=== PATIENT | female | born 1965 | race Caucasian/White ===

== ENCOUNTER 2024-01-23 20:07 | Emergency (ER) | payer OTHER, SELFPAY ==
[2024-01-23 20:08] VITALS: BP 153/102; PULSE 77; RESP 16; TEMP 36.3; O2SAT 97; BMI 29.4
[2024-01-23 21:45] VITALS: BP 156/97; PULSE 63; RESP 16; TEMP 36.6; O2SAT 99
--- NOTE | 2024-01-23 22:39 | EDS_ITS ---
HPI History of Present Illness Chief Complaint: Wound Informant: patient and spouse/S.O. Narrative Narrative: Very pleasant 58-year-old female presenting to the emergency room with bleeding from the right lower leg. Patient notes that the bleeding is occurring in the area of the varicose vein. She is not on any blood thinners. She does not take aspirin. [facility] Medical History Broken back History of broken nose Arthritis Hypothyroidism Varicose veins of both lower extremities Home Medications ?Medication ?Instructions ?Recorded ?Last Taken ?Type famotidine 20 mg tablet 20 mg PO DAILY PRN heartburn 01/23/24 Unknown History levothyroxine 25 mcg tablet 25 mcg PO DAILY 01/23/24 Unknown History meclizine 50 mg tablet (Antivert) 50 mg PO DAILY PRN dizziness 01/23/24 Unknown History meloxicam 15 mg tablet 15 mg PO DAILY 01/23/24 Unknown History Allergy/AdvReac Type Severity Reaction Status Date / Time No Known Allergies Allergy Verified 01/23/24 20:08 Surgical History H/O tubal ligation History of repair of anterior cruciate ligament of left knee Social History Smoking Status: Never smoker ROS ROS ED Constitutional Constitutional ED: Denies chills or weight loss Eyes Eyes: Denies change in vision or diplopia ENT ENT ED: Denies ear pain, rhinorrhea or sore throat Cardiovascular Cardiovascular: Denies chest pain, orthopnea, palpitations or racing heartbeat Respiratory/Chest Respiratory/Chest: Denies cough, dyspnea or orthopnea Gastrointestinal Gastrointestinal: Denies abdominal pain, diarrhea, nausea or vomiting Genitourinary Genitourinary ED: Denies dysuria, hematuria or urinary frequency Musculoskeletal Musculoskeletal: Denies arthralgias or myalgias Integumentary Reports other Details: See history of present illness ; Denies abscess or rash Neurologic Neurologic: Denies headache(s) or weakness Psychiatric Psychiatric: Denies anxiety, depression, suicidal ideation or suicidal thoughts Endocrine Endocrinology: Denies polydipsia, polyphagia or polyuria Allergic/Immunologic Allergic/Immunologic ED: Denies mouth swelling, tongue swelling or urticaria EXAM Physical Exam Const Vital Signs: 01/23/24 20:08 01/23/24 21:45 Temperature 97.4 F L 98 F Temperature Source Temporal Pulse Rate 77 63 Respiratory Rate 16 16 Blood Pressure 153/102 H 156/97 H Blood Pressure Mean 119 116 Pulse Ox 97 99 Positive well nourished and well developed General Appearance ED: well developed and NAD HEENT Reports normocephalic, head/scalp atraumatic and moist mucous membranes Eyes PERRL and EOMs intact bilaterally Neck no lymphadenopathy, supple and no JVD Resp normal respiratory effort and clear to auscultation bilaterally Cardio regular rate, regular rhythm and no murmurs GI normal to inspection, nondistended, normoactive bowel sounds and non-tender Palpation: soft Back/Spine no CVA tenderness and normal ROM Extremity normal to inspection General Extremety ED: Negative for edema General Extremity: Negative for edema Neuro oriented x3 and CN's II-XII intact bilaterally Sensorium / Orientation: alert Motor Exam: strength 5/5 throughout Psych mental status grossly normal Mood & Affect: Negative for depressed or tearful Skin no rashes or lesions noted and no wounds Skin Narrative: There is a fresh clot at the level of the varicose vein on the anterior lower third left briseno. There is no active bleeding. The clot/scab is about 2 to 3 mm in width. No evidence of secondary infection MDM MDM MDM Narrative Medical decision making narrative: A small amount of Dermabond was placed on the wound and then covered with Band- Aid. She was advised to elevate the legs over the next 2 days. She is instructed to avoid any prolonged standing. I would recommend direct pressure for 15 minutes if bleeding returns. Follow-up as needed return if worsening or concern History & Record Review Discussion w/independent historian: Patient Discharge Plan Triage Chief Complaint: Wound ED Provider: Paul Luu Dx/Rx/DC Orders Clinical Impression: Bleeding from varicose veins of left lower extremity Instructions: ED Varicose Veins Prescriptions: No Action famotidine 20 mg tablet 20 mg PO DAILY PRN (Reason: heartburn) meloxicam 15 mg tablet 15 mg PO DAILY levothyroxine 25 mcg tablet 25 mcg PO DAILY meclizine [Antivert] 50 mg tablet 50 mg PO DAILY PRN (Reason: dizziness) Primary Care Provider: Gerardo De Luna Referrals: Gerardo De Luna, DO [Primary Care Provider] - As Needed Print Language: Danish Disposition Disposition: Home, Self Care Discharge Date/Time: 01/23/24 21:46
== END 2024-01-23 21:46 | disposition home or self-care (01) ==
LOC: ED 21:22
PROVIDERS: Emergency Provider Emergency Medicine; PCP Internal Medicine; Visit Provider Emergency Medicine
DX: I83.92 Asymptomatic varicose veins of left lower extremity (principal); E03.9 Hypothyroidism, unspecified; Z79.899 Other long term (current) drug therapy
CPT/HCPCS: 12001; 99283

== ENCOUNTER → 2024-01-26 | Outpatient (CLI) | payer OTHER, SELFPAY ==
[2024-01-26 08:07] LABS: Hematocrit 43.2 % (37-47); Hemoglobin 14.5 g/dL (12.0-15.0); Mean Corp Hgb Conc 33.6 g/dL (32-36); Mean Corpuscular Hgb 32.7 pg (27.0-32.0); Mean Corpuscular Volume 97.5 fL (81-99); Mean Platelet Vol. 9.6 fl (6.2-12.0); Platelet Count 274 K/mm3 (150-450); RBC Distribution Width CV 11.4 % (11.6-14.6); RBC Distribution Width SD 41.4 fl (35.1-43.9); Red Blood Count 4.43 M/mm3 (4.2-5.4); White Blood Count 6.2 K/mm3 (4.4-11.0)
[2024-01-26 08:34] LABS: Vitamin D,25 Hydroxy 34.8 ng/mL
[2024-01-26 08:44] LABS: AST(SGOT) 19 U/L (15-37); Alanine Aminotransfer ALT/SGPT 22 U/L (13-56); Albumin, Serum 3.9 g/dL (3.2-5.0); Alkaline Phosphatase 92 U/L (45-117); Anion Gap 4 (5-15); BUN 11 mg/dL (7-18); BUN/Creat Ratio 13.6 RATIO (10-20); Calcium,Total 9.2 mg/dL (8.5-10.1); Chloride 107 mmol/L (98-107); Cholesterol 256 mg/dL (200); Creatinine, Serum 0.81 mg/dL (0.55-1.02); EST Glomerular Filtration Rate 78 mL/min (>60); Est Glom Filt Rate - Afr Amer 94 mL/min (>60); Glucose 102 mg/dL (74-106); High Density Lipoprotein 48 mg/dL; Potassium 4.1 mmol/L (3.5-5.1); Protein, Total 7.9 g/dL (6.4-8.2); Sodium Level 139 mmol/L (136-145); Triglycerides 280 mg/dL; Very Low Density Lipoprotein 56 mg/dL (5-40)
== END | disposition home or self-care (01) ==
LOC: LAB 07:37
DX: Z00.8 Encounter for other general examination (principal); Z78.0 Asymptomatic menopausal state; E03.9 Hypothyroidism, unspecified
CPT/HCPCS: 36415; 80053; 80061; 82306; 84443; 85027

== ENCOUNTER → 2024-02-06 | Outpatient (CLI) | payer OTHER, SELFPAY ==
--- NOTE | 2024-02-06 07:34 | BI_ITS ---
MAMMOGRAPHY - BILATERAL SCREENING REASON FOR EXAM: Female, 58 years old. Routine annual screening examination. PERTINENT HISTORY: Grandmother with breast cancer. TECHNIQUE: Digital bilateral breast ilda (3D mammographic acquisition) in the CC and MLO projections. 2-D mediolateral oblique (MLO) and craniocaudad (CC) views of both breasts were obtained. CAD: Full Field Digital Mammography with Computer Added Detection was performed. COMPARISON: Comparison is made with prior outside examination dated December 16, 2022. FINDINGS: Breast Composition: The breasts are extremely dense, which lowers the sensitivity of mammography. There are no dominant masses or suspicious calcifications. No other significant abnormalities are identified. There has been no significant change since the prior study. BI/SCRN MAMM (CAD)W/ILDA BILAT IMPRESSION: Stable bilateral screening mammogram. Yearly follow-up mammogram recommended. (A) ASSESSMENT CATEGORY: BIRADS Category 1: Negative. A letter regarding these results will be sent to the patient by the facility within 30 days. Approximately 10% of breast cancers are not detected by mammography. A normal mammogram should not delay biopsy of a clinically suspicious abnormality. [id number] Electronically Signed: Kendrick Christianson MD at 8:46 EDT ,
== END | disposition home or self-care (01) ==
LOC: OPBI 07:31
DX: Z12.31 Encounter for screening mammogram for malignant neoplasm of breast (principal)
CPT/HCPCS: 77063; 77067

== ENCOUNTER → 2024-03-28 | Outpatient (CLI) | payer OTHER, SELFPAY | END | disposition home or self-care (01) | DX: E03.9 Hypothyroidism, unspecified (principal) | CPT/HCPCS: 36415; 84443 ==

== ENCOUNTER → 2024-05-02 | Outpatient (CLI) | payer OTHER, SELFPAY ==
--- OUTSIDE RECORDS SUMMARY | 2024-05-02 06:38 | XMS RPT_ITS | CCD ---
Author Organization [facility] Care Team Providers Care Jinriksha Driver Name Role Phone DICUS, LEONOR Unavailable Unavailable DICUS, LEONOR Unavailable Unavailable JESSICA, CASI N Unavailable Unavailable JESSICA, CASI N Unavailable Unavailable JESSICA, CASI N Unavailable Unavailable JESSICA, CASI N Unavailable Unavailable NONE, NONE Unavailable Unavailable JESSICA, CASI N Unavailable Unavailable JESSICA, CASI N Unavailable Unavailable IRENE, MAAME Unavailable Unavailable IRENE, MAAME Unavailable Unavailable Varun Lzeama [phone] Unavailable U navailable JESSICA, CASI N Unavailable Unavailable No, Physician Primary Care Provider Unavailabl e Casi Cevallos Primary Care Provider Casi Cevallos Unavailable Dana CRAWLER DRAGLINE OPERATORCasi Primary Care Provider Casi Cevallos CNP Unavailable Casi Cevallos CNP Unavailable Dana CRAWLER DRAGLINE OPERATORCasi Primary Care Provider Casi Cevallos CNP Unavailable [phone] Dana CRAWLER DRAGLINE OPERATOR, Casi Russo Primary Care Provider CASI CEVALLOS Primary Care Unavailab Noris Ang Attending Unavailable ALEXANDER MELGOZA Attending Unavail able CASI CEVALLOS Primary Care Unavailab le CASI CEVALLOS Attending Unavailab le CASI CEVALLOS Primary Care Unavailab le CASI CEVALLOS Attending Unavailab le CEVALLOSCASI Primary Care Unavailab le CEVALLOSCASI Attending Unavailab le CEVALLOS, CASI RUSSO Primary Care Unavailab le CEVALLOS, CASI WINNIE Primary Care Unavailab le SELF, REQUESTING Attending Unavailable CEVALLOS, CASI RUSSO Primary Care Unavailab le PAULIEJeana Attending Unavailable CEVALLOS, CASI RUSSO Primary Care Unavailab caitlyn PAULIEJeana Attending Unavailable CEVALLOS, CASI RUSSO Attending Unavailab le CEVALLOS, CASI WINNIE Primary Care Unavailab le Cevallos CRAWLER DRAGLINE OPERATOR, [facility] Cevallos CRAWLER DRAGLINE OPERATOR, Casi Russo Unavailable CEVALLOS, CASI RUSSO Primary Care Unavailab le CEVALLOS, CASI RUSSO Attending Unavailab le CEVALLOS, CASI RUSSO Primary Care Unavailab le KALEB, GERARDO LEOS Attending CORNELL Quinteros Attending Unavailable CEVALLOS, CASI WINNIE Primary Care Unavailab le CEVALLOS, CASI WINNIE Primary Care Unavailab le CEVALLOS, CASI RUSSO Attending Unavailab le CEVALLOS, CASI RUSSO Attending Unavailab le CEVALLOS, CASI WINNIE Primary Care Unavailab le CEVALLOS, CASI WINNIE Primary Care Unavailab le CEVALLOS, CASI RUSSO Attending Unavailab le CEVALLOS, CASI RUSSO Referring Unavailab le CEVALLOS, CASI RUSSO Attending Unavailab le CEVALLOS, CASI WINNIE Primary Care Unavailab le [facility], [facility] Care Unavailab PITER Goetz Attending Unavailable Medications Current Medications Medication Drug Class(es) Dates Sig (Normalized) Sig (Original) aspirin 81 mg / calcium carbonate 777 mg oral tablet (20 sources) Platelet Aggregation Inhibitor, Nonsteroidal Anti-inflammatory Drug aspirin-calcium carbonate 81 mg-300 mg calcium(777 mg) Tab Take 81 mg by mouth . Active atorvastatin 20 mg oral tablet (11 sources) HMG-CoA Reductase Inhibitor Start: 02-15-2024 End: 05-15-2024 take 1 tablet by mouth once daily atorvastatin (LIPITOR) 20 MG tablet Take 1 (one) tablet (20 mg total) by mouth daily . 90 tablet 02/15/2024 05/15/2024 Active busPIRone hydrochloride 15 mg oral tablet (14 sources) Start: 10-29-2020 End: 02-06-2023 busPIRone (BUSPAR) 15 MG tablet Indications: Anxiety Take 1/2 tablet twice a day as needed . 30 tablet 0 10/29/2020 02/06/2023 Discontinued famotidine 20 mg oral tablet (20 sources) Histamine-2 Receptor Antagonist Start: 02-06-2023 End: 02-06-2024 take 1 tablet by mouth once daily as needed for gastroesophageal reflux disease famotidine (PEPCID) 20 MG tablet Indications: Elevated TSH Take 1 (one) tablet (20 mg total) by mouth daily as needed for heartburn . 90 tablet 02/06/2023 Active levothyroxine sodium 0.075 mg oral tablet (20 sources) l-Thyroxine Start: 04-04-2024 End: 05-19-2024 take 1 tablet by mouth once daily levothyroxine (SYNTHROID, LEVOTHROID) 75 MCG tablet Take 1 (one) tablet (75 mcg total) by mouth once daily . 45 tablet 04/04/2024 05/19/2024 Active Start: 02-27-2024 End: 04-04-2024 take 1 tablet by mouth once daily levothyroxine (SYNTHROID, LEVOTHROID) 50 MCG tablet Indications: Hypothyroidism, unspecified type Take 1 (one) tablet (50 mcg total) by mouth once daily for 7 days . 7 tablet 03/27/2024 04/04/2024 Discontinued Start: 02-07-2023 End: 05-15-2024 take 1 tablet by mouth once daily levothyroxine (SYNTHROID, LEVOTHROID) 25 MCG tablet Indications: Beto's disease Take 1 tablet by mouth once daily 90 tablet 03/01/2024 03/27/2024 Discontinued meclizine hydrochloride 12.5 mg oral tablet (20 sources) Antiemetic Start: 01-20-2020 End: 08-22-2022 take 1 tablet by mouth three times daily as needed meclizine (ANTIVERT) 12.5 mg tablet Take 1 (one) tablet (12.5 mg total) by mouth 3 (three) times a day as needed . 30 tablet 08/22/2022 Active meloxicam 15 mg oral tablet (20 sources) Nonsteroidal Anti-inflammatory Drug Start: 07-12-2018 End: 02-27-2024 take 1 tablet by mouth once daily meloxicam (MOBIC) 15 MG tablet Take 1 tablet by mouth once daily 90 tablet 02/27/2024 Active ondansetron 4 mg oral tablet (20 sources) Serotonin-3 Receptor Antagonist Start: 01-20-2020 End: 01-10-2022 take 1 tablet by mouth every eight hours as needed ondansetron (ZOFRAN) 4 MG tablet Take 1 (one) tablet (4 mg total) by mouth every 8 (eight) hours as needed . 9 tablet 01/10/2022 Active predniSONE 20 mg oral tablet (1 source) Start: 04-06-2023 End: 04-10-2023 take 2 tablets by mouth once daily predniSONE (DELTASONE) 20 MG tablet Indications: Poison thanh Take 2 (two) tablets (40 mg total) by mouth daily for 4 days . 8 tablet 0 04/06/2023 04/10/2023 Active progesterone 200 mg oral capsule (14 sources) Progesterone Start: 10-06-2020 End: 02-06-2023 take 1 capsule by mouth once daily progesterone (PROMETRIUM) 200 MG capsule Take 1 (one) capsule (200 mg total) by mouth nightly For 14 days. Cycle days 15 through 28 for 3 months as directed . 0 10/06/2020 02/06/2023 Discontinued Start: 10-06-2020 progesterone ( PROMETRIUM) 200 MG capsule Take 200 mg by mouth nightly For 14 days. Cycle days 15 through 28 for 3 months as directed . 0 10/06/2020 Active Problems Active Problems Problem Classification Problem Date Documented Date Episodic/Chronic Allergic reactions (1 source) Contact dermatitis due to poison thanh; Translations: [Allergic contact dermatitis due to plants, except food] 04-06-2023 Episodic Anxiety disorders (1 source) Anxiety; Translations: [Anxiety] Chronic Coma; stupor; and brain damage (3 sources) Daytime somnolence; Translations: [Somnolence] Onset: 04-30-2024 03-20-2024 Episodic Disorders of lipid metabolism (1 source) Hyperlipidemia; Translations: [Hyperlipidemia, unspecified] 02-06-2023 Chronic Esophageal disorders (1 source) Gastroesophageal reflux disease; Translations: [Gastro-esophageal reflux disease without esophagitis] 02-06-2023 Chronic Mood disorders (1 source) Depressive disorder; Translations: [Depression, unspecified depression type] Chronic Osteoarthritis (9 sources) Arthritis of right hip; Translations: [Unilateral primary osteoarthritis, right hip] Onset: 08-24-2022 Chronic Other circulatory disease (1 source) Elevated blood-pressure reading without diagnosis of hypertension; Translations: [Elevated blood-pressure reading, without diagnosis of hypertension] 02-06-2023 Episodic Other female genital disorders (1 source) Abnormal uterine bleeding; Translations: [Abnormal uterine bleeding] Chronic Other lower respiratory disease (2 sources) Snoring; Translations: [Snoring] 02-29-2024 Episodic Other non-traumatic joint disorders (1 source) Hip pain; Translations: [Pain in left hip] Episodic Residual codes; unclassified (1 source) Menopause present; Translations: [Asymptomatic menopausal state] 2023 Episodic Residual codes; unclassified (2 sources) Asymptomatic menopausal state; Translations: [Asymptomatic menopausal state] Onset: 02-12-2024 Episodic Thyroid disorders (20 sources) Beto thyroiditis; Translations: [Autoimmune thyroiditis] Onset: 03-20-2023 02-07-2023 Chronic Unclassified (20 sources) Encounter for screening mammogram for malignant neoplasm of breast; Translations: [Encounter for screening for malignant neoplasm of cervix] Onset: 08-24-2017 11-01-2018 Episodic Unclassified (6 sources) Patient encounter status; Translations: [Encounter for colorectal cancer screening] Onset: 11-01-2018 11-01-2018 Varicose veins of lower extremity (1 source) Varicose veins of lower extremity; Translations: [Varicose veins of bilateral lower extremities with pain] 02-29-2024 Episodic Past or Other Problems Problem Classification Problem Date Documented Date Episodic/Chronic Immunizations and screening for infectious disease (1 source) Encounter for screening for human papillomavirus (HPV); Translations: [ENC SCREENING HUMAN PAPILLOMAVIRUS] Onset: 08-24-2017 Episodic Medical examination/evaluatio n (3 sources) Encounter for gynecological examination (general) (routine) without abnormal findings; Translations: [ENC PC TECH EX GEN RTN W/O ABNORM FIND] Onset: 08-21-2017 Episodic Unclassified (1 source) Family history of malignant neoplasm of breast; Translations: [FAMILY HX MALIG NEOPLASM OF BREAST] Onset: 09-22-2017 Episodic Results Test Name Value Interpretation Reference Range Facility THINPREP PAP SMEARon 024 THINPREP PAP SMEAR Gynecologic Cytology Report Case: [id number] Authorizing Provider: Piter Garza MD Collected: 04/11/2024 Ordering Location: [facility] Received: 04/17/2024 02:16 PM Laboratory Services First Screen: Nelda NIXON(ASCP)Jose Pathologist: Sage Olmstead MD Specimen: THINPREP PAP SMEAR, Cervix / Endocervix Satisfactory for evaluation; endocervical/transform ation zone component present Atypical squamous cells of undetermined significance The Pap smear is a screening test for the detection of cervical cancer and its precursor lesions. False positive and false negative results can occur. The test should be performed at regular intervals, and positive results should be confirmed before definitive therapy. Additional testing methods may be helpful in detecting abnormalities or in clinical management. The specimen has been analyzed by the ThinPrep imaging system, an automated imaging and review system which assists the laboratory in evaluating cells on ThinPrep tests. Following automated imaging selected pozo from every slide are reviewed by a supervisor cutting department. Specimen processing and Primary Screening performed at: [facility] - [address] [place] [address] HPV 16 : Negative HPV 18 : Negative HPV, Other HR Types : Negative Assay performed using Duane Campbell 4800 system utilizing Real-Time PCR to amplify target HPV DNA. This system specifically identifies HPV16 and HPV18 while concurrently detecting the other twelve high risk types (31,33,35,39,45,51,52, 56,58,59,66,68). These HPV results have been electronically added to this report as an aid for patient management. HPV testing performed at: [facility] - [address] [place] [address] - Abnormal [facility] Comment on above: Performed By: #### [id number] #### [facility] [address] [place] [address] Dain Ravi M.D. [id number] TSH DL <= 0.005 mIU/L Qnon 0 03-20-2023 TSH Qn 1.96 m[IU]/L [facility] Thyroid Stimulating Hormoneo n 03-20-2023 TSH 1.96 uIU/mL Normal 0.32-5.00 [facility] Comment on above: Performed By: #### T SH #### [facility] (DEFAULT) [address] [place], [place] [address] US THYROIDon 02-08-2023 [facility] Patient: JIE LUJAN [address] [place] [address] Admit Date: 02/08/23 /Age: 05 1965 ED Physician: DIAGNOSTIC RADIOLOGY REQUISITION Attending Physician: Casi Cevallos CNP Med Rec #: [id number] EXAM: US THYROID HISTORY: BETO'S COMPARISON: None. FINDINGS: Right lobe: 4.7 x 1.5 x 1.5 cm. Isthmus: 5 mm. Left lobe: 4.1 x 1.5 x 1.4 cm. The gland is heterogeneous in echotexture with normal color Doppler flow. 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 No mass. IMPRESSION: Consistent with Beto's thyroiditis. No acute change. Authenticated on: 02/08/23 [id number] Job ID# [id number] CC: Casi Cevallos CNP Normal [facility] TSH DL <= 0.005 mIU/L Qnon 0 02-06-2023 Interpretation and review of laboratory results Abnormal [facility] TSH Qn 11.50 m[IU]/L High [facility] Thyroid Peroxidase (TPO) Abo n 02-06-2023 Thyroid Peroxidase (TPO) Ab THYROID PEROXIDASE ANTIBODIES: 115.9 Units: IU/mL Ref Range: 0.0-9.0 Status: H Testing Performed At: [facility] Services [address] [place] [address] Assay performed by [employer] DXI Immunoassay. Normal [facility] Comment on above: Performed By: #### T PAB #### [facility] (DEFAULT) [address] [place] [id number] Thyroid Stimulating Hormoneo n 02-06-2023 TSH 11.50 uIU/mL High 0.32-5.00 [facility] Comment on above: Performed By: #### T SH #### [facility] (DEFAULT) [address] [place], [place] [address] 3D MAMMO B/L SCREENINGon 3D MAMMO B/L SCREENING [facility] Patient: JIE LUJAN [address] [place] [address] Admit Date: 12/16/22 /Age: 05 1965 Attending Physician: Self Requesting DIAGNOSTIC RADIOLOGY REQUISITION Med Rec #: [id number] HISTORY: Screening. TECHNIQUE: Bilateral digital screening mammogram with CAD. 3-D tomography. FINDINGS: Two views of each breast show heterogeneously dense fibroglandular tissue, which may obscure small masses, bilaterally symmetric. BREAST DENSITY CODE: Heterogeneously dense No change from prior studies, most recent of 11/19/2021. Suspicious calcifications: None. Suspicious mass: None. (If skin markers were applied, circles represent skin lesions and linear markers represent scars.) ASSESSMENT: BIRADS: 1 Negative, no evidence of malignancy. A letter of notification will be sent to the patient regarding the results. Authenticated on: 12/19/22 1635 [id number] Job ID# [id number] CC: Casi Cevallos, SUNDEEP Self Requesting Normal [facility] M TUBERCULOSIS BY Amol ALEGRIA 10-11-2022 M. TB Mitogen-Nil 9.98 IU/mL Normal [facility] Comment on above: Order Comment: The M . Tuberculosis antigen levels cannot be correlated to stage or degree of infection, response to therapy or likelihood for progression to active disease. Results from QuantiFERON TB Gold Plus must be used in conjunction with individual epidemiological history, current medical status, and results of other diagnostic evaluation. Performed By: #### Q FTB #### [facility] (DEFAULT) [address] [address] M. TB Nil 0.02 IU/mL Normal [facility] Comment on above: Order Comment: The M . Tuberculosis antigen levels cannot be correlated to stage or degree of infection, response to therapy or likelihood for progression to active disease. Results from QuantiFERON TB Gold Plus must be used in conjunction with individual epidemiological history, current medical status, and results of other diagnostic evaluation. Performed By: #### Q FTB #### [facility] (DEFAULT) [address] [address] M. TB TB1-Nil 0.01 IU/mL Normal [facility] Comment on above: Order Comment: The M . Tuberculosis antigen levels cannot be correlated to stage or degree of infection, response to therapy or likelihood for progression to active disease. Results from QuantiFERON TB Gold Plus must be used in conjunction with individual epidemiological history, current medical status, and results of other diagnostic evaluation. Performed By: #### Q FTB #### [facility] (DEFAULT) [address] [place] [address] M. TB TB2-Nil 0.00 IU/mL Normal [facility] Comment on above: Order Comment: The M . Tuberculosis antigen levels cannot be correlated to stage or degree of infection, response to therapy or likelihood for progression to active disease. Results from QuantiFERON TB Gold Plus must be used in conjunction with individual epidemiological history, current medical status, and results of other diagnostic evaluation. Performed By: #### Q FTB #### [facility] (DEFAULT) [address] [address] M. Tuberculosis by Quantiferon in tube Negative Normal Negative [facility] Comment on above: Order Comment: The M . Tuberculosis antigen levels cannot be correlated to stage or degree of infection, response to therapy or likelihood for progression to active disease. Results from QuantiFERON TB Gold Plus must be used in conjunction with individual epidemiological history, current medical status, and results of other diagnostic evaluation. Performed By: #### Q FTB #### [facility] (DEFAULT) [address] [address] HIP ARTHROGRAMon 08-24-2022 HIP ARTHROGRAM [facility] Patient: JIE [place] [address] Admit Date: 08/24/22 /Age: 05 1965 / 08/24/22 ED Physician: DIAGNOSTIC RADIOLOGY REQUISITION Attending Physician: Jeana Camacho MD Med Rec #: [id number] EXAMINATION: HIP ARTHROGRAM HISTORY: HIP INJECTION. Left hip pain. COMPARISON: Left hip 08/17/2022. FLUOROSCOPY TIME: Fluoro time measures 1.2 minutes and a single spot image was saved. TECHNIQUE: Left hip arthrogram for pain control. FINDINGS: Informed consent was obtained. Timeout performed. Patient placed supine on the fluoroscopy table and after sterile preparation and draping, 15 mL of 1% buffered lidocaine local anesthesia administered through a 25-gauge needle. Subsequently 3.5 22-gauge spinal needle advanced into the left hip joint at the lateral femoral neck and a test injection of Isovue 300 contrast, 3 mL, showed intra-articular needle placement. Subsequently 1 mL of 40 mg/mL triamcinolone acetate and 1 mL of Sensorcaine 0.5% was instilled without complication. I gave the home-going instructions. The patient tolerated the procedure well. IMPRESSION: Left hip arthrogram for pain control. Authenticated on: 08/24/22 1439 [id number] Job ID# [id number] CC: MD Casi Rose, CRAWLER DRAGLINE OPERATOR Normal [facility] HIP LT MIN 2V W OR WO PELVIS on 08-17-2022 HIP LT MIN 2V W OR WO PELVIS [facility] Patient: JIE [place] [address] Admit Date: 08/17/22 /Age: 05 1965 / ED Physician: DIAGNOSTIC RADIOLOGY REQUISITION Attending Physician: Jeana Camacho MD Med Rec #: [id number] EXAM: HIP LT MIN 2V W OR WO PELVIS HISTORY: ARTHRITIS COMPARISON: 03/17/2021 FINDINGS/IMPRESSION: 1. Moderate osteoarthritic changes are similar. Osteophytes on the superior lateral acetabulum, left greater than right unchanged. 2. Femoral heads remain rounded. 3. No fracture. 4. Mild degenerative change left SI joint. Authenticated on: 08/17/22 1343 [id number] Job ID# [id number] CC: MD Casi Rose, CRAWLER DRAGLINE OPERATOR [facility] NOVEL CORONAVIRUSon 06-03-20 21 PERFORMED BY [facility] Normal [facility] Comment on above: Performed By: #### C COVID #### [place] [address] SARS-CoV-2 (COVID-19) RNA LORRIE+probe Ql (Unsp spec) Not detected Normal NOT DETECTED [facility] Comment on above: Result Comment: Nega tive results do not preclude SARS-CoV-2 infection and should not be used as the sole basis for treatment or other patient management decisions. Optimum specimen types and timing for peak viral levels during infections caused by SARS-CoV-2 has not been determined. The possibility of a false negative result should especially be considered if the patient's recent exposures or clinical presentation suggest that SARS-CoV-2 infection is probable, and diagnostic tests for other causes of illness (e.g., other respiratory illness) are negative. Collection of a new specimen and re-testing may be necessary if the patient is critically ill or clinically deteriorating. Performed By: #### C COVID #### [place] [address] NARRATIVE This test was performed using isothermal LORRIE and has been approved as Emergency Use Authorization (EUA) for the qualitative detection [id number] nucleic acid. Normal [facility] Comment on above: Performed By: #### C COVID #### [place] [address] HCV ABon 11-15-2017 HEP C VIRUS AB <0.1 Normal 0.0-0.9 [facility] Comment on above: Result Comment: (NOT E) Negative: < 0.8 Indeterminate: 0.8 - 0.9 Positive: > 0.9The [facility] recommends that a positive HCV antibody resultbe followed up with a HCV Nucleic Acid Amplificationtest ([id number]).PERFORMED AT [facility] Performed By: #### L HBSAB, LHCAB, LMMR ####Testing performed at [address] [place] [address] HEP B SURFACE ABon 8 BSA (Body Surface Area) Reactive Normal [facility] Comment on above: Result Comment: (NOT E) Non Reactive: Inconsistent with immunity, less than 10 mIU/mL Reactive: Consistent with immunity, greater than 9.9 mIU/mLPERFORMED AT [facility] Performed By: #### L HBSAB, LHCAB, LMMR ####Testing performed at [address] [place] [address] MEASLES,MUMP,RUBELLAon 11-15 MUMPS ABS, IGG 173.0 AU/mL Normal Immune >10.9 [facility] Comment on above: Result Comment: (NOT E) Negative <9.0 Equivocal 9.0 - 10.9 Positive >10.9A positive result generally indicates past exposure toMumps virus or previous vaccination.PERFORMED AT [facility] Performed By: #### L HBSAB, LHCAB, LMMR ####Testing performed at [address] [place] [address] RUBEOLA AB, IGG 164.0 AU/mL Normal Immune >29.9 [facility] Comment on above: Result Comment: (NOT E) Negative <25.0 Equivocal 25.0 - 29.9 Positive >29.9Presence of antibodies to Rubeola is presumptive evidenceof immunity except when acute infection is suspected. Performed By: #### L HBSAB, LHCAB, LMMR ####Testing performed at [address] [place] [address] RUBELLA AB, IGG 24.80 index Normal Immune >0.99 [facility] Comment on above: Result Comment: (NOT E) Non-immune <0.90 Equivocal 0.90 - 0.99 Immune >0.99 Performed By: #### L HBSAB, LHCAB, LMMR ####Testing performed at [address] [address] FAX REQUESTon 11-14-2017 FAX TO [facility] Comment on above: Performed By: #### L HBSAB, LHCAB, LMMR ####Testing performed at [facility], [address] [place] [address] MAMMOGRAM SCREENING BI INCL CADon 09-21-2017 MAMMOGRAM SCREENING BI INCL CAD PROCEDURE: MAMMOGRAM SCREENING BI INCL CAD, MAMMOGRAM TOMOSYNTHESIS BREASTBILATERAL SCREENING, 09/20/2017 10:55 AMCLINICAL INDICATIONS: Encounter for screening mammogram for malignant neoplasmof breast. STATED CLINICAL CONCERNS: None.STATED FAMILY HISTORY OF BREAST CANCER: Maternal grandmother. COMPARISON: 11/23/2016, 11/13/2015, 11/05/2014, 10/30/2013, 10/17/2012 from [facility].TECHNIQUE: Digital screening bilateral mammography with computer-aideddetectio n and 3-D tomographic assessment, craniocaudal, mediolateral obliqueimages obtained of both breasts. Exaggerated craniocaudal lateral imagesobtained of both breasts.BREAST COMPOSITION: The fibroglandular pattern is extremely dense, which lowersthe sensitivity of mammography. FINDINGS: Scattered benign calcifications are seen. Residual glandular patternis similar in distribution to prior studies without new asymmetry. Skinthickening or architectural distortion is not seen. IMPRESSION:Benign mammographic findings without significant interval change.BI-RADS 2 - Benign, no evidence of malignancy. Normal interval followup isrecommended in 12 months.OVERALL ASSESSMENT- BENIGNA letter of notification will be sent to the patient regarding the results. Normal [facility] MAMMOGRAM TOMOSYNTHESIS [address] BILATERAL SCREENINGon 09-21-2017 Bilirubin (total) PROCEDURE: MAMMOGRAM SCREENING BI INCL CAD, MAMMOGRAM TOMOSYNTHESIS BREASTBILATERAL SCREENING, 09/20/2017 10:55 AMCLINICAL INDICATIONS: Encounter for screening mammogram for malignant neoplasmof breast. STATED CLINICAL CONCERNS: None.STATED FAMILY HISTORY OF BREAST CANCER: Maternal grandmother. COMPARISON: 11/23/2016, 11/13/2015, 11/05/2014, 10/30/2013, 10/17/2012 from [facility].TECHNIQUE: Digital screening bilateral mammography with computer-aideddetectio n and 3-D tomographic assessment, craniocaudal, mediolateral obliqueimages obtained of both breasts. Exaggerated craniocaudal lateral imagesobtained of both breasts.BREAST COMPOSITION: The fibroglandular pattern is extremely dense, which lowersthe sensitivity of mammography. FINDINGS: Scattered benign calcifications are seen. Residual glandular patternis similar in distribution to prior studies without new asymmetry. Skinthickening or architectural distortion is not seen. IMPRESSION:Benign mammographic findings without significant interval change.BI-RADS 2 - Benign, no evidence of malignancy. Normal interval followup isrecommended in 12 months.OVERALL ASSESSMENT- BENIGNA letter of notification will be sent to the patient regarding the results. Normal [facility] THIN PREP with HPVon [id number] . Normal [facility] Comment on above: Result Comment: Perf ormed at: WB Performed By: #### T PH ####Performed for [address] [id number] Negative Normal Negative [facility] Comment on above: Result Comment: This test detects fourteen high-risk HPV types (16/18/31/33/35/39/45/51/52/56/58/59/66/68) without differentiation.Performed at: =G Performed By: #### T PH ####Performed for [address] [address] Artificial Intelligence Specialist (cervix/vaginal) Comment Normal [facility] Comment on above: Result Comment: Pema Sanchez, Supervisory Woodyard Operator (ASCP)Performed at: WB Performed By: #### T PH ####Performed for [address] [address] Cytology report (cervical/vaginal) Comment Normal [facility] Comment on above: Result Comment: This liquid based ThinPrep(R) pap test was screened with theuse of an image guided system.Performed at: WB Performed By: #### T PH ####Performed for [place] [address] Note: Comment Normal [facility] Comment on above: Result Comment: The Pap smear is a screening test designed to aid in the detection ofpremalignant and malignant conditions of the uterine cervix. It is not adiagnostic procedure and should not be used as the sole means of detectingcervical cancer. Both false-positive and false-negative reports do occur. .Performed at: WB Performed By: #### T PH ####Performed for [place] [address] Pathology narrative Comment Normal [facility] Comment on above: Result Comment: NEGA TIVE FOR INTRAEPITHELIAL LESION AND MALIGNANCY.CELLULAR CHANGES ASSOCIATED WITH INFLAMMATION ARE PRESENT.Performed at: WB Performed By: #### T PH ####Performed for [place] [address] Statement of adequacy (cervix/vaginal) Comment Normal [facility] Comment on above: Result Comment: Sati sfactory for evaluation. Endocervical and/or squamous metaplasticcells (endocervical component) are present.Performed at: WB Performed By: #### T PH ####Performed for [place] [address] Vital Signs Date Time Vital Sign Value Performing Clinician Redd wolff 02-27-2024 07:58-0400 Body height 185.4 cm Casi Cevallos CRAWLER DRAGLINE OPERATOR Work Phone: [facility] 02-27-2024 07:58-0400 Body mass index (BMI) [Ratio] 30.08 kg/m2 Casi Cevallos CRAWLER DRAGLINE OPERATOR Work Phone: [facility] 02-27-2024 07:58-0400 Body weight 103.42 kg Casi Cevallos CRAWLER DRAGLINE OPERATOR Work Phone: [facility] 02-27-2024 07:58-0400 Diastolic blood pressure 86 mm[Hg] Casi Cevallos CRAWLER DRAGLINE OPERATOR Work Phone: [facility] 02-27-2024 07:58-0400 Heart rate 77 /min Casi Cevallos CRAWLER DRAGLINE OPERATOR Work Phone: [facility] 02-27-2024 07:58-0400 SaO2% (BldA) [Mass fraction] 98 % Casi Cevallos CRAWLER DRAGLINE OPERATOR Work Phone: [facility] 02-27-2024 07:58-0400 Systolic blood pressure 126 mm[Hg] Casi Cevallos CRAWLER DRAGLINE OPERATOR Work Phone: [facility] 10-16-2023 08:36-0400 Diastolic blood pressure 82 mm[Hg] Casi Cevallos CRAWLER DRAGLINE OPERATOR Work Phone: [facility] 10-16-2023 08:36-0400 Systolic blood pressure 138 mm[Hg] Casi Cevallos CRAWLER DRAGLINE OPERATOR Work Phone: [facility] 10-16-2023 08:15-0400 Body height 185.4 cm Casi Cevallos CRAWLER DRAGLINE OPERATOR Work Phone: [facility] 10-16-2023 08:15-0400 Body mass index (BMI) [Ratio] 30.74 kg/m2 Casi Cevallos CRAWLER DRAGLINE OPERATOR Work Phone: [facility] 10-16-2023 08:15-0400 Body weight 105.69 kg Casi Cevallos CRAWLER DRAGLINE OPERATOR Work Phone: [facility] 10-16-2023 08:15-0400 Heart rate 69 /min Casi Cevallos CRAWLER DRAGLINE OPERATOR Work Phone: [facility] 10-16-2023 08:15-0400 SaO2% (BldA) [Mass fraction] 96 % Casi Cevallos CRAWLER DRAGLINE OPERATOR Work Phone: [facility] 02-06-2023 07:36-0400 Body height 185.4 cm Casiaman Cevallos CRAWLER DRAGLINE OPERATOR Work Phone: [facility] 02-06-2023 07:36-0400 Body mass index (BMI) [Ratio] 30.03 kg/m2 Casi Cevallos CRAWLER DRAGLINE OPERATOR Work Phone: [facility] 02-06-2023 07:36-0400 Body temperature 98.4 [degF] Casiaman Cevallos CRAWLER DRAGLINE OPERATOR Work Phone: [facility] 02-06-2023 07:36-0400 Body weight 103.24 kg Casi Cevallos CRAWLER DRAGLINE OPERATOR Work Phone: [facility] 02-06-2023 07:36-0400 Diastolic blood pressure 88 mm[Hg] Casi Cevallos CRAWLER DRAGLINE OPERATOR Work Phone: [facility] 02-06-2023 07:36-0400 Heart rate 81 /min Casi Cevallos CRAWLER DRAGLINE OPERATOR Work Phone: [facility] 02-06-2023 07:36-0400 Respiratory rate 15 /min Casi Cevallos CRAWLER DRAGLINE OPERATOR Work Phone: [facility] 02-06-2023 07:36-0400 SaO2% (BldA) [Mass fraction] 95 % Casi Cevallos CRAWLER DRAGLINE OPERATOR Work Phone: [facility] 02-06-2023 07:36-0400 Systolic blood pressure 139 mm[Hg] Casi Cevallos CRAWLER DRAGLINE OPERATOR Work Phone: [facility] 03-17-2021 13:47-0400 Body height 185.4 cm Noris Camacho MD Work Phone: [facility] 03-17-2021 13:47-0400 Body mass index (BMI) [Ratio] 30.21 kg/m2 Noris Camacho MD Work Phone: [facility] 03-17-2021 13:47-0400 Body weight 103.87 kg Noris Camacho MD Work Phone: [facility] 03-17-2021 13:47-0400 Respiratory rate 18 /min Noris Camacho MD Work Phone: [facility] 10-29-2020 14:36-0400 BMI (Body Mass Index) 29.8 kg/m2 Casi Cevallos [facility] 10-29-2020 14:36-0400 Body Temperature 97.7 [degF] Casi Cevallos [facility] 10-29-2020 14:36-0400 Body weight 103.87 kg Casi Cevallos [facility] 10-29-2020 14:36-0400 BP Diastolic 80 mm[Hg] Casi Cevallos [facility] 10-29-2020 14:36-0400 BP Systolic 120 mm[Hg] Casi [facility] 10-29-2020 14:36-0400 Height 186.7 cm Casi [facility] 10-29-2020 14:36-0400 Pulse (Heart Rate) 72 /min [facility] 10-29-2020 14:36-0400 Pulse Oximetry 99 % Casi [facility] 10-29-2020 14:36-0400 Respiratory Rate 16 /min [facility] 01-20-2020 13:48-0400 BMI (Body Mass Index) 28.11 kg/m2 [facility] 01-20-2020 13:48-0400 Body Temperature 98.1 [degF] [facility] 01-20-2020 13:48-0400 Body weight 97.98 kg [facility] 01-20-2020 13:48-0400 BP Diastolic 76 mm[Hg] [facility] 01-20-2020 13:48-0400 BP Systolic 124 mm[Hg] [facility] 01-20-2020 13:48-0400 Height 186.7 cm [facility] 01-20-2020 13:48-0400 Pulse (Heart Rate) 68 /min [facility] 01-20-2020 13:48-0400 Pulse Oximetry 97 % [facility] 01-20-2020 13:48-0400 Respiratory Rate 15 /min [facility] 11-01-2018 15:00-0400 BMI (Body Mass Index) 26.96 kg/m2 [facility] 15:00-0400 BP Diastolic 72 mm[Hg] [facility] 11-01-2018 15:00-0400 BP Systolic 138 mm[Hg] [facility] 11-01-2018 15:00-0400 Height 188 [facility] 11-01-2018 15:00-0400 Pulse (Heart Rate) 80 /min [facility] 11-01-2018 15:00-0400 Respiratory Rate 16 /min [facility] 11-01-2018 15:00-0400 Weight 95.25 kg Bubba Silva [facility] Encounters Encounter Date Encounter Type Care Provider Facility Start: 04-30-2024 End: 04-30-2024 ambulatory CASI CEVALLOS [facility] Start: 04-11-2024 End: 04-17-[address] 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; Hypothyroidism, unspecified type Start: 03-26-2024 End: 03-27-2024 Orders Only Casi Russo Dana CRAWLER DRAGLINE OPERATOR Work Phone: [facility] Physician [facility] [place] Comment on above: Hypothyroidism, unsp ecified type (Primary Dx) Start: 03-25-2024 End: 03-27-2024 Refill Casi Russo Dana CRAWLER DRAGLINE OPERATOR Work Phone: [facility] Physician [facility] [place] Comment on above: Hypothyroidism, unsp ecified type Start: 03-20-2024 End: 03-21-2024 Orders Only Casi Russo Dana CRAWLER DRAGLINE OPERATOR Work Phone: [facility] Physician [facility] [place] Comment on above: Daytime sleepiness ( Primary Dx) Start: 03-05-2024 End: 03-05-2024 Orders Only Casi Winnie Cevallos CRAWLER DRAGLINE OPERATOR Work Phone: [facility] Physician [facility] [place] Comment on above: Loud snoring (Primar y Dx) Start: 03-01-2024 End: 03-01-2024 Refill Casi Cevallos CRAWLER DRAGLINE OPERATOR Work Phone: [facility] Physician [facility] [place] 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 Start: 02-27-2024 End: 02-27-2024 Refill Casi Cevallos CRAWLER DRAGLINE OPERATOR Work Phone: [facility] Physician [facility] [place] Start: 02-27-2024 End: 02-27-2024 Office outpatient visit 25 minutes Casi Cevallos CRAWLER DRAGLINE OPERATOR Work Phone: [facility] Physician [facility] [place] Comment on above: Varicose veins of freya th lower extremities with pain (Primary Dx); Hypothyroidism, unspecified type; Loud snoring Start: 02-27-2024 End: 02-27-2024 ambulatory CASI CEVALLOS [facility] Start: 02-15-2024 End: 02-16-2024 Orders Only Casi Cevallos CRAWLER DRAGLINE OPERATOR Work Phone: [facility] Primary [facility] [place] Comment on above: Hypothyroidism, unsp ecified type (Primary Dx); Beto's disease Start: 02-12-2024 ambulatory CASI CEVALLOS [facility] Start: 02-12-2024 Encounter for other general examination CASI CEVALLOS [facility] Start: 01-30-2024 ambulatory CASI CEVALLOS [facility] Start: 2023 Orders Only Casi Cevallos CRAWLER DRAGLINE OPERATOR Work Phone: [facility] [place] Comment on above: Menopause (Primary D x); Hypothyroidism, unspecified type; Encounter for biometric screening Start: 2023 Patient encounter status Kostas Cevallos CRAWLER DRAGLINE OPERATOR Work Phone: [facility] Start: 12-05-2023 Refill Casi Cevallos CRAWLER DRAGLINE OPERATOR Work Phone: [facility] Physician [facility] [place] 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 Start: 10-18-2023 ambulatory CORNELL JACOME [facility] Ambulatory Start: 10-16-2023 End: 10-16-2023 Periodic preventive med est patient 40-64yrs Casi Russo Cevlalos CRAWLER DRAGLINE OPERATOR Work Phone: [facility] Physician [facility] [place] Comment on above: Physical exam (Prima ry Dx); Encounter for screening mammogram for malignant neoplasm of breast Start: 10-16-2023 End: 10-16-2023 Physical examination Casi Russo Cevallos CRAWLER DRAGLINE OPERATOR Work Phone: [facility] Work Phone: Start: 10-16-2023 End: 10-16-2023 ambulatory CASI WELLSSkyler CEVALLOS [facility] Start: 09-12-2023 Refill Gerardo yin [place] DO Work Phone: [facility] [place] 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 Start: 06-12-2023 Refill Casiaman Cevallos CRAWLER DRAGLINE OPERATOR Work Phone: [facility] [place] 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 Start: 04-06-2023 Orders Only Casi Cevallos CRAWLER DRAGLINE OPERATOR Work Phone: [facility] [place] Comment on above: Poison thanh (Primary Dx) Start: 03-21-2023 Refill Casi Winnie Cevallos CRAWLER DRAGLINE OPERATOR Work Phone: [facility] [place] 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 Start: 03-20-2023 Orders Only Casi Cevallos CRAWLER DRAGLINE OPERATOR Work Phone: [facility] [place] Start: 03-20-2023 End: 03-20-2023 Orders Only Casi Cevallos CRAWLER DRAGLINE OPERATOR Work Phone: [facility] [place] 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 Start: 02-06-2023 Orders Only Casi Cevallos CRAWLER DRAGLINE OPERATOR Work Phone: [facility] Physician [facility] [place] Start: 02-06-2023 End: 02-06-2023 ambulatory CASI CEVALLOS Facility:[facility] Start: 02-06-2023 End: 02-06-2023 Periodic preventive med est patient 40-64yrs Casi Cevallos CRAWLER DRAGLINE OPERATOR Work Phone: [facility] Physician [facility] [place] Comment on above: Elevated TSH (Primar y Dx); Hyperlipidemia, unspecified hyperlipidemia type; Single episode of elevated blood pressure; Gastroesophageal reflux disease, unspecified whether esophagitis present Start: 12-16-2022 End: 12-16-2022 ambulatory CASI CEVALLOS Facility:[facility] Start: 10-11-2022 End: 10-11-2022 ambulatory [facility] Start: 10-11-2022 End: 10-11-2022 Encounter for general adult medical examination without abnormal findings [facility] Start: 08-24-2022 End: 08-24-2022 ambulatory CASIAMAN CEVALLOS [facility] Start: 08-22-2022 Refill Casi Cevallos CRAWLER DRAGLINE OPERATOR Work Phone: [facility] Physician [facility] [place] Start: 08-17-2022 End: 08-17-2022 Orders Only Noris Camacho MD Work Phone: [facility] Comment on above: Arthritis of left hi p (Primary Dx) Start: 01-10-2022 Refill Gerardo De Luna DO Work Phone: [facility] Physician [facility] [place] Start: 09-21-2021 Orders Only Casi Cevallos CRAWLER DRAGLINE OPERATOR Work Phone: [facility] Physician [facility] [place] Start: 09-20-2021 Refill Casiaman Russo Dana CRAWLER DRAGLINE OPERATOR Work Phone: [facility] Physician [facility] [place] Start: 03-25-2021 Refill Briseyda Gómezbeti THOMPSON [facility] [place] Start: 03-19-2021 Orders Only Noris Camacho MD Work Phone: [facility] Comment on above: Primary osteoarthrit is of left hip (Primary Dx) Start: 03-17-2021 Orders Only Noris Camacho MD Work Phone: [facility] Comment on above: Arthritis of right h ip (Primary Dx) Start: 03-17-2021 End: 03-17-2021 Office outpatient visit 10 minutes Noris Camacho MD Work Phone: [facility] Comment on above: Arthritis of right h ip (Primary Dx) Start: 03-16-2021 Orders Only Noris Camacho MD Work Phone: [facility] Comment on above: Left hip pain (Prima ry Dx) Start: 10-29-2020 End: 10-29-2020 Office outpatient visit 25 minutes Casi Cevallos Work Phone: [facility] Physician [facility] [place] Comment on above: Anxiety; Depression, unspecified depression type; Breast cancer screening by mammogram Start: 01-20-2020 End: 01-20-2020 Initial preventive medicine new patient 40-64yrs Casi Cevallos Work Phone: [facility] Physician [facility] [place] Comment on above: Well woman exam (Kamila xenia Dx); Abnormal uterine bleeding Start: 11-01-2018 End: 11-01-2018 Office outpatient visit 10 minutes Bubba Silva Work Phone: [facility] Comment on above: Encounter for colore ctal cancer screening (Primary Dx) Start: 11-14-2017 Ambulatory LEONOR Casas [facility] Start: 09-20-2017 End: 09-21-2017 Ambulatory CASI LOPEZ Facility:[facility] Start: 08-21-2017 End: 08-22-2017 Ambulatory CASI LOPEZ Facility:[facility] Procedures Date Procedure Procedure Detail Performing Clinician Start: 02-12-2024 Mammography Casi Roman chandra CRAWLER DRAGLINE OPERATOR Work Phone: Start: 03-24-2023 Microscopic observat ion [Identifier] in Cervix by Cyto stain Gerardo Kaleb DO Work Phone: Start: 03-20-2023 Assay of thyroid stimulating hormone tsh Casi Cevallos CRAWLER DRAGLINE OPERATOR Work Phone: Start: 02-06-2023 Assay of thyroid stimulating hormone tsh Casi Cevallos CRAWLER DRAGLINE OPERATOR Work Phone: Start: 02-06-2023 Adult depression scr eening assessment Casi Cevallos CRAWLER DRAGLINE OPERATOR Work Phone: Start: 12-20-2022 Mammography Casi Owens prateek CRAWLER DRAGLINE OPERATOR Work Phone: Start: 03-14-2022 Microscopic observat ion [Identifier] in Cervix by Cyto stain Casi Cevallos CRAWLER DRAGLINE OPERATOR Work Phone: Start: 11-22-2021 Mammography Gerardo malin DO Work Phone: Start: 02-22-2021 Microscopic observat ion [Identifier] in Cervix by Cyto stain Casi Cevallos CRAWLER DRAGLINE OPERATOR Work Phone: Start: 11-17-2020 Mammography Noris Camacho MD Work Phone: Start: 10-29-2020 Adult depression scr eening assessment Casi Dana Start: 01-20-2020 Adult depression scr eening assessment Casi Cevallos Start: 01-20-2020 Microscopic observat ion [Identifier] in Cervix by Cyto stain Casi Dana Start: 09-02-2019 Mammography Casi chandra Start: 11-21-2018 Colonoscopy Casi chandra Plan of Treatment Date Care Activity Detail Author Start: 11-21-2028 Screening for malign ant neoplasm of colon [facility] Start: 08-27-2028 Tetanus vaccination Tetanus: Every 1 0yrs [facility] Start: 03-24-2026 Screening for malign ant neoplasm of cervix [facility] Start: 03-14-2025 Screening for malign ant neoplasm of cervix Pap Smear [facility] Start: 02-26-2025 Depression screening using PHQ-9 (Patient Health Questionnaire 9) score Depression Screening/Follow-Up (PHQ-2/9) [facility] Start: 02-11-2025 Screening for malign ant neoplasm of breast Mammogram [facility] Start: 10-19-2024 COVID-19 Vaccine () COVID-19 Vaccine () [facility] Comment on above: Postponed from 03/31 (Treatment Not Available) Start: 10-15-2024 History and physical examination, annual for health maintenance Wellness Visit [facility] Start: 05-16-2024 End: 04-04-2025 Thyrotropin [Units/volume] in Serum or Plasma TSH Lab Routine Hypothyroidism, unspecified type Expected: 05/16/2024, Expires: 04/04/2025 [facility] Work Phone: Comment on above: Expected: 05/16/2024 , Expires: 04/04/2025 Start: 03-31-2024 COVID-19 Vaccine () COVID-19 Vaccine () [facility] Start: 03-31-2024 Influenza vaccination Influenza Vacc ine (#1) [facility] Start: 03-28-2024 End: 02-14-2025 Thyrotropin [Units/volume] in Serum or Plasma TSH Lab Routine Hypothyroidism, unspecified type Expected: 03/28/2024, Expires: 02/14/2025 [facility] Work Phone: Comment on above: Expected: 03/28/2024 , Expires: 02/14/2025 Start: 03-24-2024 History and physical examination, annual for health maintenance Wellness Visit [facility] Start: 02-23-2024 Screening for malign ant neoplasm of cervix Pap Smear [facility] Start: 02-07-2024 Depression screening using PHQ-9 (Patient Health Questionnaire 9) score [facility] Start: 02-07-2024 History and physical examination, annual for health maintenance Wellness Visit [facility] Start: 12-21-2023 Screening for malign ant neoplasm of breast Mammogram [facility] Start: 03-31-2023 COVID-19 Vaccine () COVID-19 Vaccine (2022- season) [facility] Start: 03-31-2023 Influenza vaccination Sequenti al Influenza Vaccine (#1) [facility] Start: 03-21-2023 End: 02-08-2024 Thyrotropin [Units/volume] in Serum or Plasma TSH Lab Routine Beto's disease Expected: 03/21/2023, Expires: 02/08/2024 [facility] Comment on above: Expected: 03/21/2023 , Expires: 02/08/2024 Start: 03-14-2023 Screening for malign ant neoplasm of colon Fecal occult blood test (FOBT,FIT) [facility] Start: 01-19-2023 Screening for malign ant neoplasm of cervix Pap Smear [facility] Start: 11-22-2022 Screening for malign ant neoplasm of breast Mammogram [facility] Start: 03-31-2022 Influenza vaccination [facility] Start: 02-22-2022 History and physical examination, annual for health maintenance Wellness Visit [facility] Start: 11-17-2021 Screening for malign ant neoplasm of breast Mammogram [facility] Start: 10-29-2021 Adolescent depressio n screening assessment Depression Screening (PHQ9) [facility] Start: 10-29-2021 Depression screening using PHQ-9 (Patient Health Questionnaire 9) score [facility] Start: 03-31-2021 Influenza vaccination Sequenti al Influenza Vaccine (#1) [facility] Start: 03-17-2021 End: 03-17-2021 Patient encounter procedure 03/17/2021 Office Visit Orthopedic Surgery Noris Camacho MD [address] [place] [address] [facility] Start: 01-29-2021 COVID-19 Vaccine (3 - Booster for Moderna series) COVID-19 Vaccine (3 - Booster for Moderna series) [facility] Start: 01-19-2021 Depression screening using PHQ-9 (Patient Health Questionnaire 9) score Depression Screening (PHQ9) [facility] Start: 01-19-2021 History and physical examination, annual for health maintenance Wellness Visit [facility] Start: 10-27-2020 COVID-19 Vaccine (3 - Booster for Moderna series) COVID-19 Vaccine (3 - Booster for Moderna series) [facility] Start: 09-02-2020 Screening mammography Mammogram [facility] Start: 03-31-2020 Influenza vaccinatio n given Sequential Influenza Vaccine (Season Ended) [facility] Start: 04-30-2019 Screening for malign ant neoplasm of colon Fecal occult blood test (FOBT,FIT) [facility] Start: 11-15-2018 End: 11-15-2018 Scanned Document 11/15/2018 Scanned Document General Surgery Bubba Silva MD [address] [place] [address] [phone] [facility] Start: 03-31-2018 Influenza vaccinatio n given SEQUENTIAL INFLUENZA VACCINE (#1) [facility] Start: 12-05-2017 Administration of he rpes zoster vaccine Zoster Vaccines (1 of 2) [facility] Start: 12-05-2017 Screening for malign ant neoplasm of colon [facility] Start: 12-05-1997 Screening for malign ant neoplasm of cervix HPV/Cotest [facility] Start: 12-05-1985 Hepatitis C antibody , confirmatory test Hepatitis C Screening [facility] Start: 12-05-1985 Hepatitis C screening Hepatitis C Sc reening [facility] Start: 12-05-1982 HIV screening HIV Screening [facility] Start: 1965 Protein mass conc Mammogram [facility] Start: 1967 Screening for malign ant neoplasm of cervix PAP SMEAR [facility] Start: 1967 Screening for malign ant neoplasm of colon [facility] Start: 1965 Tetanus vaccination TETANUS EVERY 10 YR [facility] End: 12-05-2024 CBC panel - Blood by Automated count CBC Lab Routine Encounter for biometric screening 1 Occurrences starting 2023 until 12/05/2024 [facility] Work Phone: Comment on above: 1 Occurrences starti ng 2023 until 12/05/2024 End: 12-05-2024 Comprehensive metabolic 2000 panel - Serum or Plasma Comprehensive Metabolic Panel Lab Routine Encounter for biometric screening 1 Occurrences starting 2023 until 12/05/2024 [facility] Comment on above: 1 Occurrences starti ng 2023 until 12/05/2024 End: 12-05-2024 Lipid 1996 panel - Serum or Plasma Lipid Panel Lab Routine Encounter for biometric screening 1 Occurrences starting 2023 until 12/05/2024 [facility] Comment on above: 1 Occurrences starti ng 2023 until 12/05/2024 End: 02-07-2024 Measurement of thyroperoxidase antibody Thyroid peroxidase antibody (TPO) Lab Routine Elevated TSH 1 Occurrences starting 02/06/2023 until 02/07/2024 [facility] Comment on above: 1 Occurrences starti ng 02/06/2023 until 02/07/2024 End: 12-29-2021 MG Breast - bilateral screening Mammography Screening Bilateral Imaging Routine Breast cancer screening by mammogram 1 Occurrences starting 10/29/2020 until 12/29/2021 [facility] Comment on above: 1 Occurrences starti ng 10/29/2020 until 12/29/2021 End: 12-15-2024 MG Breast - bilateral Screening Mammography Screening [place] B[facility] Imaging Routine Encounter for screening mammogram for malignant neoplasm of breast 1 Occurrences starting 10/16/2023 until 12/15/2024 [facility] Work Phone: Comment on above: 1 Occurrences starti ng 10/16/2023 until 12/15/2024 Microscopic examinat ion of vaginal Papanicolaou smear Thinprep Pap Smear Pathology and Cytology Routine Well woman exam Ordered: 01/20/2020 [facility] Comment on above: Ordered: 01/20/2020 End: 02-07-2024 Thyrotropin [Units/volume] in Serum or Plasma TSH Lab Routine Elevated TSH 1 Occurrences starting 02/06/2023 until 02/07/2024 [facility] Work Phone: Comment on above: 1 Occurrences starti ng 02/06/2023 until 02/07/2024 End: 12-05-2024 Thyrotropin [Units/volume] in Serum or Plasma TSH Lab Routine Hypothyroidism, unspecified type 1 Occurrences starting 2023 until 12/05/2024 [facility] Comment on above: 1 Occurrences starti ng 2023 until 12/05/2024 End: 02-26-2025 Thyrotropin [Units/volume] in Serum or Plasma TSH Lab Routine Hypothyroidism, unspecified type 1 Occurrences starting 02/27/2024 until 02/26/2025 [facility] Work Phone: Comment on above: 1 Occurrences starti ng 02/27/2024 until 02/26/2025 End: 03-26-2025 Thyrotropin [Units/volume] in Serum or Plasma TSH Lab Routine Hypothyroidism, unspecified type 1 Occurrences starting 03/26/2024 until 03/26/2025 [facility] Work Phone: Comment on above: 1 Occurrences starti ng 03/26/2024 until 03/26/2025 End: 01-19-2021 Transvaginal ultrasonography of pelvis US Transvaginal Imaging Routine Abnormal uterine bleeding 1 Occurrences starting 01/20/2020 until 01/19/2021 [facility] Comment on above: 1 Occurrences starti ng 01/20/2020 until 01/19/2021 End: 02-08-2024 US Thyroid Only [facility] Work Phone: Comment on above: 1 Occurrences starti ng 02/07/2023 until 02/08/2024 1 Occurrences starti ng 02/08/2023 until 02/08/2024 End: 12-05-2024 Vitamin D, 25-hydroxy measurement Vitamin D, Total, 25-OH Lab Routine Menopause 1 Occurrences starting 2023 until 12/05/2024 [facility] Comment on above: 1 Occurrences starti ng 2023 until 12/05/2024 End: 03-19-2022 XR Aspiration Injection Large Joint Left XR Aspiration Injection Large Joint Left Imaging Routine Primary osteoarthritis of left hip 1 Occurrences starting 03/19/2021 until 03/19/2022 [facility] Work Phone: Comment on above: 1 Occurrences starti ng 03/19/2021 until 03/19/2022 End: 08-17-2023 XR Aspiration Injection Large Joint Left XR Aspiration Injection Large Joint Left Imaging Routine Arthritis of left hip 1 Occurrences starting 08/17/2022 until 08/17/2023 [facility] Work Phone: Comment on above: 1 Occurrences starti ng 08/17/2022 until 08/17/2023 End: 03-17-2022 XR Aspiration Injection Large Joint Right XR Aspiration Injection Large Joint Right Imaging Routine Arthritis of right hip 1 Occurrences starting 03/17/2021 until 03/17/2022 [facility] Work Phone: Comment on above: 1 Occurrences starti ng 03/17/2021 until 03/17/2022 End: 08-17-2023 XR Hip Left 2-3 Views (Routine) XR Hip Left 2-3 Views (Routine) Imaging Routine Arthritis of left hip 1 Occurrences starting 08/17/2022 until 08/17/2023 [facility] Work Phone: Comment on above: 1 Occurrences starti ng 08/17/2022 until 08/17/2023 End: 03-16-2022 XR Hip Left With Pelvis 2-3 Views (Routine) XR Hip Left With Pelvis 2-3 Views (Routine) Imaging Routine Left hip pain 1 Occurrences starting 03/16/2021 until 03/16/2022 [facility] Work Phone: Comment on above: 1 Occurrences starti ng 03/16/2021 until 03/16/2022 End: 08-17-2023 XR Pelvis 1 View (Standard) XR Pelvis 1 View (Standard) Imaging Routine Arthritis of left hip 1 Occurrences starting 08/17/2022 until 08/17/2023 [facility] Work Phone: Comment on above: 1 Occurrences starti ng 08/17/2022 until 08/17/2023 Immunizations Immunization Date Immunization Notes Care Provider [facility] 06-07-2023 influenza, injectabl e, quadrivalent, preservative free Casi Cevallos [employer] Work Phone: [facility] 06-07-2023 influenza virus vacc ine, unspecified formulation Casi Cevallos [employer] Work Phone: [facility] 04-26-2022 influenza, injectabl e, quadrivalent, preservative free Casi Cevallos [employer] Work Phone: [facility] 07-02-2021 Pfizer SARS-CoV-2 Vaccination Casi Cevallos [employer] Work Phone: [facility] 05-13-2021 influenza, injectabl e, quadrivalent, preservative free Casi Cevallos [employer] Work Phone: [facility] 10-09-2020 zoster vaccine recombinant Casi sharp [facility] 09-01-2020 Moderna SARS-CoV-2 Vaccination Casi [facility] 08-03-2020 Moderna SARS-CoV-2 Vaccination Casi [facility] 06-22-2020 zoster vaccine recombinant Casi sharp [facility] 04-21-2020 influenza, injectabl e, quadrivalent, preservative free Casi [facility] 04-16-2019 influenza, seasonal, injectable Casi [facility] 08-27-2018 tetanus toxoid, redu ashley diphtheria toxoid, and acellular pertussis vaccine, adsorbed Casi [facility] 04-30-2017 influenza virus vacc ine, whole virus [facility] 05-30-2009 novel influenza-H1N1 -09, preservative-free, injectable [facility] Payers Date Payer Category Payer Private Health Insurance [employer] SHE [employer] [id number] 2023-Present [phone] [address] [place] [address] [id number] 2023 Private Health Insurance [id number] 2018 Unknown MMO MED [employer] S UPERMED PPO xxxxxxxxxxxx 2018-Present xxxxxxxxxxxx [id number] 2018 Unknown [id number] 2018 Unknown MMO MED M[employer] S UPERMED PPO [id number] 2018-Present [phone] [address] [place] [address] [id number] 2018 Unknown [id number] 1965 Unknown [id number] 1967 Unknown [id number] .[id number] 1967 Unknown [id number] .1967 Unknown [id number] .1967 Unknown [id number] [id number] .1967 Unknown [id number] [id number] .1967 Unknown [id number] [id number] .1967 Unknown [id number] [id number] .1967 Unknown [id number] [id number] .1967 Unknown [id number] .3 1959 Unknown [id number] Unknown [id number] Unknown [id number] .383 Unknown [id number] [id number] .383 Unknown [id number] .383 Unknown [id number] Unknown [id number] .383 Unknown [id number] Social History Date Type Detail Facility Start: 11-01-2018 End: 02-06-2023 Tobacco smoking status ARIS Never smoker [facility] Start: 11-01-2018 History SDOH Alcohol Frequency 1 [facility] Start: 1965 Sex Assigned At Not on file [facility] Start: 01-20-2020 End: 02-27-2024 Alcohol intake Current drinker of alcohol (finding) [facility] Start: 01-20-2020 End: 10-29-2020 History SDOH Alcohol Frequency 2 [facility] Start: 01-20-2020 End: 10-29-2020 History SDOH Physical Activity DPW 4 [facility] Start: 01-20-2020 End: 10-29-2020 History SDOH Physical Activity MPS 6 [facility] Start: 01-20-2020 End: 10-29-2020 History SDOH Stress 3 [facility] Start: 01-20-2020 End: 10-29-2020 History SDOH Financial 5 [facility] Exposure to SARS-CoV -2 (event) Not sure [facility] Start: 10-29-2020 End: 02-06-2023 Tobacco use and exposure Never used [facility] Start: 10-29-2020 History SDOH Social Connections Alevism 99 [facility] Start: 11-01-2018 End: 02-27-2024 Cigarette pack-years [facility] Start: 10-29-2020 End: 02-27-2024 Humiliation, Afraid, Rape, and Kick questionnaire [HARK] [facility] Within the last year , have you been afraid of your partner or ex-partner? No [facility] How often do you att end baptism or yazidism services? Not asked [facility] How often to you hav e a drink containing alcohol? Monthly or less [facility] How hard is it for y ou to pay for the very basics like food, housing, medical care, and heating Not very hard [facility] Do you feel stress - tense, restless, nervous, or anxious, or unable to sleep at night because your mind is troubled all the time - these days [OSQ] To some extent [facility] (I/We) worried wheth er (my/our) food would run out before (I/we) got money to buy more. Never true [facility] Start: 01-20-2020 Gender identity Identifies as female gender (finding) [facility] Start: 01-20-2020 Sexual orientation Heterosexual (fouzia france) [facility] Clinical Notes 03-17-2021 to 03-25-2024 Telephone Encounter - Anu Clay LPN - 03/25/2024 5:01 PM EDTTelephone Encounter - Anu Clay LPN - 03/25/2024 5:01 PM Casi Feng CNP - 02/27/2024 8:06 AM EDT Note Date & Type Note [facility] 03-25-2024 Telephone encounter Note Jie is requesting a refill for Requested Prescriptions Pending Prescriptions Disp Refills levothyroxine (SYNTHROID, LEVOTHROID) 50 MCG tablet 90 tablet 3 Sig: Take 1 (one) tablet (50 mcg total) by mouth once daily . Last refill: 02/27/2024 Last appt: 02/27/2024 Upcoming appt (when is it due or is it scheduled): none scheduled (patient due around 02/26/2025 for next appt) Please send to [facility] [address] [place] [address] [place] [phone] Follow up: Refill pending for review without additional follow up based on information above. [facility] 03-25-2024 Miscellaneous Notes Jie is requesting a refill for Requested Prescriptions Pending Prescriptions Disp Refills levothyroxine (SYNTHROID, LEVOTHROID) 50 MCG tablet 90 tablet 3 Sig: Take 1 (one) tablet (50 mcg total) by mouth once daily . Last refill: 02/27/2024 Last appt: 02/27/2024 Upcoming appt (when is it due or is it scheduled): none scheduled (patient due around 02/26/2025 for next appt) Please send to [facility] [address] [place] [address] [place], [place] [id number] Follow up: Refill pending for review without additional follow up based on information above. documented in this encounter [facility] 02-27-2024 Telephone encounter Note Spoke with patient and let her know information. [facility] 02-27-2024 Telephone encounter Note ----- Message from Esther Cevallos sent at 02/27/2024 9:03 AM EDT ----- Please call Pt and let her know I sent referral to vascular surgeon, Dr Gaspar at the [facility] in [place]. I sent sleep study referral to [facility]. She should get a call from both places to schedule. [facility] 02-27-2024 Miscellaneous Notes Spoke with patient and let her know information. ----- Message from Esther Cevallos sent at 02/27/2024 9:03 AM EDT ----- Please call Pt and let her know I sent referral to vascular surgeon, Dr Gaspar at the [facility] in [place]. I sent sleep study referral to [facility]. She should get a call from both places to schedule. documented in this encounter [facility] 02-27-2024 Note Subjective Patient ID: Jie Lujan is a 58 y.o. female. Pt has prominent varicose veins. She bumped one of the areas on LLE and had to go to the ED in [place] with profuse bleeding. Legs feel heavy and uncomfortable Pt feels may have sleep apnea. No problem-specific Assessment & Plan notes found for this encounter. Current Outpatient Medications Medication Sig Dispense Refill - aspirin-calcium carbonate 81 mg-300 mg calcium(777 mg) Tab Take 81 mg by mouth . - atorvastatin (LIPITOR) 20 MG tablet Take 1 (one) tablet (20 mg total) by mouth daily . 90 tablet 0 - meclizine (ANTIVERT) 12.5 mg tablet Take 1 (one) tablet (12.5 mg total) by mouth 3 (three) times a day as needed . 30 tablet 0 - ondansetron (ZOFRAN) 4 MG tablet Take 1 (one) tablet (4 mg total) by mouth every 8 (eight) hours as needed . 9 tablet 0 - famotidine (PEPCID) 20 MG tablet Take 1 (one) tablet (20 mg total) by mouth daily as needed for heartburn . 90 tablet 0 - levothyroxine (SYNTHROID, LEVOTHROID) 50 MCG tablet Take 1 (one) tablet (50 mcg total) by mouth once daily . 30 tablet 0 - meloxicam (MOBIC) 15 MG tablet Take 1 tablet by mouth once daily 90 tablet 0 No current facility-administered medications for this visit. The following portions of the patient's history were reviewed and updated as appropriate: allergies, current medications, past family history, past medical history, past social history, past surgical history, and problem list. Past Medical History: Diagnosis Date - Arthritis - Injury of back Past Surgical History: Procedure Laterality Date - ACL left - TUBAL LIGATION Family History Problem Relation Age of Onset - Arthritis Mother - Factor V Leiden deficiency Mother - Dementia Mother - Coronary artery disease Father - Hyperlipidemia Father - Lung disease Father - Cancer Maternal Grandmother - Dementia Maternal Grandfather - No Known Problems Paternal Grandmother - No Known Problems Paternal Grandfather Review of Systems Constitutional: Negative. HENT: Negative. Eyes: Negative. Respiratory: Negative. Cardiovascular: Negative. Gastrointestinal: Negative. Genitourinary: Negative. Musculoskeletal: Positive for arthralgias (hip and knees, thumbs). Skin: Negative. Allergic/Immunologic: Negative. Neurological: Negative. Hematological: Negative. Psychiatric/Behavioral: Positive for sleep disturbance. Objective Physical Exam Constitutional: Appearance: Normal appearance. Cardiovascular: Rate and Rhythm: Normal rate and regular rhythm. Pulses: Normal pulses. Heart sounds: Normal heart sounds. Pulmonary: Effort: Pulmonary effort is normal. Breath sounds: Normal breath sounds. Musculoskeletal: General: Normal range of motion. Skin: Comments: Prominent varicose veins Neurological: Mental Status: She is alert and oriented to person, place, and time. Psychiatric: Mood and Affect: Mood normal. Behavior: Behavior normal. Assessment/Plan: Diagnoses and all orders for this visit: Varicose veins of both lower extremities with pain Comments: Referral vein specialist, LOREN pineda during day-remove at night Orders: - Ambulatory referral to Vascular Surgery; Future Hypothyroidism, unspecified type Comments: TSH, Pt on Levothyroxine Orders: - levothyroxine (SYNTHROID, LEVOTHROID) 50 MCG tablet; Take 1 (one) tablet (50 mcg total) by mouth once daily . - TSH; Future Loud snoring Comments: Home sleep study ordered Orders: - Ambulatory referral to Sleep Medicine ([facility]); Future - 01/20/2020 2:00 PM 10/29/2020 2:00 PM 02/06/2023 7:00 AM 02/27/2024 7:00 AM Depression Screening Little interest or pleasure in doing things 0 1 0 0 Feeling down, depressed, or hopeless 0 0 0 PHQ-2 Total Score 0 1 0 0 Trouble falling or staying asleep, or sleeping too much 3 0 0 Feeling tired or having little energy 1 0 0 Poor appetite or overeating 3 0 0 Feeling bad about yourself - or that you are a failure or have let yourself or your family down 0 0 0 Trouble concentrating on things, such as reading the newspaper or watching television 1 0 0 Moving or speaking so slowly that other people could have noticed. Or the opposite - being so fidgety or restless that you have been moving around a lot more than usual 0 0 0 Thoughts that you would be better off , or of hurting yourself in some way 0 0 0 PHQ-9 Total Score 9 0 0 If you checked off any problems, how difficult have these problems made it for you to do your work, take care of things at home, or get along with other people? Somewhat difficult Not difficult at all Not difficult at all AUTHENTICATED BY CASI CEVALLOS, ON 02/29/2024 05:51:33 [facility] 02-27-2024 History of Presen t illness Narrative Subjective Patient ID: Jie Lujan is a 58 y.o. female. Pt has prominent varicose veins. She bumped one of the areas on LLE and had to go to the ED in [place] with profuse bleeding. Legs feel heavy and uncomfortable Pt feels may have sleep apnea. No problem-specific Assessment & Plan notes found for this encounter. Current Outpatient Medications Medication Sig Dispense Refill aspirin-calcium carbonate 81 mg-300 mg calcium(777 mg) Tab Take 81 mg by mouth . atorvastatin (LIPITOR) 20 MG tablet Take 1 (one) tablet (20 mg total) by mouth daily . 90 tablet 0 meclizine (ANTIVERT) 12.5 mg tablet Take 1 (one) tablet (12.5 mg total) by mouth 3 (three) times a day as needed . 30 tablet 0 ondansetron (ZOFRAN) 4 MG tablet Take 1 (one) tablet (4 mg total) by mouth every 8 (eight) hours as needed . 9 tablet 0 famotidine (PEPCID) 20 MG tablet Take 1 (one) tablet (20 mg total) by mouth daily as needed for heartburn . 90 tablet 0 levothyroxine (SYNTHROID, LEVOTHROID) 50 MCG tablet Take 1 (one) tablet (50 mcg total) by mouth once daily . 30 tablet 0 meloxicam (MOBIC) 15 MG tablet Take 1 tablet by mouth once daily 90 tablet 0 No current facility-administered medications for this visit. The following portions of the patient's history were reviewed and updated as appropriate: allergies, current medications, past family history, past medical history, past social history, past surgical history, and problem list. Past Medical History: Diagnosis Date Arthritis Injury of back Past Surgical History: Procedure Laterality Date ACL left TUBAL LIGATION Family History Problem Relation Age of Onset Arthritis Mother Factor V Leiden deficiency Mother Dementia Mother Coronary artery disease Father Hyperlipidemia Father Lung disease Father Cancer Maternal Grandmother Dementia Maternal Grandfather No Known Problems Paternal Grandmother No Known Problems Paternal Grandfather Review of Systems Constitutional: Negative. HENT: Negative. Eyes: Negative. Respiratory: Negative. Cardiovascular: Negative. Gastrointestinal: Negative. Genitourinary: Negative. Musculoskeletal: Positive for arthralgias (hip and knees, thumbs). Skin: Negative. Allergic/Immunologic: Negative. Neurological: Negative. Hematological: Negative. Psychiatric/Behavioral: Positive for sleep disturbance. Objective Physical Exam Constitutional: Appearance: Normal appearance. Cardiovascular: Rate and Rhythm: Normal rate and regular rhythm. Pulses: Normal pulses. Heart sounds: Normal heart sounds. Pulmonary: Effort: Pulmonary effort is normal. Breath sounds: Normal breath sounds. Musculoskeletal: General: Normal range of motion. Skin: Comments: Prominent varicose veins Neurological: Mental Status: She is alert and oriented to person, place, and time. Psychiatric: Mood and Affect: Mood normal. Behavior: Behavior normal. Assessment/Plan: Diagnoses and all orders for this visit: Varicose veins of both lower extremities with pain Comments: Referral vein specialist, LOREN pineda during day-remove at night Orders: - Ambulatory referral to Vascular Surgery; Future Hypothyroidism, unspecified type Comments: TSH, Pt on Levothyroxine Orders: - levothyroxine (SYNTHROID, LEVOTHROID) 50 MCG tablet; Take 1 (one) tablet (50 mcg total) by mouth once daily . - TSH; Future Loud snoring Comments: Home sleep study ordered Orders: - Ambulatory referral to Sleep Medicine ([facility]); Future ? 01/20/2020 2:00 PM 10/29/2020 2:00 PM 02/06/2023 7:00 AM 02/27/2024 7:00 AM Depression Screening Little interest or pleasure in doing things 0 1 0 0 Feeling down, depressed, or hopeless 0 0 0 PHQ-2 Total Score 0 1 0 0 Trouble falling or staying asleep, or sleeping too much 3 0 0 Feeling tired or having little energy 1 0 0 Poor appetite or overeating 3 0 0 Feeling bad about yourself - or that you are a failure or have let yourself or your family down 0 0 0 Trouble concentrating on things, such as reading the newspaper or watching television 1 0 0 Moving or speaking so slowly that other people could have noticed. Or the opposite - being so fidgety or restless that you have been moving around a lot more than usual 0 0 0 Thoughts that you would be better off , or of hurting yourself in some way 0 0 0 PHQ-9 Total Score 9 0 0 If you checked off any problems, how difficult have these problems made it for you to do your work, take care of things at home, or get along with other people? Somewhat difficult Not difficult at all Not difficult at all documented in this encounter [facility] 12-05-2023 Telephone encounter Note Requested Prescriptions Pending Prescriptions Disp Refills levothyroxine (SYNTHROID, LEVOTHROID) 25 MCG tablet 90 tablet 0 Sig: Take 1 (one) tablet (25 mcg total) by mouth once daily . Ariclinda Errol rosemaryum run [facility] 12-05-2023 Miscellaneous Notes Requested Prescriptions Pending Prescriptions Disp Refills levothyroxine (SYNTHROID, LEVOTHROID) 25 MCG tablet 90 tablet 0 Sig: Take 1 (one) tablet (25 mcg total) by mouth once daily . Karyna Norton possum run documented in this encounter [facility] 10-16-2023 History of Presen t illness Narrative Subjective Patient ID: Jie Lujan is a 57 y.o. female. Pt here for annual physical exam needed for new employment. She is feeling R ear fullness. Feels like possibly fluid in ear. No problem-specific Assessment & Plan notes found for this encounter. Current Outpatient Medications Medication Sig Dispense Refill aspirin-calcium carbonate 81 mg-300 mg calcium(777 mg) Tab Take 81 mg by mouth . famotidine (PEPCID) 20 MG tablet Take 1 (one) tablet (20 mg total) by mouth daily as needed for heartburn . 90 tablet 0 levothyroxine (SYNTHROID, LEVOTHROID) 25 MCG tablet Take 1 (one) tablet (25 mcg total) by mouth once daily . 90 tablet 0 meclizine (ANTIVERT) 12.5 mg tablet Take 1 (one) tablet (12.5 mg total) by mouth 3 (three) times a day as needed . 30 tablet 0 meloxicam (MOBIC) 15 MG tablet Take 1 (one) tablet (15 mg total) by mouth daily . 90 tablet 0 ondansetron (ZOFRAN) 4 MG tablet Take 1 (one) tablet (4 mg total) by mouth every 8 (eight) hours as needed . 9 tablet 0 No current facility-administered medications for this visit. The following portions of the patient's history were reviewed and updated as appropriate: allergies, current medications, past family history, past medical history, past social history, past surgical history, and problem list. Past Medical History: Diagnosis Date Arthritis Injury of back Past Surgical History: Procedure Laterality Date ACL left TUBAL LIGATION Family History Problem Relation Age of Onset Arthritis Mother Factor V Leiden deficiency Mother Dementia Mother Coronary artery disease Father Hyperlipidemia Father Lung disease Father Cancer Maternal Grandmother Dementia Maternal Grandfather No Known Problems Paternal Grandmother No Known Problems Paternal Grandfather Review of Systems Constitutional: Negative. HENT: Positive for ear pain (R ear feels plugged or fluid in it). Eyes: Negative. Respiratory: Negative. Gastrointestinal: Negative. Endocrine: Negative. Musculoskeletal: Positive for arthralgias (knees and hips- arthritis). Skin: Negative. Allergic/Immunologic: Negative. Neurological: Negative. Hematological: Negative. Psychiatric/Behavioral: The patient is nervous/anxious (just started new job). Objective Physical Exam Constitutional: Appearance: Normal appearance. HENT: Right Ear: Tympanic membrane, ear canal and external ear normal. Left Ear: Tympanic membrane and ear canal normal. Cardiovascular: Rate and Rhythm: Normal rate and regular rhythm. Musculoskeletal: General: Normal range of motion. Skin: General: Skin is warm and dry. Neurological: Mental Status: She is alert and oriented to person, place, and time. Psychiatric: Mood and Affect: Mood normal. Behavior: Behavior normal. Assessment/Plan: Diagnoses and all orders for this visit: Physical exam Comments: no new subjective concerns. Flonase to help with eustasion ube. Nl PE Encounter for screening mammogram for malignant neoplasm of breast - Mammography Screening [place] Bilateral; Future ? documented in this encounter [facility] 02-06-2023 History of Presen t illness Narrative Subjective Patient ID: Jie Lujan is a 57 y.o. female. Pt has not been seen since 10/2020. She has concerns for intermittent indigestion. She has concerns for slightly elevated TSH. She brought copy of labs drawn in November 2022 showing elevated lipid profile. Blood pressure is borderline here. Pt states is better while at home. Gastroesophageal Reflux She complains of heartburn. This is a new problem. The current episode started more than 1 month ago. The problem occurs occasionally. The problem has been unchanged. The heartburn is located in the substernum. The heartburn is of moderate intensity. The heartburn wakes her from sleep. The heartburn does not limit her activity. The heartburn changes with position. Nothing aggravates the symptoms. She has tried a PPI for the symptoms. The treatment provided significant relief. Hyperlipidemia This is a new problem. The current episode started more than 1 month ago. Recent lipid tests were reviewed and are high. There are no known factors aggravating her hyperlipidemia. She is currently on no antihyperlipidemic treatment. Risk factors for coronary artery disease include dyslipidemia and post-menopausal. No problem-specific Assessment & Plan notes found for this encounter. Current Outpatient Medications Medication Sig Dispense Refill aspirin-calcium carbonate 81 mg-300 mg calcium(777 mg) Tab Take 81 mg by mouth . meclizine (ANTIVERT) 12.5 mg tablet Take 1 (one) tablet (12.5 mg total) by mouth 3 (three) times a day as needed . 30 tablet 0 ondansetron (ZOFRAN) 4 MG tablet Take 1 (one) tablet (4 mg total) by mouth every 8 (eight) hours as needed . 9 tablet 0 famotidine (PEPCID) 20 MG tablet Take 1 (one) tablet (20 mg total) by mouth daily as needed for heartburn . 90 tablet 0 meloxicam (MOBIC) 15 MG tablet Take 1 (one) tablet (15 mg total) by mouth daily . 90 tablet 0 No current facility-administered medications for this visit. The following portions of the patient's history were reviewed and updated as appropriate: allergies, current medications, past family history, past medical history, past social history, past surgical history, and problem list. Past Medical History: Diagnosis Date Arthritis Injury of back Past Surgical History: Procedure Laterality Date ACL left TUBAL LIGATION Family History Problem Relation Age of Onset Arthritis Mother Factor V Leiden deficiency Mother Dementia Mother Coronary artery disease Father Hyperlipidemia Father Lung disease Father Cancer Maternal Grandmother Dementia Maternal Grandfather No Known Problems Paternal Grandmother No Known Problems Paternal Grandfather Review of Systems Constitutional: Negative. HENT: Negative. Eyes: Negative. Gastrointestinal: Positive for heartburn. Heart burn Endocrine: Negative. Genitourinary: Negative. Menapause Musculoskeletal: Positive for arthralgias (generalized- knees and L hip). Skin: Negative. Allergic/Immunologic: Negative. Neurological: Negative. Hematological: Bruises/bleeds easily. Psychiatric/Behavioral: Positive for sleep disturbance. Objective Physical Exam Constitutional: Appearance: Normal appearance. Cardiovascular: Rate and Rhythm: Normal rate and regular rhythm. Pulses: Normal pulses. Heart sounds: Normal heart sounds. Pulmonary: Effort: Pulmonary effort is normal. Breath sounds: Normal breath sounds. Musculoskeletal: General: Normal range of motion. Skin: General: Skin is warm and dry. Neurological: Mental Status: She is alert and oriented to person, place, and time. Psychiatric: Mood and Affect: Mood normal. Behavior: Behavior normal. Assessment/Plan: Diagnoses and all orders for this visit: Elevated TSH Comments: Repeat TSH, TPO, neck appears normal. Orders: - famotidine (PEPCID) 20 MG tablet; Take 1 (one) tablet (20 mg total) by mouth daily as needed for heartburn . - TSH; Future - Thyroid peroxidase antibody (TPO); Future Hyperlipidemia, unspecified hyperlipidemia type Comments: lifestyle modifications recommended, 5% weight loss, reducing intake of foods high in sat fat and cholesterol. Add water, fiber. Single episode of elevated blood pressure Comments: continue to monitor at home. Gastroesophageal reflux disease, unspecified whether esophagitis present Comments: Pepcid daily as needed Other orders - meloxicam (MOBIC) 15 MG tablet; Take 1 (one) tablet (15 mg total) by mouth daily . ? 01/20/2020 2:00 PM 10/29/2020 2:00 PM 02/06/2023 7:00 AM Depression Screening Little interest or pleasure in doing things 0 1 0 Feeling down, depressed, or hopeless 0 0 PHQ-2 Total Score 0 1 0 Trouble falling or staying asleep, or sleeping too much 3 0 Feeling tired or having little energy 1 0 Poor appetite or overeating 3 0 Feeling bad about yourself - or that you are a failure or have let yourself or your family down 0 0 Trouble concentrating on things, such as reading the newspaper or watching television 1 0 Moving or speaking so slowly that other people could have noticed. Or the opposite - being so fidgety or restless that you have been moving around a lot more than usual 0 0 Thoughts that you would be better off , or of hurting yourself in some way 0 0 PHQ-9 Total Score 9 0 If you checked off any problems, how difficult have these problems made it for you to do your work, take care of things at home, or get along with other people? Somewhat difficult Not difficult at all documented in this encounter [facility] 08-22-2022 Telephone encounter Note Requested Prescriptions Pending Prescriptions Disp Refills meclizine (ANTIVERT) 12.5 mg tablet 90 tablet 0 Sig: Take 1 (one) tablet (12.5 mg total) by mouth 3 (three) times a day as needed . [facility] 08-22-2022 Miscellaneous Notes Requested Prescriptions Pending Prescriptions Disp Refills meclizine (ANTIVERT) 12.5 mg tablet 90 tablet 0 Sig: Take 1 (one) tablet (12.5 mg total) by mouth 3 (three) times a day as needed . documented in this encounter [facility] 01-10-2022 Telephone encounter Note Requested Prescriptions Pending Prescriptions Disp Refills meclizine (ANTIVERT) 12.5 mg tablet 90 tablet 0 Sig: Take 1 (one) tablet (12.5 mg total) by mouth 3 (three) times a day as needed . meloxicam (MOBIC) 15 MG tablet 90 tablet 0 Sig: Take 1 (one) tablet (15 mg total) by mouth daily . ondansetron (ZOFRAN) 4 MG tablet 9 tablet 0 Sig: Take 1 (one) tablet (4 mg total) by mouth every 8 (eight) hours as needed . Karyna Norton [facility] 01-10-2022 Miscellaneous Notes Requested Prescriptions Pending Prescriptions Disp Refills meclizine (ANTIVERT) 12.5 mg tablet 90 tablet 0 Sig: Take 1 (one) tablet (12.5 mg total) by mouth 3 (three) times a day as needed . meloxicam (MOBIC) 15 MG tablet 90 tablet 0 Sig: Take 1 (one) tablet (15 mg total) by mouth daily . ondansetron (ZOFRAN) 4 MG tablet 9 tablet 0 Sig: Take 1 (one) tablet (4 mg total) by mouth every 8 (eight) hours as needed . Karyna Norton documented in this encounter [facility] 09-20-2021 Telephone encounter Note Requested Prescriptions Pending Prescriptions Disp Refills meclizine (ANTIVERT) 12.5 mg tablet 90 tablet 2 Sig: Take 1 (one) tablet (12.5 mg total) by mouth 3 (three) times a day as needed . meloxicam (MOBIC) 15 MG tablet 90 tablet 0 Sig: Take 1 (one) tablet (15 mg total) by mouth daily . ondansetron (ZOFRAN) 4 MG tablet 90 tablet 2 Sig: Take 1 (one) tablet (4 mg total) by mouth every 8 (eight) hours as needed . Karyna Norton [facility] 09-20-2021 Miscellaneous Notes Requested Prescriptions Pending Prescriptions Disp Refills meclizine (ANTIVERT) 12.5 mg tablet 90 tablet 2 Sig: Take 1 (one) tablet (12.5 mg total) by mouth 3 (three) times a day as needed . meloxicam (MOBIC) 15 MG tablet 90 tablet 0 Sig: Take 1 (one) tablet (15 mg total) by mouth daily . ondansetron (ZOFRAN) 4 MG tablet 90 tablet 2 Sig: Take 1 (one) tablet (4 mg total) by mouth every 8 (eight) hours as needed . Karyna Norton documented in this encounter [facility] 03-25-2021 Miscellaneous Notes Requested Prescriptions Pending Prescriptions Disp Refills meloxicam (MOBIC) 15 MG tablet 90 tablet 0 Sig: Take 1 (one) tablet (15 mg total) by mouth daily . documented in this encounter [facility] 03-17-2021 History of Presen t illness Narrative Assessment/Plan: 1. Arthritis of right hip Osteoarthritis of the left hip with history of labral tear Patient has x-ray evidence consistent with impingement left hip Options discussed patient would like to proceed with an intra-articular injection which has been previously helpful Return injection left hip. Subjective: Jie Lujan is a 55 y.o. female here for Pain of the Left Hip (LEFT HIP PAIN. STATES SHE HAD LABRUM TEAR FIVE YEARS AGO. IS VERY ACTIVE AND CERTAIN POSITIONS AND WALKING UP STAIRS LEADING WITH THAT LEG CAUSES DISCOMFORT. SLEEPING IS HARD.) Left hip pain that has been present intermittently for several years. She has had a previous injection in her hip. She was told that she had a labral tear based on MRI. Was offered arthroscopic hip surgery but declined. She had for the most part has done well. She is noting increasing pain in her left hip. Pain worse with activity.. No Known Allergies Outpatient Medications as of 03/17/2021 Medication Sig aspirin-calcium carbonate 81 mg-300 mg calcium(777 mg) Tab Take 81 mg by mouth . busPIRone (BUSPAR) 15 MG tablet Take 1/2 tablet twice a day as needed . meclizine (ANTIVERT) 12.5 mg tablet Take 1 (one) tablet (12.5 mg total) by mouth 3 (three) times a day as needed . meloxicam (MOBIC) 15 MG tablet Take 1 (one) tablet (15 mg total) by mouth daily . ondansetron (ZOFRAN) 4 MG tablet Take 1 (one) tablet (4 mg total) by mouth every 8 (eight) hours as needed . 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 Tobacco Use Smoking status: Never Smoker Smokeless tobacco: Never Used Vaping Use Vaping Use: Never used Substance and Sexual Activity Alcohol use: Yes Drug use: Never Sexual activity: Not on file Other Topics Concern Not on file Social History Narrative Not on file Social Determinants of Health Financial Resource Strain: Low Risk Difficulty of Paying Living Expenses: Not hard at all Food Insecurity: Unknown Worried About Running Out of Food in the Last Year: Patient refused Ran Out of Food in the Last Year: Patient refused Transportation Needs: Unknown Lack of Transportation (Medical): Patient refused Lack of Transportation (Non-Medical): Patient refused Physical Activity: Sufficiently Active Days of Exercise per Week: 4 days Minutes of Exercise per Session: 60 min Stress: Stress Concern Present Feeling of Stress : To some extent Social Connections: Unknown Frequency of Communication with Friends and Family: More than three times a week Frequency of Social Gatherings with Friends and Family: Once a week Attends Confucianism Services: Not asked Active Member of Clubs or Organizations: Not asked Attends Club or Organization Meetings: Not asked Marital Status: Not asked Housing Stability: Unable to Pay for Housing in the Last Year: Not on file Number of Places Lived in the Last Year: Not on file Unstable Housing in the Last Year: Not on file Review of Systems Constitutional: Negative for appetite change, fatigue and fever. Respiratory: Negative for chest tightness and shortness of breath. Cardiovascular: Negative for chest pain and palpitations. Gastrointestinal: Negative for abdominal pain and blood in stool. Genitourinary: Negative for difficulty urinating and dysuria. Musculoskeletal: Positive for arthralgias and gait problem. Negative for back pain and myalgias. Neurological: Negative for speech difficulty and headaches. Psychiatric/Behavioral: Negative for confusion and hallucinations. Objective: Resp 18 Ht 6' 1 Wt 103.9 kg (229 lb) BMI 30.21 kg/m Physical Exam Constitutional: Appearance: She is well-developed. HENT: Head: Normocephalic. Pulmonary: Effort: Pulmonary effort is normal. Musculoskeletal: Cervical back: Normal range of motion. Skin: General: Skin is warm. Neurological: Mental Status: She is alert and oriented to person, place, and time. Left hip demonstrates mildly positive impingement test. Increased pain with hip abduction. Stretch signs negative Imaging from this visit: No results found. X-rays show mild degenerative changes left hip. There is a relatively large lateral osteophyte off of the acetabulum. Her right hip shows mild to moderate degenerative changes. Noris Camacho MD 03/17/2021 documented in this encounter [facility] Evaluation note Diagnosis Left hip pain- Primary Pain in joint, pelvic region and [facility]th[facility] of right hip- Primary [facility] Diagnosis Arthritis of right hip- Primary [facility] Diagnosis Primary osteoarthritis of left hip- Primary [facility] Diagnosis Arthritis of left hip- Primary [facility] Diagnosis Arthritis of left hip- Primary [facility] Diagnosis Elevated TSH- Primary Other abnormal blood chemistry Hyperlipidemia, unspecified hyperlipidemia type Single episode of elevated blood pressure Gastroesophageal reflux disease, unspecified whether esophagitis present [facility] Diagnosis Bteo's disease- Primary Chronic lymphocytic [facility] Diagnosis Beto's thyroiditis- Primary Chronic lymphocytic thyroiditis [facility] Diagnosis Beto's disease Chronic lymphocytic thyroiditis [facility] Diagnosis Beto's disease Chronic lymphocytic thyroiditis [facility] Diagnosis Poison thanh- Primary Contact dermatitis and other eczema due to plants (except food) [facility]* Diagnosis Beto's disease Chronic lymphocytic thyroiditis [facility]* Diagnosis Beto's disease Chronic lymphocytic thyroiditis [facility]* Diagnosis Physical exam- Primary Unspecified general medical examination Encounter for screening mammogram for malignant neoplasm of breast [facility] Diagnosis Beto's disease Chronic lymphocytic thyroiditis [facility] Diagnosis Menopause- Primary Symptomatic menopausal or female climacteric states Hypothyroidism, unspecified type Encounter for biometric screening documented in this encounter [facility] note* Diagnosis Hypothyroidism, unspecified type- Primary Beto's disease Chronic lymphocytic thyroiditis documented in this encounter [facility] note* Diagnosis Varicose veins of both lower extremities with pain- Primary Hypothyroidism, unspecified type Loud snoring documented in this encounter [facility] note* Diagnosis Loud snoring- Primary documented in this encounter [facility] note* Diagnosis Daytime sleepiness- Primary documented in this encounter [facility] note* Diagnosis Hypothyroidism, unspecified type- Primary documented in this encounter [facility] note* Diagnosis Hypothyroidism, unspecified type documented in this encounter [facility] note* Diagnosis Beto's disease Chronic lymphocytic thyroiditis Hypothyroidism, unspecified type documented in this encounter [facility] note* Diagnosis Hypothyroidism, unspecified type- Primary documented in this encounter [facility] for referral (narrative)* Sleep Study w/Consultation if positive (Routine) - Authorized Specialty Diagnoses / Procedures Referred By Kim yin Referred To Contact Sleep Medicine Diagnoses Loud snoring Casi Cevallos CNP [address] [place] [address] Sleep Medicine [address] [place] [address] Referral ID Status Reason Start Date Expiration Date V isits Requested Visits Authorized [id number] Authorized 02/27/2024 02/26/2025 1 1 * Evaluate and Treat (Routine) - Authorized Specialty Diagnoses / Procedures Referred By Contyanet t Referred To Contact Cardiothoracic Surgery Diagnoses Varicose veins of both lower extremities with pain Casi Cevallos CNP [address] [place] [address] Segun Gaspar MD [address] [place] [id number] Referral ID Status Reason Start Date Expiration Date Visits Requested Visits Authorized [id number] Authorized Specialty Services Required/Pat ient's Best Interest 02/27/2024 02/26/2025 1 1 [facility] for referral (narrative)* Sleep Study w/Consultation if positive (Routine) - Pending Review Specialty Diagnoses / Procedures Referred By Kim t Referred To Contact Sleep Medicine Diagnoses Loud snoring Casi Cevallos, SUN[employer] [address] [place] [address] Sleep Medicine [address] [place] [address] Referral ID Status Reason Start Date Expiration Date Visits Requested Visits Authorized [id number] Pending Review Specialty Services Required/Pat ient's Best Interest 03/05/2024 03/05/2025 1 1 [facility] Summary Purpose Family History No Family History Records FoundNo Family History Records FoundNo Family History Records FoundNo Family History Records FoundNo Family History Records FoundNo Family History Records FoundNo Family History Records FoundNo Family History Records FoundNo Family History Records FoundNo Family History Records Found Advance Directives No Advanced Directives Records FoundDocuments on File Type Date Recorded 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 female being seen 11/01/18 for No chief complaint on file. by Bubba Silva MD. No chief complaint on file. ASSESSMENT / PLAN: Problem List Items Addressed This Visit Other Encounter for colorectal cancer screening - Primary She is of average risk. I recommended she undergo colonoscopy. We discussed the details of a good bowel preparation. She would like to work the day of the bowel preparation therefore I would not start it until the evening. She will need to remain on clear liquids in the morning and lunch. Risks, potential complications, and benefits of the procedure were discussed. We will proceed with scheduling HISTORY OF PRESENT ILLNESS: Jie is a healthy 52-year-old woman who presents today for evaluation in regards to undergoing a colonoscopy. She is never had one before. She reports that she has regular bowel movements and denies seeing any blood in the stool and has no problems with constipation or diarrhea. She has no family history of colon cancer. I have reviewed the past medical, surgical, family, social, ROS, allergies, and medications with Jie Lujan. History reviewed. No pertinent past medical history. History reviewed. No pertinent surgical history. Family History Problem Relation Age of Onset Factor IX deficiency Mother Arthritis Mother Social History Substance and Sexual Activity Alcohol Use Never Frequency: Never Social History Substance and Sexual Activity Drug Use Never Social History Socioeconomic History Marital status: Spouse name: Not on file Number of children: Not on file Years of education: Not on file Highest education level: Not on file Social Needs Financial resource strain: Not on file Food insecurity - worry: Not on file Food insecurity - inability: Not on file Transportation needs - medical: Not on file Transportation needs - non-medical: Not on file Occupational History Not on file Tobacco Use Smoking status: Never Smoker Smokeless tobacco: Never Used Substance and Sexual Activity Alcohol use: Never Frequency: Never Drug use: Never Sexual activity: Not on file Other Topics Concern Not on file Social History Narrative Not on file Medication List Accurate as of 11/01/18 3:13 PM. If you have any questions, ask your nurse or doctor. CONTINUE taking these medications aspirin-calcium carbonate 81 mg-300 mg calcium(777 mg) Tab meclizine 12.5 mg tablet Commonly known as: ANTIVERT meloxicam 15 MG tablet Commonly known as: MOBIC Last Height and Weight with BMI: 95.3 kg (210 lb) 6' 2 Body mass index is 26.96 kg/m . Last 3 Weights: Wt Readings from Last 3 Encounters: 11/01/18 95.3 kg (210 lb) Review of Systems Button: Review of Systems Constitutional: Negative for activity change. HENT: Negative for congestion. Respiratory: Negative for chest tightness. Cardiovascular: Negative for chest pain. Gastrointestinal: Negative for abdominal pain. All other systems reviewed and are negative. Physical Exam Button: Physical Exam Constitutional: She is oriented to person, place, and time. Vital signs are normal. She appears well-developed and well-nourished. HENT: Head: Normocephalic and atraumatic. Eyes: Pupils are equal, round, and reactive to light. Right eye exhibits no discharge. Left eye exhibits no discharge. No scleral icterus. Neck: Trachea normal. Neck supple. No JVD present. No tracheal deviation present. Cardiovascular: Normal rate, regular rhythm, normal heart sounds and intact distal pulses. Exam reveals no gallop and no friction rub. No murmur heard. Pulses: Radial pulses are 2+ on the right side, and 2+ on the left side. Pulmonary/Chest: Effort normal and breath sounds normal. No accessory muscle usage. No respiratory distress. She has no wheezes. She has no rhonchi. Abdominal: Soft. Normal appearance and bowel sounds are normal. She exhibits no distension and no mass. There is no hepatosplenomegaly. There is no tenderness. There is no rebound and no guarding. Nohernia. Musculoskeletal: Normal range of motion. She exhibits no edema or tenderness. Neurological: She is alert and oriented to person, place, and time. Skin: Skin is warm, dry and intact. No rash noted. No cyanosis or erythema. Nails show no clubbing. Psychiatric: She has a normal mood and affect. Her behavior is normal. Judgment normal. Cognition and memory are normal. Nursing note and vitals reviewed. Labs Metabolic Panels: No results found for: K, CL, BICARB, ANIONGAP, GLUCOSE, BUN, CREATININE, EGFR, GFRAA, BCR, PROT, ALBUMIN, CALCIUM, ALKPHOS, AST, ALT, BILITOT Labs Lipid Panels: No results found for: CHOL, TRIG, HDL, CHOLHDL, LDLCALC, NONHDL Labs Complete Blood Count: No results found for: WBC, RBC, HGB, HCT, MCV, MCH, MCHC, PLT, RDW, MPV, RETICCTPCT, RETICABS, IRF,RETICHGBEQ, WBC, LABEOS Imaging: None No orders of the defined types were placed in this encounter. Respectfully; Bubba Silva MD in this encounter* Dana Casi Wellse, SUNDEEP - 01/20/2020 2:09 PM EDT Subjective Patient ID: Jie Lujan is a 54 y.o. female. Pt is here to establish care and for well woman exam. She states she went 10 months without menses and has spotted for past 2 months. She has not had an abnormal PAP in past. Self breast exams and nlpast mammogram. Denies physical c/o other than arthritic type pain knees and hands. She is an avid bike rider. No problem-specific Assessment & Plan notes found for this encounter. Current Outpatient Medications Medication Sig Dispense Refill aspirin-calcium carbonate 81 mg-300 mg calcium(777 mg) Tab Take 81 mg by mouth . meclizine (ANTIVERT) 12.5 mg tablet Take 1 (one) tablet (12.5 mg total) by mouth 3 (three) times a day as needed . 90 tablet 2 meloxicam (MOBIC) 15 MG tablet Take 1 (one) tablet (15 mg total) by mouth daily . 90 tablet 0 ondansetron (ZOFRAN) 4 MG tablet Take 1 (one) tablet (4 mg total) by mouth every 8 (eight) hours asneeded . 90 tablet 2 No current facility-administered medications for this visit. The following portions of the patient's history were reviewed and updated as appropriate: allergies, current medications, past family history, past medical history, past social history, past surgicalhistory and problem list. Past Medical History: Diagnosis Date Arthritis Injury of back Past Surgical History: Procedure Laterality Date ACL left TUBAL LIGATION Family History Problem Relation Age of Onset Arthritis Mother Factor V Leiden deficiency Mother Dementia Mother Coronary artery disease Father Hyperlipidemia Father Lung disease Father Cancer Maternal Grandmother Dementia Maternal Grandfather No Known Problems Paternal Grandmother No Known Problems Paternal Grandfather Review of Systems Constitutional: Negative. HENT: Negative. Eyes: Negative. Respiratory: Negative. Cardiovascular: Negative. Gastrointestinal: Negative. Genitourinary: Negative. Musculoskeletal: Positive for arthralgias. Knees and hands Skin: Negative. Allergic/Immunologic: Negative. Neurological: Hx vertigo Hematological: Negative. Psychiatric/Behavioral: Negative. Objective Physical Exam Exam conducted with a store custodian present. Constitutional: Appearance: Normal appearance. HENT: Right Ear: Tympanic membrane, ear canal and external ear normal. Left Ear: Tympanic membrane, ear canal and external ear normal. Mouth/Throat: Mouth: Mucous membranes are moist. Eyes: Pupils: Pupils are equal, round, and reactive to light. Cardiovascular: Rate and Rhythm: Normal rate and regular rhythm. Heart sounds: Normal heart sounds. Pulmonary: Effort: Pulmonary effort is normal. Breath sounds: Normal breath sounds. Chest: Breasts: Von Score is 5. Comments: Nl breast exam Genitourinary: General: Normal vulva. Exam position: Lithotomy position. Von stage (genital): 5. Comments: Cervix soft and swollen. Old blood around cervix with continued ooze from cervical oz. Musculoskeletal: Normal range of motion. Skin: General: Skin is warm and dry. Neurological: Mental Status: She is alert and oriented to person, place, and time. Psychiatric: Behavior: Behavior normal. Assessment/Plan: Diagnoses and all orders for this visit: Well woman exam Comments: No physical c/o other than arthritis.PC TECH exam noted- order for transvag US given to Pt to schedule if decides to have done- recomended Orders: - Thinprep Pap Smear Abnormal uterine bleeding Comments: 10 months w/o menses and spotting past 2 months. Soft, swollen cervix with cont old blood oozing from cervical oz. recommend trans vag US. Pt undecided Orders: - US Transvaginal; Future Other orders - meclizine (ANTIVERT) 12.5 mg tablet; Take 1 (one) tablet (12.5 mg total) by mouth 3 (three) timesa day as needed . - meloxicam (MOBIC) 15 MG tablet; Take 1 (one) tablet (15 mg total) by mouth daily . - ondansetron (ZOFRAN) 4 MG tablet; Take 1 (one) tablet (4 mg total) by mouth every 8 (eight) hoursas needed . ? documented in this encounter* Casi Cevallos CNP - 10/29/2020 2:53 PM EDT Subjective Patient ID: Jie Lujan is a 54 y.o. female. Pt was last seen in office 8 months ago. She has had many losses over past 1 year and changes at work. She is feeling anxious and overwhelmed. She is also feeling depressed over sons leaving home formilitary careers. She had script for benzo shortly after loss of one of her parents, but is recommended non habit forming choice. Pt does not want to take a medication on a daily basis. Buspar was discussed Anxiety Presents for initial visit. Onset was 1 to 6 months ago. The problem has been gradually worsening. Symptoms include decreased concentration, depressed mood, excessive worry, insomnia, malaise, nervous/anxious behavior and restlessness. Symptoms occur most days. The severity of symptoms is moderate.The symptoms are aggravated by family issues, social activities and work stress. The quality of sleep is poor. Nighttime awakenings: occasional. Risk factors include a major life event. Her past medical history is significant for anxiety/panic attacks and depression. Past treatments include benzodiazephines. The treatment provided significantrelief. Depression Visit Type: initial Onset of symptoms: 1 to 6 months ago Progression since onset: unchanged Patient presents with the following symptoms: decreased concentration, depressed mood, excessive worry, insomnia, malaise, nervousness/anxiety, restlessness and weight gain. Frequency of symptoms: occasionally Severity: moderate Aggravated by: work stress, family issues and social activities Sleep quality: poor Nighttime awakenings: occasional Risk factors: major life event Patient has a history of: anxiety/panic attacks and depression Treatment tried: benzodiazepine Improvement on treatment: significant No problem-specific Assessment & Plan notes found for this encounter. Current Outpatient Medications Medication Sig Dispense Refill progesterone (PROMETRIUM) 200 MG capsule TAKE 1 CAPSULE BY MOUTH ONCE DAILY IN THE EVENING FOR 14 DAYS CYCLE DAYS 15 28 FOR 3 MONTHS aspirin-calcium carbonate 81 mg-300 mg calcium(777 mg) Tab Take 81 mg by mouth . busPIRone (BUSPAR) 15 MG tablet Take 1/2 tablet twice a day as needed . 30 tablet 0 meclizine (ANTIVERT) 12.5 mg tablet Take 1 (one) tablet (12.5 mg total) by mouth 3 (three) times a day as needed . 90 tablet 2 meloxicam (MOBIC) 15 MG tablet Take 1 (one) tablet (15 mg total) by mouth daily . 90 tablet 0 ondansetron (ZOFRAN) 4 MG tablet Take 1 (one) tablet (4 mg total) by mouth every 8 (eight) hours asneeded . 90 tablet 2 No current facility-administered medications for this visit. The following portions of the patient's history were reviewed and updated as appropriate: allergies, current medications, past family history, past medical history, past social history, past surgicalhistory and problem list. Past Medical History: Diagnosis Date Arthritis Injury of back Past Surgical History: Procedure Laterality Date ACL left TUBAL LIGATION Family History Problem Relation Age of Onset Arthritis Mother Factor V Leiden deficiency Mother Dementia Mother Coronary artery disease Father Hyperlipidemia Father Lung disease Father Cancer Maternal Grandmother Dementia Maternal Grandfather No Known Problems Paternal Grandmother No Known Problems Paternal Grandfather Review of Systems Constitutional: Positive for unexpected weight change (13 lbs) and weight gain. HENT: Negative. Eyes: Negative. Respiratory: Negative. Cardiovascular: Negative. Gastrointestinal: Negative. Genitourinary: Negative. Musculoskeletal: Index finger numb Allergic/Immunologic: Negative. Neurological: Negative. Hematological: Negative. Psychiatric/Behavioral: Positive for decreased concentration and sleep disturbance. The patient is nervous/anxious and has insomnia. Objective Physical Exam Constitutional: Appearance: Normal appearance. Cardiovascular: Rate and Rhythm: Normal rate and regular rhythm. Heart sounds: Normal heart sounds. Pulmonary: Effort: Pulmonary effort is normal. Breath sounds: Normal breath sounds. Musculoskeletal: Normal range of motion. Skin: General: Skin is warm and dry. Neurological: Mental Status: She is alert and oriented to person, place, and time. Psychiatric: Mood and Affect: Mood normal. Behavior: Behavior normal. Assessment/Plan: Diagnoses and all orders for this visit: Anxiety Comments: Discussed Buspar 7.5 BID as a prn med or routinely. Pt to call before refill to discuss efficacy Orders: - busPIRone (BUSPAR) 15 MG tablet; Take 1/2 tablet twice a day as needed . Depression, unspecified depression type Comments: Pt does not want to take a daily medication. Sad with transition of children leaving home. Breast cancer screening by mammogram Comments: Pt took req with her to have done when time allows- employee at [employer]. Orders: - Mammography Screening Bilateral; Future ? Depression Screening 01/20/2020 10/29/2020 Little interest or pleasure in doing things 0 1 Feeling down, depressed, or hopeless - 0 PHQ-2 Total Score 0 1 Trouble falling or staying asleep, or sleeping too much - 3 Feeling tired or having little energy - 1 Poor appetite or overeating - 3 Feeling bad about yourself - or that you are a failure or have let yourself or your family down - 0 Trouble concentrating on things, such as reading the newspaper or watching television - 1 Moving or speaking so slowly that other people could have noticed. Or the opposite - being so fidgety or restless that you have been moving around a lot more than usual - 0 Thoughts that you would be better off , or of hurting yourself in some way - 0 PHQ-9 Total Score - 9 If you checked off any problems, how difficult have these problems made it for you to do your work,take care of things at home, or get along with other people? - Somewhat difficult documented in this encounter Assessments Diagnosis Encounter for colorectal cancer screening- Primary Diagnosis Well woman exam Routine general medical examination at a health care facility Abnormal uterine bleeding Unspecified disorder of menstruation and other abnormal bleeding from female genital tract Diagnosis Anxiety Anxiety state, unspecified Depression, unspecified depression type Breast cancer screening by mammogram Reason for Referral Status Reason Specialty Diagnoses / Procedures Referred By Contact Referred To Contact Authorized Patient Preference Diagnoses Abnormal uterine bleeding Procedures US Transvaginal Casi Cevallos CNP [address] [place] [address] [address] Phone: [phone] Fax: [phone] Status Reason Specialty Diagnoses / Procedures Referred By Contact Referred To Contact Authorized Diagnoses Breast cancer screening by mammogram Procedures Mammography Screening Bilateral Casi Cevallos CNP [address] [place] [address] Specialty Diagnoses / Procedures Referred By Contac t Referred To Contact Radiology Diagnoses Arthritis of right hip Procedures XR Aspiration Injection Large Joint Right Noris Camacho MD [facility] [place] [address] Referral ID Status Reason Start Date Expiration Date V isits Requested Visits Authorized [id number] Authorized 03/17/2021 03/17/2022 1 1 Specialty Diagnoses / Procedures Referred By Contac t Referred To Contact Radiology Diagnoses Primary osteoarthritis of left hip Procedures XR Aspiration Injection Large Joint Left Noris Camacho MD [address] [place] [address] Referral ID Status Reason Start Date Expiration Date V isits Requested Visits Authorized [id number] Authorized 03/19/2021 03/19/2022 1 1 Specialty Diagnoses / Procedures Referred By Contac t Referred To Contact Radiology Diagnoses Arthritis of left hip Procedures XR Aspiration Injection Large Joint Left Noris Camacho MD [address] [place] [address] Referral ID Status Reason Start Date Expiration Date V isits Requested Visits Authorized [id number] Pending Review 08/17/2022 08/17/2023 1 1 Specialty Diagnoses / Procedures Referred By Contac t Referred To Contact Diagnoses Beto's disease Procedures US Thyroid Only Casi Cevallos, CRAWLER DRAGLINE OPERATOR [address] [place] [address] [address] Phone: [phone] Fax: [phone] Referral ID Status Reason Start Date Expiration Date Visits Requested Visits Authorized [id number] Authorized Specialty Services Required/Pat ient's Best Interest 02/07/2023 02/07/2024 1 1 Specialty Diagnoses / Procedures Referred By Contac t Referred To Contact Diagnoses Beto's thyroiditis Procedures US Thyroid Only Casi Cevallos, CRAWLER DRAGLINE OPERATOR [address] [place] [address] [address] Phone: [phone] Fax: [phone] Referral ID Status Reason Start Date Expiration Date Visits Requested Visits Authorized [id number] Authorized Specialty Services Required/Pat ient's Best Interest 02/08/2023 02/08/2024 1 1 Specialty Diagnoses / Procedures Referred By Contac t Referred To Contact Diagnoses Encounter for screening mammogram for malignant neoplasm of breast Procedures Mammography Screening Franklyn Bilateral DanaCasi, CRAWLER DRAGLINE OPERATOR [address] [place] [address] Referral ID Status Reason Start Date Expiration Date V isits Requested Visits Authorized [id number] Authorized 10/16/2023 10/15/2024 1 1 Specialty Diagnoses / Procedures Referred By Contac t Referred To Contact Sleep Disorders Medicine / Sleep Medicine Diagnoses Daytime sleepiness Casi Cevallos, CRAWLER DRAGLINE OPERATOR [address] [place] [address] [facility] [address] [place] [address] Referral ID Status Reason Start Date Expiration Date Visits Requested Visits Authorized [id number] Authorized Specialty Services Required/Pat mamie's Best Interest 03/20/2024 03/20/2025 1 1 Instructions * Patient Instructions* Ronnell Cevallosaman Russo, SUNDEEP - 01/21/2020 6:00 AM EDT Abnormal Uterine Bleeding: Care Instructions Your Care Instructions Abnormal uterine bleeding (AUB) is irregular bleeding from the uterus that is longer or heavier than usual or does not occur at your regular time. Sometimes it is caused by changes in hormone levels.It can also be caused by growths in the uterus, such as fibroids or polyps. Sometimes a cause cannot be found. You may have heavy bleeding when you are not expecting your period. Your doctor may suggest a test, if you think you are . Follow-up care is a nguyen part of your treatment and safety. Be sure to make and go to all appointments, and call your doctor if you are having problems. It's also a good idea to know your test resultsand keep a list of the medicines you take. How can you care for yourself at home? Be safe with medicines. Take pain medicines exactly as directed. ? If the doctor gave you a prescription medicine for pain, take it as prescribed. ? If you are not taking a prescription pain medicine, ask your doctor if you can take an [id number] medicine. You may be low in iron because of blood loss. Eat a balanced diet that is high in iron and vitamin C. Foods rich in iron include red meat, shellfish, eggs, beans, and leafy green vegetables. Talk to your doctor about whether you need to take iron pills or a multivitamin. When should you call for help? Call 911 anytime you think you may need emergency care. For example, call if: You passed out (lost consciousness). Call your doctor now or seek immediate medical care if: You have new or worse belly or pelvic pain. You have severe vaginal bleeding. You feel dizzy or lightheaded, or you feel like you may faint. Watch closely for changes in your health, and be sure to contact your doctor if: You think you may be . Your bleeding gets worse. You do not get better as expected. Where can you learn more? Log into your personal health record on [email or web address] and enter I327 in the Education box to learn more about Abnormal Uterine Bleeding: Care Instructions. Current as of: September 18, 2018 Content Version: 12.3 9162-9104 [employer]. Care instructions adapted under license by your healthcare professional. If you have questions about a medical condition or this instruction, always ask your healthcare professional. [employer] disclaims any warranty or liability for your use of this information. documented in this encounter* Patient Instructions* Casi Cevallos CNP - 10/29/2020 3:11 PM EDT Anxiety Disorder: Care Instructions Your Care Instructions Anxiety is a normal reaction to stress. Difficult situations can cause you to have symptoms such assweaty palms and a nervous feeling. In an anxiety disorder, the symptoms are far more severe. Constant worry, muscle tension, trouble sleeping, nausea and diarrhea, and other symptoms can make normal daily activities difficult or impossible. These symptoms may occur for no reason, and they can affect your work, school, or social life. Medicines, counseling, and self-care can all help. Follow-up care is a nguyen part of your treatment and safety. Be sure to make and go to all appointments, and call your doctor if you are having problems. It's also a good idea to know your test resultsand keep a list of the medicines you take. How can you care for yourself at home? Take medicines exactly as directed. Call your doctor if you think you are having a problem with your medicine. Go to your counseling sessions and follow-up appointments. Recognize and accept your anxiety. Then, when you are in a situation that makes you anxious, say karina, This is not an emergency. I feel uncomfortable, but I am not in danger. I can keep goingeven if I feel anxious. Be kind to your body: ? Relieve tension with exercise or a massage. ? Get enough rest. ? Avoid alcohol, caffeine, nicotine, and illegal drugs. They can increase your anxiety level and cause sleep problems. ? Learn and do relaxation techniques. See below for more about these techniques. Engage your mind. Get out and do something you enjoy. Go to a funny movie, or take a walk or hike. Plan your day. Having too much or too little to do can make you anxious. Keep a record of your symptoms. Discuss your fears with a good friend or family member, or join a support group for people with similar problems. Talking to others sometimes relieves stress. Get involved in social groups, or volunteer to help others. Being alone sometimes makes things seemworse than they are. Get at least 30 minutes of exercise on most days of the week to relieve stress. Walking is a good choice. You also may want to do other activities, such as running, swimming, cycling, or playing tennis or team sports. Relaxation techniques Do relaxation exercises 10 to 20 minutes a day. You can play soothing, relaxing music while you do them, if you wish. Tell others in your house that you are going to do your relaxation exercises. Ask them not to disturb you. Find a comfortable place, away from all distractions and noise. Lie down on your back, or sit with your back straight. Focus on your breathing. Make it slow and steady. Breathe in through your nose. Breathe out through either your nose or mouth. Breathe deeply, filling up the area between your navel and your rib cage. Breathe so that your belly goes up and down. Do not hold your breath. Breathe like this for 5 to 10 minutes. Notice the feeling of calmness throughout your whole body. As you continue to breathe slowly and deeply, relax by doing the following for another 5 to 10 minutes: Tighten and relax each muscle group in your body. You can begin at your toes and work your way up to your head. Imagine your muscle groups relaxing and becoming heavy. Empty your mind of all thoughts. Let yourself relax more and more deeply. Become aware of the state of calmness that surrounds you. When your relaxation time is over, you can bring yourself back to alertness by moving your fingers and toes and then your hands and feet and then stretching and moving your entire body. Sometimes people fall asleep during relaxation, but they usually wake up shortly afterward. Always give yourself time to return to full alertness before you drive a car or do anything that might cause an accident if you are not fully alert. Never play a relaxation tape while you drive a car. When should you call for help? Call 911 anytime you think you may need emergency care. For example, call if: You feel you cannot stop from hurting yourself or someone else. Keep the numbers for these national suicide hotlines: 2-149-183-TALK ( ) and 5-088-DRHODKB ( ). If you or someone you know talks about suicide or feeling hopeless, get help right away. Watch closely for changes in your health, and be sure to contact your doctor if: You have anxiety or fear that affects your life. You have symptoms of anxiety that are new or different from those you had before. Where can you learn more? Log into your personal health record on [email or web address] and enter P754 in the Education box to learn more about Anxiety Disorder: Care Instructions. Current as of: April 22, 2020 Content Version: 12.7 [employer]. Care instructions adapted under license by your healthcare professional. If you have questions about a medical condition or this instruction, always ask your healthcare professional. [employer] disclaims any warranty or liability for your use of this information. documented in this encounter Additional Source Comments INFORMATION SOURCE (unrecogn ized section and content) DATE CREATED AUTHOR 01/18/2018 [facility] DATE CREATED AUTHOR AUTHOR'S ORGANIZ ATION 01/19/2018 [facility] DATE CREATED AUTHOR AUTHOR'S ORGANIZ ATION 06/04/2021 [facility] DATE CREATED AUTHOR AUTHOR'S ORGANIZ ATION 08/24/2022 [facility] DATE CREATED AUTHOR AUTHOR'S ORGANIZ ATION 10/14/2022 [facility] DATE CREATED AUTHOR AUTHOR'S ORGANIZ ATION 02/07/2023 [facility] DATE CREATED AUTHOR AUTHOR'S ORGANIZ ATION 04/01/2023 [facility] DATE CREATED AUTHOR AUTHOR'S ORGANIZ ATION 04/05/2024 [facility] DATE CREATED AUTHOR AUTHOR'S ORGANIZ ATION 05/01/2024 [facility] DATE CREATED AUTHOR AUTHOR'S ORGANIZ ATION 05/02/2024 [facility] Assessment & Plan Note - Bubba Silva MD - 11/01/2018 3:12 PM EDT Miscellaneous Notes (unrecog nized section and content) Associated Problem(s): Encounter for colorectal cancer screening She is of average risk. I recommended she undergo colonoscopy. We discussed the details of a good bowel preparation. She would like to work the day of the bowel preparation therefore I would not start it until the evening. She will need to remain on clear liquids in the morning and lunch. Risks, potential complications, and benefits of the procedure were discussed. 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 STATE S SHE HAD LABRUM TEAR FIVE YEARS AGO. IS VERY ACTIVE AND CERTAIN POSITIONS AND WALKING UP STAIRS LEADING WITH THAT LEG CAUSES DISCOMFORT. SLEEPING IS HARD. Reason Onset Date Comments Medication Refill 03/25/2021 Reason Onset Date Comments Medication Refill 09/20/2021 Reason Onset Date Comments Medication Refill 01/10/2022 Reason Onset Date Comments Medication Refill 08/22/2022 Reason Comments Gap Closure (Health Maintenance) Annual Exam C/O heartburn- Reason Onset Date Comments Medication Refill 03/20/2023 Reason Comments Medication Refill Reason Onset Date Comments Medication Refill 06/12/2023 Reason Onset Date Comments Medication Refill 09/12/2023 Reason Comments Gap Closure (Health Maintenance) Annual Exam Reason Onset Date Comments Medication Refill 12/05/2023 Reason Comments Gap Closure (Health Maintenance) Follow-up Needs the new script for 50mcg levothyroxineDiscuss vericose veinsDentist says she may have sleep apnea Reason Onset Date Comments Medication Refill 03/25/2024 Care Teams (unrecognized sec tion and content) Jinriksha Driver Relationship Specialty Start Date End Date Casi Cevallos, CRAWLER DRAGLINE OPERATOR [address] [place] [address] PCP - General Nurse Practitioner 01/20/20 Casi Cevallos, CRAWLER DRAGLINE OPERATOR [address] [place] [address] PCP - MIGUELITO Attributed Provider - MMO Commercial 05/30/20 Jinriksha Driver Relationship Specialty Start Date End Date Casi Cevallos, CRAWLER DRAGLINE OPERATOR [address] [place] [address] PCP - General Nurse Practitioner 01/20/20 Casi Cevallos, CRAWLER DRAGLINE OPERATOR [address] [place] [address] PCP - MIGUELITO Attributed Provider - MMO Commercial 05/30/20 Jinriksha Driver Relationship Specialty Start Date End Date Casi Cevallos CRAWLER DRAGLINE OPERATOR [address] [place] [address] PCP - General Nurse Practitioner 01/20/20 Casi Cevallos CRAWLER DRAGLINE OPERATOR [address] [place] [address] PCP - MIGUELITO Attributed Provider - MMO Commercial 05/30/20 Jinriksha Driver Relationship Specialty Start Date End Date Casi Cevallos CRAWLER DRAGLINE OPERATOR [address] [place] [address] PCP - General Nurse Practitioner 01/20/20 Casi Cevallos, [address] [place] [address] PCP - MIGUELITO Attributed Provider - MMO Commercial 08/31/18 07/30/50 Jinriksha Driver Relationship Specialty Start Date End Date Casi Cevallos, [facility] [address] [place] [address] PCP - General Nurse Practitioner 01/20/20 Casi Cevallos, [address] [place] [address] PCP - MIGUELITO Attributed Provider - MMO Commercial 08/31/18 07/30/50 Jinriksha Driver Relationship Specialty Start Date End Date Casi Cevallos, [address] [place] [address] PCP - General Nurse Practitioner 01/20/20 Casi Cevallos, [address] [place] [address] PCP - MIGUELITO Attributed Provider - MMO Commercial 08/31/18 07/30/50 Jinriksha Driver Relationship Specialty Start Date End Date Casi Cevallos, [address] [place] [address] PCP - General Nurse Practitioner 01/20/20 Casi Cevallos, [facility] [address] [place] [address] PCP - MIGUELITO Attributed Provider - MMO Commercial 08/31/18 07/30/50 Jinriksha Driver Relationship Specialty Start Date End Date Casi Cevallos, [facility] [address] [place] [address] PCP - General Nurse Practitioner 01/20/20 Casi Cevallos, CRAWLER DRAGLINE OPERATOR [address] [place] [address] PCP - MIGUELITO Attributed Provider - MMO Commercial 08/31/18 07/30/50 Jinriksha Driver Relationship Specialty Start Date End Date Dana Casi Russo CNP [address] [place] [address] PCP - General Nurse Practitioner 01/20/20 Jinriksha Driver Relationship Specialty Start Date End Date Casi Cevallos CNP [address] [place] [address] PCP - General Nurse Practitioner 01/20/20 Jinriksha Driver Relationship Specialty Start Date End Date Casi Cevallos CNP [address] [place] [address] PCP - General Nurse Practitioner 01/20/20 Jinriksha Driver Relationship Specialty Start Date End Date DanaKostasen WinnieSUNDEEP quintanilla [address] [place] [address] PCP - General Nurse Practitioner 01/20/20 Jinriksha Driver Relationship Specialty Start Date End Date Dana Casi Russo CNP [address] [place] [address] PCP - General Nurse Practitioner 01/20/20 Jinriksha Driver Relationship Specialty Start Date End Date Casi Cevallos CNP [address] [place] [address] PCP - General Nurse Practitioner 01/20/20 Jinriksha Driver Relationship Specialty Start Date End Date Casi CevallosSUNDEEP [address] [place] [address] PCP - General Nurse Practitioner 01/20/20 Casi Cevallos SUNDEEP [address] [place] [address] PCP - MIGUELITO Attributed Provider - MMO Commercial 08/31/18 07/30/50 Jinriksha Driver Relationship Specialty Start Date End Date Casi CevallosSUNDEEP [address] [place] [address] PCP - General Nurse Practitioner 01/20/20 Casi Cevallos, CRAWLER DRAGLINE OPERATOR [address] [place] [address] PCP - MIGUELITO Attributed Provider - [employer] Commercial 08/31/18 07/30/50 Jinriksha Driver Relationship Specialty Start Date End Date Casi CevallosSUNDEEP [address] [place] [address] PCP - General Nurse Practitioner 01/20/20 Casi Cevallos, SUNDEEP [address] [place] [address] PCP - MIGUELITO Attributed Provider - MMO Commercial 08/31/18 07/30/50 Jinriksha Driver Relationship Specialty Start Date End Date DanaRonnellCasiaman Russo CNP [address] [place] [address] PCP - General Nurse Practitioner 01/20/20 CevallosKostasen Winnie, SUNDEEP [address] [place], [place] [id number] PCP - MIGUELITO Attributed Provider - MMO Commercial 08/31/18 07/30/50 Jinriksha Driver Relationship Specialty Start Date End Date Casi CevallosSUNDEEP [address] [place] [address] PCP - General Nurse Practitioner 01/20/20 DanaCasiSUNDEEP [address] [place] [address] PCP - MIGUELITO Attributed Provider - MMO Commercial 08/31/18 07/30/50 Jinriksha Driver Relationship Specialty Start Date End Date Casi CevallosSUNDEEP [address] [place] [address] PCP - General Nurse Practitioner 01/20/20 DanaCasiSUNDEEP quintanilla [address] [place] [address] PCP - MIGUELITO Attributed Provider - MMO Commercial 08/31/18 07/30/50 Jinriksha Driver Relationship Specialty Start Date End Date Casi CevallosSUNDEEP [address] [place] [address] PCP - General Nurse Practitioner 01/20/20 Jinriksha Driver Relationship Specialty Start Date End Date Casi CevallosSUNDEEP [address] [place] [address] PCP - General Nurse Practitioner 01/20/20 Jinriksha Driver Relationship Specialty Start Date End Date Casi CevallosSUNDEEP [address] [place] [address] PCP - General Nurse Practitioner 01/20/20 Jinriksha Driver Relationship Specialty Start Date End Date Casi Cevallos CNP [address] [place] [address] PCP - General Nurse Practitioner 01/20/20 Jinriksha Driver Relationship Specialty Start Date End Date Casi Cevallos CNP [address] [place] [address] PCP - General Nurse Practitioner 01/20/20 Jinriksha Driver Relationship Specialty Start Date End Date Casi Cevallos CNP [address] [place] [address] PCP - General Nurse Practitioner 01/20/20 Jinriksha Driver Relationship Specialty Start Date End Date Casi Cevallos CRAWLER DRAGLINE OPERATOR [address] [place] [address] PCP - General Nurse Practitioner 01/20/20 Jinriksha Driver Relationship Specialty Start Date End Date Casi Cevallos CNP [address] [place] [address] PCP - General Nurse Practitioner 01/20/20 Jinriksha Driver Relationship Specialty Start Date End Date Casi Cevallos CRAWLER DRAGLINE OPERATOR [address] [place] [address] PCP - General Nurse Practitioner 01/20/20 Jinriksha Driver Relationship Specialty Start Date End Date Casi Cevallos CNP [address] [place] [address] PCP - General Nurse Practitioner 01/20/20 FOR RECORDS PERTAINING TO PATIENTS WHO ARE OR HAVE BEEN ENROLLED IN A CHEMICAL DEPENDENCY/SUBSTANCEABUSE PROGRAM, SOME INFORMATION MAY BE OMITTED. This clinical summary was aggregated from multiple sources. Caution should be exercised in using it in the provision of clinical care. This summary normalizes information from multiple sources, and as a consequence, information in this document may materially change the coding, format and clinical context of patient data. In addition, data may be omitted in some cases. CLINICAL DECISIONS SHOULD BE BASED ON THE PRIMARY CLINICAL RECORDS. [facility] provides no warranty or guarantee of the accuracy or completeness of information in this document.
== END | disposition home or self-care (01) ==
DX: E03.9 Hypothyroidism, unspecified (principal)
CPT/HCPCS: 36415; 84443

== ENCOUNTER → 2024-05-21 | Outpatient (CLI) | payer OTHER, SELFPAY ==
--- OUTSIDE RECORDS SUMMARY | 2024-05-21 07:23 | XMS RPT_ITS | CCD ---
Author Organization [facility] Care Team Providers Care Blending Tank Tender Name Role Phone DICUS, LEONOR Unavailable Unavailable DICUS, LEONOR Unavailable Unavailable JESSICA, CASI N Unavailable Unavailable JESSICA, CASI N Unavailable Unavailable JESSICA, CASI N Unavailable Unavailable JESSICA, CASI N Unavailable Unavailable NONE, NONE Unavailable Unavailable JESSICA, CASI N Unavailable Unavailable JESSICA, CASI N Unavailable Unavailable IRENE, MAAME Unavailable Unavailable IRENE, MAAME Unavailable Unavailable Varun Lezama [phone] Unavailable U navailable JESSICA, CASI N Unavailable Unavailable No, Physician Primary Care Provider Unavailabl e Casi Cevallos Primary Care Provider [phone] Casi Cevallos Unavailable Dana MOBILE SERVICE RV TECHNICIANCasi Primary Care Provider Casi Cevallos CNP Unavailable [phone] Casi Cevallos CNP Unavailable [phone] Dana MOBILE SERVICE RV TECHNICIANCasi Primary Care Provider Casi Cevallos CNP Unavailable Dana MOBILE SERVICE RV TECHNICIAN, Casi Russo Primary Care Provider CASI CEVALLOS Primary Care Unavailab Noris Ang Attending Unavailable ALEXANDER MELGOZA Attending Unavail able CASI CEVALLOS Primary Care Unavailab le CASI CEVALLOS Attending Unavailab le CASI CEVALLOS Primary Care Unavailab le CASI CEVALLOS Attending Unavailab le CEVALLOSCASI Primary Care Unavailab le CEVALLOSCASI Attending Unavailab le CEVALLOS, CASI RUSSO Primary Care Unavailab le CEVALLOS, CASI RUSSO Primary Care Unavailab le SELF, REQUESTING Attending Unavailable CEVALLOS, CASI RUSSO Primary Care Unavailab Jeana Ang Attending Unavailable CEVALLOS, CASI RUSSO Primary Care Unavailab Jeana Ang Attending Unavailable CEVALLOS, CASI RUSSO Attending Unavailab le CEVALLOS, CASI RUSSO Primary Care Unavailab le Cevallos MOBILE SERVICE RV TECHNICIAN, Casi Russo Primary Care Provider Cevallos MOBILE SERVICE RV TECHNICIAN, Casi Russo Unavailable CEVALLOS, CASI RUSSO Primary Care Unavailab le CHELO, PITER BAE Attending Unavailable CEVALLOS, CASI RUSSO Primary Care Unavailab le KALEB, GERARDO LEOS Attending Unava ilable CEVALLOS, CASI RUSSO Primary Care Unavailab le CEVALLOS, CASI RUSSO Attending Unavailab le CEVALLOS, CASI WINNIE Primary Care Unavailab le CEVALLOS, CASI RUSSO Attending Unavailab le CEVALLOS, CASI RUSSO Attending Unavailab le CEVALLOS, CASI RUSSO Primary Care Unavailab le CEVALLOS, CASI WINNIE Primary Care Unavailab le CEVALLOS, CASI RUSSO Attending Unavailab CORNELL Guadarrama Attending Unavailable CEVALLOS, CASI RUSSO Primary Care Unavailab le CEVALLOS, CASI RUSSO Referring Unavailab le CEVALLOS, CASI RUSSO Attending Unavailab le CEVALLOS, CASI WINNIE Primary Care Unavailab le Medications Current Medications Medication Drug Class(es) Dates [...] (general) (routine) without abnormal findings; Translations: [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 Specimen processing and Primary Screening performed at: [facility] - [address] [place] [address] HPV 16 : Negative HPV 18 : [...] for patient management. HPV testing performed at: [facility] - [address] [place] [address] - Abnormal [facility] Comment on above: Performed By: #### 4 [id number] #### [facility] [address] [place] [address] Dain Ravi M.D. [id number] TSH DL <= 0.005 mIU/L Qnon 0 03-20-2023 TSH Qn 1.96 m[IU]/L [facility] Thyroid Stimulating Hormoneo n 03-20-2023 TSH 1.96 uIU/mL Normal 0.32-5.00 [facility] Comment on above: Performed By: #### T SH #### [facility] (DEFAULT) [address] [place], [place] [address] US THYROIDon 02-08-2023 [facility] Patient: JIE LUJAN [address] [place] [address] Admit Date: 02/08/23 /Age: 05 1965 ED Physician: DIAGNOSTIC RADIOLOGY REQUISITION Attending Physician: Casi Cevallos CNP Med Rec #: [id number] EXAM: US THYROID HISTORY: BETO'S COMPARISON: None. FINDINGS: Right lobe: 4.7 x 1.5 x 1.5 cm. Isthmus: 5 mm. Left lobe: 4.1 x 1.5 x 1.4 cm. The gland is heterogeneous in echotexture with normal color Doppler flow. 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 No mass. IMPRESSION: Consistent with Beto's thyroiditis. No acute change. Authenticated on: 02/08/23 124 [id number] Job ID# [id number] CC: Casi Cevallos CNP Normal [facility] TSH DL <= 0.005 mIU/L Qnon 0 02-06-2023 Interpretation and review of laboratory results Abnormal [facility] TSH Qn 11.50 m[IU]/L High [facility] Thyroid Peroxidase (TPO) Abo n 02-06-2023 Thyroid Peroxidase (TPO) Ab THYROID PEROXIDASE ANTIBODIES: 115.9 Units: IU/mL Ref Range: 0.0-9.0 Status: H Testing Performed At: [facility] Services [address] [place] [id number] Assay performed by [employer] DXI Immunoassay. Normal [facility] Comment on above: Performed By: #### T PAB #### [facility] (DEFAULT) [address] [place] [id number] Thyroid Stimulating Hormoneo n 02-06-2023 TSH 11.50 uIU/mL High 0.32-5.00 [facility] Comment on above: Performed By: #### T SH #### [facility] (DEFAULT) [address] [place], [place] [address] 3D MAMMO B/L SCREENINGon 3D MAMMO B/L SCREENING [facility] Patient: JIE LUJAN [address] [place] [address] Admit Date: 12/16/22 /Age: 05 1965 Attending Physician: Self Requesting DIAGNOSTIC RADIOLOGY REQUISITION Med Rec #: [id number] HISTORY: Screening. TECHNIQUE: Bilateral digital screening mammogram [...] regarding the results. Authenticated on: 12/19/22 1635 [id number] Job ID# [id number] CC: Casi Cevallos, SUNDEEP Self Requesting Normal [facility] M TUBERCULOSIS BY Amol ALEGRIA 10-11-2022 M. TB Mitogen-Nil 9.98 IU/mL Normal [facility] Comment on above: Order Comment: The M . Tuberculosis antigen levels cannot be correlated to stage or degree of infection, response to therapy or likelihood for progression to active disease. Results from QuantiFERON TB Gold Plus must be used in conjunction with individual epidemiological history, current medical status, and results of other diagnostic evaluation. Performed By: #### Q FTB #### [facility] (DEFAULT) [address] [address] M. TB Nil 0.02 IU/mL Normal [facility] Comment on above: Order Comment: The M . Tuberculosis antigen levels cannot be correlated to stage or degree of infection, response to therapy or likelihood for progression to active disease. Results from QuantiFERON TB Gold Plus must be used in conjunction with individual epidemiological history, current medical status, and results of other diagnostic evaluation. Performed By: #### Q FTB #### [facility] (DEFAULT) [address] [address] M. TB TB1-Nil 0.01 IU/mL Normal [facility] Comment on above: Order Comment: The M . Tuberculosis antigen levels cannot be correlated to stage or degree of infection, response to therapy or likelihood for progression to active disease. Results from QuantiFERON TB Gold Plus must be used in conjunction with individual epidemiological history, current medical status, and results of other diagnostic evaluation. Performed By: #### Q FTB #### [facility] (DEFAULT) [address] [place] [address] M. TB TB2-Nil 0.00 IU/mL Normal [facility] Comment on above: Order Comment: The M . Tuberculosis antigen levels cannot be correlated to stage or degree of infection, response to therapy or likelihood for progression to active disease. Results from QuantiFERON TB Gold Plus must be used in conjunction with individual epidemiological history, current medical status, and results of other diagnostic evaluation. Performed By: #### Q FTB #### [facility] (DEFAULT) [address] [address] M. Tuberculosis by Quantiferon in tube Negative Normal Negative [facility] Comment on above: Order Comment: The M . Tuberculosis antigen levels cannot be correlated to stage or degree of infection, response to therapy or likelihood for progression to active disease. Results from QuantiFERON TB Gold Plus must be used in conjunction with individual epidemiological history, current medical status, and results of other diagnostic evaluation. Performed By: #### Q FTB #### [facility] (DEFAULT) [address] [address] HIP ARTHROGRAMon 08-24-[address] [facility] Patient: [place] [address] Admit Date: 08/24/22 /Age: 05 1965 / 08/24/22 ED Physician: DIAGNOSTIC RADIOLOGY REQUISITION Attending Physician: Jeana Camacho MD Med Rec #: [id number] EXAMINATION: HIP ARTHROGRAM HISTORY: HIP INJECTION. Left [...] for pain control. Authenticated on: 08/24/22 1439 [id number]/[id number] Job ID# [id number] CC: MD Casi Rose, MOBILE SERVICE RV TECHNICIAN Normal [facility] HIP LT MIN 2V W OR WO PELVIS on 08-17-2022 HIP LT MIN 2V W OR WO PELVIS [facility] Patient: JIE [place] [address] Admit Date: 08/17/22 /Age: 05 1965 / ED Physician: DIAGNOSTIC RADIOLOGY REQUISITION Attending Physician: Jeana Camacho MD Med Rec #: [id number] EXAM: HIP LT MIN 2V W OR WO PELVIS HISTORY: ARTHRITIS COMPARISON: 03/17/2021 FINDINGS/IMPRESSION: 1. Moderate osteoarthritic changes are similar. Osteophytes on the superior lateral acetabulum, left greater than right unchanged. 2. Femoral heads remain rounded. 3. No fracture. 4. Mild degenerative change left SI joint. Authenticated on: 08/17/22 1343 [id number]/[id number] Job ID# [id number] CC: MD Casi Rose, MOBILE SERVICE RV TECHNICIAN [facility] NOVEL CORONAVIRUSon 06-03-20 21 PERFORMED BY [facility] Normal [facility] Comment on above: Performed By: #### C COVID #### [place] [address] SARS-CoV-2 (COVID-19) RNA LORRIE+probe Ql (Unsp spec) Not detected Normal NOT DETECTED [facility] Comment on above: Result Comment: Nega tive [...] #### C COVID #### [place] [address] NARRATIVE This test was performed using isothermal LORRIE and has been approved as Emergency Use Authorization (EUA) for the qualitative detection [id number] nucleic acid. Normal [facility] Comment on above: Performed By: #### C COVID #### [place] [address] HCV ABon 11-15-2017 HEP C VIRUS AB <0.1 Normal 0.0-0.9 [facility] Comment on above: Result Comment: (NOT E) Negative: < 0.8 Indeterminate: 0.8 - 0.9 Positive: > 0.9The [facility] recommends that a positive HCV antibody resultbe followed up with a HCV Nucleic Acid Amplificationtest (433700).PERFORMED AT [facility] Performed By: #### L HBSAB, LHCAB, LMMR ####Testing performed at [address] [place] [address] HEP B SURFACE ABon 8 BSA (Body Surface Area) Reactive Normal [facility] Comment on above: Result Comment: (NOT E) Non Reactive: Inconsistent with immunity, less than 10 mIU/mL Reactive: Consistent with immunity, greater than 9.9 mIU/mLPERFORMED AT [facility] Performed By: #### L HBSAB, LHCAB, LMMR ####Testing performed at [address] [place] [address] MEASLES,MUMP,RUBELLAon 11-15 MUMPS ABS, IGG 173.0 AU/mL Normal Immune >10.9 [facility] Comment on above: Result Comment: (NOT E) Negative <9.0 Equivocal 9.0 - 10.9 Positive >10.9A positive result generally indicates past exposure toMumps virus or previous vaccination.PERFORMED AT [facility] Performed By: #### L HBSAB, LHCAB, LMMR ####Testing performed at [address] [place] [address] RUBEOLA AB, IGG 164.0 AU/mL Normal Immune >29.9 [facility] Comment on above: Result Comment: (NOT E) Negative <25.0 Equivocal 25.0 - 29.9 Positive >29.9Presence of antibodies to Rubeola is presumptive evidenceof immunity except when acute infection is suspected. Performed By: #### L HBSAB, LHCAB, LMMR ####Testing performed at [address] [place] [address] RUBELLA AB, IGG 24.80 index Normal Immune >0.99 [facility] Comment on above: Result Comment: (NOT E) Non-immune <0.90 Equivocal 0.90 - 0.99 Immune >0.99 Performed By: #### L HBSAB, LHCAB, LMMR ####Testing performed at [address] [address] FAX REQUESTon 11-14-2017 FAX TO [facility] Comment on above: Performed By: #### L HBSAB, LHCAB, LMMR ####Testing performed at [facility], [address] [place] [address] MAMMOGRAM SCREENING BI INCL CADon 09-21-2017 MAMMOGRAM SCREENING BI INCL CAD PROCEDURE: MAMMOGRAM SCREENING BI INCL CAD, MAMMOGRAM TOMOSYNTHESIS BREASTBILATERAL SCREENING, 09/20/2017 10:55 AMCLINICAL INDICATIONS: Encounter for screening mammogram for malignant neoplasmof breast. STATED CLINICAL CONCERNS: None.STATED FAMILY HISTORY OF BREAST CANCER: Maternal grandmother. COMPARISON: 11/23/2016, 11/13/2015, 11/05/2014, 10/30/2013, 10/17/2012 from [place].TECHNIQUE: Digital screening bilateral mammography with computer-aideddetectio n [...] to the patient regarding the results. Normal [facility] MAMMOGRAM TOMOSYNTHESIS ASH[address] ST BILATERAL SCREENINGon 09-21-2017 Bilirubin (total) PROCEDURE: MAMMOGRAM SCREENING BI INCL CAD, MAMMOGRAM TOMOSYNTHESIS BREASTBILATERAL SCREENING, 09/20/2017 10:55 AMCLINICAL INDICATIONS: Encounter for screening mammogram for malignant neoplasmof breast. STATED CLINICAL CONCERNS: None.STATED FAMILY HISTORY OF BREAST CANCER: Maternal grandmother. COMPARISON: 11/23/2016, 11/13/2015, 11/05/2014, 10/30/2013, 10/17/2012 from [place].TECHNIQUE: Digital screening bilateral mammography with computer-aideddetectio n [...] to the patient regarding the results. Normal [facility] THIN PREP with HPVon 25-2 018 [address]2101-5 . Normal [facility] Comment on above: Result Comment: Perf ormed at: WB Performed By: #### T PH ####Performed for [address] [address]-6 Negative Normal Negative [facility] Comment on above: Result Comment: This test detects fourteen high-risk HPV types (16/18/31/33/35/39/45/51/52/56/58/59/66/68) without differentiation.Performed at: =G Performed By: #### T PH ####Performed for [address] [address] Store Promoter (cervix/vaginal) Comment Normal [facility] Comment on above: Result Comment: Pema Sanchez, Supervisory Business Services Manager (ASCP)Performed at: WB Performed By: #### T PH ####Performed for [address] [address] Cytology report (cervical/vaginal) Comment Normal [facility] Comment on above: Result Comment: This liquid based ThinPrep(R) pap test was screened with theuse of an image guided system.Performed at: WB Performed By: #### T PH ####Performed for [place] [address] Note: Comment Normal [facility] Comment on above: Result Comment: The Pap smear is a screening test designed to aid in the detection ofpremalignant and malignant conditions of the uterine cervix. It is not adiagnostic procedure and should not be used as the sole means of detectingcervical cancer. Both false-positive and false-negative reports do occur. .Performed at: WB Performed By: #### T PH ####Performed for [place] [address] Pathology narrative Comment Normal [facility] Comment on above: Result Comment: NEGA TIVE FOR INTRAEPITHELIAL LESION AND MALIGNANCY.CELLULAR CHANGES ASSOCIATED WITH INFLAMMATION ARE PRESENT.Performed at: WB Performed By: #### T PH ####Performed for [place] [address] Statement of adequacy (cervix/vaginal) Comment Normal [facility] Comment on above: Result Comment: Sati sfactory for evaluation. Endocervical and/or squamous metaplasticcells (endocervical component) are present.Performed at: WB Performed By: #### T PH ####Performed for [place] [address] Vital Signs Date Time Vital Sign Value Performing Clinician Redd wolff 02-27-2024 07:58-0400 Body height 185.4 cm Casi Cevallos MOBILE SERVICE RV TECHNICIAN Work Phone: [facility] 02-27-2024 07:58-0400 Body mass index (BMI) [Ratio] 30.08 kg/m2 Casi Cevallos MOBILE SERVICE RV TECHNICIAN Work Phone: [facility] 02-27-2024 07:58-0400 Body weight 103.42 kg Casi Cevallos MOBILE SERVICE RV TECHNICIAN Work Phone: [facility] 02-27-2024 07:58-0400 Diastolic blood pressure 86 mm[Hg] Casi Cevallos MOBILE SERVICE RV TECHNICIAN Work Phone: [facility] 02-27-2024 07:58-0400 Heart rate 77 /min Casi Cevallos MOBILE SERVICE RV TECHNICIAN Work Phone: [facility] 02-27-2024 07:58-0400 SaO2% (BldA) [Mass fraction] 98 % Casi Cevallos MOBILE SERVICE RV TECHNICIAN Work Phone: [facility] 02-27-2024 07:58-0400 Systolic blood pressure 126 mm[Hg] Casi Cevallos MOBILE SERVICE RV TECHNICIAN Work Phone: [facility] 10-16-2023 08:36-0400 Diastolic blood pressure 82 mm[Hg] Casi Cevallos MOBILE SERVICE RV TECHNICIAN Work Phone: [facility] 10-16-2023 08:36-0400 Systolic blood pressure 138 mm[Hg] Casi Cevallos MOBILE SERVICE RV TECHNICIAN Work Phone: [facility] 10-16-2023 08:15-0400 Body height 185.4 cm Casi Cevallos MOBILE SERVICE RV TECHNICIAN Work Phone: [facility] 10-16-2023 08:15-0400 Body mass index (BMI) [Ratio] 30.74 kg/m2 Casi Cevallos MOBILE SERVICE RV TECHNICIAN Work Phone: [facility] 10-16-2023 08:15-0400 Body weight 105.69 kg Casi Cevallos MOBILE SERVICE RV TECHNICIAN Work Phone: [facility] 10-16-2023 08:15-0400 Heart rate 69 /min Casi Cevallos MOBILE SERVICE RV TECHNICIAN Work Phone: [facility] 10-16-2023 08:15-0400 SaO2% (BldA) [Mass fraction] 96 % Casi Cevallos MOBILE SERVICE RV TECHNICIAN Work Phone: [facility] 02-06-2023 07:36-0400 Body height 185.4 cm Casiaman Cevallos MOBILE SERVICE RV TECHNICIAN Work Phone: [facility] 02-06-2023 07:36-0400 Body mass index (BMI) [Ratio] 30.03 kg/m2 Casi Cevallos MOBILE SERVICE RV TECHNICIAN Work Phone: [facility] 02-06-2023 07:36-0400 Body temperature 98.4 [degF] Casiaman Cevallos MOBILE SERVICE RV TECHNICIAN Work Phone: [facility] 02-06-2023 07:36-0400 Body weight 103.24 kg Casi Cevallos MOBILE SERVICE RV TECHNICIAN Work Phone: [facility] 02-06-2023 07:36-0400 Diastolic blood pressure 88 mm[Hg] Casi Cevallos MOBILE SERVICE RV TECHNICIAN Work Phone: [facility] 02-06-2023 07:36-0400 Heart rate 81 /min Casi Cevallos MOBILE SERVICE RV TECHNICIAN Work Phone: [facility] 02-06-2023 07:36-0400 Respiratory rate 15 /min Casi Cevallos MOBILE SERVICE RV TECHNICIAN Work Phone: [facility] 02-06-2023 07:36-0400 SaO2% (BldA) [Mass fraction] 95 % Casi Cevallos MOBILE SERVICE RV TECHNICIAN Work Phone: [facility] 02-06-2023 07:36-0400 Systolic blood pressure 139 mm[Hg] Casi Cevallos MOBILE SERVICE RV TECHNICIAN Work Phone: [facility] 03-17-2021 13:47-0400 Body height 185.4 cm Noris Camacho MD Work Phone: [facility] 03-17-2021 13:47-0400 Body mass index (BMI) [Ratio] 30.21 kg/m2 Noris Camacho MD Work Phone: [facility] 03-17-2021 13:47-0400 Body weight 103.87 kg Noris Camacho MD Work Phone: [facility] 03-17-2021 13:47-0400 Respiratory rate 18 /min Noris Camacho MD Work Phone: [facility] 10-29-2020 14:36-0400 BMI (Body Mass Index) 29.8 kg/m2 Casi Cevallos [facility] 10-29-2020 14:36-0400 Body Temperature 97.7 [degF] Casi Cevallos [facility] 10-29-2020 14:36-0400 Body weight 103.87 kg Casi Cevallos [facility] 10-29-2020 14:36-0400 BP Diastolic 80 mm[Hg] Casi Cevallos [facility] 10-29-2020 14:36-0400 BP Systolic 120 mm[Hg] Casi [facility] [place] [facility] 10-29-2020 14:36-0400 Height 186.7 cm Casi [facility] [place] [facility] 10-29-2020 14:36-0400 Pulse (Heart Rate) 72 /min [facility] 10-29-2020 14:36-0400 Pulse Oximetry 99 % Casi [facility] [place] [facility] 10-29-2020 14:36-0400 Respiratory Rate 16 /min [facility] 01-20-2020 13:48-0400 BMI (Body Mass Index) 28.11 kg/m2 [facility] 01-20-2020 13:48-0400 Body Temperature 98.1 [degF] [facility] 01-20-2020 13:48-0400 Body weight 97.[address] [facility] 01-20-2020 13:48-0400 BP Diastolic 76 mm[Hg] [facility] 01-20-2020 13:48-0400 BP Systolic 124 mm[Hg] [facility] 01-20-2020 13:48-0400 Height 186.[address] [facility] 01-20-2020 13:48-0400 Pulse (Heart Rate) 68 /min [facility] 01-20-2020 13:48-0400 Pulse Oximetry 97 % [facility] 01-20-2020 13:48-0400 Respiratory Rate 15 /min [facility] 11-01-2018 15:00-0400 BMI (Body Mass Index) 26.96 kg[facility] 15:00-0400 BP Diastolic 72 mm[Hg] [facility] 11-01-2018 15:00-0400 BP Systolic 138 mm[Hg] [facility] 11-01-2018 15:00-0400 Height 188 [facility] 11-01-2018 15:00-0400 Pulse (Heart Rate) 80 /min [facility] 11-01-2018 15:00-0400 Respiratory Rate 16 /min [facility] 11-[facility]-2018 15:00-0400 Weight 95.25 kg Bubba Silva [facility] Encounters Encounter Date Encounter Type Care Provider Facility Start: 04-30-2024 End: 04-30-2024 ambulatory CASI CEVALLOS [facility] Start: 04-11-2024 End: 04-17-2024 ambulatory CASI CEVALLOS [facility] Start: 04-04-2024 End: 04-05-2024 Transcribe Orders Chuck Huertas MD Work Phone: [facility] Comment on above: Hypothyroidism, unsp ecified type (Primary Dx) Start: 04-04-2024 ambulatory CASI CEVALLOS 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; Hypothyroidism, unspecified type Start: 03-26-2024 End: 03-27-2024 Orders Only Casi Russo Dana MOBILE SERVICE RV TECHNICIAN Work Phone: [facility] Comment on above: Hypothyroidism, unsp ecified type (Primary Dx) Start: 03-25-2024 End: 03-27-2024 Refill Casi Russo Dana MOBILE SERVICE RV TECHNICIAN Work Phone: [facility] Comment on above: Hypothyroidism, unsp ecified type Start: 03-20-2024 End: 03-21-2024 Orders Only Casi Russo Dana MOBILE SERVICE RV TECHNICIAN Work Phone: [facility] Comment on above: Daytime sleepiness ( Primary Dx) Start: 03-05-2024 End: 03-05-2024 Orders Only Casi Winnie Cevallos [employer] TECHNICIAN Work Phone: [facility] [place] Comment on above: Loud snoring (Primar y Dx) Start: 03-01-2024 End: 03-01-2024 Refill Casi Cevallos [employer] TECHNICIAN Work Phone: [facility] [place] 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 Start: 02-27-2024 End: 02-27-2024 Refill Casi Cevallos [employer] TECHNICIAN Work Phone: [facility] [place] Start: 02-27-2024 End: 02-27-2024 Office outpatient visit 25 minutes Casi Cevallos [employer] TECHNICIAN Work Phone: [facility] [place] Comment on above: 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 Ambulatory Start: 02-12-2024 Encounter for other general examination CASI CEVALLOS [facility] Ambulatory Start: 01-30-2024 ambulatory CASI CEVALLOS 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 Start: 10-18-2023 ambulatory CORNELL JACOME [facility] Ambulatory Start: 10-16-2023 End: 10-16-2023 Periodic preventive med est patient 40-64yrs Casi Russo Cevallos [employer] TECHNICIAN Work Phone: [facility] [place] Comment on above: Physical exam (Prima ry Dx); Encounter for screening mammogram for malignant neoplasm of breast Start: 10-16-2023 End: 10-16-2023 Physical examination Casi Russo Cevallos [employer] TECHNICIAN Work Phone: [facility] Work Phone: Start: 10-16-2023 End: 10-16-2023 ambulatory CASI WELLSSkyler CEVALLOS [facility] Start: 09-12-2023 Refill Gerardo yin Kaleb DO Work Phone: [facility] [place] 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 Start: 06-12-2023 Refill Casiaman Cevallos [employer] TECHNICIAN Work Phone: [facility] [place] 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 Start: 04-06-2023 Orders Only Casi Cevallos [employer] TECHNICIAN Work Phone: [facility] [place] Comment on above: Poison thanh (Primary Dx) Start: 03-21-2023 Refill Casi Winnie Cevallos [employer] TECHNICIAN Work Phone: [facility] [place] 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 Start: 03-20-2023 Orders Only Casi Cevallos [employer] TECHNICIAN Work Phone: [facility] [place] Start: 03-20-2023 End: 03-20-2023 Orders Only Casi Cevallos [employer]ICE [employer] TECHNICIAN Work Phone: [facility] [place] 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 Start: 02-08-2023 End: 02-08-2023 ambulatory CASI CEVALLOS Facility:[facility] Start: 02-07-2023 Orders Only Casi Cevallos [employer] TECHNICIAN Work Phone: [facility] [place] 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) Beto's thyroidi tis (Primary Dx) Start: 02-06-2023 End: 02-06-2023 ambulatory CASI CEVALLOS [facility] Start: 02-06-2023 Orders Only Casi Cevallos [employer] TECHNICIAN Work Phone: [facility] [place] Start: 02-06-2023 End: 02-06-2023 ambulatory CASI CEVALLOS Facility:[facility] Start: 02-06-2023 End: 02-06-2023 Periodic preventive med est patient 40-64yrs Casi Cevallos [employer] TECHNICIAN Work Phone: [facility] [place] Comment on above: Elevated TSH (Primar y Dx); Hyperlipidemia, unspecified hyperlipidemia type; Single episode of elevated blood pressure; Gastroesophageal reflux disease, unspecified whether esophagitis present Start: 12-16-2022 End: 12-16-2022 ambulatory CASI CEVALLOS Facility:[facility] Start: 10-11-2022 End: 10-11-2022 ambulatory [facility] Start: 10-11-2022 End: 10-11-2022 Encounter for general adult medical examination without abnormal findings [facility] Start: 08-24-2022 End: 08-24-2022 ambulatory CASIAMAN CEVALLOS [facility] Start: 08-22-2022 Refill Casi Cevallos [employer] TECHNICIAN Work Phone: [facility] [place] Start: 08-17-2022 End: 08-17-2022 Orders Only Noris Camacho MD Work Phone: [facility] Comment on above: Arthritis of left hi p (Primary Dx) Start: 01-10-2022 Refill Gerardo De Luna DO Work Phone: [facility] [place] Start: 09-21-2021 Orders Only Casi Cevallos [employer] TECHNICIAN Work Phone: [facility] [place] Start: 09-20-2021 Refill Casiaman Russo Dana [employer]ICE [employer] TECHNICIAN Work Phone: [facility] [place] Start: 03-25-2021 Refill Briseyda óGmezbeti THOMPSON [facility] [place] Start: 03-19-2021 Orders Only Noris Camacho MD Work Phone: [facility] Comment on above: Primary osteoarthrit is of left hip (Primary Dx) Start: 03-17-2021 Orders Only Noris Camacho MD Work Phone: [facility] Comment on above: Arthritis of right h ip (Primary Dx) Start: 03-17-2021 End: 03-17-2021 Office outpatient visit 10 minutes Noris Camacho MD Work Phone: [facility] Comment on above: Arthritis of right h ip (Primary Dx) Start: 03-16-2021 Orders Only Noris Camacho MD Work Phone: [facility] Comment on above: Left hip pain (Prima ry Dx) Start: 10-29-2020 End: 10-29-2020 Office outpatient visit 25 minutes Casi Cevallos Work Phone: [facility] [place] Comment on above: Anxiety; Depression, unspecified depression type; Breast cancer screening by mammogram Start: 01-20-2020 End: 01-20-2020 Initial preventive medicine new patient 40-64yrs Casi Cevallos Work Phone: [facility] [place] Comment on above: Well woman exam (Kamila xenia Dx); Abnormal uterine bleeding Start: 11-01-2018 End: 11-01-2018 Office outpatient visit 10 minutes Bubba Silva Work Phone: [facility] Comment on above: Encounter for colore ctal cancer screening (Primary Dx) Start: 11-14-2017 Ambulatory LEONOR Casas [facility] Start: 09-20-2017 End: 09-21-2017 Ambulatory CASI LOPEZ Facility:[facility] Start: 08-21-2017 End: 08-22-2017 Ambulatory CASI LOPEZ Facility:[facility] Procedures Date Procedure Procedure Detail Performing Clinician Start: 02-12-2024 Mammography Casi Roman chandra [employer] TECHNICIAN Work Phone: Start: 03-24-2023 Microscopic observat ion [Identifier] in Cervix by Cyto stain Gerardo Kaleb DO Work Phone: Start: 03-20-2023 Assay of thyroid stimulating hormone tsh Casi Cevallos [employer] TECHNICIAN Work Phone: Start: 02-06-2023 Assay of thyroid stimulating hormone tsh Casi Cevallos [employer] TECHNICIAN Work Phone: Start: 02-06-2023 Adult depression scr eening assessment Casi Cevallos [employer] TECHNICIAN Work Phone: Start: 12-20-2022 Mammography Casi Owens prateek [employer]ICE [employer] TECHNICIAN Work Phone: Start: 03-14-2022 Microscopic observat ion [Identifier] in Cervix by Cyto stain Casi Cevallos [employer]BI[employer]ICE [employer] TECHNICIAN Work Phone: Start: 11-22-2021 Mammography Gerardo malin DO Work Phone: Start: 02-22-2021 Microscopic observat ion [Identifier] in Cervix by Cyto stain Casi Cevallos [employer]ICE [employer] TECHNICIAN Work Phone: Start: 11-17-2020 Mammography Noris Camacho [...] Screening for malign ant neoplasm of colon [facility] Start: 08-27-2028 Tetanus vaccination Tetanus: Every 1 0yrs [facility] Start: 03-24-2026 Screening for malign ant neoplasm of cervix [facility] Start: 03-14-2025 Screening for malign ant neoplasm of cervix Pap Smear [facility] Start: 02-26-2025 Depression screening using PHQ-9 (Patient Health Questionnaire 9) score Depression Screening/Follow-Up (PHQ-2/9) [facility] Start: 02-11-2025 Screening for malign ant neoplasm of breast Mammogram [facility] Start: 10-19-2024 COVID-19 Vaccine () COVID-19 Vaccine () [facility] Comment on above: Postponed from 03/31 (Treatment Not Available) Start: 10-15-2024 History and physical examination, annual for health maintenance Wellness Visit [facility] Start: 05-16-2024 End: 04-04-2025 Thyrotropin [Units/volume] in Serum or Plasma TSH Lab Routine Hypothyroidism, unspecified type Expected: 05/16/2024, Expires: 04/04/2025 [facility] Work Phone: Comment on above: Expected: 05/16/2024 , Expires: 04/04/2025 Start: 03-31-2024 COVID-19 Vaccine () COVID-19 Vaccine () [facility] Start: 03-31-2024 Influenza vaccination Influenza Vacc ine (#1) [facility] Start: 03-28-2024 End: 02-14-2025 Thyrotropin [Units/volume] in Serum or Plasma TSH Lab Routine Hypothyroidism, unspecified type Expected: 03/28/2024, Expires: 02/14/2025 [facility] Work Phone: Comment on above: Expected: 03/28/2024 , Expires: 02/14/2025 Start: 03-24-2024 History and physical examination, annual for health maintenance Wellness Visit [facility] Start: 02-23-2024 Screening for malign ant neoplasm of cervix Pap Smear [facility] Start: 02-07-2024 Depression screening using PHQ-9 (Patient Health Questionnaire 9) score [facility] Start: 02-07-2024 History and physical examination, annual for health maintenance Wellness Visit [facility] Start: 12-21-2023 Screening for malign ant neoplasm of breast Mammogram [facility] Start: 03-31-2023 COVID-19 Vaccine () COVID-19 Vaccine (2022- season) [facility] Start: 03-31-2023 Influenza vaccination Sequenti al Influenza Vaccine (#1) [facility] Start: 03-21-2023 End: 02-08-2024 Thyrotropin [Units/volume] in Serum or Plasma TSH Lab Routine Beto's disease Expected: 03/21/2023, Expires: 02/08/2024 [facility] Comment on above: Expected: 03/21/2023 , Expires: 02/08/2024 Start: 03-14-2023 Screening for malign ant neoplasm of colon Fecal occult blood test (FOBT,FIT) [facility] Start: 01-19-2023 Screening for malign ant neoplasm of cervix Pap Smear [facility] Start: 11-22-2022 Screening for malign ant neoplasm of breast Mammogram [facility] Start: 03-31-2022 Influenza vaccination [facility] Start: 02-22-2022 History and physical examination, annual for health maintenance Wellness Visit [facility] Start: 11-17-2021 Screening for malign ant neoplasm of breast [facility]amm[facility] Start: 10-29-2021 Adolescent depressio n screening assessment Depression Screening (PHQ9) [facility] Start: 10-29-2021 Depression screening using PHQ-9 (Patient Health Questionnaire 9) score [facility] Start: 03-31-2021 Influenza vaccination Sequenti al Influenza Vaccine (#1) [facility] Start: 03-17-2021 End: 03-17-2021 Patient encounter procedure 03/17/2021 Office Visit Orthopedic Surgery Noris Camacho MD [address] [place] [address] [facility] Start: 01-29-2021 COVID-19 Vaccine (3 - Booster for Moderna series) COVID-19 Vaccine (3 - Booster for Moderna series) [facility] Start: 01-19-2021 Depression screening using PHQ-9 (Patient Health Questionnaire 9) score Depression Screening (PHQ9) [facility] Start: 01-19-2021 History and physical examination, annual for health maintenance Wellness Visit [facility] Start: 10-27-2020 COVID-19 Vaccine (3 - Booster for Moderna series) COVID-19 Vaccine (3 - Booster for Moderna series) [facility] Start: 09-02-2020 Screening mammography Mammogram [facility] Start: 03-31-2020 Influenza vaccinatio n given Sequential Influenza Vaccine (Season Ended) [facility] Start: 04-30-2019 Screening for malign ant neoplasm of colon Fecal occult blood test (FOBT,FIT) [facility] Start: 11-15-2018 End: 11-15-2018 Scanned Document 11/15/2018 Scanned Document General Surgery Bubba Silva MD [address] [place] [address] [phone] [facility] Start: 03-31-2018 Influenza vaccinatio n given SEQUENTIAL INFLUENZA VACCINE (#1) [facility] Start: 12-05-2017 Administration of he rpes zoster vaccine Zoster Vaccines (1 of 2) [facility] Start: 12-05-2017 Screening for malign ant neoplasm of colon [facility] Start: 12-05-1997 Screening for malign ant neoplasm of cervix HPV/Cotest [facility] Start: 12-05-1985 Hepatitis C antibody , confirmatory test Hepatitis C Screening [facility] Start: 12-05-1985 Hepatitis C screening Hepatitis C Sc reening [facility] Start: 12-05-1982 HIV screening HIV Screening [facility] Start: 1967 Protein mass conc Mammogram [facility] Start: 1967 Screening for malign ant neoplasm of cervix PAP SMEAR [facility] Start: 1967 Screening for malign ant neoplasm of colon [facility] Start: 1967 Tetanus vaccination TETANUS EVERY 10 YR [facility] End: 12-05-2024 CBC panel - Blood by Automated count CBC Lab Routine Encounter for biometric screening 1 Occurrences starting 2023 until 12/05/2024 [facility] Work Phone: Comment on above: 1 Occurrences starti ng 2023 until 12/05/2024 End: 12-05-2024 Comprehensive metabolic 2000 panel - Serum or Plasma Comprehensive Metabolic Panel Lab Routine Encounter for biometric screening 1 Occurrences starting 2023 until 12/05/2024 [facility] Comment on above: 1 Occurrences starti ng 2023 until 12/05/2024 End: 12-05-2024 Lipid 1996 panel - Serum or Plasma Lipid Panel Lab Routine Encounter for biometric screening 1 Occurrences starting 2023 until 12/05/2024 [facility] Comment on above: 1 Occurrences starti ng 2023 until 12/05/2024 End: 02-07-2024 Measurement of thyroperoxidase antibody Thyroid peroxidase antibody (TPO) Lab Routine Elevated TSH 1 Occurrences starting 02/06/2023 until 02/07/2024 [facility] Comment on above: 1 Occurrences starti ng 02/06/2023 until 02/07/2024 End: 12-29-2021 MG Breast - bilateral screening Mammography Screening Bilateral Imaging Routine Breast cancer screening by mammogram 1 Occurrences starting 10/29/2020 until 12/29/2021 [facility] Comment on above: 1 Occurrences starti ng 10/29/2020 until 12/29/2021 End: 12-15-2024 MG Breast - bilateral Screening Mammography Screening [place] Bilateral Imaging Routine Encounter for screening mammogram for malignant neoplasm of breast 1 Occurrences starting 10/16/2023 until 12/15/2024 [facility] Work Phone: Comment on above: 1 Occurrences starti ng 10/16/2023 until 12/15/2024 Microscopic examinat ion of vaginal Papanicolaou smear Thinprep Pap Smear Pathology and Cytology Routine Well woman exam Ordered: 01/20/2020 [facility] Comment on above: Ordered: 01/20/2020 End: 02-07-2024 Thyrotropin [Units/volume] in Serum or Plasma TSH Lab Routine Elevated TSH 1 Occurrences starting 02/06/2023 until 02/07/2024 [facility] Work Phone: Comment on above: 1 Occurrences starti ng 02/06/2023 until 02/07/2024 End: 12-05-2024 Thyrotropin [Units/volume] in Serum or Plasma TSH Lab Routine Hypothyroidism, unspecified type 1 Occurrences starting 2023 until 12/05/2024 [facility] Comment on above: 1 Occurrences starti ng 2023 until 12/05/2024 End: 02-26-2025 Thyrotropin [Units/volume] in Serum or Plasma TSH Lab Routine Hypothyroidism, unspecified type 1 Occurrences starting 02/27/2024 until 02/26/2025 [facility] Work Phone: Comment on above: 1 Occurrences starti ng 02/27/2024 until 02/26/2025 End: 03-26-2025 Thyrotropin [Units/volume] in Serum or Plasma TSH Lab Routine Hypothyroidism, unspecified type 1 Occurrences starting 03/26/2024 until 03/26/2025 [facility] Work Phone: Comment on above: 1 Occurrences starti ng 03/26/2024 until 03/26/2025 End: 01-19-2021 Transvaginal ultrasonography of pelvis US Transvaginal Imaging Routine Abnormal uterine bleeding 1 Occurrences starting 01/20/2020 until 01/19/2021 [facility] Comment on above: 1 Occurrences starti ng 01/20/2020 until 01/19/2021 End: 02-08-2024 US Thyroid Only [facility] Work Phone: Comment on above: 1 Occurrences starti ng 02/07/2023 until 02/08/2024 1 Occurrences starti ng 02/08/2023 until 02/08/2024 End: 12-05-2024 Vitamin D, 25-hydroxy measurement Vitamin D, Total, 25-OH Lab Routine Menopause 1 Occurrences starting 2023 until 12/05/2024 [facility] Comment on above: 1 Occurrences starti ng 2023 until 12/05/2024 End: 03-19-2022 XR Aspiration Injection Large Joint Left XR Aspiration Injection Large Joint Left Imaging Routine Primary osteoarthritis of left hip 1 Occurrences starting 03/19/2021 until 03/19/2022 [facility] Work Phone: Comment on above: 1 Occurrences starti ng 03/19/2021 until 03/19/2022 End: 08-17-2023 XR Aspiration Injection Large Joint Left XR Aspiration Injection Large Joint Left Imaging Routine Arthritis of left hip 1 Occurrences starting 08/17/2022 until 08/17/2023 [facility] Work Phone: Comment on above: 1 Occurrences starti ng 08/17/2022 until 08/17/2023 End: 03-17-2022 XR Aspiration Injection Large Joint Right XR Aspiration Injection Large Joint Right Imaging Routine Arthritis of right hip 1 Occurrences starting 03/17/2021 until 03/17/2022 [facility] Work Phone: Comment on above: 1 Occurrences starti ng 03/17/2021 until 03/17/2022 End: 08-17-2023 XR Hip Left 2-3 Views (Routine) XR Hip Left 2-3 Views (Routine) Imaging Routine Arthritis of left hip 1 Occurrences starting 08/17/2022 until 08/17/2023 [facility] Work Phone: Comment on above: 1 Occurrences starti ng 08/17/2022 until 08/17/2023 End: 03-16-2022 XR Hip Left With Pelvis 2-3 Views (Routine) XR Hip Left With Pelvis 2-3 Views (Routine) Imaging Routine Left hip pain 1 Occurrences starting 03/16/2021 until 03/16/2022 [facility] Work Phone: Comment on above: 1 Occurrences starti ng 03/16/2021 until 03/16/2022 End: 08-17-2023 XR Pelvis 1 View (Standard) XR Pelvis 1 View (Standard) Imaging Routine Arthritis of left hip 1 Occurrences starting 08/17/2022 until 08/17/2023 [facility] Work Phone: Comment on above: 1 Occurrences starti ng 08/17/2022 until 08/17/2023 Immunizations Immunization Date Immunization Notes Care Provider [facility] 06-07-2023 influenza, injectabl e, quadrivalent, preservative free Casi Cevallos [employer] TECHNICIAN Work Phone: [facility] 06-07-2023 influenza virus vacc ine, unspecified formulation Casi Cevallos [employer]BI[employer]ICE [employer] TECHNICIAN Work Phone: [facility] 04-26-2022 influenza, injectabl e, quadrivalent, preservative free Casi Cevallos [employer]BI[employer] SERVICE [employer] TECHNICIAN Work Phone: [facility] 07-02-2021 Pfizer SARS-CoV-2 Vaccination Casi Cevallos [employer]BI[employer] SERVICE [employer] TECHNICIAN Work Phone: [facility] 05-13-2021 influenza, injectabl e, quadrivalent, preservative free Casi Cevallos [employer]BI[employer] SERVICE [employer] TECHNICIAN Work Phone: [facility] 10-09-2020 zoster vaccine recombinant Casi sharp [facility] 09-01-2020 Moderna SARS-CoV-2 Vaccination Casi [facility] 08-03-2020 Moderna SARS-CoV-2 Vaccination Casi [facility] 06-22-2020 zoster vaccine recombinant Casi sharp [facility] 04-21-2020 influenza, injectabl e, quadrivalent, preservative free Casi [facility] 04-16-2019 influenza, seasonal, injectable Casi [facility] 08-27-2018 tetanus toxoid, redu ashley diphtheria toxoid, and acellular pertussis vaccine, adsorbed Casi [facility] 04-30-2017 influenza virus vacc ine, whole virus [facility] 05-30-2009 novel influenza-H1N1 -09, preservative-free, injectable [facility] Payers Date Payer Category Payer Private Health Insurance [employer] SHE [employer]NA [id number] 2023-Present [phone] [address] [place] [address] [id number] 2023 Private Health Insurance [id number] 2018 Unknown [employer]PER[employer] PPO xxxxxxxxxxxx 2018-Present xxxxxxxxxxxx [id number] 2018 Unknown [id number] 2018 Unknown MMO [employer] UPER[employer] PPO [id number] 2018-Present [phone] [address] [place] [address] [id number] 2018 Unknown [id number] 1967 Unknown [id number] 1967 Unknown [id number] .1967 Unknown [id number] 2.840.1.691614.3.579.2 .1967 Unknown [id number] 2.840.1.522588.3.579.2 .1967 Unknown [id number] 2.840.1.007005.3.579.2 .1967 Unknown [id number] 2.840.1.035149.3.579.2 .1967 Unknown [id number] 2.840.1.249303.3.579.2 .1967 Unknown [id number] 2.840.1.920464.3.579.2 .1967 Unknown [id number] 2.0.1.272636.3.579.2 .1967 Unknown [id number] [id number] .3 1959 Unknown [id number] Unknown [id number] Unknown [id number] 2.840.1.377271.3.579.2 .383 Unknown [id number] 2.840.1.304014.3.579.2 .383 Unknown [id number] .383 Unknown [id number] .383 Unknown [id number] .383 Unknown [id number] Social History Date Type Detail Facility Start: 11-01-2018 End: 02-06-2023 Tobacco smoking status NCIS Never smoker [facility] Start: 11-01-2018 History SDOH Alcohol Frequency 1 [facility] Start: 1965 Sex Assigned At Not on file [facility] Start: 01-20-2020 End: 02-27-2024 Alcohol intake Current drinker of alcohol (finding) [facility] Start: 01-20-2020 End: 10-29-2020 History SDOH Alcohol Frequency 2 [facility] Start: 01-20-2020 End: 10-29-2020 History SDOH Physical Activity DPW 4 [facility] Start: 01-20-2020 End: 10-29-2020 History SDOH Physical Activity MPS 6 [facility] Start: 01-20-2020 End: 10-29-2020 History SDOH Stress 3 [facility] Start: 01-20-2020 End: 10-29-2020 History SDOH Financial 5 [facility] Exposure to SARS-CoV -2 (event) Not sure [facility] Start: 10-29-2020 End: 02-06-2023 Tobacco use and exposure Never used [facility] Start: 10-29-2020 History SDOH Social Connections Ep[employer]opalian 99 [facility] Start: 11-01-2018 End: 02-27-2024 Cigarette pack-years [facility] Start: 10-29-2020 End: 02-27-2024 Humiliation, Afraid, Rape, and Kick questionnaire [HARK] [facility] Within the last year , have you been afraid of your partner or ex-partner? No [facility] How often do you att end jewish or sabianist services? Not asked [facility] How often to you hav e a drink containing alcohol? Monthly or less [facility] How hard is it for y ou to pay for the very basics like food, housing, medical care, and heating Not very hard [facility] Do you feel stress - tense, restless, nervous, or anxious, or unable to sleep at night because your mind is troubled all the time - these days [OSQ] To some extent [facility] (I/We) worried wheth er (my/our) food would run out before (I/we) got money to buy more. Never true [facility] Start: 01-20-2020 Gender identity Identifies as female gender (finding) [facility] Start: 01-20-2020 Sexual orientation Heterosexual (fouzia france) [facility] Clinical Notes 03-17-2021 to 05-12-2024 Telephone Encounter - Anu Clay LPN - 03/25/2024 5:01 PM EDTTelephone Encounter - Anu Clay LPN - 03/25/2024 5:01 PM Casi Feng CNP - 02/27/2024 8:06 AM EDT Note Date & Type Note Facility 05-12-2024 Note Home sleep apnea kamaljit t 04/30/2024 Comment Recording time 512 minutes. Patient has very few obstructive respiratory events with overall AHI was 5.7/h. Oxygen saturation was normal Impression Grossly unremarkable overnight home sleep apnea test Recommendation Clinical correlation Consider full night attended PSG for additional data if patient has persistent symptoms of sleep apnea. Home sleep apnea test has limitations with not able to monitor sleep time, sleep stages, arousals, movement disorders etc. that can also contribute to patient's sleep symptoms Chuck Huertas MD, FCCP, FAS, [facility] Diplomate: [place] [employer] Investment Accountant: [facility] 04-30-2024 Note Please confirm with sleep lab in [place] that we will get final report and recommendation from sleep med physician. I am not as familiar with the [place] sleep lab. AUTHENTICATED BY KATHERIN NIELSEN, ON 05/06/2024 22:48:54 [facility] 03-25-2024 Telephone encounter Note Jie is requesting [...] 02/26/2025 for next appt) Please send to [facility] [address] [facility] [address] [place] [id number] [facility] [id number] Follow up: Refill pending for review without additional follow up based on information above. [facility] 03-25-2024 Miscellaneous Notes Jie is requesting [...] 02/26/2025 for next appt) Please send to [facility] [address] [place] [id number] Follow up: Refill pending for review without additional follow up based on information above. documented in this encounter [facility] 02-27-2024 Telephone encounter Note Spoke with patient and let her know information. [facility] 02-27-2024 Telephone encounter Note ----- Message from Esther Cevallos sent at 02/27/2024 9:03 AM EDT ----- Please call Pt and let her know I sent referral to vascular surgeon, Dr Gaspar at the [facility] in [place]. I sent sleep study referral to [facility]. She should get a call from both places to schedule. [facility] 02-27-2024 Miscellaneous Notes Spoke with patient and let her know information. ----- Message from Esther Cevallos sent at 02/27/2024 9:03 AM EDT ----- Please call Pt and let her know I sent referral to vascular surgeon, Dr Gaspar at the [facility] in [place]. I sent sleep study referral to [facility]. She should get a call from both places to schedule. documented in this encounter [facility] 02-27-2024 Note Subjective Patient ID: Jie Lujan is a 58 y.o. female. Pt has prominent varicose veins. She bumped one of the areas on LLE and had to go to the ED in [place] with profuse bleeding. Legs feel heavy and [...] Orders: - Ambulatory referral to Sleep Medicine ([facility]); Future - 01/20/2020 2:00 PM 10/29/2020 2:00 [...] AUTHENTICATED BY CASI CEVALLOS, ON 02/29/2024 05:51:33 [facility] 02-27-2024 History of Presen t illness Narrative Subjective Patient ID: Jie Lujan is a 58 y.o. female. Pt has prominent varicose veins. She bumped one of the areas on LLE and had to go to the ED in [place] with profuse bleeding. Legs feel heavy and [...] Orders: - Ambulatory referral to Sleep Medicine ([facility]); Future ? 01/20/2020 2:00 PM 10/29/2020 2:00 [...] difficult at all documented in this encounter [facility] 12-05-2023 Telephone encounter Note Requested Prescriptions Pending Prescriptions Disp Refills levothyroxine (SYNTHROID, LEVOTHROID) 25 MCG tablet 90 tablet 0 Sig: Take 1 (one) tablet (25 mcg total) by mouth once daily . Karyna arreguin run [facility] 12-05-2023 Miscellaneous Notes Requested Prescriptions Pending Prescriptions Disp Refills levothyroxine (SYNTHROID, LEVOTHROID) 25 MCG tablet 90 tablet 0 Sig: Take 1 (one) tablet (25 mcg total) by mouth once daily . Karyna arreguin run documented in this encounter [facility] 10-16-2023 History of Presen t illness [...] Bilateral; Future ? documented in this encounter [facility] 02-06-2023 History of Presen t illness [...] difficult at all documented in this encounter [facility] 08-22-2022 Telephone encounter Note Requested Prescriptions Pending Prescriptions Disp Refills meclizine (ANTIVERT) 12.5 mg tablet 90 tablet 0 Sig: Take 1 (one) tablet (12.5 mg total) by mouth 3 (three) times a day as needed . [facility] 08-22-2022 Miscellaneous Notes Requested Prescriptions Pending Prescriptions Disp Refills meclizine (ANTIVERT) 12.5 mg tablet 90 tablet 0 Sig: Take 1 (one) tablet (12.5 mg total) by mouth 3 (three) times a day as needed . documented in this encounter [facility] 01-10-2022 Telephone encounter Note Requested Prescriptions [...] (eight) hours as needed . Karyna Norton [facility] 01-10-2022 Miscellaneous Notes Requested Prescriptions Pending [...] . Karyna Norton documented in this encounter [facility] 09-20-2021 Telephone encounter Note Requested Prescriptions [...] (eight) hours as needed . Karyna Norton [facility] 09-20-2021 Miscellaneous Notes Requested Prescriptions Pending [...] . Karyna Norton documented in this encounter [facility] 03-25-2021 Miscellaneous Notes Requested Prescriptions Pending Prescriptions Disp Refills meloxicam (MOBIC) 15 MG tablet 90 tablet 0 Sig: Take 1 (one) tablet (15 mg total) by mouth daily . 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 Tobacco Use Smoking status: Never Smoker Smokeless [...] Friends and Family: Once a week Attends Ep[employer] Services: Not asked Active Member of Clubs [...] Camacho MD 03/17/2021 documented in this encounter [facility] Evaluation note Diagnosis Left hip pain- Primary Pain in joint, pelvic region and thigh [facility] Diagnosis Arthritis of right hip- Primary [facility] Diagnosis Arthritis of right hip- Primary [facility] Diagnosis Primary osteoarthritis of left hip- Primary [facility] Diagnosis Arthritis of left hip- Primary [facility] Diagnosis Arthritis of left hip- Primary [facility] Diagnosis Elevated TSH- Primary Other abnormal blood chemistry Hyperlipidemia, unspecified hyperlipidemia type Single episode of elevated blood pressure Gastroesophageal reflux disease, unspecified whether esophagitis present [facility] Diagnosis Beto's disease- Primary Chronic lymphocytic thyroiditis documented in this encounter [facility] note* Diagnosis Beto's thyroiditis- Primary Chronic lymphocytic thyroiditis documented in this encounter [facility] note* Diagnosis Beto's disease Chronic lymphocytic thyroiditis documented in this encounter [facility] note* Diagnosis Beto's disease Chronic lymphocytic thyroiditis documented in this encounter [facility] note* Diagnosis Poison thanh- Primary Contact dermatitis and other eczema due to plants (except food) documented in this encounter [facility] note* Diagnosis Beto's disease Chronic lymphocytic thyroiditis documented in this encounter [facility] note* Diagnosis Beto's disease Chronic lymphocytic thyroiditis documented in this encounter [facility] note* Diagnosis Physical exam- Primary Unspecified general medical examination Encounter for screening mammogram for malignant neoplasm of breast documented in this encounter [facility] note* Diagnosis Beto's disease Chronic lymphocytic thyroiditis documented in this encounter [facility] note* Diagnosis Menopause- Primary Symptomatic menopausal or female climacteric states Hypothyroidism, unspecified type Encounter for biometric screening documented in this encounter [facility] note* Diagnosis Hypothyroidism, unspecified type- Primary Beto's disease Chronic lymphocytic thyroiditis documented in this encounter [facility] note* Diagnosis Varicose veins of both lower extremities with pain- Primary Hypothyroidism, unspecified type Loud snoring documented in this encounter [facility] note* Diagnosis Loud snoring- Primary documented in this encounter [facility] note* Diagnosis Daytime sleepiness- Primary documented in this encounter [facility] note* Diagnosis Hypothyroidism, unspecified type- Primary documented in this encounter [facility] note* Diagnosis Hypothyroidism, unspecified type documented in this encounter [facility] note* Diagnosis Beto's disease Chronic lymphocytic thyroiditis Hypothyroidism, unspecified type documented in this encounter [facility] note* Diagnosis Hypothyroidism, unspecified type- Primary documented in this encounter [facility] for referral (narrative)* Sleep Study w/Consultation if positive (Routine) - Authorized Specialty Diagnoses / Procedures Referred By Kim yin Referred To Contact Sleep Medicine Diagnoses Loud snoring Casi Cevallos, MOBILE SERVICE RV TECHNICIAN [address] [place] [address] Sleep Medicine [address] [place] [address] Referral ID Status Reason Start Date Expiration Date V isits Requested Visits Authorized [id number] Authorized 02/27/2024 02/26/2025 1 1 * Evaluate and Treat (Routine) - Authorized Specialty Diagnoses / Procedures Referred By Contac t Referred To Contact Cardiothoracic Surgery Diagnoses Varicose veins of both lower extremities with pain Casi Cevallos CNP [address] [place] [address] Segun Gaspar MD [address] [place] [id number] Referral ID Status Reason Start Date Expiration Date Visits Requested Visits Authorized [id number] Authorized Specialty Services Required/Pat ient's Best Interest 02/27/2024 02/26/2025 [address] [facility] for referral (narrative)* Sleep Study w/Consultation if positive (Routine) - Pending Review Specialty Diagnoses / Procedures Referred By Contac t Referred To Contact Sleep Medicine Diagnoses Loud snoring Casi Cevallos CNP [address] [place] [address] [place] [phone] Referral ID Status Reason Start Date Expiration Date Visits Requested Visits Authorized [id number] Pending Review Specialty Services Required/Pat ient's Best Interest 03/05/2024 03/05/2025 1 1 [facility] Summary Purpose Family History No Family History Records FoundNo Family History Records FoundNo Family History Records FoundNo Family History Records FoundNo Family History Records FoundNo Family History Records FoundNo Family History Records FoundNo Family History Records FoundNo Family History Records FoundNo Family History Records Found Advance Directives No Advanced Directives Records FoundDocuments on File Type Date Recorded 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 [...] Respectfully; Bubba Silva MD in this encounter* Casi Cevallos, MOBILE SERVICE RV TECHNICIAN - 01/20/2020 2:09 PM EDT Subjective Patient [...] Objective Physical Exam Exam conducted with a manager intensive care unit present. Constitutional: Appearance: Normal appearance. 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 Orders: - Mammography Screening Bilateral; Future ? [...] Procedures US Transvaginal Casi Cevallos CNP [address] [place] [address] [address] Phone: [phone] Fax: [phone] Status Reason Specialty Diagnoses / Procedures Referred By Contact Referred To Contact Authorized Diagnoses Breast cancer screening by mammogram Procedures Mammography Screening Bilateral Casi Cevallos, SUNDEEP [address] [place] [address] Specialty Diagnoses / Procedures Referred By Contac t Referred To Contact Radiology Diagnoses Arthritis of right hip Procedures XR Aspiration Injection Large Joint Right Noris Camacho MD [address] [place] [id number] Referral ID Status Reason Start Date Expiration Date V isits Requested Visits Authorized [id number] Authorized 03/17/2021 03/17/2022 1 1 Specialty Diagnoses / Procedures Referred By Contac t Referred To Contact Radiology Diagnoses Primary osteoarthritis of left hip Procedures XR Aspiration Injection Large Joint Left Noris Camacho MD [address] [place] [address] Referral ID Status Reason Start Date Expiration Date V isits Requested Visits Authorized [id number] Authorized 03/19/2021 03/19/2022 1 1 Specialty Diagnoses / Procedures Referred By Contac t Referred To Contact Radiology Diagnoses Arthritis of left hip Procedures XR Aspiration Injection Large Joint Left Noris Camacho MD [address] [place] [id number] Referral ID Status Reason Start Date Expiration Date V isits Requested Visits Authorized [id number] Pending Review 08/17/2022 08/17/2023 1 1 Specialty Diagnoses / Procedures Referred By Contac t Referred To Contact Diagnoses Beto's disease Procedures US Thyroid Only Casi Cevallos, SNUDEEP [address] [place] [address] [address] Phone: [phone] Fax: [phone] Referral ID Status Reason Start Date Expiration Date Visits Requested Visits Authorized [id number] Authorized Specialty Services Required/Pat ient's Best Interest 02/07/2023 02/07/2024 1 1 Specialty Diagnoses / Procedures Referred By Contac t Referred To Contact Diagnoses Beto's thyroiditis Procedures US Thyroid Only Casi Cevallos CNP [address] [place] [address] [address] Phone: [phone] Fax: [phone] Referral ID Status Reason Start Date Expiration Date Visits Requested Visits Authorized [id number] Authorized Specialty Services Required/Pat ient's Best Interest 02/08/2023 02/08/2024 1 1 Specialty Diagnoses / Procedures Referred By Contac t Referred To Contact Diagnoses Encounter for screening mammogram for malignant neoplasm of breast Procedures Mammography Screening [place] Bilateral Casi Cevallos CNP [address] [place] [address] Referral ID Status Reason Start Date Expiration Date V isits Requested Visits Authorized [id number] Authorized 10/16/2023 10/15/2024 1 1 Specialty Diagnoses / Procedures Referred By Contac t Referred To Contact Sleep Disorders Medicine / Sleep Medicine Diagnoses Daytime sleepiness Casi Cevallos CNP [address] [place] [address] [facility] [address] [place] [address] [place] [address] Referral ID Status Reason Start Date Expiration Date Visits Requested Visits Authorized [id number] Authorized Specialty Services Required/Pat ient's Best Interest 03/20/2024 03/20/2025 1 1 Instructions * Patient Instructions* Casi Cevallos CNP - 01/21/2020 6:00 AM EDT Abnormal Uterine [...] your doctor if you can take an [id number] medicine. You may be low in iron [...] Log into your personal health record on [email or web address] My Items and enter I327 in the Education box to learn more about Abnormal Uterine Bleeding: Care Instructions. Current as of: September 18, 2018 Content Version: 12.3 5085-1507 [employer]ALKAR. Care instructions adapted under license by your healthcare professional. If you have questions about a medical condition or this instruction, always ask your healthcare professional. [employer]ALK[employer] disclaims any warranty or liability for your [...] the numbers for these national suicide hotlines: 6-507-545-TALK ( ) and 0-881-GRVHIJX ( ). If you or someone you [...] Log into your personal health record on [email or web address] My Items and enter P754 in the Education box to learn more about Anxiety Disorder: Care Instructions. Current as of: April 22, 2020 Content Version: 12.7 HALKAR. Care instructions adapted under license by your healthcare professional. If you have questions about a medical condition or this instruction, always ask your healthcare professional. [employer] disclaims any warranty or liability for your use of this information. documented in this encounter Additional Source Comments INFORMATION SOURCE (unrecogn ized section and content) DATE CREATED AUTHOR 01/18/2018 [facility] DATE CREATED AUTHOR AUTHOR'S ORGANIZ ATION 01/19/2018 [facility] DATE CREATED AUTHOR AUTHOR'S ORGANIZ ATION 06/04/2021 [facility] DATE CREATED AUTHOR AUTHOR'S ORGANIZ ATION 08/24/2022 [facility] DATE CREATED AUTHOR AUTHOR'S ORGANIZ ATION 10/14/2022 [facility] DATE CREATED AUTHOR AUTHOR'S ORGANIZ ATION 02/07/2023 [facility] DATE CREATED AUTHOR AUTHOR'S ORGANIZ ATION 04/01/2023 [facility] DATE CREATED AUTHOR AUTHOR'S ORGANIZ ATION 05/02/2024 [facility] DATE CREATED AUTHOR AUTHOR'S ORGANIZ ATION 05/06/2024 [facility] DATE CREATED AUTHOR AUTHOR'S ORGANIZ ATION 05/14/2024 [facility] Assessment & Plan Note - Bubba Silva [...] and content) 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, 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 Reason Comments Annual Exam Physical Reason Comments [...] Care Teams (unrecognized sec tion and content) Blending Tank Tender Relationship Specialty Start Date End Date Casi Cevallos CNP [address] [place] [address] PCP - General Nurse Practitioner 01/20/20 Casi Cevallos CNP [address] [place] [address] PCP - MIGUELITO Attributed Provider - MMO Commercial 05/30/20 Blending Tank Tender Relationship Specialty Start Date End Date Casi Cevallos CNP [address] [place] [address] PCP - General Nurse Practitioner 01/20/20 Casi Cevallos, MOBILE SERVICE RV TECHNICIAN [address] [place] [address] PCP - MIGUELITO Attributed Provider - MMO Commercial 05/30/20 Blending Tank Tender Relationship Specialty Start Date End Date Casi Cevallos, MOBILE SERVICE RV TECHNICIAN [address] [place] [address] PCP - General Nurse Practitioner 01/20/20 Casi Cevallos, [facility] [address] [place] [address] PCP - MIGUELITO Attributed Provider - MMO Commercial 05/30/20 Blending Tank Tender Relationship Specialty Start Date End Date Casi Cevallos, [facility] [address] [place] [address] PCP - General Nurse Practitioner 01/20/20 Casi Cevallos, [facility] [address] [place] [address] PCP - MIGUELITO Attributed Provider - MMO Commercial 08/31/18 07/30/50 Blending Tank Tender Relationship Specialty Start Date End Date Casi Cevallos, [facility] [address] [place] [address] PCP - General Nurse Practitioner 01/20/20 Casi Cevallos, MOBILE SERVICE RV TECHNICIAN [address] [place] [address] PCP - MIGUELITO Attributed Provider - MMO Commercial 08/31/18 07/30/50 Blending Tank Tender Relationship Specialty Start Date End Date Casi Cevallos, MOBILE SERVICE RV TECHNICIAN [address] [place] [address] PCP - General Nurse Practitioner 01/20/20 Casi Cevallos MOBILE SERVICE RV TECHNICIAN [address] [place] [address] PCP - MIGUELITO Attributed Provider - MMO Commercial 08/31/18 07/30/50 Blending Tank Tender Relationship Specialty Start Date End Date Kostas Cevallosen Winnie, MOBILE SERVICE RV TECHNICIAN [address] [place] [address] PCP - General Nurse Practitioner 01/20/20 Casi Cevallos, [facility] [address] [place] [address] PCP - MIGUELITO Attributed Provider - MMO Commercial 08/31/18 07/30/50 Blending Tank Tender Relationship Specialty Start Date End Date Casi Cevallos, MOBILE SERVICE RV TECHNICIAN [address] [place] [address] PCP - General Nurse Practitioner 01/20/20 Casi Cevallos, [facility] [address] [place] [address] PCP - MIGUELITO Attributed Provider - MMO Commercial 08/31/18 07/30/50 Blending Tank Tender Relationship Specialty Start Date End Date Casi Cevallos, SUNDEEP [address] [place] [address] PCP - General Nurse Practitioner 01/20/20 Blending Tank Tender Relationship Specialty Start Date End Date Casi Cevallos CNP [address] [facility] [place] [address] PCP - General Nurse Practitioner 01/20/20 Blending Tank Tender Relationship Specialty Start Date End Date Casi Cevallos CNP [address] [facility] [place] [address] PCP - General Nurse Practitioner 01/20/20 Blending Tank Tender Relationship Specialty Start Date End Date Dana Casi Russo CNP [address] [place] [address] PCP - General Nurse Practitioner 01/20/20 Blending Tank Tender Relationship Specialty Start Date End Date DanaCasiSUNDEEP [address] [place] [address] PCP - General Nurse Practitioner 01/20/20 Blending Tank Tender Relationship Specialty Start Date End Date Casi Cevallos CNP [address] [place] [address] PCP - General Nurse Practitioner 01/20/20 Blending Tank Tender Relationship Specialty Start Date End Date Casi Cevallos CNP [address] [place] [address] PCP - General Nurse Practitioner 01/20/20 Casi Cevallos CNP [address] [place] [address] PCP - MIGUELITO Attributed Provider - MMO Commercial 08/31/18 07/30/50 Blending Tank Tender Relationship Specialty Start Date End Date Dana Casi Russo CNP [address] [place] [address] PCP - General Nurse Practitioner 01/20/20 Casi Cevallos CNP [address] [place] [address] PCP - MIGUELITO Attributed Provider - MMO Commercial 08/31/18 07/30/50 Blending Tank Tender Relationship Specialty Start Date End Date Casi Cevallos CNP [address] [place] [address] PCP - General Nurse Practitioner 01/20/20 Casi Cevallos, SUNDEEP [address] [place] [address] PCP - MIGUELITO Attributed Provider - MMO Commercial 08/31/18 07/30/50 Blending Tank Tender Relationship Specialty Start Date End Date Casi Cevallos, MOBILE SERVICE RV TECHNICIAN [address] [place] [address] PCP - General Nurse Practitioner 01/20/20 Casi Cevallos, MOBILE SERVICE RV TECHNICIAN [address] [place] [address] PCP - MIGUELITO Attributed Provider - MMO Commercial 08/31/18 07/30/50 Blending Tank Tender Relationship Specialty Start Date End Date Casi Cevallos, MOBILE SERVICE RV TECHNICIAN [address] [place] [address] PCP - General Nurse Practitioner 01/20/20 Casi Cevallos, MOBILE SERVICE RV TECHNICIAN [address] [place] [address] PCP - MIGUELITO Attributed Provider - MMO Commercial 08/31/18 07/30/50 Blending Tank Tender Relationship Specialty Start Date End Date Casi Cevallos, MOBILE SERVICE RV TECHNICIAN [address] [place] [address] PCP - General Nurse Practitioner 01/20/20 Casi Cevallos, SUNDEEP [address] [place] [address] PCP - MIGUELITO Attributed Provider - MMO Commercial 08/31/18 07/30/50 Blending Tank Tender Relationship Specialty Start Date End Date Casi Cevallos CNP [address] [place] [address] PCP - General Nurse Practitioner 01/20/20 Blending Tank Tender Relationship Specialty Start Date End Date Casi Cevallos CNP [address] [place] [address] PCP - General Nurse Practitioner 01/20/20 Blending Tank Tender Relationship Specialty Start Date End Date Casi Cevallos CNP [address] [place] [address] PCP - General Nurse Practitioner 01/20/20 Blending Tank Tender Relationship Specialty Start Date End Date Casi Cevallos CNP [address] [place] [address] PCP - General Nurse Practitioner 01/20/20 Blending Tank Tender Relationship Specialty Start Date End Date Casi Cevallos CNP [address] [place] [address] PCP - General Nurse Practitioner 01/20/20 Blending Tank Tender Relationship Specialty Start Date End Date Casi Cevallos CNP [address] [place] [address] PCP - General Nurse Practitioner 01/20/20 Blending Tank Tender Relationship Specialty Start Date End Date Casi Cevallos CNP [address] [place] [address] PCP - General Nurse Practitioner 01/20/20 Blending Tank Tender Relationship Specialty Start Date End Date Casi Cevallos CNP [address] [facility] [place] [address] PCP - General Nurse Practitioner 01/20/20 Blending Tank Tender Relationship Specialty Start Date End Date Casi Cevallos CNP [address] [facility] [place] [address] PCP - General Nurse Practitioner 01/20/20 Blending Tank Tender Relationship Specialty Start Date End Date Casi Cevallos CNP [address] [facility] [place] [address] PCP - General Nurse Practitioner 01/20/20 FOR [...] BE BASED ON THE PRIMARY CLINICAL RECORDS. [facility]. provides no warranty or guarantee of the accuracy or completeness of information in this document.
--- NOTE | 2024-05-21 07:25 | VDLE_ITS ---
Reason For Study: Bilateral leg pain RIGHT LEFT CFV is compressible, spontaneous, phasic, CFV is compressible, spontaneous, phasic, competent and demonstrates normal competent, and demonstrates normal augmentation. augmentation. FV is compressible, spontaneous, phasic, FV is compressible, spontaneous, phasic, competent and demonstrates normal competent and demonstrates normal augmentation. augmentation. POP V is compressible, spontaneous, phasic, POP V is compressible, spontaneous, phasic, competent and demonstrates normal competent and demonstrates normal augmentation. augmentation. T/P Trunk is compressible. T/P Trunk is compressible. PTV is compressible. PTV is compressible. RT PerV is compressible. LT PerV is compressible. SFJ is competent and measures 0.85 cm. SFJ is competent and measures 0.76 cm. GSV proximal thigh measures 0.35 x 0.38 cm. GSV proximal thigh measures 0.39 x 0.39 cm. GSV above knee is competent. GSV at knee measures 0.30 cm. GSV at knee measures 0.26 x 0.25 cm. GSV is competent throughout. GSV below knee is INCOMPETENT for greater SSV mid calf is competent and measures 0.23 x than 0.5 seconds. 0.23 cm. ASV proximal calf is INCOMPETENT for greater than 0.5 seconds and measures 0.18 x 0.18 cm. INCOMPETENT quality assurance lab technician noted 15 cm above medial malleolus. SSV at junction is competent and measures 0.18 x 0.18 cm. Procedure This is a venous duplex using B-mode, color flow and spectral Doppler. Exam performed in department. Patient was scanned in reverse Trendelenburg position during reflux assessment. VL/Venous Duplex US - Trip Extrem Interpretation Summary Deep veins of the bilateral lower extremities are patent and compressible segme ntally. There is no evidence of bilateral lower extremity deep vein thrombosis. The bilateral great saphenous veins appear patent and compressible segmentally. Positive for reflux in the right great saphenous vein below the knee, accessory saphenous vein in the calf, and calf quality assurance lab technician. Ordering Physician: Piper Del Toro Performed By: Lorri Langley RVT
== END | disposition home or self-care (01) ==
PROVIDERS: Referring Provider Physician Assistant; Visit Provider Physician Assistant
DX: I83.892 Varicose veins of left lower extremity with other complications (principal)
CPT/HCPCS: 93970

== ENCOUNTER → 2024-07-09 | Outpatient (CLI) | payer OTHER, SELFPAY | END | disposition home or self-care (01) | LOC: LAB 07:45 | PROVIDERS: PCP Internal Medicine | DX: E03.9 Hypothyroidism, unspecified (principal) | CPT/HCPCS: 36415; 84443 ==

== ENCOUNTER 2024-09-23 07:26 | Day surgery (SDC) | payer OTHER, SELFPAY ==
[2024-09-23] VITALS (9 sets, daily range): BP systolic 116–128; BP diastolic 84–88; PULSE 60–76; RESP 16; TEMP 36.3–37.1; O2SAT 98–100; BMI 29.6
[2024-09-23] MEDS: 0.9% Normal Saline (1000mL) 1,000 ML 15 ML IV (08:05)
--- NOTE | 2024-09-23 08:16 | PRE.ANES_ITS ---
ASA Classification* ASA Classification ASA Classification: 2 Assessment & Plan Anesthesia* Anesthesia Assessment Anesthesia Assessment: Discussed sedation and/or anesthesia options, risks, benefits, and alternatives with patient/parents/legal guardian/POA. Questions invited. The patient/parents/legal guardian/POA seems to understand and agrees to proceed with anesthesia plan. Reviewed the physical assessment, medical history, allergy history and patient home medications list prior to surgery/procedure/anesthetic and documented any changes. Performed airway and anesthesia risk assessments. Anesthesia Type Anesthesia Type: MAC History Source History Obtained from:: Patient and Chart Anesthesia Focused Assessment* Temperature: 98.7 F Pulse Rate: 76 Blood Pressure: 128/84 Respiratory Rate: 16 Pulse Ox: 100 Oxygen Delivery Method: Room Air Airway Assessment Mouth opens: >3 cm Mallampati Score: I Teeth Condition: Intact Neck Range of motion (ROM): Full ROM Focused Labs Anesthesia Preop lab: CBC WBC 5.6 K/mm3 (4.4-11.0) 05/21/24 07:05/21/24 RBC 4.33 M/mm3 (4.2-5.4) 05/21/24 07:24 05/21/24 Hgb 14.0 g/dL (12.0-15.0) 05/21/24 07:24 05/21/24 Hct 42.8 % (37-47) 05/21/24 07:24 05/21/24 Plt Count 262 K/mm3 (150-450) 05/21/24 07:24 05/21/24 CHEMISTRY Potassium 4.0 mmol/L (3.5-5.1) 05/21/24 07:24 05/21/24 Sodium 141 mmol/L (136-145) 05/21/24 07:24 05/21/24 Phosphorus 3.7 mg/dL (2.5-4.9) 05/21/24 07:24 05/21/24 BUN 14 mg/dL (7-18) 05/21/24 07:24 05/21/24 Creatinine 0.66 mg/dL (0.55-1.02) 05/21/24 07:24 05/21/24 Glucose 109 mg/dL (74-106) H 05/21/24 07:24 05/21/24 TSH 1.900 uIU/mL (0.358-3.740) 07/09/24 07:47 06/30 COAG Pre-Assessment Diagnosis/Proposed Procedure Planned Operative Procedure(s): COLONOSCOPY-OA Anesthesia History 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 When Was Last Pacemaker Check QUESTION #4 FULL TEXT: You/Your Family Experience fever (hyperthermia) with Anesthesia Last Oral Intake Last Oral intake: Last Oral Intake NPO since Meds taken in AM with sips of Yes 09/23/24 07:54 water? 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 Female Yes 09/19/24 16:01 HX of Motion Sickness No 09/19/24 16:01 HX of N/V After Surgery No 09/19/24 16:01 Non-Smoker Yes 09/19/24 16:01 Duration of Surgery greater No 09/19/24 16:01 than 60 minutes Number of Risk Factors 2 09/19/24 16:01 PONV Score Moderate Risk 09/19/24 16:01 Height & Weight Height & Weight: Anesthesia: Height & Weight Height 6 ft 1 in 09/23/24 07:54 Weight: 102 kg 09/23/24 07:54 Body Mass Index (BMI) 29.6 09/23/24 07:54 Respiratory Assessment Respiratory Assessment - 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 Has anyone observed you stop No 09/19/24 16:01 breathing during sleep? STOP Results Negative 09/19/24 16:01 QUESTION #5 FULL TEXT : Do you snore loudly (louder than talking or can be heard through closed doors)? 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 Specify any problems Hx of Preganancy in last 3 No 09/19/24 16:01 Months Nurse Filling Out Transfusion VCHRISTIN 09/19/24 16:01 & Questions: Date: 09/19/24 09/19/24 16:01 Time: 16:03 09/19/24 16:01 Patient unable to answer at this time (ie. 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 professor Hx Now Gestational Age (in weeks): EDC: Hx Hx Para Hx Section SAB Active Medications Active Medications: Current Medications Generic Name Dose Route Start Last Admin Trade Name Freq PRN Reason Stop Dose Admin Sodium Chloride 1,000 mls @ 15 mls/hr 09/23/24 07:55 09/23/24 08:05 IV 09/28/24 21:14 15 mls/hr .Q48H BLAINE Administration Protocol PFS Medical History Wears contact lenses Wears glasses Post-menopausal Cancer Alcohol use Thyroid disease Easy bruising Injury of back Gastric reflux Non-smoker History of pain when walking History of edema HTN (hypertension) Broken back History of broken nose Arthritis Hypothyroidism Varicose veins of both lower extremities Home Medications ?Medication ?Instructions ?Recorded ?Last Taken ?Type famotidine 20 mg tablet 20 mg PO DAILY PRN heartburn 01/23/24 Unknown History meclizine 50 mg tablet (Antivert) 50 mg PO DAILY PRN d izziness 01/23/24 Unknown History aspirin 81 mg tablet,delayed 81 mg PO QDAY 04/30/24 History release (Adult Aspirin Regimen) atorvastatin 40 mg tablet 40 mg PO QDAY 04/30/24 Unkno wn History levothyroxine 25 mcg tablet 75 mcg PO DAILY 04/30/24 0 09/23/24 04:30 History meloxicam 15 mg tablet 15 mg PO DAILY PRN pain 07/01 10/21 Unknown History Allergy/AdvReac Type Severity Reaction Status Date / Time No Known Allergies Allergy Verified 09/23/24 07:42 Family History Other Asthma Bleeding disorder Breast cancer CAD (coronary artery disease) Cancer Diabetes Heart disease Hypertension Thyroid disorder Surgical History (Updated 07/22/24 @ 09:03 by Zeny Villatoro) Hx of colonoscopy H/O tubal ligation History of repair of anterior cruciate ligament of left knee Social History household members: spouse current occupational status: employed Smoking Status: Never smoker substance use type: does not use Review of Systems (Anesthesia) ROS Narrative System reviewed and no additional complaints, except as documented. Physical Exam Const alert, oriented x3 and average body habitus HEENT dentition normal Neck full ROM Resp normal respiratory effort Extremity full ROM Neuro oriented x3 and moves all extremities
--- NOTE | 2024-09-23 08:29 | PCM.HP.STD ---
[facility] - General General Date of Admission: 09/23/24 Date of Service: 09/23/24 Chief Complaint: Screening colonoscopy [facility] Narrative JIE LUJAN, is a 58 F who presents today for screening colonoscopy. She had a colonoscopy approximately 6 years ago but they were not able to get to the cecum. She did have a barium enema that was normal. [facility] Medical History Wears contact lenses Wears glasses Post-menopausal Cancer Alcohol use Thyroid disease Easy bruising Injury of back Gastric reflux Non-smoker History of pain when walking History of edema HTN (hypertension) Broken back History of broken nose Arthritis Hypothyroidism Varicose veins of both lower extremities Home Medications ?Medication ?Instructions ?Recorded ?Last Taken ?Type famotidine 20 mg tablet 20 mg PO DAILY PRN heartburn 01/23/24 Unknown History meclizine 50 mg tablet (Antivert) 50 mg PO DAILY PRN dizziness 01/23/24 Unknown History aspirin 81 mg tablet,delayed 81 mg PO QDAY 04/30/24 09/16/24 History release (Adult Aspirin Regimen) atorvastatin 40 mg tablet 40 mg PO QDAY 04/30/24 Unknown History levothyroxine 25 mcg tablet 75 mcg PO DAILY 04/30/24 09/23/24 04:30 History meloxicam 15 mg tablet 15 mg PO DAILY PRN pain 07/22/24 Unknown History Allergy/AdvReac Type Severity Reaction Status Date / Time No Known Allergies Allergy Verified 09/23/24 07:42 Family History Other Asthma Bleeding disorder Breast cancer CAD (coronary artery disease) Cancer Diabetes Heart disease Hypertension Thyroid disorder Surgical History Hx of colonoscopy H/O tubal ligation History of repair of anterior cruciate ligament of left knee Social History household members: spouse current occupational status: employed Smoking Status: Never smoker substance use type: does not use ROS Constitutional Constitutional: Denies fatigue, fever(s), poor appetite, weight gain or weight loss Gastrointestinal Gastrointestinal: Denies belching, bloating, change in bowel habits, change in stool character, chewing difficulty, coffee ground emesis, constipation, cramping, diarrhea, dyspepsia, dysphagia, early satiety, excessive flatus, fecal incontinence, heartburn, hematemesis, hematochezia, hemorrhoids, loose stools, melena, nausea, odynophagia, rectal bleeding, tenesmus, vomiting or weight changes Vital Signs Vital Signs Vital Signs: 09/23/24 07:54 09/23/24 07:54 09/23/24 08:18 Temperature 98.7 F 98.7 F Temperature Source Temporal Pulse Rate 76 76 Respiratory Rate 16 16 Respiratory Pattern Normal Blood Pressure 128/84 H 128/84 H Blood Pressure Mean 98 Blood Pressure Source Monitor Blood Pressure Position Semi-Fowlers Blood Pressure Location Left Arm Pulse Ox 100 100 Oxygen Delivery Method Room Air Room Air Weight Weight: 224 lb 13.944 oz Body Mass Index (BMI) 29.6 Physical Exam Const alert, oriented x3, no apparent distress and healthy appearing General Appearance: cooperative GI normal to inspection, nondistended, normoactive bowel sounds, soft to palpation, non-tender and non-distended Percussion: normal to percussion Rectal Exam: deferred Assessment & Plan Assessment/Plan (1) Encounter for screening for malignant neoplasm of colon: PLAN: She will undergo screening colonoscopy. She was explained alternatives, risk and benefits include not withstanding bleeding, infection, sepsis, perforation, need for return to . She will have an ASA of 3.
--- NOTE | 2024-09-23 09:21 | OP.CCLET_ITS ---
09/23/2024 Gerardo De Luna Do Re : Colonoscopy procedure for Rosa Humphreys Dear Dr. De Luna This procedure was performed on Monday, September 23, 2024. My impressions and recommendations are as follows: Impressions : - The entire examined colon is normal. - Diverticulosis in the recto-sigmoid colon. - No specimens collected. Recommendations : - Discharge patient to home. - Resume previous diet. - Continue present medications. - Repeat colonoscopy in 10 years for screening purposes. My findings are described in the full procedure note, which is enclosed. If I can be of further assistance, please feel free to contact me at . Sincerely, Pedro Donahue, 09/23/2024 9:21:24 AM This report has been signed electronically.
--- NOTE | 2024-09-23 09:21 | OP.COLON_ITS ---
Patient Name: Rosa Humphreys Procedure Date: 09/23/2024 8:38 AM Date of : 1965 Age: 58 Procedure: Colonoscopy Indications: Screening for colorectal malignant neoplasm Providers: Pedro Donahue DO Medicines: Monitored Anesthesia Care Patient Profile: This is a 58 year old female. Refer to note in patient chart for documentation of history and physical. Last Colonoscopy: several years ago. Complications: No immediate complications. Procedure: Pre-Anesthesia Assessment: - Prior to the procedure, a History and Physical was performed, and patient medications and allergies were reviewed. The patient is competent. The risks and benefits of the procedure and the sedation options and risks were discussed with the patient. All questions were answered and informed consent was obtained. Patient identification and proposed procedure were verified by the physician in the pre-procedure area. Mental Status Examination: alert and oriented. Airway Examination: normal oropharyngeal airway and neck mobility. Respiratory Examination: clear to auscultation. CV Examination: normal. Prophylactic Antibiotics: The patient does not require prophylactic antibiotics. Prior Anticoagulants: The patient has taken no anticoagulant or antiplatelet agents. ASA Grade Assessment: II - A patient with mild systemic disease. After reviewing the risks and benefits, the patient was deemed in satisfactory condition to undergo the procedure. The anesthesia plan was to use monitored anesthesia care (MAC). Immediately prior to administration of medications, the patient was re-assessed for adequacy to receive sedatives. The heart rate, respiratory rate, oxygen saturations, blood pressure, adequacy of pulmonary ventilation, and response to care were monitored throughout the procedure. The physical status of the patient was re-assessed after the procedure. After I obtained informed consent, the scope was passed under direct vision. Throughout the procedure, the patient's blood pressure, pulse, and oxygen saturations were monitored continuously. The colonoscope was introduced through the anus and advanced to the cecum, identified by appendiceal orifice and ileocecal valve. The colonoscopy was performed without difficulty. The patient tolerated the procedure well. The quality of the bowel preparation was adequate. The terminal ileum, ileocecal valve, appendiceal orifice, and rectum were photographed. Scope In: 8:47:28 AM Scope Withdrawal Time 0 hours 8 minutes 12 seconds Scope Out: 9:12:22 AM Total Procedure Duration Time 0 hours 24 minutes 54 seconds Findings: The perianal and digital rectal examinations were normal. The colon (entire examined portion) appeared normal. Two small-mouthed diverticula were found in the recto-sigmoid colon. Impression: - The entire examined colon is normal. - Diverticulosis in the recto-sigmoid colon. - No specimens collected. Recommendation: - Discharge patient to home. - Resume previous diet. - Continue present medications. - Repeat colonoscopy in 10 years for screening purposes. Procedure Code(s): --- Professional --- G0121, Colorectal cancer screening; colonoscopy on individual not meeting criteria for high risk CPT copyright 2021 [employer]. All rights reserved. The codes documented in this report are preliminary and upon manager operating review may be revised to meet current compliance requirements. Pedro Donahue DO 09/23/2024 9:21:24 AM This report has been signed electronically. Number of Addenda: 0 Note Initiated On: 09/23/2024 8:38 AM
--- NOTE | 2024-09-23 09:26 | PCM.POST.ANE ---
Anesthesia: Postop Eval I Current Vital Signs Temperature: 97.4 F Pulse Rate: 68 Blood Pressure: 116/88 Respiratory Rate: 16 Pulse Ox: 98 Oxygen Delivery Method: Room Air Assessment Airway patent: Yes Spontaneous unlabored respirations: Yes Mental status: Awake and Calm nausea: No Vomiting: No Anesthesia Complication: No Fluid Hydration Crystalloid volume administer (ml): 60 Total IV fluid infused: 60 Progress Note Anesthesia document: Postop Eval 1 completed: Yes
--- NOTE | 2024-09-23 14:57 | PCM.POSTANE2 ---
Anesthesia Postop Eval I Sum Postop Eval Completion status Anesthesia document: Postop Eval 1 completed: Yes Anesthesia Postop Eval I Summary Anesthesia Postop Eval I Summary: Anesthesia Postop Eval I: Assessment Summary Airway patent Yes 09/23/24 09:27 [email or web address] Spontaneous unlabored Yes 09/23/24 09:27 [email or web address] respirations Mental status Awake,Calm 09/23/24 09:27 [email or web address] nausea No 09/23/24 09:27 [email or web address] Vomiting No 09/23/24 09:27 [email or web address] Anesthesia Postop Eval I: Fluid Summary Crystalloid volume administer 60 09/23/24 09:27 [email or web address] (ml) Colloids volume administered ( ml) Blood Product volume administered (ml) Total IV fluid infused 60 09/23/24 09:27 [email or web address] Anesthesia Postop Eval I: Summary Notes Anesthesia Complication No 09/23/24 09:27 [email or web address] Anesthesia Complication Comment: Post-operative progress note Anesthesia: Postop Eval II Evaluation Mental status: Awake and Calm Pain Level: 2 nausea: No Vomiting: No Complications Anesthesia Complication: No
== END 2024-09-23 10:03 | disposition home or self-care (01) ==
LOC: EN 07:26 → AC 07:28
PROVIDERS: PCP Internal Medicine; Referring Provider Internal Medicine; Visit Provider Internal Medicine Gastroenterology
PROC: 0DJD8ZZ Inspection of Lower Intestinal Tract, Via Natural or Artificial Opening Endoscopic (ICD-10-PCS; CPT 45378; principal; 2024-09-23 08:25)
DX: Z12.11 Encounter for screening for malignant neoplasm of colon (principal); K57.90 Diverticulosis of intestine, part unspecified, without perforation or abscess without bleeding; I10 Essential (primary) hypertension; K21.9 Gastro-esophageal reflux disease without esophagitis; E03.9 Hypothyroidism, unspecified; Z79.82 Long term (current) use of aspirin; Z79.890 Hormone replacement therapy
CPT/HCPCS: 45378; J2405

== ENCOUNTER → 2024-10-08 | Outpatient (CLI) | payer OTHER, SELFPAY ==
--- NOTE | 2024-10-08 13:57 | STRESSREP_ITS ---
Stress Test Report Date: 10/08/2024 Procedure: Exercise tolerance test/imaging study Indications: Chest pain Consent: Per the patient Procedure: The patient exercised on a Manish protocol for 8 minutes and 30 seconds achieving a peak heart rate of 142 bpm (86% predicted maximal heart rate) with a peak blood pressure 180/98 mmHg and a peak MET capacity of 10.1 METs. The baseline ECG demonstrated normal sinus rhythm, nonspecific ST-T changes. The peak exercise ECG demonstrated about 1 mm horizontal to upsloping ST depressions in the inferior leads. There was about [address] depressions in the lateral leads. EKG during recovery revealed about half millimeter horizontal ST depressions in the inferior leads and eventual return of ST segments to baseline. Patient also had short runs of nonsustained V. tach in the recovery phase. She felt palpitations during these episodes The functional capacity was considered normal for age. There was [no complaint of chest discomfort during exercise or recovery]. The examination was discontinued secondary to achieving target heart rate. Impression: 1. Technically adequate (percent predicted maximal heart rate greater than 85%) exercise tolerance test 2. Stress test is borderline positive for exercise-induced EKG changes of ischemia. Patient also had runs of nonsustained V. tach in the recovery phase which correlated with symptoms of palpitations that she felt 3. The test test is negative for exercise-induced chest pain 4. Functional capacity is normal for age 5. Nuclear images pending Myocardial perfusion imaging study: Technique: The patient was injected with 13.8 mCi of technetium 99m Cardiolite and subsequently rest SPECT Cardiolite nuclear imaging was obtained in the horizontal long, vertical long, and short axis views. The patient exercised on a Manish protocol. Please see above for details. The patient was injected with 43.4 mCi of technetium 99m Cardiolite and subsequently stress SPECT Cardiolite nuclear imaging was obtained in the horizontal long, vertical long, and short axis views. A gated Cardiolite study at peak stress was obtained. Interpretation: Rest and stress SPECT Cardiolite nuclear imaging status post realignment, normalization, and attenuation correction, demonstrates no evidence of significant ischemia or infarction. The gated Cardiolite study demonstrates no significant regional wall motion abnormalities. The reported LVEF is greater than 70%. Impression: 1. There is no evidence of significant ischemia or infarction. 2. The gated Cardiolite study reports an LVEF of greater than 70%. This note was generated with [employer] software. It may contain incorrect words, spelling, and punctuation that were not noted in checking the note before signing.
== END | disposition home or self-care (01) ==
LOC: CVS 06:27
PROVIDERS: PCP Internal Medicine; Referring Provider Internal Medicine; Visit Provider Internal Medicine
DX: R07.9 Chest pain, unspecified (principal); R94.31 Abnormal electrocardiogram [ECG] [EKG]
CPT/HCPCS: 78452; 93017; A9500; A4216

== ENCOUNTER → 2024-12-20 | Outpatient (CLI) | payer OTHER, SELFPAY ==
--- NOTE | 2024-12-20 13:05 | CT_ITS ---
PROCEDURE: LIMITED CHEST CT CARDIAC ONLY REASON FOR EXAM: CHEST PAIN ABNORMAL EKG . DLP: 1194.41 TECHNIQUE: Supine chest CT without contrast, high resolution CT (HRCT) protocol. Coronal and Sagittal reconstruction series were provided. One or more dose reduction techniques were used (e.g., Automated exposure control, adjustment of the mA and/or kV according to patient size, use of iterative reconstruction technique). Dose report: CTDI L volume 36.5. DLP: 1194.41 COMPARISON: None FINDINGS: Hardware: None Lymph nodes: No mediastinal hilar or axillary lymphadenopathy. Heart and Vasculature: Normal heart size. No pericardial effusion. Coronary Artery Calcifications: Absent Lungs and Airways: Mild dependent atelectasis resolves with prone positioning. Pleura: Unremarkable Upper Abdomen: Unremarkable Bones: Degenerative changes of the thoracic spine. CT/Limited Chest CT Cardiac Only IMPRESSION: Coronary artery calcification (CAC) is is absent Reading Location: [place] [id number]
[2024-12-20 13:08] VITALS: BP 164/91; PULSE 50; RESP 16; O2SAT 98; BMI 30.3
[2024-12-20 13:25] VITALS: PULSE 51
[2024-12-20] MEDS: Nitroglycerin SL (ED/IMG/CATH) 0.4 MG TABLET SL (13:25)
[2024-12-20 13:30] VITALS: BP 149/89; PULSE 54; RESP 16; O2SAT 97
--- NOTE | 2024-12-21 11:12 | CCTA.WCONT ---
CCTA w/Cont Coronary Arteries Date of Study:: 12/20/24 CP Coronary Calcium Scoring: High-resolution Computed Tomographic imaging of the chest was performed on [ 12/20/24], with particular attention paid to the coronary arteries. Intravenous contrast agent was administered per protocol and images reconstructed and displayed. LEFT MAIN CORONARY ARTERY:Normal. [] LEFT ANTERIOR DESCENDING CORONARY ARTERY: No atherosclerotic plaquing noted. Medium size vessel which courses towards the apex of the left ventricle. [] LEFT CIRCUMFLEX CORONARY ARTERY: Nondominant large vessel with no significant atherosclerotic plaquing noted to obtuse marginal branches are present [] RIGHT CORONARY ARTERY: Large dominant right coronary artery with no significant atherosclerotic plaquing present. Calcium Scoring Interpretation: Different methods to categorize the overall amount of coronary plaque. Overall amount CAC SIS Visual of coronary plaque P1 Mild -100 <2 1-2 vessels with mild amount of plaque P2 Moderate 101-300 3-4 1-2 vessels with moderate amount, 3 vessels with mild amount of plaque P3 Severe 301-999 5-7 3 vessels with moderate amount, 1 vessel with severe amount of plaque P4 Extensive >1000 >8 2-3 vessels with severe amount of plaque Conclusion: CT cardiac angiography with no significant atherosclerotic plaquing or stenosis present.
== END | disposition home or self-care (01) ==
LOC: CT 12:56
PROVIDERS: PCP Internal Medicine; Referring Provider Internal Medicine Cardiovascular Disease; Visit Provider Internal Medicine Cardiovascular Disease
DX: R94.39 Abnormal result of other cardiovascular function study (principal)
CPT/HCPCS: 75574; 76380; Q9967

== ENCOUNTER → 2025-01-21 | Outpatient (CLI) | payer OTHER, SELFPAY ==
--- NOTE | 2025-01-21 07:37 | ECHOCS_ITS ---
Reason For Study : Chest Pain Procedure This was a 2D Doppler, Color Flow transthoracic echocardiogram. The study was technically difficult. Contrast injection was performed. Exam performed in department. Left Ventricle Normal LV size. The left ventricular ejection fraction is 55 %. Stage 1 diastolic dysfunction. No regional wall motion abnormalities noted. Right Ventricle Normal RV size. Normal systolic function. Atria Normal left atrium. Normal right atrium. Mitral Valve Normal mitral valve. Tricuspid Valve Normal tricuspid valve. Aortic Valve Trisinus/trileaflet aortic valve. Pulmonic Valve The pulmonic valve is not well visualized. Great Vessels Normal sized aortic root. The pulmonary artery is normal size. Pericardium/Pleural No pericardial effusion. Medication 22 gauge I.V. with prn adaptor inserted into right arm. Diluted definity 2ml given slow IV push to enhance endocardial definition. MMode/2D Measurements & Calculations LVIDd: 5.1 cm IVSd: 0.95 cm Ao root diam: 3.4 cm LVIDs: 3.7 cm LVPWd: 0.86 cm RVDd: 2.8 cm FS: 26.8 % LAV(MOD-bp): 98.4 ml LVAd ap4: 36.7 cm2 SV(MOD-sp4): 67.4 ml LAV(MOD-bp) Indexed: 43.2 ml/m2 LVLd ap4: 8.4 cm SI(MOD-sp4): 29.6 ml/m2 LAV(MOD-sp2): 86.6 ml EDV(MOD-sp4): 129.9 ml LAV(MOD-sp4): 94.4 ml EDV(sp4-el): 135.6 ml LVAs ap4: 23.7 cm2 LVLs ap4: 7.4 cm ESV(MOD-sp4): 62.5 ml ESV(sp4-el): 64.8 ml EF(MOD-sp4): 51.9 % EF(sp4-el): 52.2 % SV(sp4-el): 70.8 ml LA A4 area: 27.7 cm2 LA dimension(2D): 4.6 cm RA A4 area: 17.8 cm2 Time Measurements MV dec time: 0.18 sec Doppler Measurements & Calculations MV E max eduin: 58.3 cm/sec Lat Peak E' Eduin: 7.4 cm/sec Med Peak E' Eduin: 8.3 cm/sec MV A max eduin: 67.1 cm/sec E/E' lat: 7.9 E/E' med: 7.0 MV E/A: 0.87 MV V2 max: 104.8 cm/sec MV P1/2t max eduin: 94.1 cm/sec Ao V2 max: 112.0 cm/sec MV max P.4 mmHg MV P1/2t: 74.9 msec Ao max P.0 mmHg MV V2 mean: 50.9 cm/sec MV dec slope: 368.3 cm/sec2 Ao V2 mean: 86.9 cm/sec MV mean P.3 mmHg MVA(P1/2t): 2.9 cm2 Ao mean P.3 mmHg MV V2 VTI: 25.6 cm Ao V2 VTI: 28.3 cm AV (velocity ratio): 0.89 LV V1 max: 105.5 cm/sec PA V2 max: 100.5 cm/sec LV V1 max P.5 mmHg LV V1 mean P.7 mmHg LV V1 mean: 78.3 cm/sec LV V1 VTI: 25.2 cm ECHO/Echo Complete W/ Contrast Interpretation Summary The left ventricular ejection fraction is 55 %. Normal LV size. No regional wall motion abnormalities noted. Stage 1 diastolic dysfunction. Contrast injection was performed. Ordering Physician: Triston Nassar Referring Physician: Triston Nassar Performed By: Gee Holbrook RCS
--- OUTSIDE RECORDS SUMMARY | 2025-01-21 08:00 | XMS RPT_ITS | CCD ---
Author Organization [facility] CliniSywv Care Team Providers Care Fish Culturist Name Role Phone DICUS, LEONOR Unavailable Unavailable DICUS, LEONOR Unavailable Unavailable JESSICA, CASI N Unavailable Unavailable JESSICA, CASI N Unavailable Unavailable JESSICA, CASI N Unavailable Unavailable JESSICA, CASI N Unavailable Unavailable NONE, NONE Unavailable Unavailable JESSICA, CASI N Unavailable Unavailable JESSICA, CASI N Unavailable Unavailable IRENE, MAAME Unavailable Unavailable IRENE, MAAME Unavailable Unavailable Varun Lezama [phone] Unavailable U navailable JESSICA, CASI N Unavailable Unavailable No, Physician Primary Care Provider Unavailabl e Casi Cortez Primary Care Provider [phone] Casi Cortez Unavailable Dana COAT BASTER, Casi Zhou Primary Care Provider Casi Cortez CNP Unavailable [phone] Casi Cortez CNP Unavailable Dana COAT BASTER, Casi Zhou Primary Care Provider Casi Cortez CNP Unavailable Dana COAT BASTER, Casi Zhou Primary Care Provider CASI CORTEZ Primary Care Unavailab Noris Ang Attending Unavailable ALEXANDER MELGOZA Attending Unavail able CASI CORTEZ Primary Care Unavailab le CORTEZCASI Attending Unavailab le CORTEZ, CASI ZHOU Primary Care Unavailab le CORTEZCASI Attending Unavailab le CORTEZ, CASI ZHOU Primary Care Unavailab le CORTEZCASI Attending Unavailab le CORTEZ, CASI ZHOU Primary Care Unavailab le CORTEZ, CASI WINNIE Primary Care Unavailab le SELF, REQUESTING Attending Unavailable CORTEZ, CASI WINNIE Primary Care Unavailab le PAULIEJeana Attending Unavailable CORTEZ, CASI WINNIE Primary Care Unavailab le PAULIEJeana Attending Unavailable CORTEZ, CASI ZHOU Attending Unavailab le CORTEZ, CASI WINNIE Primary Care Unavailab le Cortez CO[facility] BAST[facility], [facility] Primary [facility] Provider Cortez COAT BASTER, Casi Zhou Unavailable CORTEZ, CASI WINNIE Primary Care Unavailab le CHELO, PITER BAE Attending Unavailable CORTEZ, CASI ZHOU Referring Unavailab le CORTEZ, CASI ZHOU Attending Unavailab le CORTEZ, CASI ZHOU Primary Care Unavailab le CORTEZ, CASI WINNIE Primary Care Unavailab le CORTEZ, CASI ZHOU Attending Unavailab le CORTEZ, CASI WINNIE Primary Care Unavailab le CORTEZ, CASI ZHOU Attending Unavailab le CORTEZ, CASI ZHOU Attending Unavailab le CORTEZ, CASI ZHOU Primary Care Unavailab le CORTEZ, CASI ZHOU Primary Care Unavailab le CORTEZ, CASI ZHOU Attending Unavailab le CORTEZ, CASI ZHOU Primary Care Unavailab le GERARDO MANUEL Attending Unava CORNELL Garrison Attending Unavailable CORTEZ, CASI WINNIE Primary Care Unavailab le GAREE, LORRI HO Primary Care Unavailable MORALES, LORRI HO Attending Unavailable Garee COAT BASTER, Lorri Katelyn Primary Care Provider [phone] LORRI NIELSEN Attending Provider LORRI NIELSEN Referring Provider Dr. Gerardo Manuel DO Primary Care Provide r Zeny Villatoro Attending Provider Unavailable Dr. Gerardo Manuel DO Referring Provider Dr. Pedro Donahue DO Attending Provider Dr. ePdro Donahue DO Other Provider Yvette ROSARIO, Dr. Lujan Primary Care Provider [phone] Yvette ROSARIO, Dr. Lujan Attending Provider Yvette ROSARIO, Dr. Lujan Referring Provider Yvette ROSARIO, Dr. Lujan Other Provider Kelly ROSARIO, Dr. Beavers Attending Provider Dana COAT BASTER, Casi Zhou Primary Care Provider Cortez COAT BASTER, Casi Del Reale Unavailable Annamarie RUFFIN, Dr. Gerardo Holland Primary Care Provide r Maday ROSARIO, Dr. Goldstein Attending Provider Maday ROSARIO, Dr. Goldstein Referring Provider Maday ROSARIO, Dr. Goldstein Other Provider [phone] Jl ROSARIO, Dr. Davis Attending Provider Sage Whitmore Attending Unavailable Del Toro, Piper Referring Unavailable CALDWELL, PAULIE Primary Care Unavailable Assessment, Health Risk Referring Unavaila ble Assessment, Health Risk Attending Unavaila ble Friend, Pedro Attending Unavailable Annamarie, Gerardo E Referring Unavailable [place], Gerardo E Primary Care Unavailable Del Toro, Piper Attending Unavailable CALDWELL, PAULIE Primary Care Unavailable Del Toro, Piper Referring Unavailable Del Toro, Piper Attending Unavailable CALDWELL, PAULIE Referring Unavailable Annamarie, Gerardo E Primary Care Unavailable PAULIE CALDWELL Attending Unavailable Yvette, Le Attending Unavailable Yvette, Le Primary Care Unavailable [place], Le Referring Unavailable CALDWELL, PAULIE Referring Unavailable CALDWELL, PAULIE Attending Unavailable CALDWELL, PAULIE Primary Care Unavailable CALDWELL, PAULIE Referring Unavailable CALDWELL, PAULIE Attending Unavailable CALDWELL, PAULIE Primary Care Unavailable CALDWELL, PAULIE Attending Unavailable CALDWELL, PAULIE Primary Care Unavailable Friend, Pedro Attending Unavailable Friend, Pedro Consulting Unavailable [place], Gerardo E Primary Care Unavailable Annamarie, Gerardo E Referring Unavailable Zeny Villatoro Attending Unavailable [place], Gerardo E Primary Care Unavailable Triston Nassar Referring Unavailable Triston Nassar Attending Unavailable [place], Le Primary Care Unavailable CALDWELL, PAULIE Referring Unavailable CALDWELL, PAULIE Attending Unavailable CALDWELL, PAULIE Primary Care Unavailable CALDWELL, PAULIE Referring Unavailable CALDWELL, PAULIE Attending Unavailable CALDWELL, PAULIE Primary Care Unavailable [place], Le Primary Care Unavailable Triston Nassar Attending Unavailable Yvette, Le Referring Unavailable Yvette, Le Attending Unavailable Gerardo Manuel Referring Unavailable Le Crawford Primary Care Unavailable PAULIE CALDWELL Referring Unavailable PAULIE CALDWELL Primary Care Unavailable Piper Del Toro Attending Unavailable Le Crawford Consulting Unavailable [place] Le Primary Care Unavailable Ruthann Mendoza Attending UnavailLe [place]one Referring Unavailable Triston Nassar Referring Unavailable Triston Nassar Consulting Unavailable Le Crawford Primary Care Unavailable Ryan Parikh Attending Unavailable Paul Luu Attending Unavailable Gerardo Manuel Primary Care Unavailable Medications Current Medications Medication Drug Class(es) Dates Sig (Normalized) Sig (Original) aspirin 81 mg delayed release oral tablet (2 sources) Platelet Aggregation Inhibitor, Nonsteroidal Anti-inflammatory Drug Start: 04-30-2024 take 1 tablet by mouth once daily Aspirin (Adult Aspirin Regimen) 81 mg tablet,delayed release (DR/EC) Active 81 mg PO daily April 30, 2024 12:00am aspirin 81 mg / calcium carbonate 777 mg oral tablet (20 sources) Platelet Aggregation Inhibitor, Nonsteroidal Anti-inflammatory Drug aspirin-calcium carbonate 81 mg-300 mg calcium(777 mg) Tab Take 81 mg by mouth . Active busPIRone hydrochloride 15 mg oral tablet (14 sources) Start: 10-29-2020 End: 02-06-2023 busPIRone (BUSPAR) 15 MG tablet Indications: Anxiety Take 1/2 tablet twice a day as needed . 30 tablet 0 10/29/2020 02/06/2023 Discontinued famotidine 20 mg oral tablet (20 sources) Histamine-2 Receptor Antagonist Start: 02-06-2023 End: 02-06-2024 take 1 tablet by mouth once daily as needed for gastroesophageal reflux disease Famotidine 20 mg tablet Active 20 mg PO DAILY as needed for heartburn January 23, 2024 12:00am Fruits (1 source) Start: 11-12-2024 Fruits Active PO DAILY November 12, 2024 12:00am levothyroxine sodium 0.075 mg oral tablet (20 sources) l-Thyroxine Start: 09-26-2024 take 1 tablet by mouth once Levothyroxine 75 mcg tablet Active 75 ug PO .6x/wk 90 September 26, 2024 1:46pm Start: 09-26-2024 End: 09-26-2024 take 1 capsule by mouth every week Levothyroxine 150 mcg capsule Active 150 ug PO .once weekly September 26, 2024 1:45pm MONDAY Start: 04-30-2024 End: 09-26-2024 take 3 tablets by mouth once Levothyroxine 25 mcg tabl et Discontinued 75 ug PO .6x/wk September 26, 2024 10:51am September 26, 2024 1:47pm Start: 04-04-2024 End: 07-09-2024 levothyroxine (SYNTHROID, LEVOTHROID) 75 MCG tablet Indications: Hypothyroidism, unspecified type Take one tablet daily Mon-Mon and 2 tablets on Sun. . 40 tablet 2 07/09/2024 Active Start: 02-27-2024 End: 04-04-2024 take 1 tablet by mouth once daily levothyroxine (SYNTHROID, LEVOTHROID) 50 MCG tablet Indications: Hypothyroidism, unspecified type Take 1 (one) tablet (50 mcg total) by mouth once daily for 7 days . 7 tablet 03/27/2024 04/04/2024 Discontinued Start: 02-07-2023 End: 05-15-2024 take 1 tablet by mouth once daily Levothyroxine 25 mcg tablet Discontinued 25 ug PO DAILY January 23, 2024 12:00am April 30, 2024 8:25am Multivitamin tablet (1 source) Start: 11-12-2024 Multivitamin tablet Active 1 {tbl} PO EVERY MORNING November 12, 2024 12:00am ondansetron 4 mg oral tablet (20 sources) Serotonin-3 Receptor Antagonist Start: 09-26-2024 take 1 tablet by mouth every eight hours as needed for nausea and vomiting Ondansetron Hcl 4 mg tablet Active 4 mg PO Q8H as needed for nausea and vomiting September 26, 2024 1:00am Start: 01-20-2020 End: 01-10-2022 take 1 tablet by mouth every eight hours as needed ondansetron (ZOFRAN) 4 MG tablet Take 1 (one) tablet (4 mg total) by mouth every 8 (eight) hours as needed . 9 tablet 01/10/2022 Active osteo bioflex (1 source) Start: 11-12-2024 take 1 tablet by mouth once daily osteo bioflex Active 0 PO DAILY November 12, 2024 12:00am tablets orally daily; predniSONE 20 mg oral tablet (1 source) [...] months as directed . 0 10/06/2020 Active Veggies (1 source) Start: 11-12-2024 Veggies Active PO DAILY November 12, 2024 12:00am Completed/Discontinued Medications Medication Drug Class(es) Dates Sig (Normalized) Sig (Original) atorvastatin 40 mg oral tablet (20 sources) HMG-CoA Reductase Inhibitor Start: 09-26-2024 End: 09-26-2024 Atorvastatin 40 mg tablet Discontinued 20 mg PO daily September 26, 2024 10:51am September 26, 2024 1:47pm Start: 04-30-2024 End: 09-26-2024 take 1 tablet by mouth once daily Atorvastatin 40 mg tablet Discontinued 40 mg PO daily April 30, 2024 12:00am September 26, 2024 10:53am Start: 02-15-2024 End: 11-04-2024 take 1 tablet by mouth once daily Atorvastatin 20 mg tablet Active 20 mg PO daily September 26, 2024 1:45pm meclizine hydrochloride 50 mg oral tablet (20 sources) Antiemetic Start: 09-26-2024 End: 09-26-2024 Meclizine (Antivert) 50 mg tablet Discontinued 12.5 mg PO DAILY as needed for dizziness September 26, 2024 10:52am September 26, 2024 11:05am Start: 09-26-2024 take 1 tablet by henry th once as needed for dizziness Meclizine 12.5 mg tablet Active 12.5 mg PO ONCE as needed for dizziness September 26, 2024 1:00am Start: 01-23-2024 End: 09-26-2024 take 1 tablet by mouth once daily as needed for dizziness Meclizine (Antivert) 50 mg tablet Discontinued 50 mg PO DAILY as needed for dizziness January 23, 2024 12:00am September 26, 2024 10:53am Start: 01-20-2020 End: 08-22-2022 take 1 tablet by mouth three times daily as needed meclizine (ANTIVERT) 12.5 mg tablet Take 1 (one) tablet (12.5 mg total) by mouth 3 (three) times a day as needed . 30 tablet 08/22/2022 Active meloxicam 15 mg oral tablet (20 sources) Nonsteroidal Anti-inflammatory Drug Start: 07-12-2018 End: 09-26-2024 take 1 tablet by mouth once daily as needed for pain Meloxicam 15 mg tablet Discontinued 15 mg PO DAILY as needed for pain July 22, 2024 10:04am September 26, 2024 1:47pm Problems Active Problems Problem Classification Problem Date Documented Date Episodic/Chronic Allergic reactions (1 source) Contact dermatitis due to poison thanh; Translations: [Allergic contact dermatitis due to plants, except food] 04-06-2023 Episodic Anxiety disorders (1 source) Anxiety; Translations: [Anxiety] Chronic Coagulation and hemorrhagic disorders (2 sources) Heterozygous Factor V Leiden mutation; 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] 09-26-2024 Chronic Coma; stupor; and brain damage (3 sources) Daytime somnolence; Translations: [Somnolence] Onset: 04-30-2024 03-20-2024 Episodic Disorders of lipid metabolism (4 sources) Hyperlipidemia; Translations: [Hyperlipidemia, unspecified] Onset: 09-26-2024 02-06-2023 Chronic Esophageal disorders (6 sources) Gastroesophageal reflux disease; Translations: [Gastro-esophageal reflux disease without esophagitis] Onset: 09-26-2024 02-06-2023 Chronic Mood disorders (1 source) Depressive disorder; Translations: [Depression, unspecified depression type] Chronic Nonspecific chest pain (4 sources) Chest pain; Translations: [Chest pain, unspecified] Onset: 10-16-2024 09-26-2024 Episodic Osteoarthritis (9 sources) Arthritis of right hip; Translations: [Unilateral primary osteoarthritis, right hip] Onset: 08-24-2022 Chronic Other circulatory disease (1 source) Elevated blood-pressure reading without diagnosis of hypertension; Translations: [Elevated blood-pressure reading, without diagnosis of hypertension] 02-06-2023 Episodic Other circulatory disease (4 sources) Elevated blood pressure; Translations: [Elevated blood-pressure reading, without diagnosis of hypertension] 09-26-2024 Episodic Other female genital disorders (2 sources) Abnormal uterine bleeding; Translations: [Abnormal uterine and vaginal bleeding, unspecified] 01-21-2020 Chronic Other lower respiratory disease (2 sources) Snoring; Translations: [Snoring] 02-29-2024 Episodic Other non-traumatic joint disorders (1 source) Hip pain; Translations: [Pain in left hip] Episodic Other non-traumatic joint disorders (2 sources) Multiple joint pain; Translations: [Pain in unspecified joint] 09-26-2024 Episodic Residual codes; unclassified (1 source) Menopause present; Translations: [Asymptomatic menopausal state] 2023 Episodic Thyroid disorders (20 sources) Beto thyroiditis; Translations: [Autoimmune thyroiditis] Onset: 03-20-2023 02-07-2023 Chronic Unclassified (20 sources) Encounter for screening mammogram for malignant neoplasm of breast; Translations: [Encounter for screening for malignant neoplasm of cervix] Onset: 08-24-2017 11-01-2018 Episodic Unclassified (6 sources) Patient encounter status; Translations: [Encounter for colorectal cancer screening] Onset: 11-01-2018 11-01-2018 Past or Other Problems Problem Classification Problem Date Documented Date Episodic/Chronic Administrative/social admission (3 sources) First encounter by subject; Translations: [Persons encountering health services in other specified circumstances] Onset: 09-26-2024 09-26-2024 Episodic Conditions associated with dizziness or vertigo (3 sources) Vertigo; Translations: [Dizziness and giddiness] Onset: 09-26-2024 09-26-2024 Episodic Immunizations and screening for infectious disease (1 source) Encounter for screening for human papillomavirus (HPV); Translations: [ENC SCREENING HUMAN PAPILLOMAVIRUS] Onset: 08-24-2017 Episodic Medical examination/evaluatio n (3 sources) Encounter for gynecological examination (general) (routine) without abnormal findings; Translations: [ENC MATERIAL CONTROL ASSOCIATE EX GEN RTN W/O ABNORM FIND] Onset: 08-21-2017 Episodic Mood disorders (1 source) Mood disorders Onset: 01-20-2020 01-20-2020 Other circulatory disease (1 source) Elevated blood-pressure reading, without diagnosis of hypertension; Translations: [Elevated blood-pressure reading, without diagnosis of hypertension] Onset: 09-26-2024 Episodic Other non-traumatic joint disorders (1 source) Pain in unspecified joint; Translations: [Pain in unspecified joint] Onset: 09-26-2024 Episodic Residual codes; unclassified (2 sources) Asymptomatic menopausal state; Translations: [Asymptomatic menopausal state] Onset: 02-12-2024 Episodic Unclassified (1 source) Family history of malignant neoplasm of breast; Translations: [FAMILY HX MALIG NEOPLASM OF BREAST] Onset: 09-22-2017 Episodic Varicose veins of lower extremity (7 sources) Varicose veins of lower extremity; Translations: [Varicose veins of bilateral lower extremities with pain] Onset: 02-05-2024 02-29-2024 Episodic Results Test Name Value Interpretation Reference Range Facility Coronary Angiography CT Coronary Angiography [facility] Imaging Services [address] [place] [address] 12/21/24 1112 MR#: [id number] Acct: [id number] Name: JIE HUMPHREYS TERESA Rep #: [id number] : 1965 59 From: Ryan Parikh MD PCP: Dr. Le Crawford MD Status:REG CLI Y Location: CT CCTA w/Cont Coronary Arteries Date of Study:: 12/20/24 CP Coronary Calcium Scoring: High-resolution Computed Tomographic imaging of the chest was performed on [ 12/20/24], with particular attention paid to the coronary arteries. Intravenous contrast agent was administered per protocol and images reconstructed and displayed. LEFT MAIN CORONARY ARTERY:Normal. [] LEFT ANTERIOR DESCENDING CORONARY ARTERY: No atherosclerotic plaquing noted. Medium size vessel which courses towards the apex of the left ventricle. [] LEFT CIRCUMFLEX CORONARY ARTERY: Nondominant large vessel with no significant atherosclerotic plaquing noted to obtuse marginal branches are present [] RIGHT CORONARY ARTERY: Large dominant right coronary artery with no significant atherosclerotic plaquing present. Calcium Scoring Interpretation: Different methods to categorize the overall amount of coronary plaque. Overall amount CAC SIS Visual of coronary plaque P1 Mild -100 <2 1-2 vessels with mild amount of plaque P2 Moderate 101-300 3-4 1-2 vessels with moderate amount, 3 vessels with mild amount of plaque P3 Severe 301-999 5-7 3 vessels with moderate amount, 1 vessel with severe amount of plaque P4 Extensive >1000 >8 2-3 vessels with severe amount of plaque Conclusion: CT cardiac angiography with no significant atherosclerotic plaquing or stenosis present. 12/21/24 1114 Date Ryan Parikh MD Cosigner Signature (if applicable): Date CC: Dr. Le Crawford MD; Dr. Ryan Parikh MD; Dr. Triston Nassar MD Signed Normal [facility] Limited Chest CT Cardiac Onl yon 12-20-[address] Cardiac Only [facility] Imaging Services [address] [place] [id number] Cardiac Only MR#: [id number] Acct: [id number] Name: JIE HUMPHREYS TERESA Rep #: [id number] : 1965 F 59 From: Kendrick langford MD PCP: Dr. Le Crawford MD Status: [facility] CL Study: Limited Chest CT Cardiac Only Date of Exam: Exam# [id number] Ordering Dr: Triston Nassar MD PROCEDURE: LIMITED CHEST CT CARDIAC ONLY REASON FOR EXAM: CHEST PAIN ABNORMAL EKG . DLP: 1194.41 TECHNIQUE: Supine chest CT without contrast, high resolution CT (HRCT) protocol. Coronal and Sagittal reconstruction series were provided. One or more dose reduction techniques were used (e.g., Automated exposure control, adjustment of the mA and/or kV according to patient size, use of iterative reconstruction technique). Dose report: CTDI L volume 36.5. DLP: 1194.41 COMPARISON: None FINDINGS: Hardware: None Lymph nodes: No mediastinal hilar or axillary lymphadenopathy. Heart and Vasculature: Normal heart size. No pericardial effusion. Coronary Artery Calcifications: Absent Lungs and Airways: Mild dependent atelectasis resolves with prone positioning. Pleura: Unremarkable Upper Abdomen: Unremarkable Bones: Degenerative changes of the thoracic spine. CT/Limited Chest CT Cardiac Only IMPRESSION: Coronary artery calcification (CAC) is is absent Reading Location: [place] [address] CC: Dr. Le Crawford MD; Dr. Triston Nassar MD Signal Technician: Signed Normal [facility] 12 Lead EKG performed by [facility] on 11-12-2024 12 Lead EKG performed by [facility] [address] [place] [address] 12 Lead EKG performed by [facility] 11/12/24 0820 MR#: [id number] Acct: [id number] Name: JIE HUMPHREYS Rep #: [id number] : 1965 58 From: Triston Nassar MD Attending Dr: Dr. Triston Nassar MD Status: DE P AMB Ordering Dr: Triston Nassar MD Date: 11/12/24 [place] [facility] [place] Sex: F C Admitted: [facility]/12 Lead EKG performed by [facility] ECG Report Interpretation ----Normal Sinus RhythmP:QRS - 1:1, Abnormal P axis, H Rate 70- Negative T-waves -Possible Anterior ischemia. ABNORMAL Electronically signed on 11/12/2024 at 14:[address] Triston Nassar [employer] Version 8610 11/12/24 1459 Date Triston Nassar MD CC: Dr. Le Crawford MD Date Dictated: 11/12/24819 Date Transcribed: 11/12/24819 Signal Technician: Signed Normal [facility] Cardiology Visit Reporton Cardiology Visit Report [facility] [address] [place] [address] OFFICE VISIT Date of Service: 11/12/24 MR#: [id number] Acct: [id number] Name: JIE HUMPHREYS Rep #: [id number] : 1965 Provider: Dr. Triston kiser MD Age/Sex: 58/F Location: [facility] Status: Signed HPI HPI History of Present Illness Details: Patient comes in as a new patient visit is a 58-year-old white female. 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 Patient comes in because of an abnormal stress test that was borderline positive. She had runs of nonsustained VT in recovery she felt these is palpitations which is similar to what she had been feeling that led up to the stress test. The nuclear scan however showed no evidence of scar or ischemia. The patient does have a family history of coronary disease she is hypertensive on today's exam she has a history of hyperlipidemia on atorvastatin with last lipids April 2024 LDL was 87. HDL was 57 total cholesterol 168 and triglycerides 119. Patient is never smoked and she is not diabetic. Patient does have a history of been heterozygote for factor V Leiden she has not had any clotting issues herself. And she has a history of hypothyroidism on replacement therapy. EKG in the office today shows sinus rhythm at 70 bpm there is a nonspecific inverted T waves across the precordium. The patient had similar nonspecific ST-T wave changes prior to her stress test which was completed October 08, 2024. She had she went 8 minutes and 30 seconds achieving a heart rate of 86% predicted and 10 METS. Patient had short runs of nonsustained VT in the recovery phase and had some minor minor ST changes during activity. She had no chest discomfort during exercise or recovery. The nuclear scan showed no evidence of scar or ischemia. The patient reports that she has the sensations in her chest as a tiredness or achiness that occurs usually at the end of the day when she has been very busy. She is able to exercise and ride a bike without any significant issues. She does get some palpitations intermittently. She denies any syncope or near syncope. Intake Vital Signs 09/26/24 10:04 11/12/24 13:46 Height 6 ft 1 in 6 ft 1 in Weight: 225 lb 229 lb BMI 29.7 30.2 BP 160/100 H 138/92 H Blood Pressure Location Lt brachial Lt brachial Position Sitting Sitting Respiration 18 16 Pulse 70 70 Pulse Source Monitor Monitor Temp 97.6 F L Pulse Oximetry (%) 96 96 Oxygen Delivery Method room air room air Comment BP elevation noted, denies CP/SOB Intake Visit Reasons: Abn Stress (Yvette) Biology Internship Required: No Accompanied by: Self Is patient in pain?: No Allergies No Known Allergies Allergy (Verified 11/12/24 13:46) Medications ???Medication ???Instructions ???Recorded ???Confirmed ???Type famotidine 20 mg tablet 20 mg PO DAILY PRN heartburn 01/2211/12/24 History aspirin 81 mg tablet,delayed 81 mg PO QDAY 04/30/24 11/12/24 Hi story release (Adult Aspirin Regimen) atorvastatin 20 mg tablet 20 mg PO QDAY #90 tabs 09/26/24 Rx levothyroxine 150 mcg capsule 150 mcg PO .once weekly #12 caps 0 09/26/24 11/12/24 Rx levothyroxine 75 mcg tablet 75 mcg PO .6x/wk #90 tabs 09/26/24 11/12/24 Rx meclizine 12.5 mg tablet 12.5 mg PO ONCE PRN 09/26/2411/12 History meloxicam 15 mg tablet 15 mg PO DAILY PRN pain #90 tabs 0 09/26/24 11/12/24 Rx ondansetron HCl 4 mg tablet 4 mg PO Q8H PRN 09/26/24 11/12/24 History Fruits PO DAILY 11/12/24 11/12/24 History Veggies PO DAILY 11/12/24 11/12/24 History multivitamin 1 tab PO QAM 11/12/24 11/12/24 His tory osteo bioflex PO DAILY 11/12/24 History Have you fallen in the past year?: No PFSH Medical History Nasal fracture Compression fracture of T8 vertebra Ruptured varicose vein Wears contact lenses Wears glasses Post-menopausal Cancer Alcohol use Easy bruising Non-smoker History of pain when walking History of edema HTN (hypertension) Arthritis Hypothyroidism Varicose veins of both lower extremities Surgical History S/P Mohs surgery for basal cell carcinoma S/P nasal surgery S/P ACL reconstruction Hx of colonoscopy H/O tubal ligation History of repair of anterior cruciate ligament of left knee Family History Father Anxiety Myocardial infarction Heart disease Hypertension Hyperlipidemia Lung disease asbestosis Sister Anxiety Bleeding disorder factor v Mother Bleeding disorder factor v and von willebrand's Hyperlipidemia Arthritis Grandmother Breast cancer Sister Bleeding disorder von wi (more content not included)... Normal [facility] Cardiovascular stress test r eportOrdered By: Ruthann Mendoza on 10-08-2024 Study report [facility] [address] [place] [address] MR#: [id number] Acct: [id number] Name: JIE HUMPHREYS Rep #: [id number] : 1965 58 From: Ruthann thurman MD Primary Care: Dr. Le Crawford MD Stat us: REG CLI Referring Dr: Le Crawford MD Sex: F C Stress Test Report Date: 10/08/2024 Procedure: Exercise tolerance test/imaging study Indications: Chest pain Consent: Per the patient Procedure: The patient exercised on a Manish protocol for 8 minutes and 30 seconds achievinga peak heart rate of 142 bpm (86% predicted maximal heart rate) with a peak blood pressure 180/98 mmHg and a peak MET capacity of 10.1 METs. The baseline ECG demonstrated normal sinus rhythm, nonspecific ST-T changes. The peak exercise ECG demonstrated about 1 mm horizontal to upsloping ST depressions in the inferior leads. There was about [address] depressions inthe lateral leads. EKG during recovery revealed about half millimeter horizontal ST depressions in the inferior leads and eventual return of ST segments to baseline. Patient also had short runs of nonsustained V. tach in the recovery phase. She felt palpitations during these episodes The functional capacity was considered normal for age. There was [no complaint of chest discomfort during exercise or recovery]. The examination was discontinued secondary to achieving target heart rate. Impression: 1. Technically adequate (percent predicted maximal heart rate greater than 85%)exercise tolerance test 2. Stress test is borderline positive for exercise-induced EKG changes of ischemia. Patient also had runs of nonsustained V. tach in the recovery phase which correlated with symptoms of palpitations that she felt 3. The test test is negative for exercise-induced chest pain 4. Functional capacity is normal for age 5. Nuclear images pending Myocardial perfusion imaging study: Technique: The patient was injected with 13.8 mCi of technetium 99m Cardiolite and subsequently rest SPECT Cardiolite nuclear imaging was obtained in the horizontal long, vertical long, and short axis views. The patient exercised on aBruce protocol. Please see above for details. The patient was injected with 43.4 mCi of technetium 99m Cardiolite and subsequently stress SPECT Cardiolite nuclear imaging was obtained in the horizontal long, vertical long, and short axis views. A gated Cardiolite study at peak stress was obtained. Interpretation: Rest and stress SPECT Cardiolite nuclear imaging status post realignment, normalization, and attenuation correction, demonstrates no evidence of significant ischemia or infarction. The gated Cardiolite study demonstrates no significant regional wall motion abnormalities. The reported LVEF is greater than 70%. Impression: 1. There is no evidence of significant ischemia or infarction. 2. The gated Cardiolite study reports an LVEF of greater than 70%. This note was generated with WhoGotStuffation software. It may contain incorrectwords, spelling, and punctuation that were not noted in checking the note beforesigning. 10/08/24 1403 Date _ Ruthann Mendoza MD CC: Dr. Le Crawford MD ~ Date Dictated: 10/08/24 1357 Date Transcribed: 10/08/24 135 Signal Technician: JORDI Signed [facility] Work Phone: Stress Reporton 10-08-2024 Stress Report [facility] [address] [place] [address] MR#: [id number] Acct: [id number] Name: JIE HUMPHREYS Rep #: [id number] : 1965 58 From: Ruthann Mendoza MD Primary Care: Dr. Le Crawford MD Status: REG CLI Referring Dr: Le Crawford MD Sex: F C Stress Test Report Date: 10/08/2024 Procedure: Exercise tolerance test/imaging study Indications: Chest pain Consent: Per the patient Procedure: The patient exercised on a Manish protocol for 8 minutes and 30 seconds achieving a peak heart rate of 142 bpm (86% predicted maximal heart rate) with a peak blood pressure 180/98 mmHg and a peak MET capacity of 10.1 METs. The baseline ECG demonstrated normal sinus rhythm, nonspecific ST-T changes. The peak exercise ECG demonstrated about 1 mm horizontal to upsloping ST depressions in the inferior leads. There was about [address] depressions in the lateral leads. EKG during recovery revealed about half millimeter horizontal ST depressions in the inferior leads and eventual return of ST segments to baseline. Patient also had short runs of nonsustained V. tach in the recovery phase. She felt palpitations during these episodes The functional capacity was considered normal for age. There was [no complaint of chest discomfort during exercise or recovery]. The examination was discontinued secondary to achieving target heart rate. Impression: 1. Technically adequate (percent predicted maximal heart rate greater than 85%) exercise tolerance test 2. Stress test is borderline positive for exercise-induced EKG changes of ischemia. Patient also had runs of nonsustained V. tach in the recovery phase which correlated with symptoms of palpitations that she felt 3. The test test is negative for exercise-induced chest pain 4. Functional capacity is normal for age 5. Nuclear images pending Myocardial perfusion imaging study: Technique: The patient was injected with 13.8 mCi of technetium 99m Cardiolite and subsequently rest SPECT Cardiolite nuclear imaging was obtained in the horizontal long, vertical long, and short axis views. The patient exercised on a Manish protocol. Please see above for details. The patient was injected with 43.4 mCi of technetium 99m Cardiolite and subsequently stress SPECT Cardiolite nuclear imaging was obtained in the horizontal long, vertical long, and short axis views. A gated Cardiolite study at peak stress was obtained. Interpretation: Rest and stress SPECT Cardiolite nuclear imaging status post realignment, normalization, and attenuation correction, demonstrates no evidence of significant ischemia or infarction. The gated Cardiolite study demonstrates no significant regional wall motion abnormalities. The reported LVEF is greater than 70%. Impression: 1. There is no evidence of significant ischemia or infarction. 2. The gated Cardiolite study reports an LVEF of greater than 70%. This note was generated with WhoGotStuffation software. It may contain incorrect words, spelling, and punctuation that were not noted in checking the note before signing. 10/08/24 1403 Date Ruthann Mendoza MD CC: Dr. Le Crawford MD Date Dictated: 10/08/24 1357 Date Transcribed: 10/08/241356 Signal Technician: NN Signed Normal [facility] Internal Medicine Office Vis abdi 09-25-2024 Internal Medicine Office Visit [facility] [address] [place] [address] [place] [address] OFFICE VISIT Date of Service: 09/26/24 MR#: [id number] Acct: [id number] Name: JIE HUMPHREYS TERESA Rep #: [id number] : 1965 Provider: Dr. 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 Is patient in pain?: Yes (5 bilateral knees and hips ) Allergies No Known Allergies Allergy (Verified 09/26/24 10:04) Medications ???Medication ???Instructions ???Recorded ???Confirmed ???Type famotidine 20 mg tablet 20 mg PO DAILY PRN heartburn 01/2209/26/24 History aspirin 81 mg tablet,delayed 81 mg PO QDAY 04/30/24 09/26/24 Hi story release (Adult Aspirin Regimen) atorvastatin 20 mg tablet 20 mg PO QDAY #90 tabs 09/26/24 Rx levothyroxine 150 mcg capsule 150 mcg PO .once weekly #12 caps 0 09/26/24 09/26/24 Rx levothyroxine 75 mcg tablet 75 mcg PO .6x/wk #90 tabs 09/26/24 09/26/24 Rx meclizine 12.5 mg tablet 12.5 mg PO ONCE PRN 09/26/2409/26 History meloxicam 15 mg tablet 15 mg PO DAILY PRN pain #90 tabs 0 09/26/24 09/26/24 Rx ondansetron HCl 4 mg tablet 4 mg PO Q8H PRN 09/26/24 09/26/24 History Have you fallen in the past year?: No PFSH Medical History (Updated 09/26/24 @ 12:[address] Le Crawford MD) Nasal fracture Compression fracture of T8 vertebra Ruptured varicose vein Wears contact lenses Wears glasses Post-menopausal Cancer Alcohol use Easy bruising Non-smoker History of pain when walking History of edema HTN (hypertension) Arthritis Hypothyroidism Varicose veins of both lower extremities Surgical History (Updated 09/26/24 @ 10:[address] Le Crawford MD) S/P Mohs surgery for basal cell carcinoma S/P nasal surgery S/P ACL reconstruction Hx of colonoscopy H/O tubal ligation History of repair of anterior cruciate ligament of left knee Family History (Updated 09/26/24 @ 10:[address] Le Crawford MD) Father Anxiety Myocardial infarction Heart disease Hypertension Hyperlipidemia Lung disease asbestosis Sister Anxiety Bleeding disorder factor v Mother Bleeding disorder factor v and von willebrand's Hyperlipidemia Arthritis Grandmother Breast cancer Sister Bleeding disorder von willebrand's Other Asthma CAD (coronary artery disease) Cancer Diabetes Thyroid disorder Social History (Updated 09/26/24 @ 10:[address] 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 current occupational exposures/hazards: No Smoking Status: Never smoker alcohol intake: current alcohol intake frequency: a few times a week details: beer/wine 2-3 times per week substance use type: does not use what type of physical activity do you participate in: walking, bicycling and weight training How many days of moderate to strenuous exercise, like a brisk walk, did you do in the last 7 days: 3 duration: 30-45 minutes/day seatbelt use: always do you feel safe at home: Yes HPI HPI 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 She was seeing Lorri Duvall NP and last saw them about a year ago. She is up to date on her routine blood work and screening. She isn't due for any immunizations. She doesn't smoke and does need refills. She reports she is eating healthy for the most part and staying active. She reports she likes to bike in the warmer weather. The patient has been on thyroid medications for about 1.5-2 years. She takes her synthroid first thing in the morning before anything else. She denies any problems with the medication. The patient has been taking her cholesterol medication as prescribed without problems. The patient reports she will take pepcid only as needed, around once every couple of weeks. She states she doesn't have any ongoing symptoms and states the medication does help when she uses it. The patient has a history of arthritis in her left hip and bilateral knees (right more than left). She has a history of a labral tear. She reports they have been bothering her for several years. She reports she was supposed to get surgery, but changed her mind. She reports she will occasionally get in (more content not included)... Normal [facility] Colonoscopy Reporton 025 Colonoscopy Report [facility] Medical Records Department [address] [place] [address] Colonoscopy Report MR#: [id number] Acct: [id number] Name: JIE HUMPHREYS Rep #: [id number] : 1965 58 From: Pedro Donahue DO PCP: Dr. Gerardo Manuel, DO Status:REG [facility] [place] Patient Name: Jie Humphreys Procedure Date: 09/23/2024 8:38 AM Date of : 1965 Age: 58 Procedure: Colonoscopy Indications: Screening for colorectal malignant neoplasm Providers: Pedro Donahue DO Medicines: Monitored Anesthesia Care Patient Profile: This is a 58 year old female. Refer to note in patient chart for documentation of history and physical. Last Colonoscopy: several years ago. Complications: No immediate complications. Procedure: Pre-Anesthesia Assessment: - Prior to the procedure, a History and Physical was performed, and patient medications and allergies were reviewed. The patient is competent. The risks and benefits of the procedure and the sedation options and risks were discussed with the patient. All questions were answered and informed consent was obtained. Patient identification and proposed procedure were verified by the physician in the pre-procedure area. Mental Status Examination: alert and oriented. Airway Examination: normal oropharyngeal airway and neck mobility. Respiratory Examination: clear to auscultation. CV Examination: normal. Prophylactic Antibiotics: The patient does not require prophylactic antibiotics. Prior Anticoagulants: The patient has taken no anticoagulant or antiplatelet agents. ASA Grade Assessment: II - A patient with mild systemic disease. After reviewing the risks and benefits, the patient was deemed in satisfactory condition to undergo the procedure. The anesthesia plan was to use monitored anesthesia care (MAC). Immediately prior to administration of medications, the patient was re-assessed for adequacy to receive sedatives. The heart rate, respiratory rate, oxygen saturations, blood pressure, adequacy of pulmonary ventilation, and response to care were monitored throughout the procedure. The physical status of the patient was re-assessed after the procedure. After I obtained informed consent, the scope was passed under direct vision. Throughout the procedure, the patient's blood pressure, pulse, and oxygen saturations were monitored continuously. The colonoscope was introduced through the anus and advanced to the cecum, identified by appendiceal orifice and ileocecal valve. The colonoscopy was performed without difficulty. The patient tolerated the procedure well. The quality of the bowel preparation was adequate. The terminal ileum, ileocecal valve, appendiceal orifice, and rectum were photographed. Scope In: 8:47:28 AM Scope Withdrawal Time 0 hours 8 minutes 12 seconds Scope Out: 9:12:22 AM Total Procedure Duration Time 0 hours 24 minutes 54 seconds Findings: The perianal and digital rectal examinations were normal. The colon (entire examined portion) appeared normal. Two small-mouthed diverticula were found in the recto-sigmoid colon. Impression: - The entire examined colon is normal. - Diverticulosis in the recto-sigmoid colon. - No specimens collected. Recommendation: - Discharge patient to home. - Resume previous diet. - Continue present medications. - Repeat colonoscopy in 10 years for screening purposes. Procedure Code(s): --- Professional --- G0121, Colorectal cancer screening; colonoscopy on individual not meeting criteria for high risk CPT copyright 2021 [employer]. All rights reserved. The codes documented in this report are preliminary and upon shift supervisor rn review may be revised to meet current compliance requirements. Pedro Donahue DO 09/23/2024 9:21:24 AM This report has been signed electronically. Number of Addenda: 0 Note Initiated On: 09/23/2024 8:38 AM 09/23/24920 Date Pedro Donahue DO Cosigner Signature: Date (if indicated) CC: Dr. Gerardo Manuel DO; Pedro Donahue DO Date Dictated: 09/23/24837 Date Transcribed: Signal Technician: JOE Signed Normal [facility] MR/POSTOP.Julius 09-23-2024 MR/POSTOP.[facility] Medical Records Department [address] [place] [address] Anesthesia Postop Eval I 09/23/24925 MR#: [id number] Acct: [id number] Name: JIE HUMPHREYS TERESA Rep #: [id number] : 1965 58 From: Jeffry Montalvo PCP: Dr. Gerardo Manuel, DO Status:[facility] Y Race: C Location: [place] [address] Anesthesia: Postop Eval I Current Vital Signs Temperature: 97.4 F Pulse Rate: 68 Blood Pressure: 116/88 Respiratory Rate: 16 Pulse Ox: 98 Oxygen Delivery Method: Room Air Assessment Airway patent: Yes Spontaneous unlabored respirations: Yes Mental status: Awake and Calm nausea: No Vomiting: No Anesthesia Complication: No Fluid Hydration Crystalloid volume administer (ml): 60 Total IV fluid infused: 60 Progress Note Anesthesia document: Postop Eval 1 completed: Yes 09/23/24926 Jeffry Gonzalesignmeme Signature: Date CC: Signed Normal [facility] MR/[id number] 09-23-2024 [facility] Medical Records Department [address] [place] [address] Anesthesia Postop Eval II 09/23/24 1457 MR#: [id number] Acct: [id number] Name: JIE HUMPHREYS TERESA Rep #: [id number] : 1965 58 From: Michael Phelan MD PCP: Dr. Gerardo Manuel, DO Status:[facility] Y Race: C Location: EN Anesthesia Postop Eval I Sum Postop Eval Completion status Anesthesia document: Postop Eval 1 completed: Yes Anesthesia Postop Eval I Summary Anesthesia Postop Eval I Summary: Anesthesia Postop Eval I: Assessment Summary Airway patent Yes 09/23/24 09:27 [email or web address] Spontaneous unlabored Yes 09/23/24 09:27 [email or web address] respirations Mental status Awake,Calm 09/23/24 09:27 [email or web address] nausea No 09/23/24 09:27 [email or web address] Vomiting No 09/23/24 09:27 [email or web address] Anesthesia Postop Eval I: Fluid Summary Crystalloid volume administer 60 09/23/24 09:27 [email or web address] (ml) Colloids volume administered ( ml) Blood Product volume administered (ml) Total IV fluid infused 60 09/23/24 09:27 [email or web address] Anesthesia Postop Eval I: Summary Notes Anesthesia Complication No 09/23/24 09:27 [email or web address] Anesthesia Complication Comment: Post-operative progress note Anesthesia: Postop Eval II Evaluation Mental status: Awake and Calm Pain Level: 2 nausea: No Vomiting: No Complications Anesthesia Complication: No 09/23/24 1457 Date Michael Collins Signature: Date CC: Signed Normal [facility] TSH Qnon 07-09-2024 Thyroid Stimulating Hormone (TSH) 1.900 uIU/mL 0.358-3.740 [facility] Thyroid Stim Hormone (TSH)on 07-09-2024 TSH 1.900 uIU/mL Normal 0.358-3.740 [facility] Comment on above: Performed By: #### L 501.3920 #### [facility] [address] [place], [address] CBC, Employeeon 05-21-2024 Absolute Lymph 1.57 X10 3/uL Normal 0.83-4.51 [facility] Comment on above: Performed By: #### L 100.0200, L400.0100, L500.2900 ####[facility] [address] [place], [address] Absolute Neut 3.3 X10 3/uL Normal 2.0-7.7 [facility] Comment on above: Performed By: #### L 100.0200, L400.0100, L500.2900 ####[facility] [address] [place], [address] Basophils/100 WBC (Bld) 0.9 % Normal 0-1 [facility] Comment on above: Performed By: #### L 100.0200, L400.0100, L500.2900 ####[facility] [address] [place], [address] Eosinophils/100 WBC (Bld) 2.2 % Normal 0-5 [facility] Comment on above: Performed By: #### L 100.0200, L400.0100, L500.2900 ####[facility] [address] [place], [address] Erythrocyte distribution width (RBC) [Ratio] 11.6 % Normal 11.6-14.6 [facility] Comment on above: Performed By: #### L 100.0200, L400.0100, L500.2900 ####[facility] [address] [place], [address] Hematocrit (Bld) [Volume fraction] 42.8 % Normal 37-47 [facility] Comment on above: Performed By: #### L 100.0200, L400.0100, L500.2900 ####[facility] [address] [place], [address] Hemoglobin (Bld) [Mass/Vol] 14.0 g/dL Normal 12.0-15.0 [facility] Comment on above: Performed By: #### L 100.0200, L400.0100, L500.2900 ####[facility] [address] [place], [address] Lymphocytes/100 WBC (Bld) 28.2 % Normal 19-41 [facility] Comment on above: Performed By: #### L 100.0200, L400.0100, L500.2900 ####[facility] [address] [place], [address] MCH (RBC) [Entitic mass] 32.3 pg High 27.0-32.0 [facility] Comment on above: Performed By: #### L 100.0200, L400.0100, L500.2900 ####[facility] [address] [place], [address] MCHC (RBC) [Mass/Vol] 32.7 g/dL Normal 32-36 [facility] Comment on above: Performed By: #### L 100.0200, L400.0100, L500.2900 ####[facility] [address] [place], [address] MCV (RBC) [Entitic vol] 98.8 fL Normal 81-99 [facility] Comment on above: Performed By: #### L 100.0200, L400.0100, L500.2900 ####[facility] [address] [place], [address] Monocytes/100 WBC (Bld) 9.2 % Normal 0-10 [facility] Comment on above: Performed By: #### L 100.0200, L400.0100, L500.2900 ####[facility] [address] [place], [address] Neutrophils/100 WBC (Bld) 59.1 % Normal 47-70 [facility] Comment on above: Performed By: #### L 100.0200, L400.0100, L500.2900 ####[facility] [address] [place], [address] NRBC # 0.00 10 3/uL Normal 0-5 [facility] Comment on above: Performed By: #### L 100.0200, L400.0100, L500.2900 ####[facility] [address] [place], [address] Nucleated RBC (Bld) [#/Vol] 0 10*3/uL Normal 0-5 [facility] Comment on above: Performed By: #### L 100.0200, L400.0100, L500.2900 ####[facility] [address] [place], [address] Platelet mean volume (Bld) [Entitic vol] 9.9 fL Normal 6.2-12.0 [facility] Comment on above: Performed By: #### L 100.0200, L400.0100, L500.2900 ####[facility] [address] [place], [address] Platelets (Bld) [#/Vol] 262 10*3/uL Normal 150-450 [facility] Comment on above: Performed By: #### L 100.0200, L400.0100, L500.2900 ####[facility] [address] [place], [address] RBC (Bld) [#/Vol] 4.33 10*6/uL Normal 4.2-5.4 [facility] Comment on above: Performed By: #### L 100.0200, L400.0100, L500.2900 ####[facility] [address] [place], [address] RDW SD 42.6 fl Normal 35.1-43.9 [facility] Comment on above: Performed By: #### L 100.0200, L400.0100, L500.2900 ####[facility] [address] [place], [address] WBC (Bld) [#/Vol] 5.6 10*3/uL Normal 4.4-11.0 [facility] Comment on above: Performed By: #### L 100.0200, L400.0100, L500.2900 ####[facility] [address] [place], [address] Employee Profileon 4 Albumin [Mass/Vol] 3.8 g/dL Normal 3.2-5.0 [facility] Comment on above: Performed By: #### L 100.0200, L400.0100, L500.2900 ####[facility] [address] [place], [address] Albumin/Globulin [Mass ratio] 1.0 {ratio} Normal 0.9-2.4 [facility] Comment on above: Performed By: #### L 100.0200, L400.0100, L500.2900 ####[facility] [address] [place], [address] ALK P 92 U/L Normal 45-117 [facility] Comment on above: Performed By: #### L 100.0200, L400.0100, L500.2900 ####[facility] [address] [place], [address] ALT [Catalytic activity/Vol] 28 U/L Normal 13-56 [facility] Comment on above: Performed By: #### L 100.0200, L400.0100, L500.2900 ####[facility] [address] [place], [address] AST [Catalytic activity/Vol] 11 U/L Low 15-37 [facility] Comment on above: Performed By: #### L 100.0200, L400.0100, L500.2900 ####[facility] [address] [place], [address] Bilirubin [Mass/Vol] 0.70 mg/dL Normal 0.20-1.00 [facility] Comment on above: Result Comment: For patients on eltrombopag therapy, use of Dimension Lavon TBIL is not recommended. Performed By: #### L 100.0200, L400.0100, L500.2900 ####[facility] [address] [place], [address] Bilirubin.direct [Mass/Vol] 0.19 mg/dL Normal 0.00-0.30 [facility] Comment on above: Performed By: #### L 100.0200, L400.0100, L500.2900 ####[facility] [address] [place], [address] BUN/CRE 21.1 RATIO High 10-20 [facility] Comment on above: Performed By: #### L 100.0200, L400.0100, L500.2900 ####[facility] [address] [place], [address] CA,Total 9.3 mg/dL Normal 8.5-10.1 [facility] Comment on above: Performed By: #### L 100.0200, L400.0100, L500.2900 ####[facility] [address] [place], [address] Chloride [Moles/Vol] 109 mmol/L High 98-107 [facility] Comment on above: Performed By: #### L 100.0200, L400.0100, L500.2900 ####[facility] [address] [place], [address] CHOL:HDL 2.90 Normal [facility] Comment on above: Performed By: #### L 100.0200, L400.0100, L500.2900 ####[facility] [address] [place], [address] Cholesterol [Mass/Vol] 168 mg/dL Normal 200 [facility] Comment on above: Result Comment: <200 mg/dL Desirable 200-240 mg/dL Borderline >240 mg/dL High Risk Performed By: #### L 100.0200, L400.0100, L500.2900 ####[facility] [address] [place], [address] Cholesterol in HDL [Mass/Vol] 57 mg/dL Normal [facility] Comment on above: Result Comment: The drugs N-Acetylcysteine and Metamizole may falsely depress this assay. Reference Range HDL <40 mg/dL Low HDL Cholesterol HDL >or= 60 mg/dL High HDL Cholesterol Performed By: #### L 100.0200, L400.0100, L500.2900 ####[facility] [address] [place], [address] Cholesterol in LDL [Mass/Vol] 87 mg/dL Normal 0-130 [facility] Comment on above: Performed By: #### L 100.0200, L400.0100, L500.2900 ####[facility] [address] [place], [address] Cholesterol in VLDL [Mass/Vol] 24 mg/dL Normal 5-40 [facility] Comment on above: Performed By: #### L 100.0200, L400.0100, L500.2900 ####[facility] [address] [place], [address] CO2 [Moles/Vol] 26.0 mmol/L Normal 21.0-32.0 [facility] Comment on above: Performed By: #### L 100.0200, L400.0100, L500.2900 ####[facility] [address] [place], [address] Creatinine [Mass/Vol] 0.66 mg/dL Normal 0.55-1.02 [facility] Comment on above: Result Comment: The validity of the calculated GFR GFRAA in patients over 70 years has not been determined. Clinical correlation is essential. Performed By: #### L 100.0200, L400.0100, L500.2900 ####[facility] [address] [place], [address] EST GFR - AA 119 mL/min Normal >60 [facility] Comment on above: Result Comment: Afri can Nigerian GFR Calc Performed By: #### L 100.0200, L400.0100, L500.2900 ####[facility] [address] [place], [address] GAP 6 Normal 5-15 [facility] Comment on above: Performed By: #### L 100.0200, L400.0100, L500.2900 ####[facility] [address] [place], [address] GFR/1.73 sq M.predicted among non-blacks MDRD (S/P/Bld) [Vol rate/Area] 98 mL/min/{1.73_m2} Normal >60 [facility] Comment on above: Result Comment: Non- GFR Calc Performed By: #### L 100.0200, L400.0100, L500.2900 ####[facility] [address] [place], [address] Globulin (S) [Mass/Vol] 3.8 g/dL Normal 2.2-4.2 [facility] Comment on above: Performed By: #### L 100.0200, L400.0100, L500.2900 ####[facility] [address] [place], [address] Glucose [Mass/Vol] 109 mg/dL High 74-106 [facility] Comment on above: Result Comment: Fast ing Glucose result from 100 to 125 mg/dL suggests IMPAIRED HOMEOSTASIS per A.D.A. criteria. Performed By: #### L 100.0200, L400.0100, L500.2900 ####[facility] [address] [place], [address] LDH 167 U/L Normal 84-246 [facility] Comment on above: Performed By: #### L 100.0200, L400.0100, L500.2900 ####[facility] [address] [place], [address] Phosphate [Mass/Vol] 3.7 mg/dL Normal 2.5-4.9 [facility] Comment on above: Performed By: #### L 100.0200, L400.0100, L500.2900 ####[facility] [address], [address] Potassium [Moles/Vol] 4.0 mmol/L Normal 3.5-5.1 [facility] Comment on above: Performed By: #### L 100.0200, L400.0100, L500.2900 ####[facility] [address] [place], [address] Sodium [Moles/Vol] 141 mmol/L Normal 136-145 [facility] Comment on above: Performed By: #### L 100.0200, L400.0100, L500.2900 ####[facility] [address] [place], [address] T PROT 7.6 g/dL Normal 6.4-8.2 [facility] Comment on above: Performed By: #### L 100.0200, L400.0100, L500.2900 ####[facility] [address] [place], [address] Triglyceride [Mass/Vol] 119 mg/dL Normal [facility] Comment on above: Result Comment: The drugs N-Acetylcysteine and Metamizole may falsely depress this assay. Serum Triglycerides Reference Interval Normal <150 mg/dL Borderline high 150 - 199 mg/dL High 200 - 499 mg/dL Very High > or = 500 mg/dL Performed By: #### L 100.0200, L400.0100, L500.2900 ####[facility] [address], [address] Urea nitrogen [Mass/Vol] 14 mg/dL Normal 7-18 [facility] Comment on above: Performed By: #### L 100.0200, L400.0100, L500.2900 ####[facility] [address] [place], [address] URIC 5.0 mg/dL Normal 2.6-6.0 [facility] Comment on above: Result Comment: The drugs N-Acetylcysteine and Metamizole may falsely depress this assay. Performed By: #### L 100.0200, L400.0100, L500.2900 ####[facility] [address] [place], [address] Urinalysis, Employeeon 05-21 BILIRUBIN URINE Normal Negative [facility] Comment on above: Order Comment: CLEAN CATCH Result Comment: NOT WANTED Performed By: #### L 100.0200, L400.0100, L500.2900 ####[facility] [address] [place], [address] Clarity (U) Normal Clear [facility] Comment on above: Order Comment: CLEAN CATCH Result Comment: NOT WANTED Performed By: #### L 100.0200, L400.0100, L500.2900 ####[facility] [address] [place], [address] Color (U) Normal Yellow [facility] Comment on above: Order Comment: CLEAN CATCH Result Comment: NOT WANTED Performed By: #### L 100.0200, L400.0100, L500.2900 ####[facility] [address] [place], [address] GLUCOSE, UR Normal Normal [facility] Comment on above: Order Comment: CLEAN CATCH Result Comment: NOT WANTED Performed By: #### L 100.0200, L400.0100, L500.2900 ####[facility] [address] [place], [address] KETONE UR Normal Negative [facility] Comment on above: Order Comment: CLEAN CATCH Result Comment: NOT WANTED Performed By: #### L 100.0200, L400.0100, L500.2900 ####[facility] [address] [place], [address] LEUK ESTERASE Normal Negative [facility] Comment on above: Order Comment: CLEAN CATCH Result Comment: NOT WANTED Performed By: #### L 100.0200, L400.0100, L500.2900 ####[facility] [address] [place], [address] Nitrite Ql (U) Normal Negative [facility] Comment on above: Order Comment: CLEAN CATCH Result Comment: NOT WANTED Performed By: #### L 100.0200, L400.0100, L500.2900 ####[facility] [address] [place], [address] OCCULT BLOOD-UR Normal Negative [facility] Comment on above: Order Comment: CLEAN CATCH Result Comment: NOT WANTED Performed By: #### L 100.0200, L400.0100, L500.2900 ####[facility] [address] [place], [address] pH UR Normal 5.0 - 8.0 [facility] Comment on above: Order Comment: CLEAN CATCH Result Comment: NOT WANTED Performed By: #### L 100.0200, L400.0100, L500.2900 ####[facility] [address] [place], [address] PROT DIPSTX Normal Negative [facility] Comment on above: Order Comment: CLEAN CATCH Result Comment: NOT WANTED Performed By: #### L 100.0200, L400.0100, L500.2900 ####[facility] [address] [place], [address] SP.GR. DIPSTX Normal 1.002-1.030 [facility] Comment on above: Order Comment: CLEAN CATCH Result Comment: NOT WANTED Performed By: #### L 100.0200, L400.0100, L500.2900 ####[facility] [address] [place], [address] UR Preservative Normal [facility] Comment on above: Order Comment: CLEAN CATCH Result Comment: NOT WANTED Performed By: #### L 100.0200, L400.0100, L500.2900 ####[facility] [address] [place], [address] UROBILI Normal Normal [facility] Comment on above: Order Comment: CLEAN CATCH Result Comment: NOT WANTED Performed By: #### L 100.0200, L400.0100, L500.2900 ####[facility] [address] [place], [address] Venous Duplex US - Trip Extre [facility] 05-21-2024 Venous Duplex US - Trip Extrem [facility] [address] [place] [address] Venous Duplex US - Trip Extrem 05/21/24 0808 MR#: [id number] Acct: [id number] Name: JIE HUMPHREYS TERESA Rep #: [id number] : 1965 58 From: Sage Whitmore MD Attending Dr: CALLIE Reid Status: REG CLI Ordering Dr: Piper Del Toro Date: 05/21/24 Location: [facility] Sex: F C Admitted: Reason For Study: Bilateral leg pain RIGHT LEFT CFV is compressible, spontaneous, phasic, CFV is compressible, spontaneous, phasic, competent and demonstrates normal competent, and demonstrates normal augmentation. augmentation. FV is compressible, spontaneous, phasic, FV is compressible, spontaneous, phasic, competent and demonstrates normal competent and demonstrates normal augmentation. augmentation. POP V is compressible, spontaneous, phasic, POP V is compressible, spontaneous, phasic, competent and demonstrates normal competent and demonstrates normal augmentation. augmentation. T/P Trunk is compressible. T/P Trunk is compressible. PTV is compressible. PTV is compressible. RT PerV is compressible. LT PerV is compressible. SFJ is competent and measures 0.85 cm. SFJ is competent and measures 0.76 cm. GSV proximal thigh measures 0.35 x 0.38 cm. GSV proximal thigh measures 0.39 x 0.39 cm. GSV above knee is competent. GSV at knee measures 0.30 cm. GSV at knee measures 0.26 x 0.25 cm. GSV is competent throughout. GSV below knee is INCOMPETENT for greater SSV mid calf is competent and measures 0.23 x than 0.5 seconds. 0.23 cm. ASV proximal calf is INCOMPETENT for greater than 0.5 seconds and measures 0.18 x 0.18 cm. INCOMPETENT load planner noted 15 cm above medial malleolus. SSV at junction is competent and measures 0.18 x 0.18 cm. Procedure This is a venous duplex using B-mode, color flow and spectral Doppler. Exam performed in department. Patient was scanned in reverse Trendelenburg position during reflux assessment. VL/Venous Duplex US - Trip Extrem Interpretation Summary Deep veins of the bilateral lower extremities are patent and compressible segmentally. There is no evidence of bilateral lower extremity deep vein thrombosis. The bilateral great saphenous veins appear patent and compressible segmentally. Positive for reflux in the right great saphenous vein below the knee, accessory saphenous vein in the calf, and calf load planner. Ordering Physician: Piper Del Toro Performed By: Lorri Langley RVT 05/21/24 4022 Date Sage Whitmore MD CC: CALLIE Reid; CASI CORTEZ Date Dictated: 05/21/2408 Date Transcribed: 10/22/24 1637 Signal Technician: Signed Normal [facility] Thyroid Stim Hormone (TSH)on 05-02-2024 TSH 3.770 uIU/mL High 0.358-3.740 [facility] Comment on above: Performed By: #### L 501.9520 #### [facility] [address] [place], [address] MR/BMS.NITHINSon 04-30-2024 MR/BMS.NITHINS [facility] [address] [place] [address] OFFICE VISIT Date of Service: 04/30/24 MR#: [id number] Acct: [id number] Name: JIE HUMPHREYS TERESA Rep #: [id number] : 1965 Provider: CALLIE Reid Age/Sex: 58/F Location: [facility] Status: Signed Intake Vital Signs 01/23/24 20:08 04/30/24 08:31 Height 6 ft 2 in Weight: 225 lb BP 134/91 H Blood Pressure Location Lt brachial Position Sitting Respiration 16 Pulse 75 Pulse Source Monitor Temp 98 F Temp Source Temporal Pulse Oximetry (%) 97 Oxygen Delivery Method room air Intake Visit Reasons: CONSULT-VARICOSE VEINS Chief Complaint: establish care Is patient in pain?: Yes Allergies No Known Allergies Allergy (Verified 04/30/24 08:33) Medications ???Medication ???Instructions ???Recorded ???Confirmed ???Type famotidine 20 mg tablet 20 mg PO DAILY PRN heartburn 01/23/24 04/30/24 History meclizine 50 mg tablet (Antivert) 50 mg PO DAILY PRN dizziness 01/23/24 04/30/24 History meloxicam 15 mg tablet 15 mg PO DAILY 01/23/24 04/30/24 History aspirin 81 mg tablet,delayed 81 mg PO QDAY 04/30/24 04/30/24 History release (Adult Aspirin Regimen) atorvastatin 40 mg tablet 40 mg PO QDAY 04/30/24 04/30/24 History levothyroxine 25 mcg tablet 75 mcg PO DAILY 04/30/24 04/30/24 History Is last menstrual period known: Yes Post menopausal: Yes Patient : No Have you fallen in the past year?: No [facility] Medical History Broken back History of broken nose Arthritis Hypothyroidism Varicose veins of both lower extremities Surgical History H/O tubal ligation History of repair of anterior cruciate ligament of left knee Family History (Updated 04/30/24 @ 08:31 by Claudia Pagan) Other Asthma Bleeding disorder Breast cancer CAD (coronary artery disease) Cancer Diabetes Heart disease Hypertension Thyroid disorder Social History Smoking Status: Never smoker HPI HPI HPI: JIE HUMPHREYS, is a 58 F who presents to the office today for evaluation of symptomatic varicose veins in the bilateral lower extremities. She experiences significant aching and fatigue which is worse at the end of the day. She also has intermittent edema in the bilateral lower legs as well. 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 She does wear measured compression stockings and has for over a year. She does elevate her legs when resting at home. She stays fairly active and avoids idle sitting/standing when possible. Unfortunately, these conservative measures are not providing sufficient relief of her symptoms at this point. A few months ago she also had an episode of bleeding from one of the varicosities in her left leg, fortunately this has not since recurred. She does have factor V Leiden. She takes baby aspirin daily but no other chronic anticoagulation. She denies any personal history of VTE. ROS General General: No weight change, appetite, fatigue, colon cancer, breast cancer or weakness HEENT HEENT: No difficulty swallowing, eye injury, eye surgery, swollen glands or hoarseness Endo Endocrine: Yes thyroid disease; No diabetes mellitus, thyroid cancer, Hair loss, heat intolerance or cold intolerance Skin Skin: No rash or changing moles Musc Musculoskeletal: Yes arthritis; No back problems, rheumatoid arthritis, gout or joint pain Cardio Cardiovascular: No murmur, pacemaker, heart disease, atrial fibrillation, high blood pressure, heart attack, heart stent, palpitations, shortness of breat with exertion or chest pain Psych Psychiatric: No depression, anxiety or hearing voices Resp Respiratory: No shortness of breath, No sleep apnea, No cough, No COPD, No asthma, No emphysema and No wheezing Gastro Gastrointestinal: No abdominal pain, No nausea or vomiting, No diarrhea, No constipation, No blood in stool, Yes acid reflux, No hemorrhoids, No ulcers, No gallbladder problem and No black,tarry s tools Teddy Hematologic: Yes blood thinners, Yes blood disorders, No bleeding, No anemia and No blood clots Neuro Neurologic: No system reviewed and no additional complaints, except as documented, No as per HPI, No abnormal gait, No abnormal hearing, No abnormal movements, No abnormal speech, No behavioral changes, No burning sensations, No confusion, No convulsions, No disequilibrium, No dizziness, No localized weakness, No frequent falls, No headache(s), No lack of coordination, No loss of vision, No memory loss, No numbness, No other visual disturbances, No radicular pain, No restless legs, No sensory deficit, No syncope, No tingling, No tremor(s) (more content not included)... Normal [facility] THINPREP PAP SMEARon 024 THINPREP PAP SMEAR Gynecologic Cytology Report Case: [id number] Authorizing Provider: Piter Garza MD Collected: 04/11/2024 Ordering Location: [facility] Received: 04/17/2024 02:16 PM Laboratory Services First [...] from every slide are reviewed by a basin cleaner. Specimen processing and Primary Screening performed at: [place] [address] HPV 16 : Negative HPV 18 : [...] for patient management. HPV testing performed at: [facility] [place] [address] - Abnormal [facility] Comment on above: Performed By: #### 4 6974 #### [facility] [address] [place] [address] Dain Ravi M.D. [id number] Thyroid Stim Hormone (TSH)on 03-28-2024 TSH 6.040 uIU/mL High 0.358-3.740 [facility] Comment on above: Performed By: #### L 501.9520 #### [facility] [address] [place], [place], [address] SCRN MAMM (CAD)W/FRANKLYN BILATo n 02-06-2024 SCRN MAMM (CAD)W/FRANKLYN BILAT [facility] Imaging Services [address] [place], [place] [address] SCRN MAMM (CAD)W/FRANKLYN BILAT MR#: [id number] Acct: [id number] Name: JIE HUMPHREYS TERESA Rep #: [id number] : 1965 F 58 From: Kendrick langford MD PCP: CASI CORTEZ Status: [facility] Study: SCRN MAMM (CAD)W/FRANKLYN BILAT Date of Exam: 04/23 Exam# [id number] Ordering Dr: CASI CORTEZ [id number] MAMMOGRAPHY - BILATERAL SCREENING REASON FOR EXAM: Female, 58 years old. Routine annual screening examination. PERTINENT HISTORY: Grandmother with breast cancer. TECHNIQUE: Digital bilateral breast franklyn (3D mammographic acquisition) in the CC and MLO projections. 2-D mediolateral oblique (MLO) and craniocaudad (CC) views of both breasts were obtained. CAD: Full Field Digital Mammography with Computer Added Detection was performed. COMPARISON: Comparison is made with prior outside examination dated December 16, 2022. FINDINGS: Breast Composition: The breasts are extremely dense, which lowers the sensitivity of mammography. There are no dominant masses or suspicious calcifications. No other significant abnormalities are identified. There has been no significant change since the prior study. BI/SCRN MAMM (CAD)W/FRANKLYN BILAT IMPRESSION: Stable bilateral screening mammogram. Yearly follow-up mammogram recommended. (A) ASSESSMENT CATEGORY: BIRADS Category 1: Negative. A letter regarding these results will be sent to the patient by the facility within 30 days. Approximately 10% of breast cancers are not detected by mammography. A normal mammogram should not delay biopsy of a clinically suspicious abnormality. [id number] Electronically Signed: Kendrick Christianson MD at 8:46 EDT Reading Location ID and State: [address] [place] [address] , Service support , CC: CASI CORTEZ Signal Technician: Signed Normal [facility] CBC-Complete Blood Cnt No Di ffon 01-26-2024 Erythrocyte distribution width (RBC) [Ratio] 11.4 % Low 11.6-14.6 [facility] Comment on above: Performed By: #### L 506.1000, L500.4050, L501.9520, L100.0500, L500.4100 ####[facility] [address] [place], [address] Hematocrit (Bld) [Volume fraction] 43.2 % Normal 37-47 [facility] Comment on above: Performed By: #### L 506.1000, L500.4050, L501.9520, L100.0500, L500.4100 ####[facility] [address] [place], [address] Hemoglobin (Bld) [Mass/Vol] 14.5 g/dL Normal 12.0-15.0 [facility] Comment on above: Performed By: #### L 506.1000, L500.4050, L501.9520, L100.0500, L500.4100 ####[facility] [address] [place], [address] MCH (RBC) [Entitic mass] 32.7 pg High 27.0-32.0 [facility] Comment on above: Performed By: #### L 506.1000, L500.4050, L501.9520, L100.0500, L500.4100 ####[facility] [address] [place], [address] MCHC (RBC) [Mass/Vol] 33.6 g/dL Normal 32-36 [facility] Comment on above: Performed By: #### L 506.1000, L500.4050, L501.9520, L100.0500, L500.4100 ####[facility] [address] [place], [address] MCV (RBC) [Entitic vol] 97.5 fL Normal 81-99 [facility] Comment on above: Performed By: #### L 506.1000, L500.4050, L501.9520, L100.0500, L500.4100 ####[facility] [address] [place], [address] Platelet mean volume (Bld) [Entitic vol] 9.6 fL Normal 6.2-12.0 [facility] Comment on above: Performed By: #### L 506.1000, L500.4050, L501.9520, L100.0500, L500.4100 ####[facility] [address] [place], [address] Platelets (Bld) [#/Vol] 274 10*3/uL Normal 150-450 [facility] Comment on above: Performed By: #### L 506.1000, L500.4050, L501.9520, L100.0500, L500.4100 ####[facility] [address] [place], [address] RBC (Bld) [#/Vol] 4.43 10*6/uL Normal 4.2-5.4 [facility] Comment on above: Performed By: #### L 506.1000, L500.4050, L501.9520, L100.0500, L500.4100 ####[facility] [address] [place], [address] RDW SD 41.4 fl Normal 35.1-43.9 [facility] Comment on above: Performed By: #### L 506.1000, L500.4050, L501.9520, L100.0500, L500.4100 ####[facility] [address] [place], [address] WBC (Bld) [#/Vol] 6.2 10*3/uL Normal 4.4-11.0 [facility] Comment on above: Performed By: #### L 506.1000, L500.4050, L501.9520, L100.0500, L500.4100 ####[facility] [address] [place], [address] Comprehensive Metabolic Prof nmon 01-26-2024 Albumin [Mass/Vol] 3.9 g/dL Normal 3.2-5.0 [facility] Comment on above: Performed By: #### L 506.1000, L500.4050, L501.9520, L100.0500, L500.4100 ####[facility] [address] [place], [address] Albumin/Globulin [Mass ratio] 1.0 {ratio} Normal 0.9-2.4 [facility] Comment on above: Performed By: #### L 506.1000, L500.4050, L501.9520, L100.0500, L500.4100 ####[facility] [address] [place], [address] ALK P 92 U/L Normal 45-117 [facility] Comment on above: Performed By: #### L 506.1000, L500.4050, L501.9520, L100.0500, L500.4100 ####[facility] [address] [place], [address] ALT [Catalytic activity/Vol] 22 U/L Normal 13-56 [facility] Comment on above: Performed By: #### L 506.1000, L500.4050, L501.9520, L100.0500, L500.4100 ####[facility] [address] [place], [address] AST [Catalytic activity/Vol] 19 U/L Normal 15-37 [facility] Comment on above: Result Comment: Mode rate Hemolysis, Result may be falsely increased. Performed By: #### L 506.1000, L500.4050, L501.9520, L100.0500, L500.4100 ####[facility] [address] [place], [address] Bilirubin [Mass/Vol] 0.70 mg/dL Normal 0.20-1.00 [facility] Comment on above: Result Comment: For patients on eltrombopag therapy, use of Dimension Lavon TBIL is not recommended. Performed By: #### L 506.1000, L500.4050, L501.9520, L100.0500, L500.4100 ####[facility] [address] [place], [address] BUN/CRE 13.6 RATIO Normal 10-20 [facility] Comment on above: Performed By: #### L 506.1000, L500.4050, L501.9520, L100.0500, L500.4100 ####[facility] [address] [place], [address] CA,Total 9.2 mg/dL Normal 8.5-10.1 [facility] Comment on above: Performed By: #### L 506.1000, L500.4050, L501.9520, L100.0500, L500.4100 ####[facility] [address] [place], [address] Chloride [Moles/Vol] 107 mmol/L Normal 98-107 [facility] Comment on above: Performed By: #### L 506.1000, L500.4050, L501.9520, L100.0500, L500.4100 ####[facility] [address] [place], [address] CO2 [Moles/Vol] 28.0 mmol/L Normal 21.0-32.0 [facility] Comment on above: Performed By: #### L 506.1000, L500.4050, L501.9520, L100.0500, L500.4100 ####[facility] [address] [place], [address] Creatinine [Mass/Vol] 0.81 mg/dL Normal 0.55-1.02 [facility] Comment on above: Result Comment: The validity of the calculated GFR GFRAA in patients over 70 years has not been determined. Clinical correlation is essential. Performed By: #### L 506.1000, L500.4050, L501.9520, L100.0500, L500.4100 ####[facility] [address] [place], [address] EST GFR - AA 94 mL/min Normal >60 [facility] Comment on above: Result Comment: Afri can Nigerian GFR Calc Performed By: #### L 506.1000, L500.4050, L501.9520, L100.0500, L500.4100 ####[facility] [address] [place], [address] GAP 4 Low 5-15 [facility] Comment on above: Performed By: #### L 506.1000, L500.4050, L501.9520, L100.0500, L500.4100 ####[facility] [address] [place], [address] GFR/1.73 sq M.predicted among non-blacks MDRD (S/P/Bld) [Vol rate/Area] 78 mL/min/{1.73_m2} Normal >60 [facility] Comment on above: Result Comment: Non- GFR Calc Performed By: #### L 506.1000, L500.4050, L501.9520, L100.0500, L500.4100 ####[facility] [address] [place], [address] Globulin (S) [Mass/Vol] 4.0 g/dL Normal 2.2-4.2 [facility] Comment on above: Performed By: #### L 506.1000, L500.4050, L501.9520, L100.0500, L500.4100 ####[facility] [address] [place], [address] Glucose [Mass/Vol] 102 mg/dL Normal 74-106 [facility] Comment on above: Result Comment: Fast ing Glucose result from 100 to 125 mg/dL suggests IMPAIRED HOMEOSTASIS per A.D.A. criteria. Performed By: #### L 506.1000, L500.4050, L501.9520, L100.0500, L500.4100 ####[facility] [address] [place], [address] Potassium [Moles/Vol] 4.1 mmol/L Normal 3.5-5.1 [facility] Comment on above: Result Comment: Mode rate Hemolysis, Result may be falsely increased. Performed By: #### L 506.1000, L500.4050, L501.9520, L100.0500, L500.4100 ####[facility] [address] [place], [address] Sodium [Moles/Vol] 139 mmol/L Normal 136-145 [facility] Comment on above: Performed By: #### L 506.1000, L500.4050, L501.9520, L100.0500, L500.4100 ####[facility] [address] [place], [address] T PROT 7.9 g/dL Normal 6.4-8.2 [facility] Comment on above: Performed By: #### L 506.1000, L500.4050, L501.9520, L100.0500, L500.4100 ####[facility] [address] [place], [address] Urea nitrogen [Mass/Vol] 11 mg/dL Normal 7-18 [facility] Comment on above: Performed By: #### L 506.1000, L500.4050, L501.9520, L100.0500, L500.4100 ####[facility] [address] [place], [address] Lipid Profileon 01-26-2024 Cholesterol [Mass/Vol] 256 mg/dL High 200 [facility] Comment on above: Result Comment: <200 mg/dL Desirable 200-240 mg/dL Borderline >240 mg/dL High Risk Performed By: #### L 506.1000, L500.4050, L501.9520, L100.0500, L500.4100 ####[facility] [address] [place], [address] Cholesterol in HDL [Mass/Vol] 48 mg/dL Normal [facility] Comment on above: Result Comment: The drugs N-Acetylcysteine and Metamizole may falsely depress this assay. Reference Range HDL <40 mg/dL Low HDL Cholesterol HDL >or= 60 mg/dL High HDL Cholesterol Performed By: #### L 506.1000, L500.4050, L501.9520, L100.0500, L500.4100 ####[facility] [address] [place], [address] Cholesterol in LDL [Mass/Vol] 152 mg/dL High 0-130 [facility] Comment on above: Performed By: #### L 506.1000, L500.4050, L501.9520, L100.0500, L500.4100 ####[facility] [address] [place], [address] Cholesterol in VLDL [Mass/Vol] 56 mg/dL High 5-40 [facility] Comment on above: Performed By: #### L 506.1000, L500.4050, L501.9520, L100.0500, L500.4100 ####[facility] [address] [place], [address] Triglyceride [Mass/Vol] 280 mg/dL High [facility] Comment on above: Result Comment: The drugs N-Acetylcysteine and Metamizole may falsely depress this assay. Serum Triglycerides Reference Interval Normal <150 mg/dL Borderline high 150 - 199 mg/dL High 200 - 499 mg/dL Very High > or = 500 mg/dL Performed By: #### L 506.1000, L500.4050, L501.9520, L100.0500, L500.4100 ####[facility] [address] [place], [address] Thyroid Stim Hormone (TSH)on 01-26-2024 TSH 10.80 uIU/mL High 0.358-3.74 [facility] Comment on above: Performed By: #### L 506.1000, L500.4050, L501.9520, L100.0500, L500.4100 ####[facility] [address] [place], [address] Vitamin D,25 Hydroxyon 01-25 Vitamin D 25-OH 34.8 ng/mL Normal [facility] Comment on above: Result Comment: Sandra min D 25(OH) Status Range Deficiency <20 ng/mL (50nmol/L) Insufficiency 20 - 30 ng/mL (50 - 75 nmol/L) Sufficiency 30 - 100 ng/mL (75 - 250 nmol/L) Toxicity >100 ng/mL (>250 nmol/L) Performed By: #### L 506.1000, L500.4050, L501.9520, L100.0500, L500.4100 ####[facility] [address] [place], [address] Emergency Department Summary on 01-23-2024 Emergency Department Summary [facility] Records Department [address] [facility] [place] [address] Emergency Department Summary 01/23/24 MR#: [id number] Acct: [id number] Name: JIE HUMPHREYS Rep #: [id number] : 1965 58 From: Paul Luu DO PCP: Dr. Gerardo Manuel DO Status:DEP ER Location: ED HPI History of Present Illness Chief Complaint: Wound Informant: patient and spouse/S.O. Narrative Narrative: Very pleasant 58-year-old female presenting to the emergency room with bleeding from the right lower leg. Patient notes that the bleeding is occurring in the area of the varicose vein. She is not on any blood thinners. She does not take aspirin. [facility] Medical History Broken back History of broken nose Arthritis Hypothyroidism Varicose veins of both lower extremities Home Medications ???Medication ???Instructions ???Recorded ???Last Taken ???Type famotidine 20 mg tablet 20 mg PO DAILY PRN heartburn 01/23/24 Unknown History levothyroxine 25 mcg tablet 25 mcg PO DAILY 01/23/24 Unknown History meclizine 50 mg tablet (Antivert) 50 mg PO DAILY PRN dizziness 01/23/24 Unknown History meloxicam 15 mg tablet 15 mg PO DAILY 01/23/24 Unknown History Allergy/AdvReac Type Severity Reaction Status Date / Time No Known Allergies Allergy Verified 01/23/24 20:08 Surgical History H/O tubal ligation History of repair of anterior cruciate ligament of left knee Social History Smoking Status: Never smoker ROS ROS ED Constitutional Constitutional ED: Denies chills or weight loss Eyes Eyes: Denies change in vision or diplopia ENT ENT ED: Denies ear pain, rhinorrhea or sore throat Cardiovascular Cardiovascular: Denies chest pain, orthopnea, palpitations or racing heartbeat Respiratory/Chest Respiratory/Chest: Denies cough, dyspnea or orthopnea Gastrointestinal Gastrointestinal: Denies abdominal pain, diarrhea, nausea or vomiting Genitourinary Genitourinary ED: Denies dysuria, hematuria or urinary frequency Musculoskeletal Musculoskeletal: Denies arthralgias or myalgias Integumentary Reports other Details: See history of present illness ; Denies abscess or rash Neurologic Neurologic: Denies headache(s) or weakness Psychiatric Psychiatric: Denies anxiety, depression, suicidal ideation or suicidal thoughts Endocrine Endocrinology: Denies polydipsia, polyphagia or polyuria Allergic/Immunologic Allergic/Immunologic ED: Denies mouth swelling, tongue swelling or urticaria EXAM Physical Exam Const Vital Signs: 01/23/24 20:08 01/23/24 21:45 Temperature 97.4 F L 98 F Temperature Source Temporal Pulse Rate 77 63 Respiratory Rate 16 16 Blood Pressure 153/102 H 156/97 H Blood Pressure Mean 119 116 Pulse Ox 97 99 Positive well nourished and well developed General Appearance ED: well developed and NAD HEENT Reports normocephalic, head/scalp atraumatic and moist mucous membranes Eyes PERRL and EOMs intact bilaterally Neck no lymphadenopathy, supple and no JVD Resp normal respiratory effort and clear to auscultation bilaterally Cardio regular rate, regular rhythm and no murmurs GI normal to inspection, nondistended, normoactive bowel sounds and non-tender Palpation: soft Back/Spine no CVA tenderness and normal ROM Extremity normal to inspection General Extremety ED: Negative for edema General Extremity: Negative for edema Neuro oriented x3 and CN's II-XII intact bilaterally Sensorium / Orientation: alert Motor Exam: strength 5/5 throughout Psych mental status grossly normal Mood Affect: Negative for depressed or tearful Skin no rashes or lesions noted and no wounds Skin Narrative: There is a fresh clot at the level of the varicose vein on the anterior lower third left briseno. There is no active bleeding. The clot/scab is about 2 to 3 mm in width. No evidence of secondary infection MDM MDM MDM Narrative Medical decision making narrative: A small amount of Dermabond was placed on the wound and then covered with Band-Aid. She was advised to elevate the legs over the next 2 days. She is instructed to avoid any prolonged standing. I would recommend direct pressure for 15 minutes if bleeding returns. Follow-up as needed return if worsening or concern History Record Review Discussion w/independent historian: Patient Discharge Plan Triage Chief Complaint: Wound ED Provider: Paul Luu Dx/Rx/DC Orders Clinical Impression: Bleeding from varicose veins of left lower extremity Instructions: ED Varicose Veins Prescriptions: No Action famotidine 20 mg tablet 20 mg PO DAILY PRN (Reason: heartburn) (more content not included)... Normal [facility] TSH DL <= 0.005 mIU/L Qnon 0 03-20-2023 TSH Qn 1.96 m[IU]/L [facility] Thyroid Stimulating Hormoneo n 03-20-2023 TSH 1.96 uIU/mL Normal 0.32-5.00 [facility] Comment on above: Performed By: #### T #### [facility] (DEFAULT) [address] [place], [place] [address] THYROIDon 02-08-2023 [facility]ID [facility] Patient: JIE HUMPHREYS [address] [place] [address] Admit Date: 02/08/23 /Age: 05 1965 ED Physician: DIAGNOSTIC RADIOLOGY REQUISITION Attending Physician: Casi Cortez CNP Med Rec #: [id number] EXAM: US THYROID HISTORY: BETO'S COMPARISON: None. FINDINGS: Right lobe: 4.7 x 1.5 x 1.5 cm. Isthmus: 5 mm. Left lobe: 4.1 x 1.5 x 1.4 cm. The gland is heterogeneous in echotexture with normal color Doppler flow. 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 No mass. IMPRESSION: Consistent with Beto's thyroiditis. No acute change. Authenticated on: 02/08/23 124 [id number] [id number] Job ID# [id number] CC: Casi Cortez CNP Normal [facility] TSH DL <= 0.005 mIU/L Qnon 0 02-06-2023 Interpretation and review of laboratory results Abnormal [facility] TSH Qn 11.50 m[IU]/L High [facility] Thyroid Peroxidase (TPO) Abo n 02-06-2023 Thyroid Peroxidase (TPO) Ab THYROID PEROXIDASE ANTIBODIES: 115.9 Units: IU/mL Ref Range: 0.0-9.0 Status: H Testing Performed At: [facility] [address] [place] [address] Assay performed by Darlene [employer] DXI Immunoassay. Normal [facility] Comment on above: Performed By: #### T PAB #### [facility] (DEFAULT) [address] [place] [address] Thyroid Stimulating Hormoneo n 02-06-2023 TSH 11.50 uIU/mL High 0.32-5.00 [facility] Comment on above: Performed By: #### T SH #### [facility] (DEFAULT) [address] [place] [address] 3D MAMMO B/L SCREENINGon 3D MAMMO B/L SCREENING [facility] Patient: JIE HUMPHREYS [address] [address] [place] [address] Admit Date: 12/16/22 /Age: 05 1965 Attending Physician: Self Requesting DIAGNOSTIC RADIOLOGY REQUISITION [facility] Rec #: [id number] HISTORY: Screening. TECHNIQUE: Bilateral digital screening mammogram [...] regarding the results. Authenticated on: 12/19/22 1635 [id number] Job ID# [id number] CC: Casi Cortez, SUNDEEP Self Requesting Normal [facility] M TUBERCULOSIS BY Amol ALEGRIA 10-11-2022 M. TB Mitogen-Nil 9.98 IU/mL Normal [facility] Comment on above: Order Comment: The M . Tuberculosis antigen levels cannot be correlated to stage or degree of infection, response to therapy or likelihood for progression to active disease. Results from QuantiFERON TB Gold Plus must be used in conjunction with individual epidemiological history, current medical status, and results of other diagnostic evaluation. Performed By: #### Q FTB #### [facility] (DEFAULT) [address] [place] [address] M. TB Nil 0.02 IU/mL Normal [facility] Comment on above: Order Comment: The M . Tuberculosis antigen levels cannot be correlated to stage or degree of infection, response to therapy or likelihood for progression to active disease. Results from QuantiFERON TB Gold Plus must be used in conjunction with individual epidemiological history, current medical status, and results of other diagnostic evaluation. Performed By: #### Q FTB #### [facility] (DEFAULT) [address] [address] M. TB TB1-Nil 0.01 IU/mL Normal [facility] Comment on above: Order Comment: The M . Tuberculosis antigen levels cannot be correlated to stage or degree of infection, response to therapy or likelihood for progression to active disease. Results from QuantiFERON TB Gold Plus must be used in conjunction with individual epidemiological history, current medical status, and results of other diagnostic evaluation. Performed By: #### Q FTB #### [facility] (DEFAULT) [address] [address] M. TB TB2-Nil 0.00 IU/mL Normal [facility] Comment on above: Order Comment: The M . Tuberculosis antigen levels cannot be correlated to stage or degree of infection, response to therapy or likelihood for progression to active disease. Results from QuantiFERON TB Gold Plus must be used in conjunction with individual epidemiological history, current medical status, and results of other diagnostic evaluation. Performed By: #### Q FTB #### [facility] (DEFAULT) [address] [place] [address] M. Tuberculosis by Quantiferon in tube Negative Normal Negative [facility] Comment on above: Order Comment: The M . Tuberculosis antigen levels cannot be correlated to stage or degree of infection, response to therapy or likelihood for progression to active disease. Results from QuantiFERON TB Gold Plus must be used in conjunction with individual epidemiological history, current medical status, and results of other diagnostic evaluation. Performed By: #### Q FTB #### [facility] (DEFAULT) [address] [place] [address] HIP ARTHROGRAMon 08-24-2022 HIP ARTHROGRAM [facility] Patient: JIE HUMPHREYS [place] [address] Admit Date: 08/24/22 /Age: 05 1965 / 08/24/22 ED Physician: DIAGNOSTIC RADIOLOGY REQUISITION Attending Physician: Jeana Camacho MD Med Rec #: [id number] EXAMINATION: HIP ARTHROGRAM HISTORY: HIP INJECTION. Left [...] hip arthrogram for pain control. Authenticated on: 08/24/221438 [id number]/[id number] 36 Job ID# [id number] CC: MD Casi Rose, COAT BASTER Normal [facility] HIP LT MIN 2V W OR WO PELVIS on 08-17-2022 HIP LT MIN 2V W OR WO PELVIS [facility] Patient: JIE [address] [place] [address] Admit Date: 08/17/22 /Age: 05 1965 ED Physician: DIAGNOSTIC RADIOLOGY REQUISITION Attending Physician: Jeana Camacho MD Med Rec #: [id number] EXAM: HIP LT MIN 2V W OR WO PELVIS HISTORY: ARTHRITIS COMPARISON: 03/17/2021 FINDINGS/IMPRESSION: 1. Moderate osteoarthritic changes are similar. Osteophytes on the superior lateral acetabulum, left greater than right unchanged. 2. Femoral heads remain rounded. 3. No fracture. 4. Mild degenerative change left SI joint. Authenticated on: 08/17/221342 [id number]/RRIA [id number] Job ID# [id number] CC: MD Casi Rose, COAT BASTER [facility] NOVEL CORONAVIRUSon 06-03-20 21 PERFORMED BY [facility] Comment on above: Performed By: #### C COVID #### [place] [address] SARS-CoV-2 (COVID-19) RNA LORRIE+probe Ql (Unsp spec) Not detected Normal NOT DETECTED [facility] Comment on above: Result Comment: Nega tive [...] #### C COVID #### [place] [address] NARRATIVE This test was performed using isothermal LORRIE and has been approved as Emergency Use Authorization (EUA) for the qualitative detection [id number] nucleic acid. [facility] Comment on above: Performed By: #### C COVID #### [place] [address] HCV ABon 11-15-2017 HEP C VIRUS AB <0.1 Normal 0.0-0.9 [facility] Comment on above: Result Comment: (NOT E) Negative: < 0.8 Indeterminate: 0.8 - 0.9 Positive: > 0.9The CDC recommends that a positive HCV antibody resultbe followed up with a HCV Nucleic Acid Amplificationtest (163242).PERFORMED AT [facility] Performed By: #### L HBSAB, LHCAB, LMMR ####Testing performed at [facility] [place] [address] HEP B SURFACE ABon 8 BSA (Body Surface Area) Reactive [facility] Comment on above: Result Comment: (NOT E) Non Reactive: Inconsistent with immunity, less than 10 mIU/mL Reactive: Consistent with immunity, greater than 9.9 mIU/mLPERFORMED AT [facility] Performed By: #### L HBSAB, LHCAB, LMMR ####[place] [address] MEASLES,MUMP,RUBELLAon 11-15 MUMPS ABS, IGG 173.0 AU/mL Normal Immune >10.9 [facility] [place] Comment on above: Result Comment: (NOT E) Negative <9.0 Equivocal 9.0 - 10.9 Positive >10.9A positive result generally indicates past exposure toMumps virus or previous vaccination.PERFORMED AT [facility] Performed By: #### L HBSAB, LHCAB, LMMR ####[place] [address] RUBEOLA AB, IGG 164.0 AU/mL Normal Immune >29.9 [facility] Comment on above: Result Comment: (NOT E) Negative <25.0 Equivocal 25.0 - 29.9 Positive >29.9Presence of antibodies to Rubeola is presumptive evidenceof immunity except when acute infection is suspected. Performed By: #### L HBSAB, LHCAB, LMMR ####[place] [address] RUBELLA AB, IGG 24.80 index Normal Immune >0.99 [facility] Comment on above: Result Comment: (NOT E) Non-immune <0.90 Equivocal 0.90 - 0.99 Immune >0.99 Performed By: #### L HBSAB, LHCAB, LMMR ####Testing performed at [address] [address] FAX REQUESTon 11-14-2017 FAX TO [facility] Comment on above: Performed By: #### L HBSAB, LHCAB, LMMR ####Testing performed at [facility], [address] [place] [address] MAMMOGRAM SCREENING BI INCL CADon 09-21-2017 MAMMOGRAM SCREENING BI INCL CAD PROCEDURE: MAMMOGRAM SCREENING BI INCL CAD, MAMMOGRAM TOMOSYNTHESIS BREASTBILATERAL SCREENING, 09/20/2017 10:55 AMCLINICAL INDICATIONS: Encounter for screening mammogram for malignant neoplasmof breast. STATED CLINICAL CONCERNS: None.STATED FAMILY HISTORY OF BREAST CANCER: Maternal grandmother. COMPARISON: 11/23/2016, 11/13/2015, 11/05/2014, 10/30/2013, 10/17/2012 from [facility].TECHNIQUE: Digital screening bilateral mammography with computer-aideddetectio n [...] to the patient regarding the results. Normal [facility] MAMMOGRAM TOMOSYNTHESIS [address] ST BILATERAL SCREENINGon 09-21-2017 Bilirubin (total) PROCEDURE: MAMMOGRAM SCREENING BI INCL CAD, MAMMOGRAM TOMOSYNTHESIS BREASTBILATERAL SCREENING, 09/20/2017 10:55 [facility]: Encounter for screening mammogram for malignant neoplasmof breast. STATED CLINICAL CONCERNS: None.STATED FAMILY HISTORY OF BREAST CANCER: Maternal grandmother. COMPARISON: 11/23/2016, 11/13/2015, 11/05/2014, 10/30/2013, 10/17/2012 from [facility].TECHNIQUE: Digital screening bilateral mammography with computer-aideddetectio n [...] to the patient regarding the results. Normal [facility] THIN PREP with HPVon 018 [id number] . Normal [facility] Comment on above: Result Comment: Perf ormed at: WB Performed By: #### T PH ####Performed for [place] [address]-3 Negative Normal Negative [facility] Comment on above: Result Comment: This test detects fourteen high-risk HPV types (16/18/31/33/35/39/45/51/52/56/58/59/66/68) without differentiation.Performed at: =G Performed By: #### T PH ####Performed for [place] [address] Software Developer Manager (cervix/vaginal) Comment Normal [facility] Comment on above: Result Comment: Pema Sanchez, Supervisory Automotive Brake Technician (ASCP)Performed at: WB Performed By: #### T PH ####Performed for [place] [address] Cytology report (cervical/vaginal) Comment Normal [facility] Comment on above: Result Comment: This liquid based ThinPrep(R) pap test was screened with theuse of an image guided system.Performed at: WB Performed By: #### T PH ####Performed for [place] [address] Note: Comment Normal [facility] Comment on above: Result Comment: The Pap smear is a screening test designed to aid in the detection ofpremalignant and malignant conditions of the uterine cervix. It is not adiagnostic procedure and should not be used as the sole means of detectingcervical cancer. Both false-positive and false-negative reports do occur. .Performed at: [facility] Performed By: #### T PH ####Performed for [address] [address] Pathology narrative Comment Normal [facility] Comment on above: Result Comment: NEGA TIVE FOR INTRAEPITHELIAL LESION AND MALIGNANCY.CELLULAR CHANGES ASSOCIATED WITH INFLAMMATION ARE PRESENT.Performed at: [facility] Performed By: #### T PH ####Performed for [place] [address] Statement of adequacy (cervix/vaginal) Comment Normal [facility] Comment on above: Result Comment: Sati sfactory for evaluation. Endocervical and/or squamous metaplasticcells (endocervical component) are present.Performed at: [facility] Performed By: #### T PH ####Performed for [place] [address] Vital Signs Date Time Vital Sign Value Performing Clinician Facility 12-20-2024 13:30-0400 Diastolic blood pressure 89 mm[Hg] Dr. Gerardo Manuel DO Work Phone: [facility] 12-20-2024 13:30-0400 Heart rate 54 /min Dr. Gerardo Manuel DO Work Phone: [facility] 12-20-2024 13:30-0400 Respiratory rate 16 /min Dr. Gerardo Manuel DO Work Phone: [facility] 12-20-2024 13:30-0400 SaO2% (BldA) [Mass fraction] 97 % Dr. Gerardo Manuel DO Work Phone: [facility] 12-20-2024 13:30-0400 Systolic blood pressure 149 mm[Hg] Dr. Gerardo Manuel DO Work Phone: [facility] 12-20-2024 13:08-0400 Body height 185.[address] Gerardo Manuel DO Work Phone: [facility] 12-20-2024 13:08-0400 Body mass index (BMI) [Ratio] 30.3 kg/m2 Dr. Gerardo Manuel DO Work Phone: [facility] 12-20-2024 13:08-0400 Body weight 104.[address] Gerardo Manuel DO Work Phone: [facility] 11-12-2024 13:46-0400 Body mass index (BMI) [Ratio] 30.2 kg/m2 Dr. Gerardo Manuel DO Work Phone: [facility] 11-12-2024 13:46-0400 Body weight 103.[address] Gerardo Manuel DO Work Phone: [facility] 11-12-2024 13:46-0400 Diastolic blood pressure 92 mm[Hg] Dr. Gerardo Manuel DO Work Phone: [facility] 11-12-2024 13:46-0400 Heart rate 70 /min Dr. Gerardo Manuel DO Work Phone: [facility] 11-12-2024 13:46-0400 Respiratory rate 16 /min Dr. Gerardo Manuel DO Work Phone: [facility] 11-12-2024 13:46-0400 SaO2% (BldA) [Mass fraction] 96 % Dr. Gerardo Manuel DO Work Phone: [facility] 11-12-2024 13:46-0400 Systolic blood pressure 138 mm[Hg] Dr. Gerardo Manuel DO Work Phone: [facility] 09-26-2024 10:09-0500 Diastolic blood pressure 90 mm[Hg] LORRI LEWISEE Work Phone: [facility] 09-26-2024 10:09-0500 Systolic blood pressure 130 mm[Hg] LORRI GAREE Work Phone: [facility] 09-26-2024 10:04-0500 Body height 185.42 cm LORRI LEWISEE Work Phone: [facility] 09-26-2024 10:04-0500 Body mass index (BMI) [Ratio] 29.7 kg/m2 LORRI LEWISEE Work Phone: [facility] 09-26-2024 10:04-0500 Body temperature 97.6 [degF] LORRI GAREE Work Phone: [facility] 09-26-2024 10:04-0500 Body weight 102.05 kg LORRI GAREE Work Phone: [facility] 09-26-2024 10:04-0500 Heart rate 70 /min LORRI GAREE Work Phone: [facility] 09-26-2024 10:04-0500 Respiratory rate 18 /min LORRI GAREE Work Phone: [facility] 09-26-2024 10:04-0500 SaO2% (BldA) [Mass fraction] 96 % LORRI GAREE Work Phone: [facility] 09-23-2024 09:35-0500 Body temperature 98.5 [degF] LORRI GAREE Work Phone: [phone] [place] [address] 09-23-2024 09:35-0500 Diastolic blood pressure 86 mm[Hg] LORRI GAREE Work Phone: [facility] 09-23-2024 09:35-0500 Heart rate 60 /min LORRI GAREE Work Phone: [facility] 09-23-2024 09:35-0500 Respiratory rate 16 /min LORRI GAREE Work Phone: [facility] 09-23-2024 09:35-0500 SaO2% (BldA) [Mass fraction] 98 % LORRI GAREE Work Phone: [facility] 09-23-2024 09:35-0500 Systolic blood pressure 127 mm[Hg] LORRI GAREE Work Phone: [facility] 09-23-2024 07:54-0500 Body mass index (BMI) [Ratio] 29.6 kg/m2 LORRI GAREE Work Phone: [facility] 02-24-2025 07:54-0500 Body weight 102 kg LORRI GAREE Work Phone: [facility] 07-22-2024 09:08-0500 Body mass index (BMI) [Ratio] 29.7 kg/m2 LORRI GAREE Work Phone: [facility] 07-22-2024 09:08-0500 Body weight 102.05 kg LORRI GAREE Work Phone: [facility] 02-27-2024 07:58-0400 Body height 185.4 cm Casi Cortez [employer] Work Phone: [facility] 02-27-2024 07:58-0400 Body mass index (BMI) [Ratio] 30.08 kg/m2 Casi Cortez [employer] Work Phone: [facility] 02-27-2024 07:58-0400 Body weight 103.42 kg Casi Cortez [employer] Work Phone: [facility] 02-27-2024 07:58-0400 Diastolic blood pressure 86 mm[Hg] Casi Cortez [employer] Work Phone: [facility] 02-27-2024 07:58-0400 Heart rate 77 /min Casi Cortez [employer] Work Phone: [facility] 02-27-2024 07:58-0400 SaO2% (BldA) [Mass fraction] 98 % Casi Cortez [employer] Work Phone: [facility] 02-27-2024 07:58-0400 Systolic blood pressure 126 mm[Hg] Casi Cortez [employer] Work Phone: [facility] 10-16-2023 08:36-0400 Diastolic blood pressure 82 mm[Hg] Casi Cortez [employer] Work Phone: [facility] 10-16-2023 08:36-0400 Systolic blood pressure 138 mm[Hg] Casi Cortez [employer] Work Phone: [facility] 10-16-2023 08:15-0400 Body height 185.4 cm Casi Cortez [employer] Work Phone: [facility] 10-16-2023 08:15-0400 Body mass index (BMI) [Ratio] 30.74 kg/m2 Casi Cortez [employer] Work Phone: [facility] 10-16-2023 08:15-0400 Body weight 105.69 kg Casi Cortez [employer] Work Phone: [facility] 10-16-2023 08:15-0400 Heart rate 69 /min Casi Cortez [employer] Work Phone: [facility] 10-16-2023 08:15-0400 SaO2% (BldA) [Mass fraction] 96 % Casi Cortez [employer] Work Phone: [facility] 02-06-2023 07:36-0400 Body height 185.4 cm Casi Cortez [employer] Work Phone: [facility] 02-06-2023 07:36-0400 Body mass index (BMI) [Ratio] 30.03 kg/m2 Casi Cortez [employer] Work Phone: [facility] 02-06-2023 07:36-0400 Body temperature 98.4 [degF] Casi Cortez [employer] Work Phone: [facility] 02-06-2023 07:36-0400 Body weight 103.24 kg Casi Cortez [employer] Work Phone: [facility] 02-06-2023 07:36-0400 Diastolic blood pressure 88 mm[Hg] Casi Cortez [employer] Work Phone: [facility] 02-06-2023 07:36-0400 Heart rate 81 /min Casi Cortez [employer] Work Phone: [facility] 02-06-2023 07:36-0400 Respiratory rate 15 /min Casi Cortez [employer] Work Phone: [facility] 02-06-2023 07:36-0400 SaO2% (BldA) [Mass fraction] 95 % Casi Cortez [employer] Work Phone: [facility] 02-06-2023 07:36-0400 Systolic blood pressure 139 mm[Hg] Casi Cortez SUNDEEP Work Phone: [facility] 03-17-2021 13:47-0400 Body height 185.4 cm Noris Camacho MD Work Phone: [facility] 03-17-2021 13:47-0400 Body mass index (BMI) [Ratio] 30.21 kg/m2 Noris Camacho MD Work Phone: [facility] 03-17-2021 13:47-0400 Body weight 103.87 kg Noris Camacho MD Work Phone: [facility] 03-17-2021 13:47-0400 Respiratory rate 18 /min Noris Camacho MD Work Phone: [facility] 10-29-2020 14:36-0400 BMI (Body Mass Index) 29.8 kg/m2 Casi [facility] 10-29-2020 14:36-0400 Body Temperature 97.7 [degF] [facility]-29-[facility] 14:36-0400 Body weight 103.[address] [facility] 10-29-2020 14:36-0400 BP Diastolic 80 mm[Hg] Casi [facility] 10-29-2020 14:36-0400 BP Systolic 120 mm[Hg] Casi [facility] 10-29-2020 14:36-0400 Height 186.[address] [facility] 10-29-2020 14:36-0400 Pulse (Heart Rate) 72 /min [facility] 10-29-2020 14:36-0400 Pulse Oximetry 99 % [facility] 10-29-2020 14:36-0400 Respiratory Rate 16 /min Casi [facility] 01-20-2020 13:48-0400 BMI (Body Mass Index) 28.11 kg/m2 Casi [facility] 01-20-2020 13:48-0400 Body Temperature 98.1 [degF] Casi [facility] 01-20-2020 13:48-0400 Body weight 97.[address] [facility] 01-20-2020 13:48-0400 BP Diastolic 76 mm[Hg] [facility] 01-20-2020 13:48-0400 BP Systolic 124 mm[Hg] Casi Cortez [facility] 01-20-2020 13:48-0400 Height 186.7 cm Casi Cortez [facility] 01-20-2020 13:48-0400 Pulse (Heart Rate) 68 /min Casi Cortez [facility] 01-20-2020 13:48-0400 Pulse Oximetry 97 % Casi Cortez [facility] 01-20-2020 13:48-0400 Respiratory Rate 15 /min Casi Cortez [facility] 01-20-2020 13:48-0400 SaO2% (BldA) [Mass fraction] 97 % Casi Cortez [facility] Work Phone: [facility] 11-01-2018 15:00-0400 BMI (Body Mass Index) 26.96 kg/m2 Bubba [facility] 11-01-2018 15:00-0400 BP Diastolic 72 mm[Hg] [facility] 11-01-2018 15:00-0400 BP Systolic 138 mm[Hg] [facility] 11-01-2018 15:00-0400 Height 188 cm [facility] 11-01-2018 15:00-0400 Pulse (Heart Rate) 80 /min [facility] 11-01-2018 15:00-0400 Respiratory Rate 16 /min [facility] 11-01-2018 15:00-0400 Weight 95.25 kg [facility] Encounters Encounter Date Encounter Type Care Provider Facility Start: 12-21-2024 ambulatory Triston Nassar Facility :[facility] Start: 12-21-2024 Non-patient / Non-visit Dr. Tristan ROSARIO -[facility] Start: 12-20-2024 End: 12-20-[address] Gerardo Manuel DO Work Phone: [facility] Work Phone: Start: 12-20-2024 End: 12-20-[address] Triston Nassar MD -[facility] Work Phone: Start: 12-20-2024 End: 12-20-2024 ambulatory Triston Nassar Facility:[facility] Start: 11-12-2024 End: 11-12-[address] Triston Nassar MD -[facility] Work Phone: Start: 11-12-2024 End: 11-12-2024 ambulatory Le Crawford Facility:[facility] Start: 10-08-2024 ambulatory Le Crawford Facility :[facility] Start: 10-08-2024 Non-patient / Non-visit Dr. Kayla Mendoza MD -[facility] Start: 10-08-2024 End: 10-08-2024 ambulatory LORRI NIELSEN Work Phone: [facility] Work Phone: Start: 10-08-2024 End: 10-08-[address] Le Crawford MD -[facility] Work Phone: Start: 10-08-2024 End: 10-08-2024 ambulatory Le Crawford Facility:[facility] Start: 09-26-2024 End: 09-26-[address] Le Crawford MD -[facility] Work Phone: Start: 09-26-2024 End: 09-26-2024 ambulatory Le Crawford Facility:[facility] Start: 09-23-2024 ambulatory Pedro Donahue Facility :[facility] Start: 09-23-2024 Non-patient / Non-visit Pedro Hazel nd -[facility] Start: 09-23-2024 End: 09-23-2024 Admission to same day surgery center Pedro Donahue DO -Endoscopy Work Phone: Start: 09-23-2024 End: 09-23-2024 ambulatory Pedro Billings Facility:[facility] Start: 08-06-2024 End: 08-07-2024 Refill Lorri Nielsen [employer] Work Phone: [facility] [place] Start: 07-22-2024 Non-patient / Non-visit LORRI NIELSEN Work Phone: -[facility] Work Phone: Start: 07-22-2024 ambulatory Zeny Irving Facility:[facility] Start: 07-11-2024 ambulatory Piper Del Toro Facility:[facility] Start: 07-09-2024 End: 07-09-2024 Orders Only Lorri Nielsen [employer] Work Phone: [facility] [place] Comment on above: Hypothyroidism, unsp ecified type (Primary Dx) Start: 07-09-2024 End: 07-09-2024 Patient encounter procedure LORRI NIELSEN Work Phone: -Laboratory Work Phone: Start: 07-09-2024 End: 07-09-2024 ambulatory LORRI NIELSEN [facility] Start: 05-21-2024 ambulatory Sage Myranda Facility:[facility] Start: 05-21-2024 End: 05-21-20[facility] Start: 05-08-2024 ambulatory [facility] Facility :[facility] Start: 05-02-2024 End: 05-02-2024 ambulatory [facility] Facility:[facility] Start: 04-30-2024 End: 04-30-2024 ambulatory [facility] Start: 04-30-2024 End: 04-30-2024 ambulatory PAULIE CALDWELL Facility:[facility] Start: 04-11-2024 End: 04-17-2024 ambulatory CASI ZHOU [facility] Start: 04-04-2024 End: 04-05-2024 Transcribe Orders Chuck Huertas MD Work Phone: [facility] Comment on above: Hypothyroidism, unsp ecified type (Primary Dx) Start: 04-04-2024 ambulatory CASI CORTEZ [facility] Ambulatory Start: 03-27-2024 End: 03-28-2024 Orders Only Casi Cortez [employer] Work Phone: [facility] [place] 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; Hypothyroidism, unspecified type Start: 03-26-2024 End: 03-27-2024 Orders Only Casi Zhou Dana [employer] Work Phone: [facility] [place] Comment on above: Hypothyroidism, unsp ecified type (Primary Dx) Start: 03-25-2024 End: 03-27-2024 Refill Casi Zhou Dana [employer] Work Phone: [facility] [place] Comment on above: Hypothyroidism, unsp ecified type Start: 03-20-2024 End: 03-21-2024 Orders Only Casi Winnie Cortez [employer] Work Phone: [facility] [place] Comment on above: Daytime sleepiness ( Primary Dx) Start: 03-05-2024 End: 03-05-2024 Orders Only Casi Winnie Cortez [employer] Work Phone: [facility] [place] Comment on above: Loud snoring (Primar y Dx) Start: 03-01-2024 End: 03-01-2024 Refill Casi Winnie Cortez [employer] Work Phone: [facility] [place] 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 Start: 02-27-2024 End: 02-27-2024 Refill Casi Zhou Dana [employer] Work Phone: [facility] [place] Start: 02-27-2024 End: 02-27-2024 Office outpatient visit 25 minutes Casiaman Del Realsocorro Cortez [employer] Work Phone: [facility] [place] Comment on above: Varicose veins of freya th lower extremities with pain (Primary Dx); Hypothyroidism, unspecified type; Loud snoring Start: 02-27-2024 End: 02-27-2024 ambulatory CASI CORTEZ [facility] Start: 02-15-2024 End: 02-16-2024 Orders Only Casi Cortez [employer] Work Phone: [facility] [place] Comment on above: Hypothyroidism, unsp ecified type (Primary Dx); Beto's disease Start: 02-12-2024 ambulatory CASI CORTEZ O [facility] Ambulatory Start: 02-12-2024 Encounter for other general examination CASI CORTEZ [facility] Start: 02-06-2024 End: 02-06-2024 ambulatory PAULIE CALDWELL Facility:[facility] Start: 02-05-2024 Encounter for other general examination PAULIE CALDWELL [facility] Start: 01-30-2024 ambulatory CASI CORTEZ O [facility] Ambulatory Start: 01-26-2024 End: 01-26-2024 ambulatory PAULIENAHED CALDWELL Facility:[facility] Start: 01-23-2024 End: 01-23-2024 Emergency department patient visit Paul [address] Facility:[facility] Start: 2023 Orders Only Casi Zhou Cortez [employer] Work Phone: [facility] [place] Comment on above: Menopause (Primary D x); Hypothyroidism, unspecified type; Encounter for biometric screening Start: 2023 Patient encounter status Kostas Cortez [employer] Work Phone: [facility] Start: 12-05-2023 Refill Casi Cortez [employer] Work Phone: [facility] [place] 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 Start: 10-18-2023 ambulatory CORNELLJOANNE JACOME [facility] Ambulatory Start: 10-16-2023 End: 10-16-2023 Periodic preventive med est patient 40-64yrs Casi Cortez [employer] Work Phone: [facility] [place] Comment on above: Physical exam (Prima ry Dx); Encounter for screening mammogram for malignant neoplasm of breast Start: 10-16-2023 End: 10-16-2023 Physical examination Casi Cortez [employer] Work Phone: [facility] Work Phone: Start: 10-16-2023 End: 10-16-2023 ambulatory CASI CORTEZ [facility] Start: 09-12-2023 Refill Gerardo Manuel DO Work Phone: [facility] [place] 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 Start: 06-12-2023 Refill Casi Cortez [employer] Work Phone: [facility] [place] 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 Start: 04-06-2023 Orders Only Casi Cortez [employer] Work Phone: [facility] [place] Comment on above: Poison thanh (Primary Dx) Start: 03-21-2023 Refill Casi Cortez [employer] Work Phone: [facility] [place] 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 Start: 03-20-2023 Orders Only Casi Cortez [employer] Work Phone: [facility] [place] Start: 03-20-2023 End: 03-20-2023 Orders Only Casi Cortez [employer] Work Phone: [facility] [place] 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 Start: 02-08-2023 End: 02-08-2023 ambulatory CASI CORTEZ Facility:[facility] Start: 02-07-2023 Orders Only Casi Cortez [employer] Work Phone: [facility] [place] 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) Beto's thyroidi tis (Primary Dx) Start: 02-06-2023 End: 02-06-2023 ambulatory CASI CORTEZ [facility] Start: 02-06-2023 Orders Only Casi Cortez [employer] Work Phone: [facility] [place] Start: 02-06-2023 End: 02-06-2023 ambulatory CASI CORTEZ Facility:[facility] Start: 02-06-2023 End: 02-06-2023 Periodic preventive med est patient 40-64yrs Casi Cortez [employer] Work Phone: [facility] [place] Comment on above: Elevated TSH (Primar y Dx); Hyperlipidemia, unspecified hyperlipidemia type; Single episode of elevated blood pressure; Gastroesophageal reflux disease, unspecified whether esophagitis present Start: 12-16-2022 End: 12-16-2022 ambulatory CASI CORTEZ Facility:[facility] Start: 10-11-2022 End: 10-11-2022 ambulatory [facility] Start: 10-11-2022 End: 10-11-2022 Encounter for general adult medical examination without abnormal findings [facility] Start: 08-24-2022 End: 08-24-2022 ambulatory CASIAMAN CORTEZ [facility] Start: 08-22-2022 Refill Casi Zhou Cortez [employer] Work Phone: [facility] [place] Start: 08-17-2022 End: 08-17-2022 Orders Only Noris Camacho MD Work Phone: [facility] Comment on above: Arthritis of left hi p (Primary Dx) Start: 01-10-2022 Refill Gerardo Manuel DO Work Phone: [facility] [place] Start: 09-21-2021 Orders Only Casiaman Del Realsocorro Cortez [employer] Work Phone: [facility] [place] Start: 09-20-2021 Refill Casi Winniesocorro Cortez [employer] Work Phone: [facility] [place] Start: 03-25-2021 Refill Briseyda Feliz LPN [facility] [place] Start: 03-19-2021 Orders Only Noris Camacho MD Work Phone: [facility] Comment on above: Primary osteoarthrit is of left hip (Primary Dx) Start: 03-17-2021 Orders Only Noris Camacho MD Work Phone: [facility] Comment on above: Arthritis of right h ip (Primary Dx) Start: 03-17-2021 End: 03-17-2021 Office outpatient visit 10 minutes Noris Camacho MD Work Phone: [facility] Comment on above: Arthritis of right h ip (Primary Dx) Start: 03-16-2021 Orders Only Noris Camacho MD Work Phone: [facility] Comment on above: Left hip pain (Prima ry Dx) Start: 10-29-2020 End: 10-29-2020 Office outpatient visit 25 minutes Casi Cortez Work Phone: [facility] [place] Comment on above: Anxiety; Depression, unspecified depression type; Breast cancer screening by mammogram Start: 01-20-2020 End: 01-20-2020 Patient encounter procedure Casi Winnie Cortez [facility] Work Phone: [facility] Work Phone: Start: 01-20-2020 End: 01-20-2020 Initial preventive medicine new patient 40-64yrs Casicarla Cortez Work Phone: [facility] [place] Comment on above: Well woman exam (Kamila xenia Dx); Abnormal uterine bleeding Start: 11-01-2018 End: 11-01-2018 Office outpatient visit 10 minutes Bubba Silva Work Phone: [facility] Comment on above: Encounter for colore ctal cancer screening (Primary Dx) Start: 11-14-2017 Ambulatory LEONOR Casas [facility] Start: 09-20-2017 End: 09-21-2017 Ambulatory CASI LOPEZ Facility:[facility] Start: 08-21-2017 End: 08-22-2017 Ambulatory CASI LOPEZ Facility:[facility] Procedures Date Procedure Procedure Detail Performing Clinician Start: 12-20-2024 CT angiography of co ronary arteries Dr. Gerardo Manuel DO Work Phone: Start: 11-12-2024 Evaluation of diagno stic study results Dr. Gerardo Manuel DO Work Phone: Start: 10-08-2024 Radionuclide imaging of perfusion of myocardium under exercise stress LORRI MORALES Work Phone: Start: 04-11-2024 Microscopic observat ion [Identifier] in Cervix by Cyto stain Lorri Lewisviet [employer] Work Phone: Start: 02-12-2024 Mammography Casicarla chandra [employer] Work Phone: Start: 03-24-2023 Microscopic observat ion [Identifier] in Cervix by Cyto stain Gerardo Manuel DO Work Phone: Start: 03-20-2023 Assay of thyroid stimulating hormone tsh Casi Cortez [employer] Work Phone: Start: 02-06-2023 Assay of thyroid stimulating hormone tsh Casi Cortez [employer] Work Phone: Start: 02-06-2023 Adult depression scr eening assessment Casiaman Cortez [employer] Work Phone: Start: 12-20-2022 Mammography Casicarla chandra [employer] Work Phone: Start: 03-14-2022 Microscopic observat ion [Identifier] in Cervix by Cyto stain Casi Cortez [employer] Work Phone: Start: 11-22-2021 Mammography Gerardo malin DO Work Phone: Start: 02-22-2021 Microscopic observat ion [Identifier] in Cervix by Cyto stain Casi Cortez [employer] Work Phone: Start: 11-17-2020 Mammography Noris Camacho MD Work Phone: Start: 10-29-2020 Adult depression scr eening assessment Casi Cortez Start: 01-20-2020 Adult depression scr eening assessment Casi Cortez Start: 01-20-2020 Microscopic observat ion [Identifier] in Cervix by Cyto stain Casi Cortez Start: 09-02-2019 Mammography Casi chandra Start: 11-21-2018 Colonoscopy Casi chandra Plan of Treatment Date Care Activity Detail Author Start: 04-11-2029 Screening for malign ant neoplasm of cervix [facility] Start: 11-21-2028 Screening for malign ant neoplasm of colon [facility] Start: 08-27-2028 Tetanus vaccination Tetanus: Every 1 0yrs [facility] Start: 04-11-2027 Screening for malign ant neoplasm of cervix Pap Smear [facility] Start: 03-24-2026 Screening for malign ant neoplasm of cervix [facility] Start: 03-14-2025 Screening for malign ant neoplasm of cervix Pap Smear [facility] Start: 02-26-2025 Depression screening using PHQ-9 (Patient Health Questionnaire 9) score Depression Screening/Follow-Up (PHQ-2/9) [facility] Start: 02-11-2025 Screening for malign ant neoplasm of breast Mammogram [facility] Start: 12-20-2024 Following clinical pathway protocol [facility] Start: 10-19-2024 COVID-19 Vaccine () COVID-19 Vaccine () [facility] Comment on above: Postponed from 03/31 (Treatment Not Available) Start: 10-15-2024 History and physical examination, annual for health maintenance Wellness Visit [facility] Start: 09-23-2024 Colonoscopy flx dx w/collj spec when pfrmd DIAGNOSTIC COLONOSCOPY [facility] Start: 09-23-2024 Patient discharge [facility] Start: 05-16-2024 End: 04-04-2025 Thyrotropin [Units/volume] in Serum or Plasma TSH Lab Routine Hypothyroidism, unspecified type Expected: 05/16/2024, Expires: 04/04/2025 [facility] Work Phone: Comment on above: Expected: 05/16/2024 , Expires: 04/04/2025 Start: 03-31-2024 COVID-19 Vaccine () COVID-19 Vaccine () [facility] Start: 03-31-2024 COVID-19 Vaccine () COVID-19 Vaccine () [facility] Start: 03-31-2024 Influenza vaccination Influenza Vacc ine (#1) [facility] Start: 03-28-2024 End: 02-14-2025 Thyrotropin [Units/volume] in Serum or Plasma TSH Lab Routine Hypothyroidism, unspecified type Expected: 03/28/2024, Expires: 02/14/2025 [facility] Work Phone: Comment on above: Expected: 03/28/2024 , Expires: 02/14/2025 Start: 03-24-2024 History and physical examination, annual for health maintenance Wellness Visit [facility] Start: 02-23-2024 Screening for malign ant neoplasm of cervix Pap Smear [facility] Start: 02-07-2024 Depression screening using PHQ-9 (Patient Health Questionnaire 9) score [facility] Start: 02-07-2024 History and physical examination, annual for health maintenance Wellness Visit [facility] Start: 12-21-2023 Screening for malign ant neoplasm of breast Mammogram [facility] Start: 03-31-2023 COVID-19 Vaccine () COVID-19 Vaccine () [facility] Start: 03-31-2023 Influenza vaccination Sequenti al Influenza Vaccine (#1) [facility] Start: 03-21-2023 End: 02-08-2024 Thyrotropin [Units/volume] in Serum or Plasma TSH Lab Routine Beto's disease Expected: 03/21/2023, Expires: 02/08/2024 [facility] Comment on above: Expected: 03/21/2023 , Expires: 02/08/2024 Start: 03-14-2023 Screening for malign ant neoplasm of colon Fecal occult blood test (FOBT,FIT) [facility] Start: 01-19-2023 Screening for malign ant neoplasm of cervix Pap Smear [facility] Start: 11-22-2022 Screening for malign ant neoplasm of breast Mammogram [facility] Start: 03-31-2022 Influenza vaccination [facility] Start: 02-22-2022 History and physical examination, annual for health maintenance Wellness Visit [facility] Start: 11-17-2021 Screening for malign ant neoplasm of breast Mammogram [facility] Start: 10-29-2021 Adolescent depressio n screening assessment Depression Screening (PHQ9) [facility] Start: 10-29-2021 Depression screening using PHQ-9 (Patient Health Questionnaire 9) score [facility] Start: 03-31-2021 Influenza vaccination Sequenti al Influenza Vaccine (#1) [facility] Start: 03-17-2021 End: 03-17-2021 Patient encounter procedure 03/17/2021 Office Visit Orthopedic Surgery Noris Camacho MD [facility] [place] [address] [facility] Start: 01-29-2021 COVID-19 Vaccine (3 - Booster for Moderna series) COVID-19 Vaccine (3 - Booster for Moderna series) [facility] Start: 01-19-2021 Depression screening using PHQ-9 (Patient Health Questionnaire 9) score Depression Screening (PHQ9) [facility] Start: 01-19-2021 History and physical examination, annual for health maintenance Wellness Visit [facility] Start: 10-27-2020 COVID-19 Vaccine (3 - Booster for Moderna series) COVID-19 Vaccine (3 - Booster for Moderna series) [facility] Start: 09-02-2020 Screening mammography Mammogram [facility] Start: 03-31-2020 Influenza vaccinatio n given Sequential Influenza Vaccine (Season Ended) [facility] Start: 04-30-2019 Screening for malign ant neoplasm of colon Fecal occult blood test (FOBT,FIT) [facility] Start: 11-15-2018 End: 11-15-2018 Scanned Document 11/15/2018 Scanned Document General [place] [address] [phone] [facility] Start: 03-31-2018 Influenza vaccinatio n given SEQUENTIAL INFLUENZA VACCINE (#1) [facility] Start: 12-05-2017 Administration of he rpes zoster vaccine Zoster Vaccines (1 of 2) [facility] Start: 12-05-2017 Pneumococcal Vaccine : Age 50+ (1 of 1 - PCV) Pneumococcal Vaccine: Age 50+ (1 of 1 - PCV) [facility] Start: 12-05-2017 Screening for malign ant neoplasm of colon [facility] Start: 12-05-1997 Screening for malign ant neoplasm of cervix HPV/Cotest [facility] Start: 12-05-1985 Hepatitis C antibody , confirmatory test Hepatitis C Screening [facility] Start: 12-05-1985 Hepatitis C screening Hepatitis C Sc reening [facility] Start: 12-05-1982 HIV screening HIV Screening [facility] Start: 1965 Protein mass conc Mammogram [facility] Start: 1965 Screening for malign ant neoplasm of cervix PAP SMEAR [facility] Start: 1965 Screening for malign ant neoplasm of colon [facility] Start: 1965 Tetanus vaccination TETANUS EVERY 10 YR [facility] End: 12-05-2024 CBC panel - Blood by Automated count CBC Lab Routine Encounter for biometric screening 1 Occurrences starting 2023 until 12/05/2024 [facility] Work Phone: Comment on above: 1 Occurrences starti ng 2023 until 12/05/2024 Colonoscopy [facility] End: 12-05-2024 Comprehensive metabolic 2000 panel - Serum or Plasma Comprehensive Metabolic Panel Lab Routine Encounter for biometric screening 1 Occurrences starting 2023 until 12/05/2024 [facility] Comment on above: 1 Occurrences starti ng 2023 until 12/05/2024 End: 12-05-2024 Lipid 1996 panel - Serum or Plasma Lipid Panel Lab Routine Encounter for biometric screening 1 Occurrences starting 2023 until 12/05/2024 [facility] Comment on above: 1 Occurrences starti ng 2023 until 12/05/2024 End: 02-07-2024 Measurement of thyroperoxidase antibody Thyroid peroxidase antibody (TPO) Lab Routine Elevated TSH 1 Occurrences starting 02/06/2023 until 02/07/2024 [facility] Comment on above: 1 Occurrences starti ng 02/06/2023 until 02/07/2024 End: 12-29-2021 MG Breast - bilateral screening Mammography Screening Bilateral Imaging Routine Breast cancer screening by mammogram 1 Occurrences starting 10/29/2020 until 12/29/2021 [facility] Comment on above: 1 Occurrences starti ng 10/29/2020 until 12/29/2021 End: 12-15-2024 MG Breast - bilateral Screening Mammography Screening [facility] Routine Encounter for screening mammogram for malignant neoplasm of breast 1 Occurrences starting 10/16/2023 until 12/15/2024 [facility] Work Phone: Comment on above: 1 Occurrences starti ng 10/16/2023 until 12/15/2024 Microscopic examinat ion of vaginal Papanicolaou smear Thinprep Pap Smear Pathology and Cytology Routine Well woman exam Ordered: 01/20/2020 [facility] Comment on above: Ordered: 01/20/2020 Patient referral [facility] Work Phone: End: 02-07-2024 Thyrotropin [Units/volume] in Serum or Plasma TSH Lab Routine Elevated TSH 1 Occurrences starting 02/06/2023 until 02/07/2024 [facility] Work Phone: Comment on above: 1 Occurrences starti ng 02/06/2023 until 02/07/2024 End: 12-05-2024 Thyrotropin [Units/volume] in Serum or Plasma TSH Lab Routine Hypothyroidism, unspecified type 1 Occurrences starting 2023 until 12/05/2024 [facility] Comment on above: 1 Occurrences starti ng 2023 until 12/05/2024 End: 02-26-2025 Thyrotropin [Units/volume] in Serum or Plasma TSH Lab Routine Hypothyroidism, unspecified type 1 Occurrences starting 02/27/2024 until 02/26/2025 [facility] Work Phone: Comment on above: 1 Occurrences starti ng 02/27/2024 until 02/26/2025 End: 03-26-2025 Thyrotropin [Units/volume] in Serum or Plasma TSH Lab Routine Hypothyroidism, unspecified type 1 Occurrences starting 03/26/2024 until 03/26/2025 [facility] Work Phone: Comment on above: 1 Occurrences starti ng 03/26/2024 until 03/26/2025 End: 01-19-2021 Transvaginal ultrasonography of pelvis US Transvaginal Imaging Routine Abnormal uterine bleeding 1 Occurrences starting 01/20/2020 until 01/19/2021 [facility] Comment on above: 1 Occurrences starti ng 01/20/2020 until 01/19/2021 US [facility] End: 02-08-2024 US Thyroid Only [facility] Work Phone: Comment on above: 1 Occurrences starti ng 02/07/2023 until 02/08/2024 1 Occurrences starti ng 02/08/2023 until 02/08/2024 End: 12-05-2024 Vitamin D, 25-hydroxy measurement Vitamin D, Total, 25-OH Lab Routine Menopause 1 Occurrences starting 2023 until 12/05/2024 [facility] Comment on above: 1 Occurrences starti ng 2023 until 12/05/2024 End: 03-19-2022 XR Aspiration Injection Large Joint Left XR Aspiration Injection Large Joint Left Imaging Routine Primary osteoarthritis of left hip 1 Occurrences starting 03/19/2021 until 03/19/2022 [facility] Work Phone: Comment on above: 1 Occurrences starti ng 03/19/2021 until 03/19/2022 End: 08-17-2023 XR Aspiration Injection Large Joint Left XR Aspiration Injection Large Joint Left Imaging Routine Arthritis of left hip 1 Occurrences starting 08/17/2022 until 08/17/2023 [facility] Work Phone: Comment on above: 1 Occurrences starti ng 08/17/2022 until 08/17/2023 End: 03-17-2022 XR Aspiration Injection Large Joint Right XR Aspiration Injection Large Joint Right Imaging Routine Arthritis of right hip 1 Occurrences starting 03/17/2021 until 03/17/2022 [facility] Work Phone: Comment on above: 1 Occurrences starti ng 03/17/2021 until 03/17/2022 End: 08-17-2023 XR Hip Left 2-3 Views (Routine) XR Hip Left 2-3 Views (Routine) Imaging Routine Arthritis of left hip 1 Occurrences starting 08/17/2022 until 08/17/2023 [facility] Work Phone: Comment on above: 1 Occurrences starti ng 08/17/2022 until 08/17/2023 End: 03-16-2022 XR Hip Left With Pelvis 2-3 Views (Routine) XR Hip Left With Pelvis 2-3 Views (Routine) Imaging Routine Left hip pain 1 Occurrences starting 03/16/2021 until 03/16/2022 [facility] Work Phone: Comment on above: 1 Occurrences starti ng 03/16/2021 until 03/16/2022 End: 08-17-2023 XR Pelvis 1 View (Standard) XR Pelvis 1 View (Standard) Imaging Routine Arthritis of left hip 1 Occurrences starting 08/17/2022 until 08/17/2023 [facility] Work Phone: Comment on above: 1 Occurrences starti ng 08/17/2022 until 08/17/2023 Immunizations Immunization Date Immunization Notes Care Provider Jayden jordan 04-25-2024 influenza, seasonal, injectable, preservative free LORRI GAREE Work Phone: [facility] 06-07-2023 influenza, injectabl e, quadrivalent, preservative free Casi Cortez COAT B[employer]ER Work Phone: [facility] 06-07-2023 influenza virus vaccine, unspecified formulation Casi Cortez [employer] Work Phone: [facility] 05-28-2022 Covid Pfizer Bivalen t Booster LORRI GAREE Work Phone: [facility] 04-26-2022 influenza, injectabl e, quadrivalent, preservative free Casi Cortez [employer] Work Phone: [facility] 07-02-2021 Pfizer SARS-CoV-2 Vaccination Casi Cortez [employer] Work Phone: [facility] 05-13-2021 influenza, injectabl e, quadrivalent, preservative free Casi Cortez [employer] Work Phone: [facility] 10-09-2020 zoster vaccine recombinant Casi [facility] 09-01-2020 Moderna SARS-CoV-[address] [facility] 08-03-2020 [facility]a [facility]2020 zoster vaccine recombinant [facility] 04-21-2020 influenza, injectabl e, quadrivalent, preservative free [facility] 04-16-2019 influenza, injectabl e, quadrivalent, preservative free LORRI GAREE Work Phone: [facility] 04-16-2019 influenza, seasonal, injectable Casi [facility] 08-27-2018 tetanus toxoid, redu ashley diphtheria toxoid, and acellular pertussis vaccine, adsorbed [facility] 04-30-2017 influenza virus vaccine, whole virus [facility] 04-30-2017 influenza, injectabl e, quadrivalent, preservative free LORRI NIELSEN Work Phone: [facility] 05-30-2009 novel [id number], preservative-free, injectable Casi Cortez [facility] Payers Date Payer Category Payer Self-pay 2023 Managed Care (privat e) or private health insurance (indemnity), not otherwise specified [employer] [id number] 2023 Private Health Insurance ELLY SANABRIA [id number] 2023-Present [phone] [address] [place] [id number] .[id number] 2023 Private Health Insurance [id number] 2018 Managed Care PPO (unspecified) MED M[employer] SUPERMED PPO [id number] 2018 Unknown MMO MED MUTUAL S UPERMED PPO xxxxxxxxxxxx 2018-Present [id number] .[id number] 2018 Unknown [id number] [id number] .7.3.205988.315 2018 Unknown MMO MED MUTUAL S UPERMED PPO [id number] 2018-Present [phone] [address] [place] [address] [id number] .7.3.593624.315 2018 Unknown [id number] 1965 Unknown [id number] 2.840.1.302931.3.579.2 1967 Unknown [id number] 2.840.1.079079.3.579.2 .1967 Unknown [id number] 2.840.1.613799.3.579.2 1967 Unknown [id number] 2.840.1.763856.3.579.2 .1967 Unknown [id number] 2.840.1.754541.3.579.2 1967 Unknown [id number] 2.16840.1.776342.3.579.2 .1967 Unknown [id number] 2.16840.1.004439.3.579.2 .1967 Unknown [id number] 2.16840.1.977536.3.579.2 .1967 Unknown [id number] 2.16840.1.288491.3.579.2 .1967 Unknown [id number] 2.16.840.1.759688.3.579.2 .903 1967 Unknown [id number] 2.16.840.1.344586.3.579.2 .903 1959 Unknown [id number] Unknown [id number] Unknown [id number] 2.16.840.1.412817.3.579.2 .383 Unknown [id number] 2.16.840.1.322218.3.579.2 .383 Unknown [id number] 2.16.840.1.724285.3.579.2 .383 Unknown [id number] 2..840.1.255940.3.579.2 .383 Unknown [id number] 2.16.840.1.535719.3.579.2 .383 Unknown [id number] 2.16.840.1.555029.3.579.2 .383 Unknown [id number] 2..840.1.210156.3.579.2 .462 Unknown [id number] 2..840.1.744300.3.579.2 .462 Unknown [id number] 2..840.1.280615.3.579.2 .462 Unknown [id number] 2..840.1.366327.3.579.2 .462 Unknown [id number] 2.16.840.1.889366.3.579.2 .462 Unknown [id number] 2..840.1.951301.3.579.2 .462 Unknown [id number] 2..840.1.869350.3.579.2 .462 Unknown [id number] 2..840.1.993547.3.579.2 .462 Unknown [id number] 2.16.840.1.262857.3.579.2 .462 Unknown [id number] 2.16.840.1.677355.3.579.2 .462 Unknown [id number] 2.16.840.1.132000.3.579.2 .462 Unknown [id number] 2.16.840.1.980621.3.579.2 .462 Unknown [id number] 2.16.840.1.936956.3.579.2 .462 Unknown [id number] 2.16.840.1.152967.3.579.2 .462 Unknown [id number] 2.16.840.1.145630.3.579.2 .462 Unknown [id number] 2.16.840.1.676370.3.579.2 .462 Unknown [id number] 2.16.840.1.509420.3.579.2 .462 Unknown [id number] 2.16.840.1.872377.3.579.2 .462 Unknown [id number] 2.16.840.1.282054.3.579.2 .462 Unknown [id number] 2.16.840.1.299397.3.579.2 .462 Unknown [id number] 2.16.840.1.148915.3.579.2 .462 Social History Date Type Detail Facility Start: 11-01-2018 End: 09-26-2024 Tobacco smoking status NEIS Never smoker [facility] Start: 11-01-2018 History SDOH Alcohol Frequency 1 [facility] Start: 1965 Sex Assigned At Not on file [facility] Start: 01-20-2020 End: 02-27-2024 Alcohol intake Current drinker of alcohol (finding) [facility] Start: 01-20-2020 End: 10-29-2020 History SDOH Alcohol Frequency 2 [facility] Start: 01-20-2020 End: 10-29-2020 History SDOH Physical Activity DPW 4 [facility] Start: 01-20-2020 End: 10-29-2020 History SDOH Physical Activity MPS 6 [facility] Start: 01-20-2020 End: 10-29-2020 History SDOH Stress 3 [facility] Start: 01-20-2020 End: 10-29-2020 History SDOH Financial 5 [facility] Start: 12-21-2019 End: 01-20-2020 Exposure to SARS-CoV-2 (event) Not sure [facility] Start: 11-01-2018 End: 10-29-2020 Tobacco use and exposure Never used [facility] Start: 10-29-2020 History SDOH Social Connections Hindu 99 [facility] Start: 11-01-2018 End: 01-20-2020 Cigarette pack-years [facility] Start: 01-20-2020 End: 10-29-2020 Humiliation, Afraid, Rape, and Kick questionnaire [HARK] [facility] Within the last year , have you been afraid of your partner or ex-partner? No [facility] How often do you att end buddhism or spiritism services? Not asked [facility] How often to you hav e a drink containing alcohol? Monthly or less [facility] How hard is it for y ou to pay for the very basics like food, housing, medical care, and heating Not very hard [facility] Do you feel stress - tense, restless, nervous, or anxious, or unable to sleep at night because your mind is troubled all the time - these days [OSQ] To some extent [facility] (I/We) worried whesusi er (my/our) food would run out before (I/we) got money to buy more. Never true [facility] Start: 01-20-2020 Gender identity Identifies as female gender (finding) [facility] Start: 01-20-2020 Sexual orientation Heterosexual (finding) [facility] Start: 10-16-2024 Sex Female (finding) [facility] Start: 1965 Sex Assigned At Female [facility] Goals Date Patient Goal Desired Activity /State Functional Status Date Assessment Result Facility [facility] Mental Status Date Assessment Result Facility 12-20-2024 Cognitive function Level Of Cons ciousness Awake;Alert;Appropriate [facility] Work Phone: 09-23-2024 Cognitive function Voice/Name [facility] Work Phone: Clinical Notes 01-20-2020 to 12-24-2024 Note Date & Type Note Facility 12-24-2024 Radiology Diagnostic study note [facility] Services [address] [place], [place] [id number] Limited Chest CT Cardiac Only MR#: [id number] Acct: [id number] Name: JIE HUMPHREYS TERESA Rep #: [id number] : 1965 F 59 From: Siddhartha Christianson MD PCP: Dr. Le Crawford MD Status: REG CLI Study:Limited Chest CT Cardiac Only Date of E xam: 12/20/24 Exam# [id number] Ordering Dr: Drew Nassar MD PROCEDURE: LIMITED CHEST CT CARDIAC ONLY REASON FOR EXAM: CHEST PAIN ABNORMAL EKG . DLP: 1194.41 TECHNIQUE: Supine chest CT without contrast, high resolution CT (HRCT) protocol. Coronal and Sagittal reconstruction series were provided. One or more dose reduction techniques were used (e.g., Automated exposure control, adjustment of the mA and/or kV according to patient size, use of iterative reconstruction technique). Dose report: CTDI L volume 36.5. DLP: 1194.41 COMPARISON: None FINDINGS: Hardware: None Lymph nodes: No mediastinal hilar or axillary lymphadenopathy. Heart and Vasculature: Normal heart size. No pericardial effusion. Coronary Artery Calcifications: Absent Lungs and Airways: Mild dependent atelectasis resolves with prone positioning. Pleura: Unremarkable Upper Abdomen: Unremarkable Bones: Degenerative changes of the thoracic spine. CT/Limited Chest CT Cardiac Only IMPRESSION: Coronary artery calcification (CAC) is is absent Reading Location: [facility]- CC: Dr. Le Crawford MD; Dr. Triston Nassar MD ~ Signal Technician: Signed [facility] 12-21-2024 Radiology Diagnostic study note [facility] Services [address] [place] [address] 12/21/24 1112 MR#: [id number] Acct: [id number] Name: JIE HUMPHREYS TERESA Rep #:[id number] : 1965 59 From: Ryan Parikh MD PCP: Dr. Le Crawford MD Status:REG CLI Y Location: CT CCTA w/Cont Coronary Arteries Date of Study:: 12/20/24 CP Coronary Calcium Scoring: High-resolution Computed Tomographic imaging of the chest was performed on [ 12/20/24], with particular attention paid to the coronary arteries. Intravenous contrast agent was administered per protocol and images reconstructed and displayed. LEFT MAIN CORONARY ARTERY:Normal. [] LEFT ANTERIOR DESCENDING CORONARY ARTERY: No atherosclerotic plaquing noted. Medium size vessel which courses towards the apex of the left ventricle. [] LEFT CIRCUMFLEX CORONARY ARTERY: Nondominant large vessel with no significant atherosclerotic plaquing noted to obtuse marginal branches are present [] RIGHT CORONARY ARTERY: Large dominant right coronary artery with no significant atherosclerotic plaquing present. Calcium Scoring Interpretation: Different methods to categorize the overall amount of coronary plaque. Overall amount CAC SIS Visual of coronary plaque P1 Mild -100 <2 1-2 vessels with mild amount of plaque P2 Moderate 101-300 3-4 1-2 vessels with moderate amount, 3 vessels with mild amount of plaque P3 Severe 301-999 5-7 3 vessels with moderate amount, 1 vessel with severe amount of plaque P4 Extensive >1000 >8 2-3 vessels with severe amount of plaque Conclusion: CT cardiac angiography with no significant atherosclerotic plaquing or stenosis present. 12/21/24 1114 Date __ _ Ryan Parikh MD Cosigner Signature (if applicable): Date ___ CC: Dr. Le Crawford MD; Dr. Ryan Parikh MD; Dr. Triston Nassar MD ~ Signed [facility] Work Phone: 09-23-2024 Evaluation note Diagnosis Onset Date Resolution Encounter for screening for malignant neoplasm of colon acute September 23 7:26am Acquired hypothyroidism acute F ebruary 2024 9:52am GERD (gastroesophageal reflux disease) acute September 26 025 9:52am Elevated blood pressure reading noneactive September 26 9:52am Establishing care with new doctor, encounter for noneactive September 26 9:52am Multiple joint pain noneactive Febru ramesh 2024 9:52am Mixed hyperlipidemia noneactive Febr uary 27th, 2025 9:52am Chest pain in adult noneactive u 2024 9:52am Vertigo noneactive September 26, 2024 9:52am Abnormal EKG noneactive August 9:52am [facility] Work Phone: 1(178) 857-541402-24-2025 Evaluation note* Diagnosis Onset Date Resolution Status Admit Date Encounter for screening for malignant neoplasm of colon acute Febr 2024 7:26am Acquired hypothyroidism acute F ebruary 2024 9:52am GERD (gastroesophageal reflu x disease) acute September 26 9:52am Elevated blood pressure reading noneactive September 26 9:52am Establishing care with new doctor, encounter for noneactive September 012024 9:52am Multiple joint pain noneactive u 2024 9:52am Mixed hyperlipidemia noneactive 2024 9:52am Chest pain in adult noneactive Febru 2024 9:52am Vertigo noneactive September 26, 2024 9:52am Abnormal EKG noneactive August 9:52am Abnormal stress test acute Apri l 2024 1:42pm Acquired hypothyroidism acute A pril 2024 1:42pm Elevated blood pressure reading acute November 12, 2024 1:42pm [facility] Work Phone: [phone] 115-303002-24-2025 [facility] Medical Records Department [address] [place] [address] History Physical Exam 09/23/24828 MR#: [id number] Acct: [id number] Name: JIE HUMPHREYS TERESA Rep #: [id number] : 1965 58 From: Pedro Friend DO PCP: Dr. Gerardo Manuel, DO Status:[facility] Location: [place] [address] HPI - General General Date of Admission: 09/23/24 Date of Service: 09/23/24 Chief Complaint: Screening colonoscopy HPI Narrative JIE HUMPHREYS, is a 58 F who presents today for screening colonoscopy. She had a colonoscopy approximately 6 years ago but they were not able to get to the cecum. She did have a barium enema that was normal. [facility] Medical History Wears contact lenses Wears glasses Post-menopausal Cancer Alcohol use Thyroid disease Easy bruising Injury of back Gastric reflux Non-smoker History of pain when walking History of edema HTN (hypertension) Broken back History of broken nose Arthritis Hypothyroidism Varicose veins of both lower extremities Home Medications ???Medication ???Instructions ???Recorded ???Last Taken ???Type famotidine 20 mg tablet 20 mg PO DAILY PRN heartburn 01/22 Unknown History meclizine 50 mg tablet (Antivert) 50 mg PO DAILY PRN dizziness 12/30 12/21 Unknown History aspirin 81 mg tablet,delayed 81 mg PO QDAY 04/30/24 09/16/24 Hi story release (Adult Aspirin Regimen) atorvastatin 40 mg tablet 40 mg PO QDAY 04/30/24 Unknown His tory levothyroxine 25 mcg tablet 75 mcg PO DAILY 04/30/24 09/23/24 04:30 History meloxicam 15 mg tablet 15 mg PO DAILY PRN pain 07/22/24 U nknown History Allergy/AdvReac Type Severity Reaction Status Date / Time No Known Allergies Allergy Verified 09/23/24 07:42 Family History Other Asthma Bleeding disorder Breast cancer CAD (coronary artery disease) Cancer Diabetes Heart disease Hypertension Thyroid disorder Surgical History Hx of colonoscopy H/O tubal ligation History of repair of anterior cruciate ligament of left knee Social History household members: spouse current occupational status: employed Smoking Status: Never smoker substance use type: does not use ROS Constitutional Constitutional: Denies fatigue, fever(s), poor appetite, weight gain or weight loss Gastrointestinal Gastrointestinal: Denies belching, bloating, change in bowel habits, change in stool character, chewing difficulty, coffee ground emesis, constipation, cramping, diarrhea, dyspepsia, dysphagia, early satiety, excessive flatus, fecal incontinence, heartburn, hematemesis, hematochezia, hemorrhoids, loose stools, melena, nausea, odynophagia, rectal bleeding, tenesmus, vomiting or weight changes Vital Signs Vital Signs Vital Signs: 09/23/24 07:54 09/23/24 07:54 09/23/24 08:18 Temperature 98.7 F 98.7 F Temperature Source Temporal Pulse Rate 76 76 Respiratory Rate 16 16 Respiratory Pattern Normal Blood Pressure 128/84 H 128/84 H Blood Pressure Mean 98 Blood Pressure Source Monitor Blood Pressure Position Semi-Fowlers Blood Pressure Location Left Arm Pulse Ox 100 100 Oxygen Delivery Method Room Air Room Air Weight Weight: 224 lb 13.944 oz Body Mass Index (BMI) 29.6 Physical Exam Const alert, oriented x3, no apparent distress and healthy appearing General Appearance: cooperative GI normal to inspection, nondistended, normoactive bowel sounds, soft to palpation, non-tender and non- distended Percussion: normal to percussion Rectal Exam: deferred Assessment Plan Assessment/Plan (1) Encounter for screening for malignant neoplasm of colon: PLAN: She will undergo screening colonoscopy. She was explained alternatives, risk and benefits include not withstanding bleeding, infection, sepsis, perforation, need for return to . She will have an ASA of 3. 09/23/24 0830 Cosigner Signature (if applicable): CC: Dr. Gerardo Manuel DO; Pedro Donahue DO [facility]01-07-2025 Telephone encounter Note* Telephone Encounter - Lorri Nielsen CNP - 08/06/2024 5:19 PM EST Refills sent as requested, pt needs a follow up appointment [id number] Miscellaneous Notes* Telephone Encounter - Lorri Nielsen CNP - 08/06/2024 5:19 PM EST Refills sent as requested, pt needs a follow up appointment * Telephone Encounter - Khai Galvan LPN - 08/06/2024 9:24 AM EST Jie is requesting a refill for Requested Prescriptions Pending Prescriptions Disp Refills atorvastatin (LIPITOR) 20 MG tablet 90 tablet 0 Sig: Take 1 (one) tablet (20 mg total) by mouth daily . Last refill: 05/14/24 90 tabs 0 refills Last appt: 02/27/24 Upcoming appt (when is it due or is it scheduled): none found per phuong 1 yr Please send to [address] [place] [address] Follow up: Refill pending for review without additional follow up based on information above. documented in this [id number] Telephone encounter Note* Telephone Encounter - Khai Galvan LPN - 08/06/2024 9:24 AM EST Jie is requesting a refill for Requested Prescriptions Pending Prescriptions Disp Refills atorvastatin (LIPITOR) 20 MG tablet 90 tablet 0 Sig: Take 1 (one) tablet (20 mg total) by mouth daily . Last refill: 05/14/24 90 tabs 0 refills Last appt: 02/27/24 Upcoming appt (when is it due or is it scheduled): none found per phuong 1 yr Please send to [place] [phone] Follow up: Refill pending for review without additional follow up based on information above. [id number] NoteTSH at goal, continue current dose of levothyroxine, refills sent, needs appointment to [facility] within next three months AUTHENTICATED BY LORRI NIELSEN, ON 07/09/2024 17:21:[address] [place] [address] Ambulatory 05-12-2024 NoteHome sleep apnea test 04/30/2024 Comment Recording time 512 minutes. Patient [...] patient's sleep symptoms Chuck Huertas MD, FCCP, [facility], [facility] Diplomate: [place] [employer] Global Cmo: [facility] Sleep Disorder [facility]10-01-2024 NotePlease confirm with sleep lab in [place] that we will get final report and recommendation from sleep med physician. I am not as familiar with the [place] sleep lab. AUTHENTICATED BY LORRI NIELSEN, ON 05/06/2024 22:48:[address] [place] [address] 03-25-2024 Telephone encounter Note* Telephone Encounter - Anu Clay LPN - 03/25/2024 5:01 PM EDT Jie is requesting a refill for Requested Prescriptions Pending Prescriptions Disp Refills levothyroxine (SYNTHROID, LEVOTHROID) 50 MCG tablet 90 tablet 3 Sig: Take 1 (one) tablet (50 mcg total) by mouth once daily . Last refill: 02/27/2024 Last appt: 02/27/2024 Upcoming appt (when is it due or is it scheduled): none scheduled (patient due around 02/26/2025 fornext appt) Please send to [facility] [address] [place] [address] [address] Follow up: Refill pending for review without additional follow up based on information above. [id number] Miscellaneous Notes* Telephone Encounter - Anu Clay LPN - 03/25/2024 5:01 PM EDT Jie is requesting a refill for Requested Prescriptions Pending Prescriptions Disp Refills levothyroxine (SYNTHROID, LEVOTHROID) 50 MCG tablet 90 tablet 3 Sig: Take 1 (one) tablet (50 mcg total) by mouth once daily . Last refill: 02/27/2024 Last appt: 02/27/2024 Upcoming appt (when is it due or is it scheduled): none scheduled (patient due around 02/26/2025 fornext appt) Please send to [facility] [address] [place] [id number] Follow up: Refill pending for review without additional follow up based on information above. documented in this [id number] Telephone encounter Note* Telephone Encounter - Melissa Quintana MA - 02/27/2024 12:22 PM EDT Spoke with patient and let her know information. [id number] Telephone encounter Note* Telephone Encounter - Melissa Quintana MA - 02/27/2024 12:22 PM EDT ----- Message from Esther Cortez sent at 02/27/2024 9:03 AM EDT ----- Please call Pt and let her know I sent referral to vascular surgeon, Dr Gaspar at the [facility] office in [place]. I sent sleep study referral to [facility]. She should get a call from both places to schedule. [id number] Miscellaneous Notes* Telephone Encounter - Melissa Quintana MA - 02/27/2024 12:22 PM EDT Spoke with patient and let her know information. * Telephone Encounter - Melissa Quintana MA - 02/27/2024 12:22 PM EDT ----- Message from Esther Cortez sent at 02/27/2024 9:03 AM EDT ----- Please call Pt and let her know I sent referral to vascular surgeon, Dr Gaspar at the [facility] in [place]. I sent sleep study referral to [facility]. She should get a call from both places to schedule. documented in this [id number] NoteSubjective Patient ID: Jie Humphreys is a 58 y.o. female. Pt has prominent varicose veins. She bumped one of the areas on LLE and had to go to the ED in [place] with profuse bleeding. Legs feel heavy and [...] Orders: - Ambulatory referral to Sleep Medicine ([facility]); Future - 01/20/2020 2:00 PM 10/29/2020 2:00 [...] Not difficult at all AUTHENTICATED BY CASI CORTEZ, ON 02/29/2024 05:51:33[facility]07-30-2024 History of Present illness Narrative* Casi Cortez, COAT BASTER - 02/27/2024 8:06 AM EDT Subjective Patient ID: Jie Humphreys is a 58 y.o. female. Pt has prominent varicose veins. She bumped one of the areas on LLE and had to go to the ED in [place] with profuse bleeding. Legs feel heavy and [...] mouth every 8 (eight) hours asneeded . 9 tablet 0 famotidine (PEPCID) 20 [...] past medical history, past social history, past surgicalhistory, and problem list. Past Medical History: Diagnosis [...] Orders: - Ambulatory referral to Sleep Medicine ([facility]); Future ? 01/20/2020 2:00 PM 10/29/2020 2:00 [...] let yourself or your family down 0 00 Trouble concentrating on things, such as reading [...] Not difficult at all documented in this [id number] Telephone encounter Note* Telephone Encounter - Melissa Quintana MA - 12/05/2023 11:44 AM EDT Requested Prescriptions Pending Prescriptions Disp Refills levothyroxine (SYNTHROID, LEVOTHROID) 25 MCG tablet 90 tablet 0 Sig: Take 1 (one) tablet (25 mcg total) by mouth once daily . Karyna arreguin run [id number] Miscellaneous Notes* Telephone Encounter - Melissa Quintana MA - 12/05/2023 11:44 AM EDT Requested Prescriptions Pending Prescriptions Disp Refills levothyroxine (SYNTHROID, LEVOTHROID) 25 MCG tablet 90 tablet 0 Sig: Take 1 (one) tablet (25 mcg total) by mouth once daily . Karyna arreguin run documented in this [id number] History of Present illness Narrative* Casi oCrtez, SUNDEEP - 10/16/2023 8:25 AM EDT Subjective Patient ID: Jie Humphreys is a 57 y.o. female. Pt here [...] mouth every 8 (eight) hours asneeded . 9 tablet 0 No current facility-administered medications for this visit. The following portions of the patient's history were reviewed and updated as appropriate: allergies, current medications, past family history, past medical history, past social history, past surgicalhistory, and problem list. Past Medical History: Diagnosis [...] Franklyn Bilateral; Future ? documented in this [id number] History of Present illness Narrative* Casi Cortez CNP - 02/06/2023 7:54 AM EDT Subjective Patient ID: Jie Humphreys is a 57 y.o. female. Pt has [...] heartburn changes with position. Nothing aggravates the symptoms.She has tried a PPI for the symptoms. The treatment provided significant relief. Hyperlipidemia This is a new problem. The current episode started more than 1 month ago. Recent lipid tests were reviewed and are high. There are no known factors aggravating her hyperlipidemia. She is currently onno antihyperlipidemic treatment. Risk factors for coronary artery [...] mouth every 8 (eight) hours asneeded . 9 tablet 0 famotidine (PEPCID) 20 [...] past medical history, past social history, past surgicalhistory, and problem list. Past Medical History: Diagnosis [...] mg total) by mouth daily . ? * Casi Cortez CNP - 02/06/2023 7:50 AM EDT 01/20/2020 2:00 PM 10/29/2020 2:00 PM 02/06/2023 [...] Not difficult at all documented in this [id number] Telephone encounter Note* Telephone Encounter - Dione Umana CMA - 08/22/2022 9:36 AM EST Requested Prescriptions Pending Prescriptions Disp Refills meclizine (ANTIVERT) 12.5 mg tablet 90 tablet 0 Sig: Take 1 (one) tablet (12.5 mg total) by mouth 3 (three) times a day as needed . [id number] Miscellaneous Notes* Telephone Encounter - Dione Umana CMA - 08/22/2022 9:36 AM EST Requested Prescriptions Pending Prescriptions Disp Refills meclizine (ANTIVERT) 12.5 mg tablet 90 tablet 0 Sig: Take 1 (one) tablet (12.5 mg total) by mouth 3 (three) times a day as needed . documented in this [id number] Telephone encounter Note* Telephone Encounter - Dione Umana CMA - 01/10/2022 8:45 AM EDT Requested Prescriptions Pending Prescriptions Disp Refills meclizine [...] (eight) hours as needed . Karyna Norton [id number] Miscellaneous Notes* Telephone Encounter - Dione Umana CMA - 01/10/2022 8:45 AM EDT Requested Prescriptions Pending Prescriptions Disp Refills meclizine [...] needed . Karyna Norton documented in this [id number] Telephone encounter Note* Telephone Encounter - Dione Umana CMA - 09/20/2021 4:12 PM EST Requested Prescriptions Pending Prescriptions Disp Refills meclizine [...] (eight) hours as needed . Karyna Norton [id number] Miscellaneous Notes* Telephone Encounter - Dione Umana CMA - 09/20/2021 4:12 PM EST Requested Prescriptions Pending Prescriptions Disp Refills meclizine [...] needed . Karyna Norton documented in this [id number] Miscellaneous Notes* Telephone Encounter - Briseyda Feliz LPN - 03/25/2021 4:50 PM EDT Requested Prescriptions Pending Prescriptions Disp Refills meloxicam (MOBIC) 15 MG tablet 90 tablet 0 Sig: Take 1 (one) tablet (15 mg total) by mouth daily . documented in this [id number] History of Present illness Narrative* Noris Camacho MD - 03/17/2021 2:17 PM EDT Assessment/Plan: 1. Arthritis of right hip Osteoarthritis of the left hip with history of labral tear Patient has x-ray evidence consistent with impingement left hip Options discussed patient would like to proceed with an intra-articular injection which has been previously helpful Return injection left hip. Subjective: Jie Humphreys is a 55 y.o. female here for [...] mouth every 8 (eight) hours asneeded . 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 Abnormal Uterine Bleeding: Care Instructions Your Care [...] your doctor if you can take an djjy-mag-jupvdsr medicine. You may be low in iron [...] Log into your personal health record on [email or web address] and enter I327 in the Education box to learn more about Abnormal Uterine Bleeding: Care Instructions. Current as of: September 18, 2018 Content Version: 12.3 [employer]. Care instructions adapted under license by your healthcare professional. If you have questions about a medical condition or this instruction, always ask your healthcare professional. [employer] disclaims any warranty or liability for your use of this information. documented in this [id number] History of Present illness Narrative* Casi Cortez CNP - 01/20/2020 2:09 PM EDT Subjective Patient ID: Jie Humphreys is a 54 y.o. female. Pt is [...] Objective Physical Exam Exam conducted with a reliability specialist present. Constitutional: Appearance: Normal appearance. 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 ? [facility] Diagnosis Left hip pain- Primary Pain in joint, pelvic region and thigh [facility] Diagnosis Arthritis of right hip- Primary [facility] Diagnosis Arthritis of right hip- Primary [facility] Diagnosis Primary osteoarthritis of left hip- Primary [facility]* Diagnosis Arthritis of left hip- Primary [facility]* Diagnosis Arthritis of left hip- Primary [facility]* Diagnosis Elevated TSH- Primary Other abnormal blood chemistry Hyperlipidemia, unspecified hyperlipidemia type Single episode of elevated blood pressure Gastroesophageal reflux disease, unspecified whether esophagitis present documented in this encounter [facility] note* Diagnosis Beto's disease- Primary Chronic lymphocytic thyroiditis documented in this encounter [facility] note* Diagnosis Beto's thyroiditis- Primary Chronic lymphocytic thyroiditis documented in this encounter [facility] note* Diagnosis Beto's disease Chronic lymphocytic thyroiditis documented in this encounter [facility] note* Diagnosis Beto's disease Chronic lymphocytic thyroiditis documented in this encounter [facility] note* Diagnosis Poison thanh- Primary Contact dermatitis and other eczema due to plants (except food) documented in this encounter [facility] note* Diagnosis Beto's disease Chronic lymphocytic thyroiditis documented in this encounter [facility] note* Diagnosis Beto's disease Chronic lymphocytic thyroiditis documented in this encounter [facility] note* Diagnosis Physical exam- Primary Unspecified general medical examination Encounter for screening mammogram for malignant neoplasm of breast documented in this encounter [facility] note* Diagnosis Beto's disease Chronic lymphocytic thyroiditis documented in this encounter [facility] note* Diagnosis Menopause- Primary Symptomatic menopausal or female climacteric states Hypothyroidism, unspecified type Encounter for biometric screening documented in this encounter [facility] note* Diagnosis Hypothyroidism, unspecified type- Primary Beto's disease Chronic lymphocytic thyroiditis documented in this encounter [facility] note* Diagnosis Varicose veins of both lower extremities with pain- Primary Hypothyroidism, unspecified type Loud snoring documented in this encounter [facility] note* Diagnosis Loud snoring- Primary documented in this encounter [facility] note* Diagnosis Daytime sleepiness- Primary documented in this encounter [facility] note* Diagnosis Hypothyroidism, unspecified type- Primary documented in this encounter [facility] note* Diagnosis Hypothyroidism, unspecified type documented in this encounter [facility] note* Diagnosis Beto's disease Chronic lymphocytic thyroiditis Hypothyroidism, unspecified type documented in this encounter [facility] note* Diagnosis Hypothyroidism, unspecified type- Primary [facility]* Diagnosis Encounter for colorectal cancer screening- Primary Hypothyroidism, unspecified type- Primary documented [facility] this [facility]* Diagnosis Encounter for colorectal cancer screening- Primary Well woman exam- Primary Routine general medical examination at a health care facility Abnormal uterine bleeding Unspecified disorder of menstruation and other abnormal bleeding from female genital tract documented in this encounter [facility] for referral (narrative)* Sleep Study w/Consultation if positive (Routine) - Authorized Specialty Diagnoses / Procedures [facility] Referred To Contact Sleep Medicine Diagnoses Loud snoring Casi Cortez CNP [address] [place] [address] Sleep Medicine [address] [place] [address] Referral ID Status Reason Start Date Expiration Date V isits Requested Visits Authorized [id number] Authorized 02/27/2024 02/26/2025 1 1 * Evaluate and Treat (Routine) - Authorized Specialty Diagnoses / Procedures [facility] Referred To Contact Cardiothoracic Surgery Diagnoses Varicose veins of both lower extremities with pain Casi Cortez CNP [address] [place] [address] Segun Gaspar MD [address] [place] [address] Referral ID Status Reason Start Date Expiration Date Visits Requested Visits Authorized [id number] Authorized Specialty Services Required/Pat ient's Best Interest 02/27/2024 02/26/2025 1 1 [facility] for referral (narrative)* Sleep Study w/Consultation if positive (Routine) - Pending Review Specialty Diagnoses / Procedures [facility] Referred To Contact Sleep Medicine Diagnoses Loud snoring Casi Cortez CNP [address] [place] [address] Sleep Medicine [address] [place] [address] Referral ID Status Reason Start Date Expiration Date Visits Requested Visits Authorized [id number] Pending Review Specialty Services Required/Pat ient's Best Interest 03/05/2024 03/05/2025 1 1 [facility] for referral (narrative)No reason for referral information availableWAdena [facility] Work Phone: Summary Purpose Family History No Family History Records Found Relationship Condition Age at Onset Recorded Date/T louise Not Specified Diabetes mellitus Unknown Coronary artery disease Unknown Malignant neoplasm Unknown Disorder of thyroid Unknown Asthma Unknown father Anxiety Unknown Myocardial infarction Unknown Cardiac disease Unknown Hypertension Unknown Hyperlipidemia Unknown Disorder of lung Unknown sister Anxiety Unknown Hemorrhagic disorder Unknown mother Hemorrhagic disorder Unknown Arthritis Unknown grandmother Malignant neoplasm of breast Unknown sister Hemorrhagic disorder Unknown Advance Directives No Advanced Directives Records FoundDocuments on File Type Date Recorded 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 No September 19, 2024 5:01pm History of Present Illness * Bubba Silva MD - 11/01/2018 3:11 PM EDT [facility] (22) [facility] [address] [place] [address] Patient Demographics: Jie Humphreys Date of : 1965 [address] [place] [address] (home) Jie Humphreys is a 52 y.o. female being seen [...] social, ROS, allergies, and medications with Jie Humphreys. History reviewed. No pertinent past medical history. [...] Bubba Silva MD in this encounter* Casi Cortez CNP - 01/20/2020 2:09 PM EDT Subjective Patient ID: Jie Humphreys is a 54 y.o. female. Pt is [...] Objective Physical Exam Exam conducted with a reliability specialist present. Constitutional: Appearance: Normal appearance. 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 ? documented in this encounter* Casi Cortez CNP - 10/29/2020 2:53 PM EDT Subjective Patient ID: Jie Humphreys is a 54 y.o. female. Pt was [...] take a medication on a daily basis. Kadeem was discussed Anxiety Presents for initial visit. [...] have done when time allows- employee at [employer]. Orders: - Mammography Screening Bilateral; Future [...] Abnormal uterine bleeding Procedures US Transvaginal Casi Cortez CNP [address] [place] [address] [address] Phone: [phone] Fax: [phone] Status Reason Specialty Diagnoses / Procedures Referred By Contact Referred To Contact Authorized Diagnoses Breast cancer screening by mammogram Procedures Mammography Screening Bilateral Casi Cortez CNP [address] [place] [address] Specialty Diagnoses / Procedures Referred By Contac t Referred To Contact Radiology Diagnoses Arthritis of right hip Procedures XR Aspiration Injection Large Joint Right Noris Camacho MD [address] [place] [address] Referral ID Status Reason Start Date Expiration Date V isits Requested Visits Authorized [id number] Authorized 03/17/2021 03/17/2022 1 1 Specialty Diagnoses / Procedures Referred By Contac t Referred To Contact Radiology Diagnoses Primary osteoarthritis of left hip Procedures XR Aspiration Injection Large Joint Left Noris Camacho MD [address] [place] [address] Referral ID Status Reason Start Date Expiration Date V isits Requested Visits Authorized [id number] Authorized 03/19/2021 03/19/2022 1 1 Specialty Diagnoses / Procedures Referred By Contac t Referred To Contact Radiology Diagnoses Arthritis of left hip Procedures XR Aspiration Injection Large Joint Left Noris Camacho MD [address] [place] [address] Referral ID Status Reason Start Date Expiration Date V isits Requested Visits Authorized [id number] Pending Review 08/17/2022 08/17/2023 1 1 Specialty Diagnoses / Procedures Referred By Contac t Referred To Contact Diagnoses Beto's disease Procedures US Thyroid Only Casi Cortez, COAT BASTER [address] [place] [address] [address] Phone: [phone] Fax: [phone] Referral ID Status Reason Start Date Expiration Date Visits Requested Visits Authorized [id number] Authorized Specialty Services Required/Pat ient's Best Interest 02/07/2023 02/07/2024 1 1 Specialty Diagnoses / Procedures Referred By Contac t Referred To Contact Diagnoses Beto's thyroiditis Procedures US Thyroid Only Casi Cortez, COAT BASTER [address] [place] [address] [address] Phone: [phone] Fax: [phone] Referral ID Status Reason Start Date Expiration Date Visits Requested Visits Authorized [id number] Authorized Specialty Services Required/Pat ient's Best Interest 02/08/2023 02/08/2024 1 1 Specialty Diagnoses / Procedures Referred By Contac t Referred To Contact Diagnoses Encounter for screening mammogram for malignant neoplasm of breast Procedures Mammography Screening Frank[place] Bilateral Casi Cortez, COAT BASTER [address] [place] [address] Referral ID Status Reason Start Date Expiration Date V isits Requested Visits Authorized [id number] Authorized 10/16/2023 10/15/2024 1 1 Specialty Diagnoses / Procedures Referred By Contyanet t Referred To Contact Sleep Disorders Medicine / Sleep Medicine Diagnoses Daytime sleepiness Casi Cortez, COAT BASTER [address] [place] [address] [facility] [address] [place] [address] Referral ID Status Reason Start Date Expiration Date Visits Requested Visits Authorized [id number] Authorized Specialty Services Required/Pat ient's Best Interest 03/20/2024 03/20/2025 1 1 Instructions * Patient Instructions* Casi Cortez CNP - 01/21/2020 6:00 AM EDT Abnormal [...] your doctor if you can take an cshx-sua-swwvrue medicine. You may be low in iron [...] Log into your personal health record on [email or web address] and enter I327 in the Education box to learn more about Abnormal Uterine Bleeding: Care Instructions. Current as of: September 18, 2018 Content Version: 12.3 [employer]. Care instructions adapted under license by your healthcare professional. If you have questions about a medical condition or this instruction, always ask your healthcare professional. [employer] disclaims any warranty or liability for your use of this information. documented in this encounter* Patient Instructions* Casi Cortez CNP - 10/29/2020 3:11 PM EDT Anxiety [...] do something you enjoy. Go to a funCerapedics movie, or take a walk or hike. [...] the numbers for these national suicide hotlines: 4-574-255-TALK ( ) and 8-230-IUMFPNC ( ). If you or someone you [...] Log into your personal health record on [email or web address] and enter P754 in the Education box to learn more about Anxiety Disorder: Care Instructions. Current as of: April 22, 2020 Content Version: 12.7 [employer]. Care instructions adapted under license by your healthcare professional. If you have questions about a medical condition or this instruction, always ask your healthcare professional. [employer] disclaims any warranty or liability for your use of this information. 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 September 26, 2024 9:52am CHEST PAIN, ABNORMAL EKG October 08 6:26am CHEST PAIN, ABNORMAL EKG October 08 1:57pm Reason for Visit Admit Date Encounter for screening for malignant ne oplasm of colon September 23, 2024 7:26am Acquired hypothyroidism September 26 9:52am GERD (gastroesophageal reflux disease) F ebruary 2024 9:52am Elevated blood pressure reading September 26, 2024 9:52am Establishing care with new doctormelvi for September 26, 2024 9:52am Multiple joint pain September 26, 2024 9:52am Mixed hyperlipidemia September 26, 2024 9:52am Chest pain in adult September 26, 2024 9:52am Vertigo September 26, 2024 9:52am Abnormal EKG September 26, 2024 9:52am Chief Complaint Admit Date 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 September 26, 2024 9:52am CHEST PAIN, ABNORMAL EKG October 08 6:26am CHEST PAIN, ABNORMAL EKG October 08 1:57pm Abn Stress ([place]) November 12, 2024 1: 42pm CHEST PAIN AND ABNORMAL ECG December 20 12:55pm CHEST PAIN AND ABNORMAL ECG December 21 11:12am Reason for Visit Admit Date Encounter for screening for malignant ne oplasm of colon September 23, 2024 7:26am Acquired hypothyroidism September 26 9:52am GERD (gastroesophageal reflux disease) F ebruary 2024 9:52am Elevated blood pressure reading September 26, 2024 9:52am Establishing care with new doctormelvi for September 26, 2024 9:52am Multiple joint pain September 26, 2024 9:52am Mixed hyperlipidemia September 26, 2024 9:52am Chest pain in adult September 26, 2024 9:52am Vertigo September 26, 2024 9:52am Abnormal EKG September 26, 2024 9:52am Abnormal stress test November 12, 2024 1: 42pm Acquired hypothyroidism November 12, 2024 1:42pm Elevated blood pressure reading November 122024 1:42pm Additional Source Comments INFORMATION SOURCE (unrecogn ized section and content) DATE CREATED AUTHOR 01/18/2018 [facility] DATE CREATED AUTHOR AUTHOR'S ORGANIZ ATION 01/19/2018 [facility] DATE CREATED AUTHOR AUTHOR'S ORGANIZ ATION 06/04/2021 [facility] DATE CREATED AUTHOR AUTHOR'S ORGANIZ ATION 08/24/2022 [facility] DATE CREATED AUTHOR AUTHOR'S ORGANIZ ATION 10/14/2022 [facility] DATE CREATED AUTHOR AUTHOR'S ORGANIZ ATION 02/07/2023 [facility] DATE CREATED AUTHOR AUTHOR'S ORGANIZ ATION 04/01/2023 [facility] DATE CREATED AUTHOR AUTHOR'S ORGANIZ ATION 05/02/2024 [facility] DATE CREATED AUTHOR AUTHOR'S ORGANIZ ATION 05/14/2024 [facility] DATE CREATED AUTHOR AUTHOR'S ORGANIZ ATION 07/12/2024 [facility] DATE CREATED AUTHOR AUTHOR'S ORGANIZ ATION 01/11/2025 [facility] Assessment & Plan Note - Bubba [...] and content) 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, 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 Reason Comments Annual Exam Physical Reason Comments [...] Reason Onset Date Comments Medication Refill 03/25/2024 Reason Onset Date Comments Medication Refill 08/06/2024 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, 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 Care Teams (unrecognized sec tion and content) Fish Culturist Relationship Specialty Start Date End Date Casi Cortez CNP [address] [place] [address] PCP - General Nurse Practitioner 01/20/20 Casi Cortez CNP [address] [place] [address] PCP - MIGUELITO Attributed Provider - MMO Commercial 05/30/20 Fish Culturist Relationship Specialty Start Date End Date Casi Cortez CNP [address] [place] [address] PCP - General Nurse Practitioner 01/20/20 Casi Cortez COAT BASTER [address] [place] [address] PCP - MIGUELITO Attributed Provider - MMO Commercial 05/30/20 Fish Culturist Relationship Specialty Start Date End Date Casi Cortez CNP [address] [place] [address] PCP - General Nurse Practitioner 01/20/20 Casi Cortez COAT BASTER [address] [place] [address] PCP - MIGUELITO Attributed Provider - MMO Commercial 05/30/20 Fish Culturist Relationship Specialty Start Date End Date DanaKostasen Winnie, COAT BASTER [address] [place] [address] PCP - General Nurse Practitioner 01/20/20 Ronnell Cortezisten Winnie, COAT BASTER [address] [place] [address] PCP - MGIUELITO Attributed Provider - MMO Commercial 08/31/18 07/30/50 Fish Culturist Relationship Specialty Start Date End Date Dana Casicarla Zhou, COAT BASTER [address] [place] [address] PCP - General Nurse Practitioner 01/20/20 Casi Cortez, COAT BASTER [address] [place] [address] PCP - MIGUELITO Attributed Provider - MMO Commercial 08/31/18 07/30/50 Fish Culturist Relationship Specialty Start Date End Date Dana Casiaman Zhou, COAT BASTER [address] [place] [address] PCP - General Nurse Practitioner 01/20/20 Casi Cortez, COAT BASTER [address] [place] [address] PCP - MIGUELITO Attributed Provider - MMO Commercial 08/31/18 07/30/50 Fish Culturist Relationship Specialty Start Date End Date Dana Casiaman Zhou, COAT BASTER [address] [place] [address] PCP - General Nurse Practitioner 01/20/20 Casi Cortez, COAT BASTER [address] [place] [address] PCP - MIGUELITO Attributed Provider - MMO Commercial 08/31/18 07/30/50 Fish Culturist Relationship Specialty Start Date End Date Casi Cortez COAT BASTER [address] [place] [address] PCP - General Nurse Practitioner 01/20/20 Casi Cortez, COAT BASTER [address] [place] [address] PCP - MIGUELITO [facility] Provider - MMO Commercial 08/31/18 07/30/50 Fish Culturist Relationship Specialty Start Date End Date Casi Cortez, COAT BASTER [address] [place] [address] PCP - General Nurse Practitioner 01/20/20 Fish Culturist Relationship Specialty Start Date End Date Casi Cortez CNP [address] [place] [address] PCP - General Nurse Practitioner 01/20/20 Fish Culturist Relationship Specialty Start Date End Date Casi Cortez COAT BASTER [address] [place] [address] PCP - General Nurse Practitioner 01/20/20 Fish Culturist Relationship Specialty Start Date End Date Casi Cortez CNP [address] [place] [address] PCP - General Nurse Practitioner 01/20/20 Fish Culturist Relationship Specialty Start Date End Date Casi Cortez COAT BASTER [address] [place] [address] PCP - General Nurse Practitioner 01/20/20 Fish Culturist Relationship Specialty Start Date End Date Casi CortezSUNDEEP [address] [place] [address] PCP - General Nurse Practitioner 01/20/20 Fish Culturist Relationship Specialty Start Date End Date DanaRonnellCasiaman Zhou CNP [address] [place] [address] PCP - General Nurse Practitioner 01/20/20 Casi Cortez CNP [address] [place] [address] PCP - MIGUELITO Attributed Provider - MMO Commercial 08/31/18 07/30/50 Fish Culturist Relationship Specialty Start Date End Date Casi Cortez CNP [address] [place] [address] PCP - General Nurse Practitioner 01/20/20 Casi Cortez CNP [address] [place] [address] PCP - MIGUELITO Attributed Provider - MMO Commercial 08/31/18 07/30/50 Fish Culturist Relationship Specialty Start Date End Date Casi Cortez CNP [address] [place] [address] PCP - General Nurse Practitioner 01/20/20 Casi Cortez CNP [address] [place] [address] PCP - MIGUELITO Attributed Provider - MMO Commercial 08/31/18 07/30/50 Fish Culturist Relationship Specialty Start Date End Date Casi Cortez CNP [address] [place] [address] PCP - General Nurse Practitioner 01/20/20 Casi Cortez CNP [address] [place] [address] PCP - MIGUELITO Attributed Provider - MMO Commercial 08/31/18 07/30/50 Fish Culturist Relationship Specialty Start Date End Date Casi Cortez COAT BASTER [address] [place] [address] PCP - General Nurse Practitioner 01/20/20 Dana Casi Zhou, SUNDEEP [address] [place] [address] PCP - MIGUELITO Attributed Provider - MMO Commercial 08/31/18 07/30/50 Fish Culturist Relationship Specialty Start Date End Date CortezCasiSUNDEEP [address] [place] [address] PCP - General Nurse Practitioner 01/20/20 DanaKostasen Winnie, COAT BASTER [address] [place] [address] PCP - MIGUELITO Attributed Provider - MMO Commercial 08/31/18 07/30/50 Fish Culturist Relationship Specialty Start Date End Date DanaKostasen WinnieSUNDEEP hol[place] [address] [place] [address] PCP - General Nurse Practitioner 01/20/20 Fish Culturist Relationship Specialty Start Date End Date DanaKostasen WinnieSUNDEEP hol[place] [address] [place] [address] PCP - General Nurse Practitioner 01/20/20 Fish Culturist Relationship Specialty Start Date End Date DanaKostasen Winnie, SUNDEEP [address] [place], [place] [id number] PCP - General Nurse Practitioner 01/20/20 Fish Culturist Relationship Specialty Start Date End Date Casi Cortez CNP [address] [place] [address] PCP - General Nurse Practitioner 01/20/20 Fish Culturist Relationship Specialty Start Date End Date Casi Cortez CNP [address] [place] [address] PCP - General Nurse Practitioner 01/20/20 Fish Culturist Relationship Specialty Start Date End Date Casi Cortez CNP [address] [place] [address] PCP - General Nurse Practitioner 01/20/20 Fish Culturist Relationship Specialty Start Date End Date Casi Cortez CNP [address] [place] [address] PCP - General Nurse Practitioner 01/20/20 Fish Culturist Relationship Specialty Start Date End Date Casi Cortez CNP [address] [place] [address] PCP - General Nurse Practitioner 01/20/20 Fish Culturist Relationship Specialty Start Date End Date Casi Cortez CNP [address] [place] [address] PCP - General Nurse Practitioner 01/20/20 Fish Culturist Relationship Specialty Start Date End Date Casi Cortez CNP [address] [place] [address] PCP - General Nurse Practitioner 01/20/20 Fish Culturist Relationship Specialty Start Date End Date Lorri Nielsen CNP [address] [place] [address] PCP - General Nurse Practitioner 05/03/24 Fish Culturist Relationship Specialty Start Date End Date Lorri Nielsen CNP [address] [place] [address] PCP - General Nurse Practitioner 05/03/24 Team Status: Active Member Role Status Dates Dr. Le Crawford MD Primary Care Provider Active Team Status: Inactive Member Role Status Dates MORALES PANDEY Attending Provider Active Start: 2023 End: July 09, 2024 MORALES PANDEY Referring Provider Active Start: 2023 End: July 09, 2024 Dr. Gerardo Manuel , DO Primary Care Provider Act maría Start: July 09, 2024 End: July 09, 2024 Team Status: Active Member Role Status Dates Dr. Gerardo Manuel DO Primary Care Provider Act maría Start: July 22, 2024 [facility] Attending Provider Active Start: 2023 Team Status: Inactive Member Role Status Dates Dr. Gerardo Manuel , DO Primary Care Provider Act maría Start: September 23, 2024 End: September 23, 2024 Dr. Gerardo Manuel DO Referring Provider Active Start: September 23, 2024 End: September 23, 2024 Dr. Pedro Donahue DO Attending Provider Active Start: September 23, 2024 End: September 23, 2024 Team Status: Active Member Role Status Dates Dr. Gerardo Manuel DO Primary Care Provider Act maría Start: September 23, 2024 Dr. Gerardo Manuel DO Referring Provider Active Start: September 23, 2024 Dr. Pedro Donahue DO Attending Provider Active Start: September 23, 2024 Dr. Pedro Donahue DO Other Provider Active St art: September 23, 2024 Team Status: Inactive Member Role Status Dates Dr. Gerardo Manuel DO Referring Provider Active Start: September 26, 2024 End: September 26, 2024 Dr. Le Crawford MD Primary Care Provider Active Start: September 26, 2024 End: September 26, 2024 Dr. Le Crawford MD Attending Provider Active Start: September 26, 2024 End: September 26, 2024 Team Status: Inactive Member Role Status Dates Dr. Le Crawford MD Primary Care Provider Active Start: October 08, 2024 End: October 08, 2024 Dr. Le Crawford MD Attending Provider Active Start: October 08, 2024 End: October 08, 2024 Dr. Le Crawford MD Referring Provider Active Start: October 08, 2024 End: October 08, 2024 Team Status: Active Member Role Status Dates Dr. Le Crawford MD Primary Care Provider Active Start: October 08, 2024 Dr. Le Crawford MD Referring Provider Active Start: October 08, 2024 Dr. Le Crawford MD Other Provider Active St art: October 08, 2024 Dr. 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 Le Crawford MD Primary Care Provider Active Start: November 12, 2024 End: November 12, 2024 Dr. Le Crawford MD Referring Provider Active Start: November 12, 2024 End: November 12, 2024 Dr. Triston Nassar MD Attending Provider Active Start: November 12, 2024 End: November 12, 2024 Team Status: Inactive Member Role Status Dates Dr. Le Crawford MD Primary Care Provider Active Start: December 20, 2024 End: December 20, 2024 Dr. Triston Nassar MD Attending Provider Active Start: December 20, 2024 End: December 20, 2024 Dr. Triston Nassar MD Referring Provider Active Start: December 20, 2024 End: December 20, 2024 Team Status: Active Member Role Status Dates Dr. Le Crawford MD Primary Care Provider Active Start: December 21, 2024 Dr. Triston Nassar MD Referring Provider Active Start: December 21, 2024 Dr. Triston Nassar MD Other Provider Active St art: December 21, 2024 Dr. Ryan Parikh MD Attending Provider Active S tart: December 21, 2024 FOR RECORDS PERTAINING TO PATIENTS WHO ARE [...] BE BASED ON THE PRIMARY CLINICAL RECORDS. [employer] [facility]. provides no warranty or guarantee of the accuracy or completeness of information in this document.
== END | disposition home or self-care (01) ==
LOC: CVS 07:37
PROVIDERS: PCP Internal Medicine; Referring Provider Internal Medicine Cardiovascular Disease; Visit Provider Internal Medicine Cardiovascular Disease
DX: R94.39 Abnormal result of other cardiovascular function study (principal); R07.9 Chest pain, unspecified
CPT/HCPCS: 93306; Q9957; A4216; C8929

== ENCOUNTER → 2025-02-12 | Outpatient (CLI) | payer OTHER, SELFPAY ==
--- NOTE | 2025-02-12 15:30 | BI_ITS ---
EXAM: SCRN MAMM (CAD)W/ILDA BILAT DATE: 02/12/2025 CLINICAL HISTORY: F, Age 59 y/o , SCREENING TECHNIQUE: SCRN MAMM (CAD)W/ILDA BILAT COMPARISON: Prior exam(s) dated 02/06/2024. FINDINGS: TISSUE DENSITY: The breasts are heterogeneously dense, which may obscure small masses. The mammogram demonstrates that the patient has dense breasts. Supplemental screening with whole breast ultrasound or MRI may be considered for further evaluation. Bilateral Breast Mammographic Findings: No significant masses, calcifications or other abnormalities are identified. BI/SCRN MAMM (CAD)W/ILDA BILAT IMPRESSION: There is no mammographic evidence of malignancy. OVERALL FINAL ASSESSMENT BI-RADS 1: NEGATIVE. RECOMMENDATION: Routine annual follow-up in 1 Year A letter with findings and recommendations will be mailed to the patient. Reading Location: [id number]
--- NOTE | 2025-02-12 15:30 | BI_ITS ---
EXAM: SCRN MAMM (CAD)W/ILDA BILAT DATE: 02/12/2025 CLINICAL HISTORY: F, Age 59 y/o , SCREENING TECHNIQUE: SCRN MAMM (CAD)W/ILDA BILAT COMPARISON: Prior exam(s) dated 02/06/2024. FINDINGS: TISSUE DENSITY: The breasts are heterogeneously dense, which may obscure small masses. The mammogram demonstrates that the patient has dense breasts. Supplemental screening with whole breast ultrasound or MRI may be considered for further evaluation. Bilateral Breast Mammographic Findings: No significant masses, calcifications or other abnormalities are identified. BI/SCRN MAMM (CAD)W/ILDA BILAT IMPRESSION: There is no mammographic evidence of malignancy. OVERALL FINAL ASSESSMENT BI-RADS 1: NEGATIVE. RECOMMENDATION: Routine annual follow-up in 1 Year A letter with findings and recommendations will be mailed to the patient. Reading Location: [id number]
== END | disposition home or self-care (01) ==
LOC: OPBI 15:15
PROVIDERS: PCP Internal Medicine; Referring Provider Internal Medicine; Visit Provider Internal Medicine
DX: Z12.31 Encounter for screening mammogram for malignant neoplasm of breast (principal)
CPT/HCPCS: 77063; 77067

== ENCOUNTER → 2025-05-02 | Outpatient (CLI) | payer OTHER, SELFPAY ==
--- OUTSIDE RECORDS SUMMARY | 2025-05-02 06:15 | XMS RPT_ITS | CCD ---
Author Organization [facility] Care Team Providers Care Market Consultant Name Role Phone DICUS, LEONOR Unavailable Unavailable DICUS, LEONOR Unavailable Unavailable JESSICA, CASI N Unavailable Unavailable JESSICA, CASI N Unavailable Unavailable JESSICA, CASI N Unavailable Unavailable JESSICA, CASI N Unavailable Unavailable NONE, NONE Unavailable Unavailable JESSICA, CASI N Unavailable Unavailable JESSICA, CASI N Unavailable Unavailable IRENE, MAAME Unavailable Unavailable IRENE, MAAME Unavailable Unavailable Varun Lezama [phone] Unavailable U navailable JESSICA, CASI N Unavailable Unavailable No, Physician Primary Care Provider Unavailabl e Casi Cortez Primary Care Provider [phone] Casi Cortez Unavailable [phone] Dana DIRECTOR PROCESS, Casi Zhou Primary Care Provider Casi Cortez CNP Unavailable [phone] Casi Cortez CNP Unavailable Dana DIRECTOR PROCESS, Casi Zhou Primary Care Provider Casi Cortez CNP Unavailable Dana DIRECTOR PROCESS, Casi Zhou Primary Care Provider CASI CORTEZ [...] CORTEZ, CASI WINNIE Primary Care Unavailab le JANICEJeana Attending Unavailable CORTEZ, CASI WINNIE Primary Care Unavailab le JANICEJeana Attending Unavailable CORTEZ, CASI ZHOU Attending Unavailab le CORTEZ, CASI WINNIE Primary Care Unavailab le Cortez DIRECTOR PROCESS, Casi Winnie Primary Care Provider Cortez DIRECTOR PROCESS, Casi Zhou Unavailable CORTEZ, CASI WINNIE Primary Care Unavailab le FOULK, PITER BAE Attending Unavailable CORTEZ, CASI ZHOU Primary Care Unavailab le CORTEZ, CASI ZHOU Attending Unavailab le CORTEZ, CASI WELLSE Primary Care Unavailab le CORTEZ, CASI ZHOU Attending Unavailab le CORTEZ, CASI ZHOU Attending Unavailab le CORTEZ, CASI WINNIE Primary Care Unavailab le CORTEZ, CASI WELLSE Primary Care Unavailab le CORTEZ, CASI ZHOU Attending Unavailab le CORTEZ, CASI ZHOU Primary Care Unavailab le GERARDO MANUEL Attending Unava CORNELL Garrison Attending Unavailable CORTEZ, CASI WINNIE Primary Care Unavailab le GAREE, LORRI HO Primary Care Unavailable MORALES, LORRI HO Attending Unavailable Garee DIRECTOR PROCESS, Lorri Ho Primary Care Provider LORRI NIELSEN Attending Provider [phone] LORRI NIELSEN Referring Provider [phone] Dr. Gerardo Manuel DO Primary Care Provide r Zney Villatoro Attending Provider Unavailable Dr. Gerardo Manuel DO Referring Provider Dr. Pedro Donahue DO Attending Provider Dr. Pedro Donahue DO Other Provider Yvette ROSARIO, Dr. Lujan Primary Care Provider Yvette ROSARIO, Dr. Lujan Attending Provider Yvette ROSARIO, Dr. Lujan Referring Provider Yvette ROSARIO, Dr. Lujan Other Provider [phone] Kelly ROSARIO, Dr. Beavers Attending Provider Dana DIRECTOR PROCESS, Casi Zhou Primary Care Provider Cortez DIRECTOR PROCESS, Casi Winnie Unavailable Dr. Gerardo Manuel DO Primary Care Provide r Maday ROSARIO, Dr. Goldstein Attending Provider Maday ROSARIO, Dr. Goldstein Referring Provider Maday ROSARIO, Dr. Goldstein Other Provider [phone] Jl ROSARIO, Dr. Davis Attending Provider [phone] Yvette ROSARIO, Dr. Lujan Primary Care Provider [phone] Yvette ROSARIO, Dr. Lujan Attending Provider CASI CORTEZ Referring Unavailab le CORTEZ, CASI ZHOU Attending Unavailab le CORTEZ, CASI ZHOU Primary Care Unavailab caitlyn Nielsen CNP, Lorri Ho Primary Care Provider Yvette ROSARIO, Dr. Lujan Primary Care Provider [phone] Yvette ROSARIO, Dr. Lujan Referring Provider Yvette ROSARIO, Dr. Lujan Attending Provider Triston Nassar Referring Unavailable Triston Nassar Attending Unavailable Le Crawford Primary Care Unavailable Friend, Pedro Attending Unavailable Gerardo Manuel Referring Unavailable Gerardo Manuel Primary Care Unavailable Assessment, Health Risk Referring Unavaila ble Assessment, Health Risk Attending Unavaila ble MICHAEL, MIC Primary Care Unavailable Le Crawford Attending Unavailable Le Crawford Primary Care Unavailable Le Crawford Referring Unavailable Triston Nassar Referring Unavailable Triston Nassar Attending Unavailable Yvette, Le Primary Care Unavailable Piper Del Toro Attending Unavailable MICHAEL, MIC Attending Unavailable MICHAEL, MIC Primary Care Unavailable MIC RODRIGUEZ Attending Unavailable MICHAEL, MIC Primary Care Unavailable MICHAEL, MIC Referring Unavailable Sage Whitmore Attending Unavailable Piper Del Toro Referring Unavailable Le Crawford Attending Unavailable Gerardo Manuel Referring Unavailable [place], Le Primary Care Unavailable [place], Le Attending Unavailable [place], Le Primary Care Unavailable [place], Le Referring Unavailable MICHAEL, MIC Primary Care Unavailable Del Toro, Piper Referring Unavailable Del Toro, Piper Attending Unavailable MICHAEL, MIC Primary Care Unavailable MICHAEL, MIC Referring Unavailable Del Toro, Piper Attending Unavailable [place], Le Referring Unavailable Triston Nassar Attending Unavailable Yvette, Le Primary Care Unavailable Zeny Villatoro Attending Unavailable Gerardo Manuel Primary Care Unavailable Friend, Pedro Attending Unavailable Friend, Pedro Consulting Unavailable IretonGerardo acevedo Referring Unavailable AnnamarieGerardo acevedo Primary Care Unavailable Triston Nassar Referring Unavailable Triston Nassar Consulting Unavailable Ryan Parikh Attending Unavailable [place], Le Primary Care Unavailable Yvette, Le Referring Unavailable Yvette, Le Consulting Unavailable [place], Le Primary Care Unavailable Ruthann Mendoza Attending Unavailabl e [place], Le Primary Care Unavailable Ryan Parikh Attending Unavailable MIC RODRIGUEZ Attending Unavailable MICHAEL, MIC Primary Care Unavailable MICHAEL, MIC Referring Unavailable MICHAEL, MIC Referring Unavailable Gerardo Manuel Primary Care Unavailable MIC RODRIGUEZ Attending Unavailable Medications Current Medications Medication Drug Class(es) Dates Sig (Normalized) Sig (Original) aspirin 81 mg delayed release oral tablet (4 sources) Platelet Aggregation Inhibitor, Nonsteroidal Anti-inflammatory Drug [...] for heartburn January 23, 2024 12:00am Fruits (3 sources) Start: 11-12-2024 Fruits Active PO DAILY November 12, 2024 12:00am levothyroxine sodium 0.075 mg oral tablet (20 sources) l-Thyroxine Start: 09-26-2024 take 1 tablet by mouth once Levothyroxine 75 mcg tablet Active 75 ug PO .6x/wk 90 September 26, 2024 1:46pm Start: 09-26-2024 End: 09-26-2024 take 1 capsule by mouth every week Levothyroxine 150 mcg capsule Active 150 ug PO .once weekly 06 30September 26, 2024 1:45pm MONDAY Start: 04-30-2024 End: 09-26-2024 take 3 tablets by mouth once Levothyroxine 25 mcg tabl et Discontinued 75 ug PO .6x/wk September 26, 2024 10:51am September 26, 2024 1:47pm Start: 04-04-2024 End: 07-09-2024 levothyroxine (SYNTHROID, LEVOTHROID) 75 MCG tablet Indications: Hypothyroidism, unspecified type Take one tablet daily Mon-Mon and 2 tablets on Mon. . 40 tablet 2 07/09/2024 Active Start: [...] 12:00am April 30, 2024 8:25am Multivitamin tablet (3 sources) Start: 11-12-2024 Multivitamin tablet Active 1 {tbl} [...] nausea and vomiting September 26, 2024 1:00am osteo bioflex (3 sources) Start: 11-12-2024 take 1 tablet by mouth once daily osteo bioflex Active 0 PO DAILY November 12, 2024 12:00am tablets orally daily; predniSONE 20 mg oral tablet (1 source) Start: 04-06-2023 End: 04-10-2023 take 2 tablets by mouth once daily predniSONE (DELTASONE) 20 MG tablet Indications: Poison tahnh Take 2 (two) tablets (40 mg total) [...] as directed . 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] 09-26-2024 Chronic Disorders of lipid metabolism (4 sources) Hyperlipidemia; Translations: [Hyperlipidemia, unspecified] Onset: 09-26-2024 02-06-2023 Chronic Esophageal disorders (8 sources) Gastroesophageal reflux disease; Translations: [Gastro-esophageal reflux [...] of hypertension] 02-06-2023 Episodic Other circulatory disease (8 sources) Elevated blood pressure; Translations: [Elevated blood-pressure [...] other specified circumstances] Onset: 09-26-2024 09-26-2024 Episodic Coma; stupor; and brain damage (3 sources) Daytime somnolence; Translations: [Somnolence] Onset: 04-30-2024 03-20-2024 Episodic Conditions associated with dizziness or vertigo (3 sources) Vertigo; Translations: [Dizziness and giddiness] Onset: 09-26-2024 09-26-2024 Episodic Immunizations and screening for infectious disease (1 source) Encounter for screening for human papillomavirus (HPV); Translations: [ENC SCREENING HUMAN PAPILLOMAVIRUS] Onset: 08-24-2017 Episodic Medical examination/evaluatio n (3 sources) Encounter for gynecological examination (general) (routine) without abnormal findings; Translations: [ENC OB NURSE EX GEN RTN W/O ABNORM FIND] Onset: 08-21-2017 Episodic Mood disorders (3 sources) Mood disorders Onset: 01-20-2020 Resolved: 02-27-2024 01-20-2020 Nonspecific chest pain (4 sources) Chest pain; Translations: [Chest pain, unspecified] Onset: 10-16-2024 09-26-2024 Episodic Other circulatory disease (1 source) Elevated blood-pressure [...] 09-22-2017 Episodic Varicose veins of lower extremity (10 sources) Varicose veins of lower extremity; Translations: [Varicose veins of bilateral lower extremities with pain] Onset: 06-12-2024 02-29-2024 Episodic Results Test Name Value Interpretation Reference Range Facility Breast imaging reportOrdered By: Ernestine Walker on 02-12-2025 Study report [facility] Imaging Services [address] [place], [place] [address] SCRN MAMM (CAD)W/FRANKLYN BILAT MR#: [id number] Acct: [id number] Name: JIE HUMPHREYS Rep #: [id number] : 1965 F 59 From: Kirsten Walker MD PCP: Dr. Le Crawford MD Status: REG CLI Study:SCRN MAMM (CAD)W/FRANKLYN BILAT Date of Exa m: 02/12/25 Exam# [id number] Ordering Dr: Le Crawford MD EXAM: SCRN MAMM (CAD)W/FRANKLYN BILAT DATE: 02/12/2025 CLINICAL HISTORY: F, Age 59 y/o , SCREENING TECHNIQUE: SCRN MAMM (CAD)W/FRANKLYN BILAT COMPARISON: Prior exam(s) dated 02/06/2024. FINDINGS: TISSUE DENSITY: The breasts are heterogeneously dense, which may obscure small masses. The mammogram demonstrates that the patient has dense breasts. Supplemental screening with whole breast ultrasound or MRI may be considered for further evaluation. Bilateral Breast Mammographic Findings: No significant masses, calcifications or other abnormalities are identified. BI/SCRN MAMM (CAD)W/FRANKLYN BILAT IMPRESSION: There is no mammographic evidence of malignancy. OVERALL FINAL ASSESSMENT BI-RADS 1: NEGATIVE. RECOMMENDATION: Routine annual follow-up in 1 Year A letter with findings and recommendations will be mailed to the patient. Reading Location: [facility] CC: Dr. Le Crawford MD ~ Coffee Roaster Helper: Signed [facility] SCRN MAMM (CAD)W/FRANKLYN BILATo n 02-12-2025 SCRN MAMM (CAD)W/FRANKLYN BILAT [facility] Imaging Services [address] [place] [address] [id number] SCRN MAMM (CAD)W/FRANKLYN BILAT MR#: [id number] Acct: [id number] Name: JIE HUMPHREYS TERESA Rep #: [id number] : 1965 F 59 From: Ernestine Walker MD PCP: Dr. Le Crawford MD Status: REG CLI Study: SCRN MAMM (CAD)W/FRANKLYN BILAT Date of Exam: 01/28 01/22 Exam# [id number] Ordering Dr: Le Crawford MD EXAM: SCRN MAMM (CAD)W/FRANKLYN BILAT DATE: 02/12/2025 CLINICAL HISTORY: F, Age 59 y/o , SCREENING TECHNIQUE: SCRN MAMM (CAD)W/FRANKLYN BILAT COMPARISON: Prior exam(s) dated 02/06/2024. FINDINGS: TISSUE DENSITY: The breasts are heterogeneously dense, which may obscure small masses. The mammogram demonstrates that the patient has dense breasts. Supplemental screening with whole breast ultrasound or MRI may be considered for further evaluation. Bilateral Breast Mammographic Findings: No significant masses, calcifications or other abnormalities are identified. BI/SCRN MAMM (CAD)W/FRANKLYN BILAT IMPRESSION: There is no mammographic evidence of malignancy. OVERALL FINAL ASSESSMENT BI-RADS 1: NEGATIVE. RECOMMENDATION: Routine annual follow-up in 1 Year A letter with findings and recommendations will be mailed to the patient. Reading Location: [facility] CC: Dr. Le Crawford MD Coffee Roaster Helper: Signed Normal [facility] Echo Complete W/ Contraston 01-21-2025 Echo Complete W/ Contrast [facility] [address] [place] [address] Echo Complete W/ Contrast 01/21/25 0803 MR#: [id number] Acct: [id number] Name: JIE HUMPHREYS TERESA Rep #: [id number] : 1965 59 From: Ryan Parikh MD Attending Dr: Dr. Triston Nassar MD Status: AUNDREA G I Ordering Dr: Triston Nassar MD Date: 01/21/25 Location: [facility] Sex: F C Admitted: Reason For Study : Chest Pain Procedure This was a 2D Doppler, Color Flow transthoracic echocardiogram. The study was technically difficult. Contrast injection was performed. Exam performed in department. Left Ventricle Normal LV size. The left ventricular ejection fraction is 55 %. Stage 1 diastolic dysfunction. No regional wall motion abnormalities noted. Right Ventricle Normal RV size. Normal systolic function. Atria Normal left atrium. Normal right atrium. Mitral Valve Normal mitral valve. Tricuspid Valve Normal tricuspid valve. Aortic Valve Trisinus/trileaflet aortic valve. Pulmonic Valve The pulmonic valve is not well visualized. Great Vessels Normal sized aortic root. The pulmonary artery is normal size. Pericardium/Pleural No pericardial effusion. Medication 22 gauge I.V. with prn adaptor inserted into right arm. Diluted definity 2ml given slow IV push to enhance endocardial definition. MMode/2D Measurements Calculations LVIDd: 5.1 cm IVSd: 0.95 cm Ao root diam: 3.4 cm LVIDs: 3.7 cm LVPWd: 0.86 cm RVDd: 2.8 cm FS: 26.8 % LAV(MOD-bp): 98.4 ml LVAd ap4: 36.7 cm2 SV(MOD-sp4): 67.4 ml LAV(MOD-bp) Indexed: 43.2 ml/m2 LVLd ap4: 8.4 cm SI(MOD-sp4): 29.6 ml/m2 LAV(MOD-sp2): 86.6 ml EDV(MOD-sp4): 129.9 ml LAV(MOD-sp4): 94.4 ml EDV(sp4-el): 135.6 ml LVAs ap4: 23.7 cm2 LVLs ap4: 7.4 cm ESV(MOD-sp4): 62.5 ml ESV(sp4-el): 64.8 ml EF(MOD-sp4): 51.9 % EF(sp4-el): 52.2 % SV(sp4-el): 70.8 ml LA A4 area: 27.7 cm2 LA dimension(2D): 4.6 cm RA A4 area: 17.8 cm2 Time Measurements MV dec time: 0.18 sec Doppler Measurements Calculations MV E max amos: 58.3 cm/sec Lat Peak E' Amos: 7.4 cm/sec Med Peak E' Amos: 8.3 cm/sec MV A max amos: 67.1 cm/sec E/E' lat: 7.9 E/E' med: 7.0 MV E/A: 0.87 MV V2 max: 104.8 cm/sec MV P1/2t max amos: 94.1 cm/sec Ao V2 max: 112.0 cm/sec MV max P.4 mmHg MV P1/2t: 74.9 msec Ao max P.0 mmHg MV V2 mean: 50.9 cm/sec MV dec slope: 368.3 cm/sec2 Ao V2 mean: 86.9 cm/sec MV mean P.3 mmHg MVA(P1/2t): 2.9 cm2 Ao mean P.3 mmHg MV V2 VTI: 25.6 cm Ao V2 VTI: 28.3 cm AV (velocity ratio): 0.89 LV V1 max: 105.5 cm/sec PA V2 max: 100.5 cm/sec LV V1 max P.5 mmHg LV V1 mean P.7 mmHg LV V1 mean: 78.3 cm/sec LV V1 VTI: 25.2 cm ECHO/Echo Complete W/ Contrast Interpretation Summary The left ventricular ejection fraction is 55 %. Normal LV size. No regional wall motion abnormalities noted. Stage 1 diastolic dysfunction. Contrast injection was performed. Ordering Physician: Triston Nassar Referring Physician: Triston Nassar Performed By: Gee Holbrook RCS 01/21/25 1123 Date Ryan Parikh MD CC: Dr. Le Crawford MD; Dr. Triston Nassar MD Date Dictated: 01/21/25 0803 Date Transcribed: 01/21/25 1122 Coffee Roaster Helper: Signed Normal [facility] Echocardiogram study reportO rdered By: Ryan Parikh on 01-21-2025 Study report [facility] [address] [place] [address] Echo Complete W/ Contrast 01/21/25 0803 MR#: [id number] Acct: [id number] Name: JIE HUMPHREYS Rep #:[id number] : 1965 59 From: Ryan Winchester Attending Dr: Dr. Triston Nassar MD Status: REG CLI Ordering Dr: Triston Nassar MD Date: 01/21/25 Location: [facility] Sex: F C Admitted: Reason For Study : Chest Pain Procedure This was a 2D Doppler, Color Flow transthoracic echocardiogram. The study was technically difficult. Contrast injection was performed. Exam performed in department. Left Ventricle Normal LV size. The left ventricular ejection fraction is 55 %. Stage 1 diastolic dysfunction. No regional wall motion abnormalities noted. Right Ventricle Normal RV size. Normal systolic function. Atria Normal left atrium. Normal right atrium. Mitral Valve Normal mitral valve. Tricuspid Valve Normal tricuspid valve. Aortic Valve Trisinus/trileaflet aortic valve. Pulmonic Valve The pulmonic valve is not well visualized. Great Vessels Normal sized aortic root. The pulmonary artery is normal size. Pericardium/Pleural No pericardial effusion. Medication 22 gauge I.V. with prn adaptor inserted into right arm. Diluted definity 2ml given slow IV push to enhance endocardial definition. MMode/2D Measurements & Calculations LVIDd: 5.1 cm IVSd: 0.95 cm Ao root diam: 3.4 cm LVIDs: 3.7 cm LVPWd: 0.86 cm RVDd: 2.8 cm FS: 26.8 % LAV(MOD-bp): 98.4 ml LVAd ap4: 36.7 cm2 SV(MOD-sp4): 67.4 ml LAV(MOD-bp) Indexed: 43.2 ml/m2 LVLd ap4: 8.4 cm SI(MOD-sp4): 29.6 ml/m2 LAV(MOD-sp2): 86.6 ml EDV(MOD-sp4): 129.9 ml LAV(MOD-sp4): 94.4 ml EDV(sp4-el): 135.6 ml LVAs ap4: 23.7 cm2 LVLs ap4: 7.4 cm ESV(MOD-sp4): 62.5 ml ESV(sp4-el): 64.8 ml EF(MOD-sp4): 51.9 % EF(sp4-el): 52.2 % SV(sp4-el): 70.8 ml LA A4 area: 27.7 cm2 LA dimension(2D): 4.6 cm RA A4 area: 17.8 cm2 Time Measurements MV dec time: 0.18 sec Doppler Measurements & Calculations MV E max amos: 58.3 cm/sec Lat Peak E' Amos: 7.4 cm/sec Med Peak E' Amos: 8.3 cm/sec MV A max amos: 67.1 cm/sec E/E' lat: 7.9 E/E' med: 7.0 MV E/A: 0.87 MV V2 max: 104.8 cm/sec MV P1/2t max amos: 94.1 cm/sec Ao V2 max: 112.0 cm/sec MV max P.4 mmHg MV P1/2t: 74.9 msec Ao max P.0 mmHg MV V2 mean: 50.9 cm/sec MV dec slope: 368.3 cm/sec2 Ao V2 mean: 86.9 cm/sec MV mean P.3 mmHg MVA(P1/2t): 2.9 cm2 Ao mean P.3 mmHg MV V2 VTI: 25.6 cm Ao V2 VTI: 28.3 cm AV (velocity ratio): 0.89 LV V1 max: 105.5 cm/sec PA V2 max: 100.5 cm/sec LV V1 max P.5 mmHg LV V1 mean P.7 mmHg LV V1 mean: 78.3 cm/sec LV V1 VTI: 25.2 cm ECHO/Echo Complete W/ Contrast Interpretation Summary The left ventricular ejection fraction is 55 %. Normal LV size. No regional wall motion abnormalities noted. Stage 1 diastolic dysfunction. Contrast injection was performed. Ordering Physician: Triston Nassar Referring Physician: Triston Nassar Performed By: Gee Holbrook RCS 01/21/25 1123 Date _ Ryan Parikh MD CC: Dr. Le Crawford MD; Dr. Triston Nassar MD ~ Date Dictated: 01/21/25 08 Date Transcribed: 01/21/25 112 Coffee Roaster Helper: Signed [facility] Work Phone: Coronary Angiography CTon Coronary Angiography CT [facility] Imaging Services [address] [place] [address] 12/21/24 1112 MR#: [id number] Acct: [id number] Name: JIE HUMPHREYS Rep #: [id number] : 1965 59 From: Ryan Parikh MD [...] MD; Dr. Triston Nassar MD Signed Normal [facility] Limited Chest CT Cardiac Onl yon 12-20-[address] Cardiac Only [facility] Imaging Services [address], [place] [address] Limited Chest CT Cardiac Only MR#: [id number] Acct: [id number] Name: JIE HUMPHREYS Rep #: [id number] : 1965 F 59 From: Kendrick langford MD PCP: Dr. Le Crawford MD Status: REG CLI Study: Limited Chest CT Cardiac Only Date of Exam: Exam# [id number] Ordering Dr: Triston Nassar MD PROCEDURE: LIMITED [...] calcification (CAC) is is absent Reading Location: [place] [address] CC: Dr. Le Crawford MD; Dr. Triston Nassar MD Coffee Roaster Helper: Signed Normal [facility] 12 Lead EKG performed by [facility] on 11-12-2024 12 Lead EKG performed by [facility] [address] [place] [address] 12 Lead EKG performed by [facility] 11/12/24819 MR#: [id number] Acct: [id number] Name: JIE HUMPHREYS TERESA Rep #: [id number] : 1965 58 From: Triston Nassar MD Attending Dr: Dr. Triston Nassar MD Status: DE P AMB Ordering Dr: Triston Nassar MD Date: 11/12/24 Location: [facility] Sex: F C Admitted: BMS/12 Lead EKG performed by [facility] ECG Report Interpretation ----Normal Sinus RhythmP:QRS - 1:1, Abnormal P axis, H Rate 70- Negative T-waves -Possible Anterior ischemia. ABNORMAL Electronically signed on 11/12/2024 at 14:[address] Triston Nassar [employer] Version 8610 11/12/24 1459 Date Triston Nassar MD CC: Dr. Le Crawford MD Date Dictated: 11/12/24819 Date Transcribed: 11/12/24819 Coffee Roaster Helper: Signed Normal [facility] Cardiology Visit Reporton Cardiology Visit Report [facility] [address] [place] [address] OFFICE VISIT Date of Service: 11/12/24 MR#: [id number] Acct: [id number] Name: JIE HUMPHREYS TERESA Rep #: [id number] : 1965 Provider: Dr. Triston kiser MD Age/Sex: 58/F Location: [facility] Status: Signed HPI HPI History of Present Illness Details: Patient comes in as a new patient visit is a 58-year-old white female. 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 Patient comes in because of an abnormal [...] denies CP/SOB Intake Visit Reasons: Abn Stress ([place]) Sales Specialist Required: No Accompanied by: Self Is patient [...] von wi (more content not included)... Normal [facility] Cardiovascular stress test r eportOrdered By: Ruthann Mendoza on 10-08-2024 Study report [facility] [address] [place] [address] MR#: [id number] Acct: [id number] Name: JIE HUMPHREYS Rep #: [id number] : 1965 58 From: Ruthann thurman [...] than 70%. This note was generated with [employer].ation software. It may contain incorrectwords, spelling, and punctuation that were not noted in checking the note beforesigning. 10/08/24 1403 Date _ Ruthann Mendoza MD CC: Dr. Le Crawford MD ~ Date Dictated: 10/08/241356 Date Transcribed: 10/08/241356 Coffee Roaster Helper: JORDI Signed [facility] Work Phone: Stress Reporton 10-08-2024 Stress Report [facility] [address] [place] [address] MR#: [id number] Acct: [id number] Name: JIE HUMPHREYS TERESA Rep #: [id number] : 1965 58 From: Ruthann Mendoza MD [...] than 70%. This note was generated with [employer].ation software. It may contain incorrect words, spelling, and punctuation that were not noted in checking the note before signing. 10/08/24 1403 Date Ruthann Mendoza MD CC: Dr. Le Crawford MD Date Dictated: 10/08/241356 Date Transcribed: 10/08/241356 Coffee Roaster Helper: NN Signed Normal [facility] Internal Medicine Office Vis iton 09-25-2024 Internal Medicine Office Visit [facility] [address] [place] [address] [place] [address] OFFICE VISIT Date of Service: 09/26/24 MR#: [id number] Acct: [id number] Name: JIE HUMPHREYS Rep #: [id number] : 1965 Provider: Dr. 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 Normal [facility] Colonoscopy Reporton 025 Colonoscopy Report [facility] Medical Records Department [address] [place] [address] Colonoscopy Report MR#: [id number] Acct: [id number] Name: JIE HUMPHREYS TERESA Rep #: [id number] : 1965 58 From: Pedro Donahue DO PCP: Dr. Gerardo Manuel DO [place] [facility] [place] Name: Jie Humphreys Procedure Date: 09/23/2024 [...] criteria for high risk CPT copyright 2021 [employer]. All rights reserved. The codes documented in this report are preliminary and upon syrup machine laborer review may be revised to meet current compliance requirements. Pedro Donahue DO 09/23/2024 9:21:24 AM This report has been signed electronically. Number of Addenda: 0 Note Initiated On: 09/23/2024 8:38 AM 09/23/24920 Date Pedro Donahue DO Cosigner Signature: Date (if indicated) CC: Dr. Gerardo Manuel DO; Pedro Donahue DO Date Dictated: 09/23/24837 Date Transcribed: Coffee Roaster Helper: JOE Signed [facility] MR/POSTOP.[facility] 09-23-2024 MR/POSTOP.[facility] Medical Records Department [address] [place] [address] Anesthesia Postop Eval I 09/23/24925 MR#: [id number] Acct: [id number] Name: JIE HUMPHREYS TERESA Rep #: [id number] : 1965 58 From: Jeffry Montalvo PCP: Dr. Gerardo Manuel DO Status:REG SDC Y Race: C Location: [place] [address] Anesthesia: Postop Eval I Current Vital Signs [...] document: Postop Eval 1 completed: Yes 09/23/24926 Date Jeffry Collins Signature: Date CC: Signed Normal [facility] MR/BFCINJGU0cy 09-23-2024 MR/POSTOPAN2 [facility] Medical Records Department [address] [facility] [place] [address] Anesthesia Postop Eval II 09/23/241456 MR#: [id number] Acct: [id number] Name: JIE HUMPHREYS TERESA Rep #: [id number] : 1965 58 From: Michael Phelan MD PCP: Dr. Gerardo Manuel, DO Status:[facility] Y Race: C Location: EN Anesthesia Postop [...] No Vomiting: No Complications Anesthesia Complication: No 09/23/241456 Date Michael Phelan MD Cosigner Signature: Date CC: Signed Normal [facility] TSH Qnon 07-09-2024 Thyroid Stimulating Hormone (TSH) 1.900 uIU/mL 0.358-3.740 [facility] Thyroid Stim Hormone (TSH)on 07-09-2024 TSH 1.900 uIU/mL Normal 0.358-3.740 [facility] Comment on above: Performed By: #### L 501.9520 ####[facility] [address] [place], [address] CBC, Employeeon 05-21-2024 Absolute Lymph 1.57 X10 3/uL Normal 0.83-4.51 [facility] Comment on above: Performed By: #### L 400.0100, L500.2900, L100.0200 ####[facility] [address] [place], [address] Absolute Neut 3.3 X10 3/uL Normal 2.0-7.7 [facility] Comment on above: Performed By: #### L 400.0100, L500.2900, L100.0200 ####[facility] [address] [place], [address] Basophils/100 WBC (Bld) 0.9 % Normal 0-1 [facility] Comment on above: Performed By: #### L 400.0100, L500.2900, L100.0200 ####[facility] [address] [place], [address] Eosinophils/100 WBC (Bld) 2.2 % Normal 0-5 [facility] Comment on above: Performed By: #### L 400.0100, L500.2900, L100.0200 ####[facility] [address] [place], [address] Erythrocyte distribution width (RBC) [Ratio] 11.6 % Normal 11.6-14.6 [facility] Comment on above: Performed By: #### L 400.0100, L500.2900, L100.0200 ####[facility] [address], [address] Hematocrit (Bld) [Volume fraction] 42.8 % Normal 37-47 [facility] Comment on above: Performed By: #### L 400.0100, L500.2900, L100.0200 ####[facility] [address] [place], [address] Hemoglobin (Bld) [Mass/Vol] 14.0 g/dL Normal 12.0-15.0 [facility] Comment on above: Performed By: #### L 400.0100, L500.2900, L100.0200 ####[facility] [address] [place], [address] Lymphocytes/100 WBC (Bld) 28.2 % Normal 19-41 [facility] Comment on above: Performed By: #### L 400.0100, L500.2900, L100.0200 ####[facility] [address] [place], [address] MCH (RBC) [Entitic mass] 32.3 pg High 27.0-32.0 [facility] Comment on above: Performed By: #### L 400.0100, L500.2900, L100.0200 ####[facility] [address] [place], [address] MCHC (RBC) [Mass/Vol] 32.7 g/dL Normal 32-36 [facility] Comment on above: Performed By: #### L 400.0100, L500.2900, L100.0200 ####[facility] [address] [place], [address] MCV (RBC) [Entitic vol] 98.8 fL Normal 81-99 [facility] Comment on above: Performed By: #### L 400.0100, L500.2900, L100.0200 ####[facility] [address] [place], [address] Monocytes/100 WBC (Bld) 9.2 % Normal 0-10 [facility] Comment on above: Performed By: #### L 400.0100, L500.2900, L100.0200 ####[facility] [address] [place], [address] Neutrophils/100 WBC (Bld) 59.1 % Normal 47-70 [facility] Comment on above: Performed By: #### L 400.0100, L500.2900, L100.0200 ####[facility] [address] [place], [address] NRBC # 0.00 10 3/uL Normal 0-5 [facility] Comment on above: Performed By: #### L 400.0100, L500.2900, L100.0200 ####[facility] [address] [place], [address] Nucleated RBC (Bld) [#/Vol] 0 10*3/uL Normal 0-5 [facility] Comment on above: Performed By: #### L 400.0100, L500.2900, L100.0200 ####[facility] [address] [place], [address] Platelet mean volume (Bld) [Entitic vol] 9.9 fL Normal 6.2-12.0 [facility] Comment on above: Performed By: #### L 400.0100, L500.2900, L100.0200 ####[facility] [address] [place], [address] Platelets (Bld) [#/Vol] 262 10*3/uL Normal 150-450 [facility] Comment on above: Performed By: #### L 400.0100, L500.2900, L100.0200 ####[facility] [address] [place], [address] RBC (Bld) [#/Vol] 4.33 10*6/uL Normal 4.2-5.4 [facility] Comment on above: Performed By: #### L 400.0100, L500.2900, L100.0200 ####[facility] [address] [place], [address] RDW SD 42.6 fl Normal 35.1-43.9 [facility] Comment on above: Performed By: #### L 400.0100, L500.2900, L100.0200 ####[facility] [address] [place], [address] WBC (Bld) [#/Vol] 5.6 10*3/uL Normal 4.4-11.0 [facility] Comment on above: Performed By: #### L 400.0100, L500.2900, L100.0200 ####[facility] [address] [place], [address] Employee Profileon 4 Albumin [Mass/Vol] 3.8 g/dL Normal 3.2-5.0 [facility] Comment on above: Performed By: #### L 400.0100, L500.2900, L100.0200 ####[facility] [address] [place], [address] Albumin/Globulin [Mass ratio] 1.0 {ratio} Normal 0.9-2.4 [facility] Comment on above: Performed By: #### L 400.0100, L500.2900, L100.0200 ####[facility] [address] [place], [address] ALK P 92 U/L Normal 45-117 [facility] Comment on above: Performed By: #### L 400.0100, L500.2900, L100.0200 ####[facility] [address] [place], [address] ALT [Catalytic activity/Vol] 28 U/L Normal 13-56 [facility] Comment on above: Performed By: #### L 400.0100, L500.2900, L100.0200 ####[facility] [address] [place], [address] AST [Catalytic activity/Vol] 11 U/L Low 15-37 [facility] Comment on above: Performed By: #### L 400.0100, L500.2900, L100.0200 ####[facility] [address] [place], [address] Bilirubin [Mass/Vol] 0.70 mg/dL Normal 0.20-1.00 [facility] Comment on above: Result Comment: For patients on eltrombopag therapy, use of Dimension [place] TBIL is not recommended. Performed By: #### L 400.0100, L500.2900, L100.0200 ####[facility] [address] [place], [address] Bilirubin.direct [Mass/Vol] 0.19 mg/dL Normal 0.00-0.30 [facility] Comment on above: Performed By: #### L 400.0100, L500.2900, L100.0200 ####[facility] [address] [place], [address] BUN/CRE 21.1 RATIO High 10-20 [facility] Comment on above: Performed By: #### L 400.0100, L500.2900, L100.0200 ####[facility] [address] [place], [address] CA,Total 9.3 mg/dL Normal 8.5-10.1 [facility] Comment on above: Performed By: #### L 400.0100, L500.2900, L100.0200 ####[facility] [address] [place], [address] Chloride [Moles/Vol] 109 mmol/L High 98-107 [facility] Comment on above: Performed By: #### L 400.0100, L500.2900, L100.0200 ####[facility] [address] [place], [address] CHOL:HDL 2.90 Normal [facility] Comment on above: Performed By: #### L 400.0100, L500.2900, L100.0200 ####[facility] [address] [place], [address] Cholesterol [Mass/Vol] 168 mg/dL Normal 200 [facility] Comment on above: Result Comment: <200 mg/dL Desirable 200-240 mg/dL Borderline >240 mg/dL High Risk Performed By: #### L 400.0100, L500.2900, L100.0200 ####[facility] [address] [place], [address] Cholesterol in HDL [Mass/Vol] 57 mg/dL Normal [facility] Comment on above: Result Comment: The drugs N-Acetylcysteine and Metamizole may falsely depress this assay. Reference Range HDL <40 mg/dL Low HDL Cholesterol HDL >or= 60 mg/dL High HDL Cholesterol Performed By: #### L 400.0100, L500.2900, L100.0200 ####[facility] [address] [place], [address] Cholesterol in LDL [Mass/Vol] 87 mg/dL Normal 0-130 [facility] Comment on above: Performed By: #### L 400.0100, L500.2900, L100.0200 ####[facility] [address] [place], [address] Cholesterol in VLDL [Mass/Vol] 24 mg/dL Normal 5-40 [facility] Comment on above: Performed By: #### L 400.0100, L500.2900, L100.0200 ####[facility] [address] [place], [address] CO2 [Moles/Vol] 26.0 mmol/L Normal 21.0-32.0 [facility] Comment on above: Performed By: #### L 400.0100, L500.2900, L100.0200 ####[facility] [address] [place], [address] Creatinine [Mass/Vol] 0.66 mg/dL Normal 0.55-1.02 [facility] Comment on above: Result Comment: The validity of the calculated GFR GFRAA in patients over 70 years has not been determined. Clinical correlation is essential. Performed By: #### L 400.0100, L500.2900, L100.0200 ####[facility] [address] [place], [address] EST GFR - AA 119 mL/min Normal >60 [facility] Comment on above: Result Comment: Afri can [place] GFR Calc Performed By: #### L 400.0100, L500.2900, L100.0200 ####[facility] [address] [place], [address] GAP 6 Normal 5-15 [facility] Comment on above: Performed By: #### L 400.0100, L500.2900, L100.0200 ####[facility] [address] [place], [address] GFR/1.73 sq M.predicted among non-blacks MDRD (S/P/Bld) [Vol rate/Area] 98 mL/min/{1.73_m2} Normal >60 [facility] Comment on above: Result Comment: Non- GFR Calc Performed By: #### L 400.0100, L500.2900, L100.0200 ####[facility] [address] [place], [address] Globulin (S) [Mass/Vol] 3.8 g/dL Normal 2.2-4.2 [facility] Comment on above: Performed By: #### L 400.0100, L500.2900, L100.0200 ####[facility] [address] [place], [address] Glucose [Mass/Vol] 109 mg/dL High 74-106 [facility] Comment on above: Result Comment: Fast ing Glucose result from 100 to 125 mg/dL suggests IMPAIRED HOMEOSTASIS per A.D.A. criteria. Performed By: #### L 400.0100, L500.2900, L100.0200 ####[facility] [address] [place], [address] LDH 167 U/L Normal 84-246 [facility] Comment on above: Performed By: #### L 400.0100, L500.2900, L100.0200 ####[facility] [address] [place], [address] Phosphate [Mass/Vol] 3.7 mg/dL Normal 2.5-4.9 [facility] Comment on above: Performed By: #### L 400.0100, L500.2900, L100.0200 ####[facility] [address] [place], [address] Potassium [Moles/Vol] 4.0 mmol/L Normal 3.5-5.1 [facility] Comment on above: Performed By: #### L 400.0100, L500.2900, L100.0200 ####[facility] [address] [place], [address] Sodium [Moles/Vol] 141 mmol/L Normal 136-145 [facility] Comment on above: Performed By: #### L 400.0100, L500.2900, L100.0200 ####[facility] [address] [place], [address] T PROT 7.6 g/dL Normal 6.4-8.2 [facility] Comment on above: Performed By: #### L 400.0100, L500.2900, L100.0200 ####[facility] [address] [place], [address] Triglyceride [Mass/Vol] 119 mg/dL Normal [facility] Comment on above: Result Comment: The drugs N-Acetylcysteine and Metamizole may falsely depress this assay. Serum Triglycerides Reference Interval Normal <150 mg/dL Borderline high 150 - 199 mg/dL High 200 - 499 mg/dL Very High > or = 500 mg/dL Performed By: #### L 400.0100, L500.2900, L100.0200 ####[facility] [address] [place], [address] Urea nitrogen [Mass/Vol] 14 mg/dL Normal 7-18 [facility] Comment on above: Performed By: #### L 400.0100, L500.2900, L100.0200 ####[facility] [address] [place], [address] URIC 5.0 mg/dL Normal 2.6-6.0 [facility] Comment on above: Result Comment: The drugs N-Acetylcysteine and Metamizole may falsely depress this assay. Performed By: #### L 400.0100, L500.2900, L100.0200 ####[facility] [address] [place], [address] Urinalysis, Employeeon 05-21 BILIRUBIN URINE Normal Negative [facility] Comment on above: Order Comment: CLEAN CATCH Result Comment: NOT WANTED Performed By: #### L 400.0100, L500.2900, L100.0200 ####[facility] [address] [place], [address] Clarity (U) Normal Clear [facility] Comment on above: Order Comment: CLEAN CATCH Result Comment: NOT WANTED Performed By: #### L 400.0100, L500.2900, L100.0200 ####[facility] [address] [place], [address] Color (U) Normal Yellow [facility] Comment on above: Order Comment: CLEAN CATCH Result Comment: NOT WANTED Performed By: #### L 400.0100, L500.2900, L100.0200 ####[facility] [address] [place], [address] GLUCOSE, UR Normal Normal [facility] Comment on above: Order Comment: CLEAN CATCH Result Comment: NOT WANTED Performed By: #### L 400.0100, L500.2900, L100.0200 ####[facility] [address] [place], [address] KETONE UR Normal Negative [facility] Comment on above: Order Comment: CLEAN CATCH Result Comment: NOT WANTED Performed By: #### L 400.0100, L500.2900, L100.0200 ####[facility] [address] [place], [address] LEUK ESTERASE Normal Negative [facility] Comment on above: Order Comment: CLEAN CATCH Result Comment: NOT WANTED Performed By: #### L 400.0100, L500.2900, L100.0200 ####[facility] [address] [place], [address] Nitrite Ql (U) Normal Negative [facility] Comment on above: Order Comment: CLEAN CATCH Result Comment: NOT WANTED Performed By: #### L 400.0100, L500.2900, L100.0200 ####[facility] [address] [place], [address] OCCULT BLOOD-UR Normal Negative [facility] Comment on above: Order Comment: CLEAN CATCH Result Comment: NOT WANTED Performed By: #### L 400.0100, L500.2900, L100.0200 ####[facility] [address] [place], [address] pH UR Normal 5.0 - 8.0 [facility] Comment on above: Order Comment: CLEAN CATCH Result Comment: NOT WANTED Performed By: #### L 400.0100, L500.2900, L100.0200 ####[facility] [address] [place], [address] PROT DIPSTX Normal Negative [facility] Comment on above: Order Comment: CLEAN CATCH Result Comment: NOT WANTED Performed By: #### L 400.0100, L500.2900, L100.0200 ####[facility] [address] [place], [address] SP.GR. DIPSTX Normal 1.002-1.030 [facility] Comment on above: Order Comment: CLEAN CATCH Result Comment: NOT WANTED Performed By: #### L 400.0100, L500.2900, L100.0200 ####[facility] [address] [place], [address] UR Preservative Normal [facility] Comment on above: Order Comment: CLEAN CATCH Result Comment: NOT WANTED Performed By: #### L 400.0100, L500.2900, L100.0200 ####[facility] [address] [place], [address] UROBILI Normal Normal [facility] Comment on above: Order Comment: CLEAN CATCH Result Comment: NOT WANTED Performed By: #### L 400.0100, L500.2900, L100.0200 ####[facility] [address] [place], [address] Venous Duplex US - Trip [facility] 05-21-2024 Venous Duplex US - Trip [facility] [address] [place] [address] Venous Duplex US - Trip Extrem 05/21/24 0808 MR#: [id number] Acct: [id number] Name: JIE HUMPHREYS Rep #: [id number] : 1965 58 From: Sage Whitmore MD [...] and measures 0.18 x 0.18 cm. 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 SSV [...] saphenous vein in the calf, and calf carpet floor layer apprentice. Ordering Physician: Piper Del Toro Performed By: Lorri Langley RVT 05/21/241636 Date Sage Whitmore MD CC: CALLIE Reid; CASI CORTEZ Date Dictated: 05/21/24807 Date Transcribed: 05/21/241636 Coffee Roaster Helper: Signed Normal [facility] Thyroid Stim Hormone (TSH)on 05-02-2024 TSH 3.770 uIU/mL High 0.358-3.740 [facility] Comment on above: Performed By: #### L 501.9520 #### [facility] Laboratory [address] [place], [place], [address] MR/Allison 04-30-2024 /FRATUN [facility] [address] [place] [address] OFFICE VISIT Date of Service: 04/30/24 MR#: [id number] Acct: [id number] Name: JIE HUMPHREYS Rep #: [id number] : 1965 Provider: CALLIE Reid Age/Sex: 58/F [place] [facility] Status: Signed Intake Vital Signs 01/23/24 20:08 [...] the past year?: No PFSH Medical History Broken back History of broken [...] No tremor(s) (more content not included)... Normal [facility] THINPREP PAP SMEARon 024 THINPREP PAP SMEAR Gynecologic Cytology Report Case: [id number] Authorizing Provider: Piter Garza MD Collected: 04/11/2024 [...] every slide are reviewed by a supervisor payroll. Specimen processing and Primary Screening performed at: [facility] - [address] [place] [address] HPV 16 : Negative HPV 18 : [...] for patient management. HPV testing performed at: [facility] - [address] [place] [address] - Abnormal [facility] Comment on above: Performed By: #### 4 6974 #### [facility] [address] [place] [address] Dain Ravi M.D. [id number] Thyroid Stim Hormone (TSH)on 03-28-2024 TSH 6.040 uIU/mL High 0.358-3.740 [facility] Comment on above: Performed By: #### L 501.9520 #### [facility] [address] [place], [address] TSH DL <= 0.005 mIU/L Qnon 0 03-20-2023 TSH Qn 1.96 m[IU]/L [facility] Thyroid Stimulating Hormoneo n 03-20-2023 TSH 1.96 uIU/mL Normal 0.32-5.[address] [facility] Comment on above: Performed By: #### T SH #### [facility] (DEFAULT) [address] [place], [place] [address] THYROIDon 02-08-2023 [facility] Patient: JIE HUMPHREYS [address] [place] [address] Admit Date: 02/08/23 /Age: 7 1965 ED Physician: DIAGNOSTIC RADIOLOGY REQUISITION Attending Physician: Casi Cortez CNP Med Rec #: [id number] EXAM: US THYROID HISTORY: BTEO'S COMPARISON: None. FINDINGS: Right lobe: 4.7 x 1.5 x 1.5 cm. Isthmus: 5 mm. Left lobe: 4.1 x 1.5 x 1.4 cm. The gland is heterogeneous in echotexture with normal color Doppler flow. 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 No mass. IMPRESSION: Consistent with Beto's thyroiditis. No acute change. Authenticated on: 02/08/23 1243 [id number]/GORDY [id number] [id number] Job ID# [id number] CC: Casi Cortez CNP Normal [facility] TSH DL <= 0.005 mIU/L Qnon 0 02-06-2023 Interpretation and review of laboratory results Abnormal [facility] TSH Qn 11.50 m[IU]/L High [facility] Thyroid Peroxidase (TPO) Abo n 02-06-2023 Thyroid Peroxidase (TPO) Ab THYROID PEROXIDASE ANTIBODIES: 115.9 Units: IU/mL Ref Range: 0.0-9.0 Status: H Testing Performed At: [facility] Laboratory Services [facility] [place] [address] Assay performed by [employer] DXI Immunoassay. Normal [facility] Comment on above: Performed By: #### T PAB #### [facility] (DEFAULT) [address] [place] [address] Thyroid Stimulating Hormoneo n 02-06-2023 TSH 11.50 uIU/mL High 0.32-5.00 [facility] Comment on above: Performed By: #### T SH #### [facility] (DEFAULT) [address] [place] [address] 3D MAMMO B/L SCREENINGon 3D MAMMO B/L SCREENING [facility] Patient: JIE HUMPHREYS [address] [place] [address]. [place] [address] Admit Date: 12/16/22 /Age: 7 1965 Attending Physician: Self Requesting DIAGNOSTIC RADIOLOGY REQUISITION Med Rec #: [id number] HISTORY: Screening. TECHNIQUE: Bilateral digital screening mammogram [...] regarding the results. Authenticated on: 12/19/22 1635 [id number]/MOOIA [id number] Job ID# [id number] CC: Casi Cortez CNP Self Requesting Normal [facility] M TUBERCULOSIS BY QUANTIFAmol CHANEY 10-11-2022 M. TB Mitogen-Nil 9.98 IU/mL Normal [facility] Comment on above: Order Comment: The M . Tuberculosis antigen levels cannot be correlated to stage or degree of infection, response to therapy or likelihood for progression to active disease. Results from QuantiFERON TB Gold Plus must be used in conjunction with individual epidemiological history, current medical status, and results of other diagnostic evaluation. Performed By: #### Q FTB #### [facility] (DEFAULT) [address] [address] M. TB Nil 0.02 IU/mL Normal [facility] Comment on above: Order Comment: The M . Tuberculosis antigen levels cannot be correlated to stage or degree of infection, response to therapy or likelihood for progression to active disease. Results from QuantiFERON TB Gold Plus must be used in conjunction with individual epidemiological history, current medical status, and results of other diagnostic evaluation. Performed By: #### Q FTB #### [facility] (DEFAULT) [address] [address] M. TB TB1-Nil 0.01 IU/mL Normal [facility] Comment on above: Order Comment: The M . Tuberculosis antigen levels cannot be correlated to stage or degree of infection, response to therapy or likelihood for progression to active disease. Results from QuantiFERON TB Gold Plus must be used in conjunction with individual epidemiological history, current medical status, and results of other diagnostic evaluation. Performed By: #### Q FTB #### [facility] (DEFAULT) [address] [address] M. TB TB2-Nil 0.00 IU/mL Normal [facility] Comment on above: Order Comment: The M . Tuberculosis antigen levels cannot be correlated to stage or degree of infection, response to therapy or likelihood for progression to active disease. Results from QuantiFERON TB Gold Plus must be used in conjunction with individual epidemiological history, current medical status, and results of other diagnostic evaluation. Performed By: #### Q FTB #### [facility] (DEFAULT) [address] [address] M. Tuberculosis by Quantiferon in tube Negative Normal Negative [facility] Comment on above: Order Comment: The M . Tuberculosis antigen levels cannot be correlated to stage or degree of infection, response to therapy or likelihood for progression to active disease. Results from QuantiFERON TB Gold Plus must be used in conjunction with individual epidemiological history, current medical status, and results of other diagnostic evaluation. Performed By: #### Q FTB #### [facility] (DEFAULT) [address] [place] [address] HIP ARTHROGRAMon 08-24-2022 HIP ARTHROGRAM [facility] Patient: JIE HUMPHREYS [address] [place] [address] Admit Date: 08/24/22 /Age: 05 1965 / 08/24/22 ED Physician: DIAGNOSTIC RADIOLOGY REQUISITION Attending Physician: Jeana Camacho MD Med Rec #: [id number] EXAMINATION: HIP ARTHROGRAM HISTORY: HIP INJECTION. Left [...] for pain control. Authenticated on: 08/24/22 1439 [id number] Job ID# [id number] CC: MD Casi Rose, [facility] HIP LT MIN 2V W OR WO PELVIS on 08-17-2022 HIP LT MIN 2V W OR WO PELVIS [facility] Patient: [address] [place] [address] Admit Date: 08/17/22 /Age: 05 1965 ED Physician: DIAGNOSTIC RADIOLOGY REQUISITION Attending Physician: Jeana Camacho MD Med Rec #: [id number] EXAM: HIP LT MIN 2V W OR WO PELVIS HISTORY: ARTHRITIS COMPARISON: 03/17/2021 FINDINGS/IMPRESSION: 1. Moderate osteoarthritic changes are similar. Osteophytes on the superior lateral acetabulum, left greater than right unchanged. 2. Femoral heads remain rounded. 3. No fracture. 4. Mild degenerative change left SI joint. Authenticated on: 08/17/22 1343 [id number] Job ID# [id number] CC: MD Casi Rose CNP [facility] NOVEL CORONAVIRUSon 06-03-20 PERFORMED BY [facility] Comment on above: Performed By: #### C COVID #### Testing performed at [address] [address] SARS-CoV-2 (COVID-19) RNA LORRIE+probe Ql (Unsp spec) Not detected Normal NOT DETECTED [facility] Comment on above: Result Comment: Nega [...] #### C COVID #### Testing performed at [facility] [address] [facility] [place] [address] NARRATIVE This test was performed using isothermal LORRIE and has been approved as Emergency Use Authorization (EUA) for the qualitative detection lxUFLC-BnC-6 nucleic acid. Normal [facility] Comment on above: Performed By: #### C COVID #### Testing performed at [address] [place] [address] HCV [facility] 11-[facility]-2017 HEP C VIRUS AB <0.1 Normal 0.0-0.9 [facility] Comment on above: Result Comment: (NOT E) Negative: < 0.8 Indeterminate: 0.8 - 0.9 Positive: > 0.9The [facility] recommends that a positive HCV antibody resultbe followed up with a HCV Nucleic Acid Amplificationtest (333414).PERFORMED AT [facility] Performed By: #### L HBSAB, LHCAB, LMMR ####Testing performed at [facility], [address] [email or web address] [address] HEP B SURFACE ABon 8 BSA (Body Surface Area) Reactive Normal [facility] Comment on above: Result Comment: (NOT E) Non Reactive: Inconsistent with immunity, less than 10 mIU/mL Reactive: Consistent with immunity, greater than 9.9 mIU/mLPERFORMED AT [facility] Performed By: #### L HBSAB, LHCAB, LMMR ####Testing performed at [facility], [address] [place] [address] MEASLES,MUMP,RUBELLAon 11-15 MUMPS ABS, IGG 173.0 AU/mL Normal Immune >10.9 [facility] Comment on above: Result Comment: (NOT E) Negative <9.0 Equivocal 9.0 - 10.9 Positive >10.9A positive result generally indicates past exposure toMumps virus or previous vaccination.PERFORMED AT [facility] Performed By: #### L HBSAB, LHCAB, LMMR ####Testing performed at [address] [place] [address] RUBEOLA AB, IGG 164.0 AU/mL Normal Immune >29.9 [facility] Comment on above: Result Comment: (NOT E) Negative <25.0 Equivocal 25.0 - 29.9 Positive >29.9Presence of antibodies to Rubeola is presumptive evidenceof immunity except when acute infection is suspected. Performed By: #### L HBSAB, LHCAB, LMMR ####Testing performed at [address] [place] [address] RUBELLA AB, IGG 24.80 index Normal Immune >0.99 [facility] Comment on above: Result Comment: (NOT E) Non-immune <0.90 Equivocal 0.90 - 0.99 Immune >0.99 Performed By: #### L HBSAB, LHCAB, LMMR ####Testing performed at [facility], [address] [place] [address] FAX REQUESTon 11-14-2017 FAX TO [facility] Comment on above: Performed By: #### L HBSAB, LHCAB, LMMR ####Testing performed at [facility], [address] [place] [address] MAMMOGRAM SCREENING BI INCL CADon 09-21-2017 MAMMOGRAM SCREENING BI INCL CAD PROCEDURE: MAMMOGRAM SCREENING BI INCL CAD, MAMMOGRAM TOMOSYNTHESIS BREASTBILATERAL SCREENING, 09/20/2017 10:55 AMCLINICAL INDICATIONS: Encounter for screening mammogram for malignant neoplasmof breast. STATED CLINICAL CONCERNS: None.STATED FAMILY HISTORY OF BREAST CANCER: Maternal grandmother. COMPARISON: 11/23/2016, 11/13/2015, 11/05/2014, 10/30/2013, 10/17/2012 from [place].TECHNIQUE: Digital screening bilateral mammography with computer-aideddetectio n [...] to the patient regarding the results. Normal [facility] MAMMOGRAM TOMOSYNTHESIS ASH[address] ST BILATERAL SCREENINGon 09-21-2017 Bilirubin (total) PROCEDURE: MAMMOGRAM SCREENING BI INCL CAD, MAMMOGRAM TOMOSYNTHESIS BREASTBILATERAL SCREENING, 09/20/2017 10:55 AMCLINICAL INDICATIONS: Encounter for screening mammogram for malignant neoplasmof breast. STATED CLINICAL CONCERNS: None.STATED FAMILY HISTORY OF BREAST CANCER: Maternal grandmother. COMPARISON: 11/23/2016, 11/13/2015, 11/05/2014, 10/30/2013, 10/17/2012 from [place].TECHNIQUE: Digital screening bilateral mammography with computer-aideddetectio n [...] to the patient regarding the results. Normal [facility] THIN PREP with HPVon [id number] . Normal [facility] Comment on above: Result Comment: Perf ormed at: WB Performed By: #### T PH ####Performed for [place] [address] [address] [place], [place] [address]-4 Negative Normal Negative [facility] Comment on above: Result Comment: This test detects fourteen high-risk HPV types (16/18/31/33/35/39/45/51/52/56/58/59/66/68) without differentiation.Performed at: =G Performed By: #### T PH ####Performed for [place] [address] [place] [address] Tow [employer] Operator (cervix/vaginal) Comment Normal [facility] Comment on above: Result Comment: Pema Sanchez, Supervisory Journalism Teacher (ASCP)Performed at: [facility] Performed By: #### T PH ####Performed for [place] [address] Cytology report (cervical/vaginal) Comment Normal [facility] Comment on above: Result Comment: This liquid based ThinPrep(R) pap test was screened with theuse of an image guided system.Performed at: [facility] Performed By: #### T PH ####Performed for [place] [address] Note: Comment Normal [facility] Comment on above: Result Comment: The Pap smear is a screening test designed to aid in the detection ofpremalignant and malignant conditions of the uterine cervix. It is not adiagnostic procedure and should not be used as the sole means of detectingcervical cancer. Both false-positive and false-negative reports do occur. .Performed at: [facility] Performed By: #### T PH ####Performed for [place] [address] Pathology narrative Comment Normal [facility] Comment on above: Result Comment: NEGA TIVE FOR INTRAEPITHELIAL LESION AND MALIGNANCY.CELLULAR CHANGES ASSOCIATED WITH INFLAMMATION ARE PRESENT.Performed at: [facility] Performed By: #### T PH ####Performed for [place] [address] Statement of adequacy (cervix/vaginal) Comment Normal [facility] Comment on above: Result Comment: Sati sfactory for evaluation. Endocervical and/or squamous metaplasticcells (endocervical component) are present.Performed at: [facility] Performed By: #### T PH ####Performed for [place] [address] Vital Signs Date Time Vital Sign Value Performing Clinician Facility 12-20-2024 13:30-0400 Diastolic blood pressure 89 mm[Hg] Dr. Gerardo Manuel DO Work Phone: [facility] 12-20-2024 13:30-0400 Heart rate 54 /min Dr. Gerardo Manuel DO Work Phone: [facility] 12-20-2024 13:30-0400 Respiratory rate 16 /min Dr. Gerardo Manuel DO Work Phone: [facility] 12-20-2024 13:30-0400 SaO2% (BldA) [Mass fraction] 97 % Dr. Gerardo Manuel DO Work Phone: [facility] 12-20-2024 13:30-0400 Systolic blood pressure 149 mm[Hg] Dr. Gerardo Manuel DO Work Phone: [phone] [address] 12-20-2024 13:08-0400 Body height 185.[address] Gerardo Manuel DO Work Phone: 5(896)[phone] [place] [address] 12-20-2024 13:08-0400 Body mass index (BMI) [Ratio] 30.3 kg/m2 Dr. Gerardo Manuel DO Work Phone: [phone])[phone] [place] [address] 12-20-2024 13:08-0400 Body weight 104.[address] Gerardo Manuel DO Work Phone: 7(421)[phone] [place] [address] 11-12-2024 13:46-0400 Body mass index (BMI) [Ratio] 30.2 kg/m2 Dr. Gerardo Manuel DO Work Phone: 2(704)[phone] [place] [address] 11-12-2024 13:46-0400 Body weight 103.[address] Gerardo Manuel DO Work Phone: [facility] 11-12-2024 13:46-0400 Diastolic blood pressure 92 mm[Hg] Dr. Gerardo Manuel DO Work Phone: 7(508)[phone] [place] [address] 11-12-2024 13:46-0400 Heart rate 70 /min Dr. Gerardo Manuel DO Work Phone: [facility] 11-12-2024 13:46-0400 Respiratory rate 16 /min Dr. Gerardo Manuel DO Work Phone: [facility] 11-12-2024 13:46-0400 SaO2% (BldA) [Mass fraction] 96 % Dr. Gerardo Manuel DO Work Phone: [facility] 11-12-2024 13:46-0400 Systolic blood pressure 138 mm[Hg] Dr. Gerardo Manuel DO Work Phone: [facility] 09-26-2024 10:09-0500 Diastolic blood pressure 90 mm[Hg] LORRI GAREE Work Phone: [facility] 09-26-2024 10:09-0500 Systolic blood pressure 130 mm[Hg] LORRI GAREE Work Phone: [facility] 09-26-2024 10:04-0500 Body height 185.42 cm LORRI GAREE Work Phone: [facility] 09-26-2024 10:04-0500 Body mass index (BMI) [Ratio] 29.7 kg/m2 LORRI GAREE Work Phone: [facility] 09-26-2024 10:04-0500 Body temperature 97.6 [degF] LORRI GAREE Work Phone: [facility] 09-26-2024 10:04-0500 Body weight 102.05 kg LORRI GAREE Work Phone: [facility] 09-26-2024 10:04-0500 Heart rate 70 /min LORRI GAREE Work Phone: [facility] 09-26-2024 10:04-0500 Respiratory rate 18 /min LORRI GAREE Work Phone: [facility] 09-26-2024 10:04-0500 SaO2% (BldA) [Mass fraction] 96 % LORRI GAREE Work Phone: [facility] 09-23-2024 09:35-0500 Body temperature 98.5 [degF] LORRI GAREE Work Phone: [facility] 09-23-2024 09:35-0500 Diastolic blood pressure 86 mm[Hg] LORRI GAREE Work Phone: [facility] 09-23-2024 09:35-0500 Heart rate 60 /min LORRI GAREE Work Phone: [facility] 09-23-2024 09:35-0500 Respiratory rate 16 /min LORRI GAREE Work Phone: [facility] 09-23-2024 09:35-0500 SaO2% (BldA) [Mass fraction] 98 % LORRI GAREE Work Phone: [facility] 09-23-2024 09:35-0500 Systolic blood pressure 127 mm[Hg] LORRI GAREE Work Phone: [facility] 09-23-2024 07:54-0500 Body mass index (BMI) [Ratio] 29.6 kg/m2 LORRI GAREE Work Phone: [facility] 09-23-2024 07:54-0500 Body weight 102 kg LORRI GAREE Work Phone: [facility] 07-22-2024 09:08-0500 Body mass index (BMI) [Ratio] 29.7 kg/m2 LORRI GAREE Work Phone: [facility] 07-22-2024 09:08-0500 Body weight 102.05 kg LORRI GAREE Work Phone: [facility] 02-27-2024 07:58-0400 Body height 185.4 cm Casi Cortez DIRECTOR PROCESS Work Phone: [facility] 02-27-2024 07:58-0400 Body mass index (BMI) [Ratio] 30.08 kg/m2 Casi Cortez DIRECTOR PROCESS Work Phone: [facility] 02-27-2024 07:58-0400 Body weight 103.42 kg Casi Cortez DIRECTOR PROCESS Work Phone: [facility] 02-27-2024 07:58-0400 Diastolic blood pressure 86 mm[Hg] Casi Cortez DIRECTOR PROCESS Work Phone: [facility] 02-27-2024 07:58-0400 Heart rate 77 /min Casi Cortez DIRECTOR PROCESS Work Phone: [facility] 02-27-2024 07:58-0400 SaO2% (BldA) [Mass fraction] 98 % Casi Cortez DIRECTOR PROCESS Work Phone: [facility] 02-27-2024 07:58-0400 Systolic blood pressure 126 mm[Hg] Casi Cortez DIRECTOR PROCESS Work Phone: [facility] 10-16-2023 08:36-0400 Diastolic blood pressure 82 mm[Hg] Casi Cortez DIRECTOR PROCESS Work Phone: [facility] 10-16-2023 08:36-0400 Systolic blood pressure 138 mm[Hg] Casi Cortez DIRECTOR PROCESS Work Phone: [facility] 10-16-2023 08:15-0400 Body height 185.4 cm Casi Cortez DIRECTOR PROCESS Work Phone: [facility] 10-16-2023 08:15-0400 Body mass index (BMI) [Ratio] 30.74 kg/m2 Casi Cortez DIRECTOR PROCESS Work Phone: [facility] 10-16-2023 08:15-0400 Body weight 105.69 kg Casi Cortez DIRECTOR PROCESS Work Phone: [facility] 10-16-2023 08:15-0400 Heart rate 69 /min Casi Cortez DIRECTOR PROCESS Work Phone: [facility] 10-16-2023 08:15-0400 SaO2% (BldA) [Mass fraction] 96 % Casi Cortez DIRECTOR PROCESS Work Phone: [facility] 02-06-2023 07:36-0400 Body height 185.4 cm Casi Cortez DIRECTOR PROCESS Work Phone: [facility] 02-06-2023 07:36-0400 Body mass index (BMI) [Ratio] 30.03 kg/m2 Casi Cortez DIRECTOR PROCESS Work Phone: [facility] 02-06-2023 07:36-0400 Body temperature 98.4 [degF] Casi Cortez DIRECTOR PROCESS Work Phone: [facility] 02-06-2023 07:36-0400 Body weight 103.24 kg Casi Cortez DIRECTOR PROCESS Work Phone: [facility] 02-06-2023 07:36-0400 Diastolic blood pressure 88 mm[Hg] Casi Cortez DIRECTOR PROCESS Work Phone: [facility] 02-06-2023 07:36-0400 Heart rate 81 /min Casi Cortez DIRECTOR PROCESS Work Phone: [facility] 02-06-2023 07:36-0400 Respiratory rate 15 /min Casi Cortez DIRECTOR PROCESS Work Phone: [facility] 02-06-2023 07:36-0400 SaO2% (BldA) [Mass fraction] 95 % Casi Cortez DIRECTOR PROCESS Work Phone: [facility] 02-06-2023 07:36-0400 Systolic blood pressure 139 mm[Hg] Casi Cortez DIRECTOR PROCESS Work Phone: [facility] 03-17-2021 13:47-0400 Body height 185.4 cm Noris Camacho MD Work Phone: [facility] 03-17-2021 13:47-0400 Body mass index (BMI) [Ratio] 30.21 kg/m2 Noris Camacho MD Work Phone: [facility] 03-17-2021 13:47-0400 Body weight 103.87 kg Noris Camacho MD Work Phone: [facility] 03-17-2021 13:47-0400 Respiratory rate 18 /min Noris Camacho MD Work Phone: [facility] 10-29-2020 14:36-0400 BMI (Body Mass Index) 29.8 kg/m2 Casi Cortez [facility] 10-29-2020 14:36-0400 Body Temperature 97.7 [degF] Casi Cortez [facility] 10-29-2020 14:36-0400 Body weight 103.87 kg Casi Cortez [facility] 10-29-2020 14:36-0400 BP Diastolic 80 mm[Hg] Casi Cortez [facility] 10-29-2020 14:36-0400 BP Systolic 120 mm[Hg] Casi Cortez [facility] 10-29-2020 14:36-0400 Height 186.7 cm Casi Cortez [facility] 10-29-2020 14:36-0400 Pulse (Heart Rate) 72 /min Casi Cortez [facility] 10-29-2020 14:36-0400 Pulse Oximetry 99 % Casi Cortez [facility] 10-29-2020 14:36-0400 Respiratory Rate 16 /min Casi Cortez [facility] 01-20-2020 13:48-0400 BMI (Body Mass Index) 28.11 kg/m2 Casi Cortez [facility] 01-20-2020 13:48-0400 Body Temperature 98.1 [degF] Casi Cortez [facility] 01-20-2020 13:48-0400 Body weight 97.98 kg Casi Cortez [facility] 01-20-2020 13:48-0400 BP Diastolic 76 mm[Hg] Casi Cortez [facility] 01-20-2020 13:48-0400 BP Systolic 124 mm[Hg] Casi Cortez [facility] 01-20-2020 13:48-0400 Height 186.7 cm Casi Cortez [facility] 01-20-2020 13:48-0400 Pulse (Heart Rate) 68 /min Casi Cortez [facility] 01-20-2020 13:48-0400 Pulse Oximetry 97 % Casi Cortez [facility] 01-20-2020 13:48-0400 Respiratory Rate 15 /min Casi Cortez [facility] 01-20-2020 13:48-0400 SaO2% (BldA) [Mass fraction] 97 % Casi Cortez [facility] Work Phone: [facility] 11-01-2018 15:00-0400 BMI (Body Mass Index) 26.96 [facility] 15:00-0400 BP Diastolic 72 mm[Hg[facility] 11-01-2018 15:00-0400 BP Systolic 138 mm[Hg] [facility] 11-01-2018 15:00-0400 Height 188 cm Bubba Silva [facility] 11-01-2018 15:00-0400 Pulse (Heart Rate) 80 /[facility] 11-01-2018 15:00-0400 Respiratory Rate 16 /[facility] 11-01-2018 15:00-0400 Weight 95.25 kg Bubba Silva [facility] Encounters Encounter Date Encounter Type Care Provider Facility Start: 02-12-2025 End: 02-12-[address] Le Crawford MD Work Phone: -Outpatient Breast Imaging Start: 02-12-2025 End: 02-12-[address] Le Crawford MD -Outpatient Breast Imaging Work Phone: Start: 02-12-2025 End: 02-12-2025 ambulatory Le Crawford Facility:[facility] Start: 01-21-2025 Non-patient / Non-visit Dr. Tristan ROSARIO [facility] Start: 01-21-2025 End: 01-21-[address] Le Crawford MD Work Phone: -Cardiovascular Services Start: 01-21-2025 End: 01-21-[address] Triston Nassar MD -Cardiovascular Services Work Phone: Start: 01-21-2025 End: 01-21-2025 ambulatory Triston Nassar Facility:[facility] Start: 12-21-2024 ambulatory Triston Nassar Facility :[facility] Start: 12-21-2024 Non-patient / Non-visit Dr. Tristan ROSARIO [facility] Start: 12-20-2024 End: 12-20-[address] Gerardo Manuel DO Work Phone: [facility] Work Phone: Start: 12-20-2024 End: 12-20-[address] Triston Nassar MD -Cat Scan [facility] Work Phone: Start: 12-20-2024 End: 12-20-2024 ambulatory Triston Nassar Facility:[facility] Start: 11-12-2024 End: 11-12-[address] Triston Nassar MD -[facility] Work Phone: Start: 11-12-2024 End: 11-12-2024 ambulatory Le Crawford Facility:[facility] Start: 10-08-2024 ambulatory Le Crawford Facility :[facility] Start: 10-08-2024 Non-patient / Non-visit Dr. Kayla Mendoza MD -[facility] Start: 10-08-2024 End: 10-08-2024 ambulatory LORRI NIELSEN Work Phone: [facility] Work Phone: Start: 10-08-2024 End: 10-08-[address] Le Crawford MD -Cardiovascular Services Work Phone: Start: 10-08-2024 End: 10-08-2024 ambulatory Le Crawford Facility:[facility] Start: 09-26-2024 End: 09-26-[address] Le Crawford MD -[facility] Work Phone: Start: 09-26-2024 End: 09-26-2024 ambulatory Le Crawford Facility:[facility] Start: 09-23-2024 ambulatory Pedro Donahue Facility :[facility] Start: 09-23-2024 Non-patient / Non-visit Pedro Hazel nd -[facility] Start: 09-23-2024 End: 09-23-2024 Admission to same day surgery center Pedro Donahue DO -Endoscopy Work Phone: Start: 09-23-2024 End: 09-23-2024 ambulatory Pedro Odin Facility:[facility] Start: 08-06-2024 End: 08-07-2024 Refill Lorri Nielsen DIRECTOR PROCESS Work Phone: [facility] Start: 07-22-2024 Non-patient / Non-visit LORRI NIELSEN Work Phone: -[facility] Work Phone: Start: 07-22-2024 ambulatory Zeny Villatoro Facility:[facility] Start: 07-11-2024 ambulatory Piper Del Toor Facility:[facility] Start: 07-09-2024 End: 07-09-2024 Orders Only Lorri Nielsen DIRECTOR PROCESS Work Phone: [facility] Comment on above: Hypothyroidism, unsp ecified type (Primary Dx) Start: 07-09-2024 End: 07-09-2024 Patient encounter procedure LORRI NIELSEN Work Phone: -Laboratory Work Phone: Start: 07-09-2024 End: 07-09-2024 ambulatory LORRI NIELSEN [facility] Ambulatory Start: 05-21-2024 ambulatory Sage Myranda Facility:[facility] Start: 05-21-2024 End: 05-21-2024 ambulatory [facility] Facility:[facility] Start: 05-12-2024 End: 01-27-2025 Documentation procedure Chuck Huertas MD Work Phone: [facility] Start: 05-08-2024 ambulatory [facility] Facility:[facility] Start: 05-02-2024 End: 05-02-2024 ambulatory [facility] Facility:[facility] Start: 04-30-2024 End: 04-30-2024 ambulatory [facility] Start: 04-30-2024 End: 04-30-2024 ambulatory [facility]A YNE[facility] Facility:[facility] Start: 04-11-2024 End: 04-17-2024 ambulatory [facility] Start: 04-04-2024 End: 04-05-2024 Transcribe Orders Chuck Huertas MD Work Phone: [facility] Comment on above: Hypothyroidism, unsp ecified type (Primary Dx) Start: 04-04-2024 ambulatory CASI CORTEZ [facility] Ambulatory Start: 03-27-2024 End: 03-28-2024 Orders Only Casi Cortez DIRECTOR PROCESS Work Phone: [facility] [place] 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; Hypothyroidism, unspecified type Start: 03-26-2024 End: 03-27-2024 Orders Only Casi Cortez DIRECTOR PROCESS Work Phone: [facility] [place] Comment on above: Hypothyroidism, unsp ecified type (Primary Dx) Start: 03-25-2024 End: 03-27-2024 Refill Casi Cortez DIRECTOR PROCESS Work Phone: [facility] [place] Comment on above: Hypothyroidism, unsp ecified type Start: 03-20-2024 End: 03-21-2024 Orders Only Casi Cortez DIRECTOR PROCESS Work Phone: [facility] [place] [facility] [place] Comment on above: Daytime sleepiness ( Primary Dx) Start: 03-05-2024 End: 03-05-2024 Orders Only Casi Cortez DIRECTOR PROCESS Work Phone: [facility] [place] [facility] [place] Comment on above: Loud snoring (Primar y Dx) Start: 03-01-2024 End: 03-01-2024 Refill Casi Cortez DIRECTOR PROCESS Work Phone: [facility] [place] [facility] [place] 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 Start: 02-27-2024 End: 02-27-2024 Refill Casi Cortez DIRECTOR PROCESS Work Phone: [facility] [place] [facility] [place] Start: 02-27-2024 End: 02-27-2024 Office outpatient visit 25 minutes Casi Cortez DIRECTOR PROCESS Work Phone: [facility] [place] [facility] [place] Comment on above: Varicose veins of freya th lower extremities with pain (Primary Dx); Hypothyroidism, unspecified type; Loud snoring Start: 02-27-2024 End: 02-27-2024 ambulatory CASI CORTEZ [facility] Start: 02-15-2024 End: 02-16-2024 Orders Only Casi Cortez DIRECTOR PROCESS Work Phone: [facility] [place] Comment on above: Hypothyroidism, unsp ecified type (Primary Dx); Beto's disease Start: 02-12-2024 ambulatory CASI CORTEZ [facility] Amb[facility] Start: 02-12-2024 Encounter for other general examination CASI CORTEZ [facility] Ambulatory Start: 01-30-2024 ambulatory CASI CORTEZ [facility] Start: 2023 Orders Only Casi Cortez DIRECTOR PROCESS Work Phone: [facility] [place] Comment on above: Menopause (Primary D x); Hypothyroidism, unspecified type; Encounter for biometric screening Start: 2023 Patient encounter status Kostas Cortez DIRECTOR PROCESS Work Phone: [facility] Start: 12-05-2023 Refill Casi Cortez DIRECTOR PROCESS Work Phone: [facility] [place] 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 Start: 10-18-2023 ambulatory CORNELL JACOME [facility] Ambulatory Start: 10-16-2023 End: 10-16-2023 Periodic preventive med est patient 40-64yrs Casi Cortez DIRECTOR PROCESS Work Phone: [facility] [place] Comment on above: Physical exam (Prima ry Dx); Encounter for screening mammogram for malignant neoplasm of breast Start: 10-16-2023 End: 10-16-2023 Physical examination Casi Cortez DIRECTOR PROCESS Work Phone: [facility] Work Phone: Start: 10-16-2023 End: 10-16-2023 ambulatory CASI CORTEZ 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 Start: 04-06-2023 Orders Only Casi Cortez DIRECTOR PROCESS Work Phone: [facility] [place] Comment on above: Poison thanh (Primary Dx) Start: 03-21-2023 Refill Casi Cortez DIRECTOR PROCESS Work Phone: [facility] [place] 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 Start: 03-20-2023 Orders Only Casi Cortez DIRECTOR PROCESS Work Phone: [facility] [place] Start: 03-20-2023 End: 03-20-2023 Orders Only Casi Cortez DIRECTOR PROCESS Work Phone: [facility] [place] 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 Start: 02-08-2023 End: 02-08-2023 ambulatory CASI CORTEZ Facility:[facility] Start: 02-07-2023 Orders Only Casi Cortez DIRECTOR PROCESS Work Phone: [facility] [place] 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) Beto's thyroidi tis (Primary Dx) Start: 02-06-2023 End: 02-06-2023 ambulatory CASI CORTEZ [facility] Start: 02-06-2023 Orders Only Casi Cortez DIRECTOR PROCESS Work Phone: [facility] [place] Start: 02-06-2023 End: 02-06-2023 ambulatory CASI CORTEZ Facility:[facility] Start: 02-06-2023 End: 02-06-2023 Periodic preventive med est patient 40-64yrs Casi Cortez DIRECTOR PROCESS Work Phone: [facility] [place] Comment on above: Elevated TSH (Primar y Dx); Hyperlipidemia, unspecified hyperlipidemia type; Single episode of elevated blood pressure; Gastroesophageal reflux disease, unspecified whether esophagitis present Start: 12-16-2022 End: 12-16-2022 ambulatory CASI CORTEZ Facility:[facility] Start: 10-11-2022 End: 10-11-2022 ambulatory [facility] Start: 10-11-2022 End: 10-11-2022 Encounter for general adult medical examination without abnormal findings [facility] Start: 08-24-2022 End: 08-24-2022 ambulatory CASI CORTEZ [facility] Start: 08-22-2022 Refill Casi Cortez DIRECTOR PROCESS Work Phone: [facility] [place] Start: 08-17-2022 End: 08-17-2022 Orders Only Noris Camacho MD Work Phone: [facility] Comment on above: Arthritis of left hi p (Primary Dx) Start: 01-10-2022 Refill Gerardo Manuel DO Work Phone: [facility] [place] Start: 09-21-2021 Orders Only Casi Cortez DIRECTOR PROCESS Work Phone: [facility] [place] Start: 09-20-2021 Refill Casi Cortez DIRECTOR PROCESS Work Phone: [facility] [place] Start: 03-25-2021 Refill Briseyda Feliz LPN [facility] [place] Start: 03-19-2021 Orders Only Noris Camacho MD Work Phone: [facility] Comment on above: Primary osteoarthrit is of left hip (Primary Dx) Start: 03-17-2021 Orders Only Noris Camacho MD Work Phone: [facility] Comment on above: Arthritis of right h ip (Primary Dx) Start: 03-17-2021 End: 03-17-2021 Office outpatient visit 10 minutes Noris Camacho MD Work Phone: [facility] Comment on above: Arthritis of right h ip (Primary Dx) Start: 03-16-2021 Orders Only Noris Camacho MD Work Phone: [facility] Comment on above: Left hip pain (Prima ry Dx) Start: 10-29-2020 End: 10-29-2020 Office outpatient visit 25 minutes Casi Cortez Work Phone: [facility] Primary [facility] Comment on above: Anxiety; Depression, unspecified depression type; Breast cancer screening by mammogram Start: 01-20-2020 End: 01-20-2020 Patient encounter procedure Casi Cortez [facility] Work Phone: [facility] Work Phone: Start: 01-20-2020 End: 01-20-2020 Initial preventive medicine new patient 40-64yrs Casi Zhou Cortez Work Phone: [facility] Comment on above: Well woman exam (Kamila xenia Dx); Abnormal uterine bleeding Start: 11-01-2018 End: 11-01-2018 Office outpatient visit 10 minutes Bubba Silva Work Phone: [facility] Comment on above: Encounter for colore ctal cancer screening (Primary Dx) Start: 11-14-2017 Ambulatory LEONORSkyler Casas [facility] Start: 09-20-2017 End: 09-21-2017 Ambulatory CASI N JESSICA Facility:[facility] Start: 08-21-2017 End: 08-22-2017 Ambulatory CASI N JESSICA Facility:[facility] Procedures Date Procedure Procedure Detail Performing Clinician Start: 02-12-2025 Screening mammography Ranulfo Crawford MD Work Phone: Start: 12-20-2024 CT angiography of co ronary arteries Dr. Gerardo Manuel DO Work Phone: Start: 11-12-2024 Evaluation of diagno stic study results Dr. Gerardo Manuel DO Work Phone: Start: 10-08-2024 Radionuclide imaging of perfusion of myocardium under exercise stress LORRI NIELSEN Work Phone: Start: 04-11-2024 Microscopic observat ion [Identifier] in Cervix by Cyto stain Lorri Nielsen DIRECTOR PROCESS Work Phone: Start: 02-12-2024 Mammography Casi Owens prateek DIRECTOR PROCESS Work Phone: Start: 03-24-2023 Microscopic observat ion [Identifier] in Cervix by Cyto stain Gerardo Ireton DO Work Phone: Start: 03-20-2023 Assay of thyroid stimulating hormone tsh Casi Cortez DIRECTOR PROCESS Work Phone: Start: 02-06-2023 Assay of thyroid stimulating hormone tsh Casi Cortez DIRECTOR PROCESS Work Phone: Start: 02-06-2023 Adult depression scr eening assessment Casi Cortez DIRECTOR PROCESS Work Phone: Start: 12-20-2022 Mammography Casi Owens prateek DIRECTOR PROCESS Work Phone: Start: 03-14-2022 Microscopic observat ion [Identifier] in Cervix by Cyto stain Casi Cortez DIRECTOR PROCESS Work Phone: Start: 11-22-2021 Mammography Gerardo Isai malin DO Work Phone: Start: 02-22-2021 Microscopic observat ion [Identifier] in Cervix by Cyto stain Casi Cortez DIRECTOR PROCESS Work Phone: Start: 11-17-2020 Mammography Noris Camacho MD Work Phone: Start: 10-29-2020 Adult depression scr eening assessment Casi Cortez Start: 01-20-2020 Adult depression scr eening assessment Casi Cortez Start: 01-20-2020 Microscopic observat ion [Identifier] in Cervix by Cyto stain Casi Dana Start: 09-02-2019 Mammography Casi Roman chandra Start: 11-21-2018 Colonoscopy Casi Owens prateek Plan of Treatment Date Care Activity Detail Author Start: 04-11-2029 Screening for malign ant neoplasm of cervix [facility] Start: 11-21-2028 Screening for malign ant neoplasm of colon [facility] Start: 08-27-2028 Tetanus vaccination Tetanus: Every 1 0yrs [facility] Start: 04-11-2027 Screening for malign ant neoplasm of cervix Pap Smear [facility] Start: 03-24-2026 Screening for malign ant neoplasm of cervix [facility] Start: 03-31-2025 Influenza vaccination Influenz a Vaccine (Season Ended) [facility] Start: 03-14-2025 Screening for malign ant neoplasm of cervix Pap Smear [facility] Start: 02-26-2025 Depression screening using PHQ-9 (Patient Health Questionnaire 9) score Depression Screening/Follow-Up (PHQ-2/9) [facility] Start: 02-11-2025 Screening for malign ant neoplasm of breast Mammogram [facility] Start: 12-20-2024 Following clinical pathway protocol [facility] Start: 10-19-2024 COVID-19 Vaccine () COVID-19 Vaccine () [facility] Comment on above: Postponed from 03/31 (Treatment Not Available) Start: 10-15-2024 History and physical examination, annual for health maintenance Wellness Visit [facility] Start: 09-23-2024 Colonoscopy flx dx w/collj spec when pfrmd DIAGNOSTIC COLONOSCOPY [facility] Start: 09-23-2024 Patient discharge [facility] Start: 05-16-2024 End: 04-04-2025 Thyrotropin [Units/volume] in Serum or Plasma TSH Lab Routine Hypothyroidism, unspecified type Expected: 05/16/2024, Expires: 04/04/2025 [facility] Work Phone: Comment on above: Expected: 05/16/2024 , Expires: 04/04/2025 Start: 03-31-2024 COVID-19 Vaccine ( season) COVID-19 Vaccine () [facility] Start: 03-31-2024 COVID-19 Vaccine () COVID-19 Vaccine ( season) [facility] Start: 03-31-2024 Influenza vaccination Influenza Vacc ine (#1) [facility] Start: 03-28-2024 End: 02-14-2025 Thyrotropin [Units/volume] in Serum or Plasma TSH Lab Routine Hypothyroidism, unspecified type Expected: 03/28/2024, Expires: 02/14/2025 [facility] Work Phone: Comment on above: Expected: 03/28/2024 , Expires: 02/14/2025 Start: 03-24-2024 History and physical examination, annual for health maintenance Wellness Visit [facility] Start: 02-23-2024 Screening for malign ant neoplasm of cervix Pap Smear [facility] Start: 02-07-2024 Depression screening using PHQ-9 (Patient Health Questionnaire 9) score [facility] Start: 02-07-2024 History and physical examination, annual for health maintenance Wellness Visit [facility] Start: 12-21-2023 Screening for malign ant neoplasm of breast Mammogram [facility] Start: 03-31-2023 COVID-19 Vaccine () COVID-19 Vaccine () [facility] Start: 03-31-2023 Influenza vaccination Sequenti al Influenza Vaccine (#1) [facility] Start: 03-21-2023 End: 02-08-2024 Thyrotropin [Units/volume] in Serum or Plasma TSH Lab Routine Beto's disease Expected: 03/21/2023, Expires: 02/08/2024 [facility] Comment on above: Expected: 03/21/2023 , Expires: 02/08/2024 Start: 03-14-2023 Screening for malign ant neoplasm of colon Fecal occult blood test (FOBT,FIT) [facility] Start: 01-19-2023 Screening for malign ant neoplasm of cervix Pap Smear [facility] Start: 11-22-2022 Screening for malign ant neoplasm of breast Mammogram [facility] Start: 03-31-2022 Influenza vaccination [facility] Start: 02-22-2022 History and physical examination, annual for health maintenance Wellness Visit [facility] Start: 11-17-2021 Screening for malign ant neoplasm of breast Mammogram [facility] Start: 10-29-2021 Adolescent depressio n screening assessment Depression Screening (PHQ9) [facility] Start: 10-29-2021 Depression screening using PHQ-9 (Patient Health Questionnaire 9) score [facility] Start: 03-31-2021 Influenza vaccination Sequenti al Influenza Vaccine (#1) [facility] Start: 03-17-2021 End: 03-17-2021 Patient encounter procedure 03/17/2021 Office Visit Orthopedic Surgery Janice, J. Rajan, MD [address] [place] [address] [facility] Start: 01-29-2021 COVID-19 Vaccine (3 - Booster for Moderna series) COVID-19 Vaccine (3 - Booster for Moderna series) [facility] Start: 01-19-2021 Depression screening using PHQ-9 (Patient Health Questionnaire 9) score Depression Screening (PHQ9) [facility] Start: 01-19-2021 History and physical examination, annual for health maintenance Wellness Visit [facility] Start: 10-27-2020 COVID-19 Vaccine (3 - Booster for Moderna series) COVID-19 Vaccine (3 - Booster for Moderna series) [facility] Start: 09-02-2020 Screening mammography Mammogram [facility] Start: 03-31-2020 Influenza vaccinatio n given Sequential Influenza Vaccine (Season Ended) [facility] Start: 04-30-2019 Screening for malign ant neoplasm of colon Fecal occult blood test (FOBT,FIT) [facility] Start: 11-15-2018 End: 11-15-2018 Scanned Document 11/15/2018 Scanned Document General Surgery Bubba Silva MD [address] [place] [address] [phone] [facility] Start: 03-31-2018 Influenza vaccinatio n given SEQUENTIAL INFLUENZA VACCINE (#1) [facility] Start: 12-05-2017 Administration of he rpes zoster vaccine Zoster Vaccines (1 of 2) [facility] Start: 12-05-2017 Pneumococcal Vaccine : Age 50+ (1 of 1 - PCV) Pneumococcal Vaccine: Age 50+ (1 of 1 - PCV) [facility] Start: 12-05-2017 Screening for malign ant neoplasm of colon [facility] Start: 12-05-1997 Screening for malign ant neoplasm of cervix HPV/Cotest [facility] Start: 12-05-1985 Hepatitis C antibody , confirmatory test Hepatitis C Screening [facility] Start: 12-05-1985 Hepatitis C screening Hepatitis C Sc reening [facility] Start: 12-05-1982 HIV screening HIV Screening [facility] Start: 1967 Protein mass conc Mammogram [facility] Start: 1967 Screening for malign ant neoplasm of cervix PAP SMEAR [facility] Start: 1967 Screening for malign ant neoplasm of colon [facility] Start: 1967 Tetanus vaccination TETANUS EVERY 10 YR [facility] End: 12-05-2024 CBC panel - Blood by Automated count CBC Lab Routine Encounter for biometric screening 1 Occurrences starting 2023 until 12/05/2024 [facility] Work Phone: Comment on above: 1 Occurrences starti ng 2023 until 12/05/2024 Colonoscopy [facility] End: 12-05-2024 Comprehensive metabolic 2000 panel - Serum or Plasma Comprehensive Metabolic Panel Lab Routine Encounter for biometric screening 1 Occurrences starting 2023 until 12/05/2024 [facility] Comment on above: 1 Occurrences starti ng 2023 until 12/05/2024 End: 12-05-2024 Lipid 1996 panel - Serum or Plasma Lipid Panel Lab Routine Encounter for biometric screening 1 Occurrences starting 2023 until 12/05/2024 [facility] Comment on above: 1 Occurrences starti ng 2023 until 12/05/2024 End: 02-07-2024 Measurement of thyroperoxidase antibody Thyroid peroxidase antibody (TPO) Lab Routine Elevated TSH 1 Occurrences starting 02/06/2023 until 02/07/2024 [facility] Comment on above: 1 Occurrences starti ng 02/06/2023 until 02/07/2024 End: 12-29-2021 MG Breast - bilateral screening Mammography Screening Bilateral Imaging Routine Breast cancer screening by mammogram 1 Occurrences starting 10/29/2020 until 12/29/2021 [facility] Comment on above: 1 Occurrences starti ng 10/29/2020 until 12/29/2021 End: 12-15-2024 MG Breast - bilateral Screening Mammography Screening [place] Bilateral Imaging Routine Encounter for screening mammogram for malignant neoplasm of breast 1 Occurrences starting 10/16/2023 until 12/15/2024 [facility] Work Phone: Comment on above: 1 Occurrences starti ng 10/16/2023 until 12/15/2024 Microscopic examinat ion of vaginal Papanicolaou smear Thinprep Pap Smear Pathology and Cytology Routine Well woman exam Ordered: 01/20/2020 [facility] Comment on above: Ordered: 01/20/2020 Patient referral [facility] Work Phone: End: 02-07-2024 Thyrotropin [Units/volume] in Serum or Plasma TSH Lab Routine Elevated TSH 1 Occurrences starting 02/06/2023 until 02/07/2024 [facility] Work Phone: Comment on above: 1 Occurrences starti ng 02/06/2023 until 02/07/2024 End: 12-05-2024 Thyrotropin [Units/volume] in Serum or Plasma TSH Lab Routine Hypothyroidism, unspecified type 1 Occurrences starting 2023 until 12/05/2024 [facility] Comment on above: 1 Occurrences starti ng 2023 until 12/05/2024 End: 02-26-2025 Thyrotropin [Units/volume] in Serum or Plasma TSH Lab Routine Hypothyroidism, unspecified type 1 Occurrences starting 02/27/2024 until 02/26/2025 [facility] Work Phone: Comment on above: 1 Occurrences starti ng 02/27/2024 until 02/26/2025 End: 03-26-2025 Thyrotropin [Units/volume] in Serum or Plasma TSH Lab Routine Hypothyroidism, unspecified type 1 Occurrences starting 03/26/2024 until 03/26/2025 [facility] Work Phone: Comment on above: 1 Occurrences starti ng 03/26/2024 until 03/26/2025 End: 01-19-2021 Transvaginal ultrasonography of pelvis US Transvaginal Imaging Routine Abnormal uterine bleeding 1 Occurrences starting 01/20/2020 until 01/19/2021 [facility] Comment on above: 1 Occurrences starti ng 01/20/2020 until 01/19/2021 US Heart [facility] End: 02-08-2024 US Thyroid Only [facility] Work Phone: Comment on above: 1 Occurrences starti ng 02/07/2023 until 02/08/2024 1 Occurrences starti ng 02/08/2023 until 02/08/2024 End: 12-05-2024 Vitamin D, 25-hydroxy measurement Vitamin D, Total, 25-OH Lab Routine Menopause 1 Occurrences starting 2023 until 12/05/2024 [facility] Comment on above: 1 Occurrences starti ng 2023 until 12/05/2024 End: 03-19-2022 XR Aspiration Injection Large Joint Left XR Aspiration Injection Large Joint Left Imaging Routine Primary osteoarthritis of left hip 1 Occurrences starting 03/19/2021 until 03/19/2022 [facility] Work Phone: Comment on above: 1 Occurrences starti ng 03/19/2021 until 03/19/2022 End: 08-17-2023 XR Aspiration Injection Large Joint Left XR Aspiration Injection Large Joint Left Imaging Routine Arthritis of left hip 1 Occurrences starting 08/17/2022 until 08/17/2023 [facility] Work Phone: Comment on above: 1 Occurrences starti ng 08/17/2022 until 08/17/2023 End: 03-17-2022 XR Aspiration Injection Large Joint Right XR Aspiration Injection Large Joint Right Imaging Routine Arthritis of right hip 1 Occurrences starting 03/17/2021 until 03/17/2022 [facility] Work Phone: Comment on above: 1 Occurrences starti ng 03/17/2021 until 03/17/2022 End: 08-17-2023 XR Hip Left 2-3 Views (Routine) XR Hip Left 2-3 Views (Routine) Imaging Routine Arthritis of left hip 1 Occurrences starting 08/17/2022 until 08/17/2023 [facility] Work Phone: Comment on above: 1 Occurrences starti ng 08/17/2022 until 08/17/2023 End: 03-16-2022 XR Hip Left With Pelvis 2-3 Views (Routine) XR Hip Left With Pelvis 2-3 Views (Routine) Imaging Routine Left hip pain 1 Occurrences starting 03/16/2021 until 03/16/2022 [facility] Work Phone: Comment on above: 1 Occurrences starti ng 03/16/2021 until 03/16/2022 End: 08-17-2023 XR Pelvis 1 View (Standard) XR Pelvis 1 View (Standard) Imaging Routine Arthritis of left hip 1 Occurrences starting 08/17/2022 until 08/17/2023 [facility] Work Phone: Comment on above: 1 Occurrences starti ng 08/17/2022 until 08/17/2023 Immunizations Immunization Date Immunization Notes Care Provider Jayden jordan 04-25-2024 influenza, seasonal, injectable, preservative free LORRI GAREE Work Phone: [facility] 06-07-2023 influenza, injectabl e, quadrivalent, preservative free Casi Cortez DIRECTOR PROCESS Work Phone: [facility] 06-07-2023 influenza virus vaccine, unspecified formulation Casi Cortez DIRECTOR PROCESS Work Phone: [facility] 05-28-2022 Covid Pfizer Bivalen t Booster LORRI GAREE Work Phone: [facility] 04-26-2022 influenza, injectabl e, quadrivalent, preservative free Casi Cortez DIRECTOR PROCESS Work Phone: [facility] 07-02-2021 Pfizer SARS-CoV-2 Vaccination Casi Cortez DIRECTOR PROCESS Work Phone: [facility] 05-13-2021 influenza, injectabl e, quadrivalent, preservative free Casi Cortez DIRECTOR PROCESS Work Phone: [facility] 10-09-2020 zoster vaccine recombinant Casi [facility] 09-01-2020 Moderna SARS-CoV-2 Vaccination Casi [facility] 08-03-2020 Moderna SARS-CoV-2 Vaccination Casi [facility] 06-22-2020 zoster vaccine recombinant Casi [facility] 04-21-2020 influenza, injectabl e, quadrivalent, preservative free Casi [facility] 04-16-2019 influenza, injectabl e, quadrivalent, preservative free LORRI GAREE Work Phone: [facility] 04-16-2019 influenza, seasonal, injectable Casi [facility] 08-27-2018 tetanus toxoid, redu ashley diphtheria toxoid, and acellular pertussis vaccine, adsorbed Casi [facility] 04-30-2017 influenza virus vaccine, whole virus Casi [facility] 04-30-2017 influenza, injectabl e, quadrivalent, preservative free LORRI GAREE Work Phone: [facility] 05-30-2009 novel [id number], preservative-free, injectable Casi Cortez [facility] Payers Date Payer Category Payer Self-pay 2023 Managed Care (privat e) or private health insurance (indemnity), not otherwise specified SHE AETNA [id number] 2023 Private Health Insurance ELLY SANABRIA [id number] 2023-Present [phone] [address] [place] [address] [id number] .[id number] 2023 Private Health Insurance [id number] 2018 Managed Care PPO (unspecified) MED MUTUAL SUPERMED PPO [id number] 2018 Unknown MMO MED MUTUAL S UPERMED PPO xxxxxxxxxxxx 2018-Present [id number] .[id number] 2018 Unknown [id number] 1.2.840.153027.1.13.385.2 .7.3.051150.315 2018 Unknown MMO MED MUTUAL S UPERMED PPO [id number] 2018-Present [phone] [address] [place] [address] 1.2.840.631036.1.13.385.2 .7.3.007390.315 2018 Unknown [id number] 1965 Unknown [id number] 2.840.1.152431.3.579.2 1965 Unknown [id number] 2.840.1.327964.3.579.2 1967 Unknown [id number] 2.840.1.296529.3.579.2 1967 Unknown [id number] 2.840.1.074924.3.579.2 1967 Unknown [id number] 2.840.1.785038.3.579.2 1967 Unknown [id number] 2.0.1.295368.3.579.2 1967 Unknown [id number] 2.840.1.904209.3.579.2 1967 Unknown [id number] 2.16840.1.949279.3.579.2 1967 Unknown [id number] 2.16840.1.856305.3.579.2 .1967 Unknown [id number] 2.16840.1.159063.3.579.2 1967 Unknown [id number] 2.16.840.1.850293.3.579.2 .903 1959 Unknown [id number] Unknown [id number] Unknown [id number] 2.16.840.1.162960.3.579.2 .383 Unknown [id number] 2.16.840.1.824608.3.579.2 .383 Unknown [id number] 2.16.840.1.557768.3.579.2 .383 Unknown [id number] 2.16.840.1.604306.3.579.2 .383 Unknown [id number] 2..840.1.681736.3.579.2 .383 Unknown [id number] 2..840.1.083802.3.579.2 .383 Unknown [id number] 2..840.1.131531.3.579.2 .462 Unknown [id number] 2.840.1.129626.3.579.2 .462 Unknown [id number] 2.840.1.619584.3.579.2 .462 Unknown [id number] 2..840.1.847049.3.579.2 .462 Unknown [id number] 2..840.1.764262.3.579.2 .462 Unknown [id number] 2..840.1.581231.3.579.2 .462 Unknown [id number] ..840.1.635405.3.579.2 .462 Unknown [id number] 2..840.1.876184.3.579.2 .462 Unknown [id number] 2..840.1.490593.3.579.2 .462 Unknown [id number] 2.16.840.1.613435.3.579.2 .462 Unknown [id number] 2.16.840.1.058075.3.579.2 .462 Unknown [id number] 2..840.1.753966.3.579.2 .462 Unknown [id number] 2.16.840.1.755873.3.579.2 .462 Unknown [id number] 2.16.840.1.628705.3.579.2 .462 Unknown [id number] 2.16.840.1.740747.3.579.2 .462 Unknown [id number] 2.16.840.1.677523.3.579.2 .462 Unknown [id number] 2.16.840.1.743589.3.579.2 .462 Unknown [id number] 2.16.840.1.267400.3.579.2 .462 Unknown [id number] 2.16.840.1.514308.3.579.2 .462 Unknown [id number] 2.16.840.1.552995.3.579.2 .462 Unknown [id number] 2.16.840.1.564552.3.579.2 .462 Social History Date Type Detail Facility Start: 11-01-2018 End: 09-26-2024 Tobacco smoking status GAIS Never smoker [facility] Start: 11-01-2018 History SDOH Alcohol Frequency 1 [facility] Start: 1965 Sex Assigned At Not on file [facility] Start: 01-20-2020 End: 02-27-2024 Alcohol intake Current drinker of alcohol (finding) [facility] Start: 01-20-2020 End: 10-29-2020 History SDOH Alcohol Frequency 2 [facility] Start: 01-20-2020 End: 10-29-2020 History SDOH Physical Activity DPW 4 [facility] Start: 01-20-2020 End: 10-29-2020 History SDOH Physical Activity MPS 6 [facility] Start: 01-20-2020 End: 10-29-2020 History SDOH Stress 3 [facility] Start: 01-20-2020 End: 10-29-2020 History SDOH Financial 5 [facility] Start: 12-21-2019 End: 01-20-2020 Exposure to SARS-CoV-2 (event) Not sure [facility] Start: 10-29-2020 End: 02-06-2023 Tobacco use and exposure Never used [facility] Start: 10-29-2020 History SDOH Social Connections Restoration 99 [facility] Start: 11-01-2018 End: 02-27-2024 Cigarette pack-years [facility] Start: 10-29-2020 End: 02-27-2024 Humiliation, Afraid, Rape, and Kick questionnaire [HARK] [facility] Within the last year , have you been afraid of your partner or ex-partner? No [facility] How often do you att end evangelical or restorationist services? Not asked [facility] How often to you hav e a drink containing alcohol? Monthly or less [facility] How hard is it for y ou to pay for the very basics like food, housing, medical care, and heating Not very hard [facility] Do you feel stress - tense, restless, nervous, or anxious, or unable to sleep at night because your mind is troubled all the time - these days [OSQ] To some extent [facility] (I/We) worried wheth er (my/our) food would run out before (I/we) got money to buy more. Never true [facility] Start: 01-20-2020 Gender identity Identifies as female gender (finding) [facility] Start: 01-20-2020 Sexual orientation Heterosexual (finding) [facility] Start: 10-16-2024 Sex Female (finding) [facility] Start: 1965 Sex Assigned At Female [facility] Goals Date Patient Goal Desired Activity /State Functional Status Date Assessment Result Facility [facility] Mental Status Date Assessment Result Facility 12-20-2024 Cognitive function Level Of Cons ciousness Awake;Alert;Appropriate [facility] Work Phone: 09-23-2024 Cognitive function Voice/Name [facility] Work Phone: Clinical Notes 01-20-2020 to 12-24-2024 Note Date & Type Note Facility 12-24-2024 Radiology Diagnostic study note [facility] Imaging Services [address] [place], [place] [address] Limited Chest CT Cardiac Only MR#: [id number] Acct: [id number] Name: JIE HUMPHREYS Rep #: [id number] : 1965 F 59 From: Siddhartha Christianson MD PCP: Dr. Le Crawford MD Status: REG CLI Study:Limited Chest CT Cardiac Only Date of E xam: 12/20/24 Exam# [id number] Ordering Dr: Drew Nassar MD PROCEDURE: LIMITED [...] calcification (CAC) is is absent Reading Location: [facility] CC: Dr. Le Crawford MD; Dr. 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 Imaging Services [address] [place] [address] 12/21/24 1112 MR#: [id number] Acct: [id number] Name: JIE HUMPHREYS Rep #:[id number] : 1965 59 From: Ryan Parikh [...] Signature (if applicable): Date ___ CC: Dr. eL Crawford MD; Dr. Ryan Parikh MD; Dr. Triston Nassar MD ~ Signed [facility] Work Phone: 11-12-2024 Evaluation note Diagnosis Onset Date Resolution Abnormal stress test acute Apri l 2024 1:42pm Acquired hypothyroidism acute A pril 2024 1:42pm Elevated blood pressure reading acute November 12, 2024 1:42pm [facility] Work Phone: 1(705) 704-800702-24-2025 Evaluation note* Diagnosis Onset Date Resolution Status Admit Date Encounter for screening for malignant neoplasm of colon acute Febr uary 2024 7:26am Acquired hypothyroidism acute F ebruary 2024 9:52am GERD (gastroesophageal reflu x disease) acute September 26, 2 025 9:52am Elevated blood pressure reading noneactive September 26 9:52am Establishing care with new doctor, encounter for noneactive September 012024 9:52am Multiple joint pain noneactive u 2024 9:52am Mixed hyperlipidemia noneactive 2024 9:52am Chest pain in adult noneactive 2024 9:52am Vertigo noneactive September 26, 2024 9:52am Abnormal EKG noneactive August 9:52am [facility] Work Phone: 1(712) 358-455702-24-2025 Evaluation note* Diagnosis Onset Date Resolution Status Admit Date Encounter for screening for malignant neoplasm of colon acute 2024 7:26am Acquired hypothyroidism acute F ebruary 2024 9:52am GERD (gastroesophageal reflu x disease) acute September 26 9:52am Elevated blood pressure reading noneactive September 26 9:52am Establishing care with new doctor, encounter for noneactive September 012024 9:52am Multiple joint pain noneactive 2024 9:52am Mixed hyperlipidemia noneactive 2024 9:52am Chest pain in adult noneactive 2024 9:52am Vertigo noneactive September 26, 2024 9:52am Abnormal EKG noneactive August 9:52am Abnormal stress test acute Apri l 2024 1:42pm Acquired hypothyroidism acute A pril 2024 1:42pm Elevated blood pressure reading acute November 12, 2024 1:42pm [facility] Work Phone: 1(765) 478-873202-24-2025 [facility] Medical Records Department [address] [place] [address] History Physical Exam 09/23/24828 MR#: [id number] Acct: [id number] Name: JIE HUMPHREYS Rep #: [id number] : 1965 58 From: Pedro Friend DO PCP: Dr. Gerardo Manuel, DO Status[place] [place]: [facility] HPI - General General Date of Admission: 09/23/24 Date of Service: 09/23/24 Chief Complaint: Screening colonoscopy HPI Narrative JIE HUMPHREYS, is a 58 F who presents today for screening colonoscopy. She had a colonoscopy approximately 6 years ago but they were not able to get to the cecum. She did have a barium enema that was normal. [facility] Medical History Wears contact lenses Wears glasses [...] applicable): CC: Dr. Gerardo Manuel DO; Pedro Donahue, [facility] Telephone encounter Note* Telephone Encounter - Lorri Nielsen CNP - 08/06/2024 5:19 PM EST Refills sent as requested, pt needs a follow up appointment [id number] Miscellaneous Notes* Telephone Encounter - Lorri Nielsen [...] per phuong 1 yr Please send to [facility] [address] [place] [address] Follow up: Refill pending for review without additional follow up based on information above. documented in this [id number] Telephone encounter Note* Telephone Encounter - Khai [...] per phuong 1 yr Please send to [facility] [address] [place] [address] Follow up: Refill pending for review without additional follow up based on information above. [id number] NoteTSH at goal, continue current dose of levothyroxine, refills sent, needs appointment to est within next three months AUTHENTICATED BY LORRI NIELSEN, ON 07/09/2024 17:21:17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: [facility] AUTHENTICATED BY CHUCK HUERTAS, ON 01/27/2025 04:57:[address] [place] [address] 05-12-2024 History of Present illness Narrative* Chuck Huertas MD - 05/12/2024 2:56 PM EDT Home sleep apnea test 04/30/2024 Comment Recording time [...] to patient's sleep symptoms Chuck Huertas MD, ELEAZARP, LILI, VIANEY Diplomate: [place] [employer] Supervisor: [facility] documented in this [id number] NotePlease confirm with sleep lab in [place] that we will get final report and recommendation from sleep med physician. I am not as familiar with the [place] sleep lab. AUTHENTICATED BY LORRI NIELSEN, ON 05/06/2024 22:48:[address] [place] [address] 03-25-2024 Telephone encounter Note* Telephone Encounter - [...] send to [facility] [address] [place], [place] [address] Follow up: Refill pending for review without additional follow up based on information above. [id number] Miscellaneous Notes* Telephone Encounter - Anu Clay [...] send to [facility] [address] [place], [place] [address] Follow up: Refill pending for review without additional follow up based on information above. documented in this [id number] Telephone encounter Note* Telephone Encounter - Melissa Quintana MA - 02/27/2024 12:22 PM EDT Spoke with patient and let her know information. [id number] Telephone encounter Note* Telephone Encounter - Melissa Quintana MA - 02/27/2024 12:22 PM EDT ----- Message from Esther Cortez sent at 02/27/2024 9:03 AM EDT ----- Please call Pt and let her know I sent referral to vascular surgeon, Dr Gaspar at the [facility] in [place]. I sent sleep study referral to [facility]. She should get a call from both places to schedule. [id number] Miscellaneous Notes* Telephone Encounter - Melissa Quintana MA - 02/27/2024 12:22 PM EDT Spoke with patient and let her know information. * Telephone Encounter - Melissa Quintana MA - 02/27/2024 12:22 PM EDT ----- Message from Esther Cortez sent at 02/27/2024 9:03 AM EDT ----- Please call Pt and let her know I sent referral to vascular surgeon, Dr Gaspar at the [facility] in [place]. I sent sleep study referral to [facility]. She should get a call from both places to schedule. documented in this [id number] NoteSubjective Patient ID: Jie Humphreys is a [...] Orders: - Ambulatory referral to Sleep Medicine ([facility]); Future - 01/20/2020 2:00 PM 10/29/2020 [...] all AUTHENTICATED BY CASI CORTEZ, ON 02/29/2024 05:51:33[facility]07-30-[facility] History of Present illness Narrative* Casi Cortez, DIRECTOR PROCESS - 02/27/2024 8:06 AM EDT Subjective Patient [...] Orders: - Ambulatory referral to Sleep Medicine ([facility]); Future ? 01/20/2020 2:00 PM 10/29/2020 [...] Not difficult at all documented in this [id number] Telephone encounter Note* Telephone Encounter - Melissa Quintana MA - 12/05/2023 11:44 AM EDT Requested Prescriptions Pending Prescriptions Disp Refills levothyroxine (SYNTHROID, LEVOTHROID) 25 MCG tablet 90 tablet 0 Sig: Take 1 (one) tablet (25 mcg total) by mouth once daily . Karyna arreguin run [id number] Miscellaneous Notes* Telephone Encounter - Melissa Quintana MA - 12/05/2023 11:44 AM EDT Requested Prescriptions Pending Prescriptions Disp Refills levothyroxine (SYNTHROID, LEVOTHROID) 25 MCG tablet 90 tablet 0 Sig: Take 1 (one) tablet (25 mcg total) by mouth once daily . Karyna arreguin run documented in this [id number] History of Present illness Narrative* Casi Cortez CNP - 10/16/2023 8:25 AM EDT Subjective Patient [...] Franklyn Bilateral; Future ? documented in this [id number] History of Present illness Narrative* Casi Cortez [...] Not difficult at all documented in this [id number] Telephone encounter Note* Telephone Encounter - Dione Umana CMA - 08/22/2022 9:36 AM EST Requested Prescriptions Pending Prescriptions Disp Refills meclizine (ANTIVERT) 12.5 mg tablet 90 tablet 0 Sig: Take 1 (one) tablet (12.5 mg total) by mouth 3 (three) times a day as needed . [id number] Miscellaneous Notes* Telephone Encounter - Dione Umana CMA - 08/22/2022 9:36 AM EST Requested Prescriptions Pending Prescriptions Disp Refills meclizine (ANTIVERT) 12.5 mg tablet 90 tablet 0 Sig: Take 1 (one) tablet (12.5 mg total) by mouth 3 (three) times a day as needed . documented in this [id number] Telephone encounter Note* Telephone Encounter - Dione [...] (eight) hours as needed . Karyna Norton [id number] Miscellaneous Notes* Telephone Encounter - Dione Umana [...] needed . Karyna Norton documented in this [id number] Telephone encounter Note* Telephone Encounter - Dione [...] (eight) hours as needed . Karyna Norton [id number] Miscellaneous Notes* Telephone Encounter - Dione Umana [...] needed . Karyna Norton documented in this [id number] Miscellaneous Notes* Telephone Encounter - Briseyda Feliz LPN - 03/25/2021 4:50 PM EDT Requested Prescriptions Pending Prescriptions Disp Refills meloxicam (MOBIC) 15 MG tablet 90 tablet 0 Sig: Take 1 (one) tablet (15 mg total) by mouth daily . 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 You may be low in iron [...] Log into your personal health record on [email or web address] and enter I327 in the Education box to learn more about Abnormal Uterine Bleeding: Care Instructions. Current as of: September 18, 2018 Content Version: 12.3 2856-3741 [employer]. Care instructions adapted under license by your healthcare professional. If you have questions about a medical condition or this instruction, always ask your healthcare professional. [employer] disclaims any warranty or liability for your use of this information. documented in this [id number] History of Present illness Narrative* Casi Cortez [...] Objective Physical Exam Exam conducted with a associate professor of physics present. Constitutional: Appearance: Normal appearance. HENT: Right [...] exam Comments: No physical c/o other than arthritis.OB NURSE exam noted- order for transvag US given [...] hoursas needed . ? [facility] Diagnosis Left hip pain- Primary Pain in joint, pelvic region and thigh documented in this encounter [facility] note* Diagnosis Arthritis of right hip- Primary [facility] Diagnosis Arthritis of right hip- Primary [facility] Diagnosis Primary osteoarthritis of left hip- Primary [facility] [place] [facility]* Diagnosis Arthritis of left hip- Primary [facility]* Diagnosis Arthritis of left hip- Primary [facility]* Diagnosis Elevated TSH- Primary Other abnormal blood chemistry Hyperlipidemia, unspecified hyperlipidemia type Single episode of elevated blood pressure Gastroesophageal reflux disease, unspecified whether esophagitis present [facility]* Diagnosis Beto's disease- Primary Chronic lymphocytic thyroiditis [facility] Diagnosis Beto's thyroiditis- Primary Chronic lymphocytic thyroiditis [facility]* Diagnosis Beto's disease Chronic lymphocytic thyroiditis [facility]* Diagnosis Beto's disease Chronic lymphocytic thyroiditis [facility] Diagnosis Poison thanh- Primary Contact dermatitis and other eczema due to plants (except food) [facility] Diagnosis Beto's disease Chronic lymphocytic thyroiditis [facility] Diagnosis Beto's disease Chronic lymphocytic thyroiditis [facility] Diagnosis Physical exam- Primary Unspecified general medical examination Encounter for screening mammogram for malignant neoplasm of breast documented in this encounter [facility] note* Diagnosis Beto's disease Chronic lymphocytic thyroiditis documented in this encounter [facility] note* Diagnosis Menopause- Primary Symptomatic menopausal or female climacteric states Hypothyroidism, unspecified type Encounter for biometric screening documented in this encounter [facility] note* Diagnosis Hypothyroidism, unspecified type- Primary Beto's disease Chronic lymphocytic thyroiditis documented in this encounter [facility] note* Diagnosis Varicose veins of both lower extremities with pain- Primary Hypothyroidism, unspecified type Loud snoring documented in this encounter [facility] note* Diagnosis Loud snoring- Primary documented in this encounter [facility] note* Diagnosis Daytime sleepiness- Primary documented in this encounter [facility] note* Diagnosis Hypothyroidism, unspecified type- Primary documented in this encounter [facility] note* Diagnosis Hypothyroidism, unspecified type documented in this encounter [facility] note* Diagnosis Beto's disease Chronic lymphocytic thyroiditis Hypothyroidism, unspecified type documented in this encounter [facility] note* Diagnosis Hypothyroidism, unspecified type- Primary documented in this encounter [facility] note* Diagnosis Encounter for colorectal cancer screening- Primary Hypothyroidism, unspecified type- Primary documented in this encounter [facility] note* Diagnosis Encounter for colorectal cancer screening- Primary Well woman exam- Primary Routine general medical examination at a health care facility Abnormal uterine bleeding Unspecified disorder of menstruation and other abnormal bleeding from female genital tract documented in this encounter [facility] for referral (narrative)* Sleep Study w/Consultation if positive (Routine) - Authorized Specialty Diagnoses / Procedures Referred By Kim yin Referred To Contact Sleep Medicine Diagnoses Loud snoring Casi Cortez CNP [address] [place] [address] [place] [address] Sleep Medicine [address] [place] [address] Referral ID Status Reason Start Date Expiration Date V isits Requested Visits Authorized [id number] Authorized 02/27/2024 02/26/2025 1 1 * Evaluate and Treat (Routine) - Authorized Specialty Diagnoses / Procedures Referred By Contac t Referred To Contact Cardiothoracic Surgery Diagnoses Varicose veins of both lower extremities with pain Casi Cortez CNP [address] [place] [address] Segun Gaspar MD [address] [place] [address] Referral ID Status Reason Start Date Expiration Date Visits Requested Visits Authorized [id number] Authorized Specialty Services Required/Pat ient's Best Interest 02/27/2024 02/26/2025 1 1 [facility] for referral (narrative)* Sleep Study w/Consultation if positive (Routine) - Pending Review Specialty Diagnoses / Procedures Referred By Contac t Referred To Contact Sleep Medicine Diagnoses Loud snoring Casi Cortez CNP [address] [place] [address] Sleep Medicine [address] [place] [address] Referral ID Status Reason Start Date Expiration Date Visits Requested Visits Authorized [id number] Pending Review Specialty Services Required/Pat ient's Best Interest 03/05/2024 03/05/2025 1 1 [facility] for referral (narrative)No reason for referral information availableWAkron Children's Hospital Work Phone: Summary Purpose Family History No [...] FoundDocuments on File Type Date Recorded 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 No September 19, 2024 5:01pm History of Present Illness * Bubba Silva MD - 11/01/2018 3:11 PM EDT [facility] (22) [facility] [address] [place] [address] Patient Demographics: Jie Humphreys Date of : 1965 [address] [place] [address] (home) Jie Humphreys is a 52 y.o. [...] Bubba Silva MD in this encounter* Casi Cortez, [facility] - 01/20/2020 2:09 PM EDT Subjective Patient [...] Objective Physical Exam Exam conducted with a associate professor of physics present. Constitutional: Appearance: Normal appearance. HENT: Right [...] exam Comments: No physical c/o other than arthritis.OB NURSE exam noted- order for transvag US given [...] have done when time allows- employee at [employer]. Orders: - Mammography Screening Bilateral; Future ? [...] Abnormal uterine bleeding Procedures US Transvaginal Casi Cortez, DIRECTOR PROCESS [address] [place] [address] [address] Phone: [phone] Fax: [phone] Status Reason Specialty Diagnoses / Procedures Referred By Contact Referred To Contact Authorized Diagnoses Breast cancer screening by mammogram Procedures Mammography Screening Bilateral Casi Cortez, SUNDEEP [address] [place] [address] Specialty Diagnoses / Procedures Referred By Contac t Referred To Contact Radiology Diagnoses Arthritis of right hip Procedures XR Aspiration Injection Large Joint Right Noris Camacho MD [address] [place] [address] Referral ID Status Reason Start Date Expiration Date V isits Requested Visits Authorized [id number] Authorized 03/17/2021 03/17/2022 1 1 Specialty Diagnoses / Procedures Referred By Contac t Referred To Contact Radiology Diagnoses Primary osteoarthritis of left hip Procedures XR Aspiration Injection Large Joint Left Noris Camacho MD [address] [place] [address] Referral ID Status Reason Start Date Expiration Date V isits Requested Visits Authorized [id number] Authorized 03/19/2021 03/19/2022 1 1 Specialty Diagnoses / Procedures Referred By Contac t Referred To Contact Radiology Diagnoses Arthritis of left hip Procedures XR Aspiration Injection Large Joint Left Noris Camacho MD [address] [place] [address] Referral ID Status Reason Start Date Expiration Date V isits Requested Visits Authorized [id number] Pending Review 08/17/2022 08/17/2023 1 1 Specialty Diagnoses / Procedures Referred By Contac t Referred To Contact Diagnoses Beto's disease Procedures US Thyroid Only Casi Cortez, DIRECTOR PROCESS [address] [place] [address] [address] Phone: [phone] Fax: [phone] Referral ID Status Reason Start Date Expiration Date Visits Requested Visits Authorized [id number] Authorized Specialty Services Required/Pat ient's Best Interest 02/07/2023 02/07/2024 1 1 Specialty Diagnoses / Procedures Referred By Contac t Referred To Contact Diagnoses Beto's thyroiditis Procedures US Thyroid Only Casi Cortez, DIRECTOR PROCESS [address] [place] [address] [address] Phone: [phone] Fax: [phone] Referral ID Status Reason Start Date Expiration Date Visits Requested Visits Authorized [id number] Authorized Specialty Services Required/Pat ient's Best Interest 02/08/2023 02/08/2024 1 1 Specialty Diagnoses / Procedures Referred By Contac t Referred To Contact Diagnoses Encounter for screening mammogram for malignant neoplasm of breast Procedures Mammography Screening Franklyn Bilateral Casi Cortez, DIRECTOR PROCESS [address] [place] [address] Referral ID Status Reason Start Date Expiration Date V isits Requested Visits Authorized [id number] Authorized 10/16/2023 10/15/2024 1 1 Specialty Diagnoses / Procedures Referred By Contac t Referred To Contact Sleep Disorders Medicine / Sleep Medicine Diagnoses Daytime sleepiness Casi Cortez, DIRECTOR PROCESS [address] [place] [address] [facility] Sleep Medicine [address] [place] [phone] Referral ID Status Reason Start Date Expiration Date Visits Requested Visits Authorized [id number] Authorized Specialty Services Required/Pat ient's Best Interest 03/20/2024 03/20/2025 1 1 Instructions * Patient Instructions* Casi Cortez, DIRECTOR PROCESS - 01/21/2020 6:00 AM EDT Abnormal Uterine [...] your doctor if you can take an vapr-eaq-rzpbvwz medicine. You may be low in iron [...] Log into your personal health record on [email or web address] and enter I327 in the Education box to learn more about Abnormal Uterine Bleeding: Care Instructions. Current as of: September 18, 2018 Content Version: 12.3 [employer]. Care instructions adapted under license by your healthcare professional. If you have questions about a medical condition or this instruction, always ask your healthcare professional. [employer] disclaims any warranty or liability for your [...] the numbers for these national suicide hotlines: 5-170-943-TALK ( ) and 1-617-JZIFVHX ( ). If you or someone you [...] Log into your personal health record on [email or web address] and enter P754 in the Education box to learn more about Anxiety Disorder: Care Instructions. Current as of: April 22, 2020 Content Version: 12.7 [employer]. Care instructions adapted under license by your healthcare professional. If you have questions about a medical condition or this instruction, always ask your healthcare professional. [employer] disclaims any warranty or liability for your use of this information. documented in this encounter Chief Complaint and Reason for Visit Chief Complaint Admit Date Amb Documentation July 22, 2024 9:01am DRYWALL STRIPPER EST CARE-PPW SENT September 26, 2024 9:52am CHEST PAIN, ABNORMAL EKG October 08 6:26am CHEST PAIN, ABNORMAL EKG October 08 1:57pm Reason for Visit Admit Date Encounter for screening for malignant ne oplasm of colon September 23, 2024 7:26am Acquired hypothyroidism September 26, 2 025 9:52am GERD (gastroesophageal reflux disease) F ebruary 2024 9:52am Elevated blood pressure reading September 26, 2024 9:52am Establishing care with new doctor, melvi perrin for September 26, 2024 9:52am Multiple joint pain September 26, 2024 9:52am Mixed hyperlipidemia September 26, 2024 9:52am Chest pain in adult September 26, 2024 9:52am Vertigo September 26, 2024 9:52am Abnormal EKG September 26, 2024 9:52am Chief Complaint Admit Date DRYWALL STRIPPER EST CARE-PPW SENT September 26, 2024 9:52am CHEST PAIN, ABNORMAL EKG October 08 6:26am CHEST PAIN, ABNORMAL EKG October 08 1:57pm Abn Stress ([place]) November 12, 2024 1: 42pm CHEST PAIN AND ABNORMAL ECG December 20 12:55pm CHEST PAIN AND ABNORMAL ECG December 21 11:12am Reason for Visit Admit Date Encounter for screening for malignant ne oplasm of colon September 23, 2024 7:26am Acquired hypothyroidism September 26, 025 9:52am GERD (gastroesophageal reflux disease) F ebruary 2024 9:52am Elevated blood pressure reading September 26, 2024 9:52am Establishing care with new doctor, melvi perrin for September 26, 2024 9:52am Multiple joint pain September 26, 2024 9:52am Mixed hyperlipidemia September 26, 2024 9:52am Chest pain in adult September 26, 2024 9:52am Vertigo September 26, 2024 9:52am Abnormal EKG September 26, 2024 9:52am Abnormal stress test November 12, 2024 1: 42pm Acquired hypothyroidism November 12, 2024 1:42pm Elevated blood pressure reading November 122024 1:42pm Chief Complaint Admit Date CHEST PAIN, ABNORMAL EKG October 08 6:26am CHEST PAIN, ABNORMAL EKG October 08 1:57pm Abn Stress ([place]) November 12, 2024 1: 42pm CHEST PAIN AND ABNORMAL ECG December 20 12:55pm CHEST PAIN AND ABNORMAL ECG December 21 11:12am CHEST PAIN January 21, 2025 7:36 am Reason for Visit Admit Date Abnormal stress test November 12, 2024 1: 42pm Acquired hypothyroidism November 12, 2024 1:42pm Elevated blood pressure reading November 122024 1:42pm Chief Complaint Admit Date Abn Stress ([place]) November 12, 2024 1: 42pm CHEST PAIN AND ABNORMAL ECG December 20 12:55pm CHEST PAIN AND ABNORMAL ECG December 21 11:12am CHEST PAIN January 21, 2025 7:36 am screening February 12, 2025 3:14 pm Additional Source Comments INFORMATION SOURCE (unrecogn ized section and content) DATE CREATED AUTHOR 01/18/2018 [facility] DATE CREATED AUTHOR AUTHOR'S ORGANIZ ATION 01/19/2018 [facility] DATE CREATED AUTHOR AUTHOR'S ORGANIZ ATION 06/04/2021 [facility] DATE CREATED AUTHOR AUTHOR'S ORGANIZ ATION 08/24/2022 [facility] DATE CREATED AUTHOR AUTHOR'S ORGANIZ ATION 10/14/2022 [facility] DATE CREATED AUTHOR AUTHOR'S ORGANIZ ATION 02/07/2023 [facility] DATE CREATED AUTHOR AUTHOR'S ORGANIZ ATION 04/01/2023 [facility] DATE CREATED AUTHOR AUTHOR'S ORGANIZ ATION 05/02/2024 [facility] DATE CREATED AUTHOR AUTHOR'S ORGANIZ ATION 07/12/2024 [facility] DATE CREATED AUTHOR AUTHOR'S ORGANIZ ATION 01/27/2025 [facility] DATE CREATED AUTHOR AUTHOR'S ORGANIZ ATION 02/19/2025 [facility] Assessment & Plan Note - Bubba Silva [...] and content) 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, Est DRYWALL STRIPPER Reason Comments Annual Exam Physical Reason Comments [...] Refill 08/06/2024 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, Est DRYWALL STRIPPER Care Teams (unrecognized sec tion and content) Market Consultant Relationship Specialty Start Date End Date Casi Cortez, DIRECTOR PROCESS [address] [place] [address] PCP - General Nurse Practitioner 01/20/20 Casi Cortez, DIRECTOR PROCESS [address] [place] [address] PCP - MIGUELITO Attributed Provider - MMO Commercial 05/30/20 Market Consultant Relationship Specialty Start Date End Date Casi Cortez, DIRECTOR PROCESS [address] [place] [address] PCP - General Nurse Practitioner 01/20/20 Casi Cortez, DIRECTOR PROCESS [address] [place] [address] PCP - MIGUELITO Attributed Provider - MMO Commercial 05/30/20 Market Consultant Relationship Specialty Start Date End Date Casi Cortez CNP [address] [place] [address] PCP - General Nurse Practitioner 01/20/20 Casi Cortez, DIRECTOR PROCESS [address] [place] [address] PCP - MIGUELITO Attributed Provider - MMO Commercial 05/30/20 Market Consultant Relationship Specialty Start Date End Date Casi Cortez, DIRECTOR PROCESS [address] [place] [address] PCP - General Nurse Practitioner 01/20/20 Casi Cortez, DIRECTOR PROCESS [address] [place] [address] PCP - MIGUELITO Attributed Provider - MMO Commercial 08/31/18 07/30/50 Market Consultant Relationship Specialty Start Date End Date Casi Cortez, DIRECTOR PROCESS [address] [place] [address] PCP - General Nurse Practitioner 01/20/20 Casi Cortez, DIRECTOR PROCESS [address] [place] [address] PCP - MIGUELITO Attributed Provider - MMO Commercial 08/31/18 07/30/50 Market Consultant Relationship Specialty Start Date End Date Casi Cortez, DIRECTOR PROCESS [address] [place] [address] PCP - General Nurse Practitioner 01/20/20 Casi Cortez, DIRECTOR PROCESS [address] [place] [address] PCP - MIGUELITO Attributed Provider - MMO Commercial 08/31/18 07/30/50 Market Consultant Relationship Specialty Start Date End Date Casi Cortez, DIRECTOR PROCESS [address] [place] [address] PCP - General Nurse Practitioner 01/20/20 Casi Cortez, DIRECTOR PROCESS [address] [place] [address] PCP - MIGUELITO Attributed Provider - MMO Commercial 08/31/18 07/30/50 Market Consultant Relationship Specialty Start Date End Date CortezKostasen WinnieSUNDEEP quintanilla [address] [place], [place] [id number] PCP - General Nurse Practitioner 01/20/20 Dana Casi Winnie, DIRECTOR PROCESS [address] [place], [place] [id number] PCP - MIGUELITO [facility] Provider - MMO Commercial 08/31/18 07/30/50 Market Consultant Relationship Specialty Start Date End Date DanaKostasen WinnieSUNDEEP quintanilla [address] [place], [place] [address] PCP - General Nurse Practitioner 01/20/20 Market Consultant Relationship Specialty Start Date End Date DanaRonnellCasimarley Zhou CNP [address] [place] [address] PCP - General Nurse Practitioner 01/20/20 Market Consultant Relationship Specialty Start Date End Date DanaRonnellCasimarley Zhou CNP [address] [place] [address] PCP - General Nurse Practitioner 01/20/20 Market Consultant Relationship Specialty Start Date End Date DanaRonnellCasimarley Zhou CNP [address] [place] [address] PCP - General Nurse Practitioner 01/20/20 Market Consultant Relationship Specialty Start Date End Date Casi Cortez CNP [address] [place], [place] [id number] PCP - General Nurse Practitioner 01/20/20 Market Consultant Relationship Specialty Start Date End Date Casi Cortez CNP [address] [place], [place] [id number] PCP - General Nurse Practitioner 01/20/20 Market Consultant Relationship Specialty Start Date End Date DanaRonnellCasi WinnieSUNDEEP quintanilla [address] [place] [address] PCP - General Nurse Practitioner 01/20/20 Casi Cortez CNP [address] [place] [address] PCP - MIGUELITO Attributed Provider - MMO Commercial 08/31/18 07/30/50 Market Consultant Relationship Specialty Start Date End Date Casi Cortez CNP [address] [place] [address] PCP - General Nurse Practitioner 01/20/20 Casi Cortez CNP [address] [place] [address] PCP - MIGUELITO Attributed Provider - MMO Commercial 08/31/18 07/30/50 Market Consultant Relationship Specialty Start Date End Date DanaRonnellCasi WinnieSUNDEEP quintanilla [address] [place] [address] PCP - General Nurse Practitioner 01/20/20 Casi Cortez CNP [address] [place] [address] PCP - MIGUELITO Attributed Provider - MMO Commercial 08/31/18 07/30/50 Market Consultant Relationship Specialty Start Date End Date Casi Cortez CNP [address] [place] [address] PCP - General Nurse Practitioner 01/20/20 Casi Cortez DIRECTOR PROCESS [address] [place] [address] PCP - MIGUELITO Attributed Provider - MMO Commercial 08/31/18 07/30/50 Market Consultant Relationship Specialty Start Date End Date Casi CortezSUNDEEP [address] [place] [address] PCP - General Nurse Practitioner 01/20/20 Dana Casi ZhouSUNDEEP [address] [place] [address] PCP - MIGUELITO Attributed Provider - MMO Commercial 08/31/18 07/30/50 Market Consultant Relationship Specialty Start Date End Date DanaKostasen WinnieSUNDEEP quintanilla [address] [place] [address] PCP - General Nurse Practitioner 01/20/20 Dana Casi WinnieSUNDEEP quintanilla [address] [place] [address] PCP - MIGUELITO Attributed Provider - MMO Commercial 08/31/18 07/30/50 Market Consultant Relationship Specialty Start Date End Date CortezKostasen WinnieSUNDEEP quintanilla [address] [place] [address] PCP - General Nurse Practitioner 01/20/20 Market Consultant Relationship Specialty Start Date End Date DanaKostasen WinnieSUNDEEP quintanilla [address] [place] [address] PCP - General Nurse Practitioner 01/20/20 Market Consultant Relationship Specialty Start Date End Date Dana Casi Zhou CNP [address] [place] [address] PCP - General Nurse Practitioner 01/20/20 Market Consultant Relationship Specialty Start Date End Date Casi Cortez CNP [address] [place] [address] PCP - General Nurse Practitioner 01/20/20 Market Consultant Relationship Specialty Start Date End Date Casi Cortez CNP [address] [place] [address] PCP - General Nurse Practitioner 01/20/20 Market Consultant Relationship Specialty Start Date End Date Casi Cortez CNP [address] [place] [address] PCP - General Nurse Practitioner 01/20/20 Market Consultant Relationship Specialty Start Date End Date Casi Cortez CNP [address] [place] [address] PCP - General Nurse Practitioner 01/20/20 Market Consultant Relationship Specialty Start Date End Date Casi Cortez CNP [address] [facility] [place] [address] PCP - General Nurse Practitioner 01/20/20 Market Consultant Relationship Specialty Start Date End Date Casi Cortez CNP [address] [place] [address] PCP - General Nurse Practitioner 01/20/20 Market Consultant Relationship Specialty Start Date End Date Casi Cortez CNP [address] [place] [address] PCP - General Nurse Practitioner 01/20/20 Market Consultant Relationship Specialty Start Date End Date Lorri Nielsen CNP [address] [place] [address] PCP - General Nurse Practitioner 05/03/24 Market Consultant Relationship Specialty Start Date End Date Lorri Nielsen CNP [address] [place] [address] PCP - General Nurse Practitioner 05/03/24 Team Status: Active Member Role Status Dates Dr. Le Crawford MD Primary Care Provider Active Team Status: Inactive Member Role Status Dates MORALES PANDEY Attending Provider Active Start: 2023 End: July 09, 2024 DEBBIE PANDEYCARYN Referring Provider Active Start: 2023 End: July 09, 2024 Dr. Gerardo Manuel , DO Primary Care Provider Act maría Start: July 09, 2024 End: July 09, 2024 Team Status: Active Member Role Status Dates Dr. Gerardo Manuel DO Primary Care Provider Act maría Start: July 22, 2024 [facility] Attending Provider Active Start: 2023 Team Status: [...] Gerardo Manuel DO Primary Care Provider Act maraí Start: September 23, 2024 Dr. Gerardo Manuel [...] Active St art: October 08, 2024 Dr. Ruthann Mendoza MD Attending Provider Activ e Start: October 08, 2024 Market Consultant Relationship Specialty Start Date End Date Casi Cortez CNP [address] [place] [address] PCP - General Nurse Practitioner 01/20/20 05/02/24 Casi Cortez CNP [address] [facility] [place] [address] PCP - MIGUELITO Attributed Provider - MMO [...] Provider Active S tart: December 21, 2024 Team Status: Active Member Role/Relationship Status Dates Dr. Le Crawford MD Primary Care Provider Active Team Status: Inactive Member Role/Relationship Status Dates Dr. Le Crawford MD Primary Care Provider Active Start: October 08, 2024 End: October 08, 2024 Dr. Le Crawford MD Attending Provider Active Start: October 08, 2024 End: October 08, 2024 Dr. Le Crawford MD Referring Provider Active Start: October 08, 2024 End: October 08, 2024 Team Status: Active Member Role/Relationship Status Dates Dr. Le Crawford MD Primary Care Provider Active Start: October 08, 2024 Dr. Le Crawford MD Referring Provider Active Start: October 08, 2024 Dr. Le Crawford MD Other Provider Active St art: October 08, 2024 Dr. Ruthann Mendoza MD Attending Provider Activ e Start: October 08, 2024 Team Status: Inactive Member Role/Relationship Status Dates Dr. Le Crawford MD Primary Care Provider Active Start: November 12, 2024 End: November 12, 2024 Dr. Le Crawford MD Referring Provider Active Start: November 12, 2024 End: November 12, 2024 Dr. Triston Nassar MD Attending Provider Active Start: November 12, 2024 End: November 12, 2024 Team Status: Inactive Member Role/Relationship Status Dates Dr. Le Crawford MD Primary Care Provider Active Start: December 20, 2024 End: December 20, 2024 Dr. Triston Nassar MD Attending Provider Active Start: December 20, 2024 End: December 20, 2024 Dr. Triston Nassar MD Referring Provider Active Start: December 20, 2024 End: December 20, 2024 Team Status: Active Member Role/Relationship Status Dates Dr. Le Crawford MD Primary Care Provider Active Start: December 21, 2024 Dr. Triston Nassar MD Referring Provider Active Start: December 21, 2024 Dr. Triston Nassar MD Other Provider Active St art: December 21, 2024 Dr. Ryan Pairkh MD Attending Provider Active S tart: December 21, 2024 Team Status: Inactive Member Role/Relationship Status Dates Dr. Le Crawford MD Primary Care Provider Active Start: January 21, 2025 End: January 21, 2025 Dr. Triston Nassar MD Attending Provider Active Start: January 21, 2025 End: January 21, 2025 Dr. Triston Nassar MD Referring Provider Active Start: January 21, 2025 End: January 21, 2025 Team Status: Active Member Role/Relationship Status Dates Dr. Le Crawford MD Primary Care Provider Active Start: January 21, 2025 Dr. Ryan Parikh MD Attending Provider Active S tart: January 21, 2025 Market Consultant Relationship Specialty Start Date End Date Kenyatta Nielsenah SUNDEEP Ho [address] [place] [address] PCP - General Nurse Practitioner 05/03/24 08/14/24 Team Status: Inactive Member Role/Relationship Status Dates Dr. Le Crawford MD Primary Care Provider Active Start: November 12, 2024 End: November 12, 2024 Dr. Le Crawford MD Referring Provider Active Start: November 12, 2024 End: November 12, 2024 Dr. Triston Nassar MD Attending Provider Active Start: November 12, 2024 End: November 12, 2024 Team Status: Inactive Member Role/Relationship Status Dates Dr. Le Crawford MD Primary Care Provider Active Start: December 20, 2024 End: December 20, 2024 Dr. Triston Nassar MD Attending Provider Active Start: December 20, 2024 End: December 20, 2024 Dr. Triston Nassar MD Referring Provider Active Start: December 20, 2024 End: December 20, 2024 Team Status: Active Member Role/Relationship Status Dates Dr. Le Crawford MD Primary Care Provider Active Start: December 21, 2024 Dr. Triston Nassar MD Referring Provider Active Start: December 21, 2024 Dr. Triston Nassar MD Other Provider Active St art: December 21, 2024 Dr. Ryan Parikh MD Attending Provider Active S tart: December 21, 2024 Team Status: Inactive Member Role/Relationship Status Dates Dr. Le Crawford MD Primary Care Provider Active Start: January 21, 2025 End: January 21, 2025 Dr. Triston Nassar MD Attending Provider Active Start: January 21, 2025 End: January 21, 2025 Dr. Triston Nassar MD Referring Provider Active Start: January 21, 2025 End: January 21, 2025 Team Status: Active Member Role/Relationship Status Dates Dr. Le Crawford MD Primary Care Provider Active Start: January 21, 2025 Dr. Ryan Parikh MD Attending Provider Active S tart: January 21, 2025 Team Status: Inactive Member Role/Relationship Status Dates Dr. Le Crawford MD Primary Care Provider Active Start: February 12, 2025 End: February 12, 2025 Dr. Le Crawford MD Attending Provider Active Start: February 12, 2025 End: February 12, 2025 Dr. Le Crawford MD Referring Provider Active Start: February 12, 2025 End: February 12, 2025 Goals (unrecognized section and content) Goals may be documented in a n alternate sectionGoals may be documented in an alternate section FOR RECORDS PERTAINING TO PATIENTS WHO ARE [...] BE BASED ON THE PRIMARY CLINICAL RECORDS. [facility] [employer] [facility]. provides no warranty or guarantee of the accuracy [phone] completeness of information in this [id number]
--- OUTSIDE RECORDS SUMMARY | 2025-05-02 06:15 | XMS RPT_ITS | CCD ---
Author Organization [facility] Care Team Providers Care Change Consultant Name Role Phone DICUS, LEONOR Unavailable Unavailable DICUS, LEONOR Unavailable Unavailable JESSICA, CASI N Unavailable Unavailable JESSICA, CASI N Unavailable Unavailable JESSICA, CASI N Unavailable Unavailable JESSICA, CASI N Unavailable Unavailable NONE, NONE Unavailable Unavailable JESSICA, CASI N Unavailable Unavailable JESSICA, CASI N Unavailable Unavailable IRENE, MAAME Unavailable Unavailable IRENE, MAAME Unavailable Unavailable Varun Lezama [phone] Unavailable U navailable JESSICA, CASI N Unavailable Unavailable No, Physician Primary Care Provider Unavailabl e Casi Cortez Primary Care Provider [phone] Casi Cortez Unavailable [phone] Dana GLUE SPECIALTY SUPERVISOR, Casi Zhou Primary Care Provider Casi Cortez CNP Unavailable Casi Cortez CNP Unavailable Dana GLUE SPECIALTY SUPERVISOR, Casi Zhou Primary Care Provider Casi Cortez CNP Unavailable [phone] Dana GLUE SPECIALTY SUPERVISOR, Casi Zhou Primary Care Provider CASI CORTEZ [...] CASI WINNIE Primary Care Unavailab le Cortez GLUE SPECIALTY SUPERVISOR, Casi Winnie Primary Care Provider Cortez GLUE SPECIALTY SUPERVISOR, Casi Zhou Unavailable CORTEZ, CASI WINNIE Primary [...] Unavailable MORALES, LORRI HO Attending Unavailable Garee GLUE SPECIALTY SUPERVISOR, Lorri Ho Primary Care Provider LORRI NIELSEN Attending Provider [phone] LORRI NIELSEN Referring Provider [phone] Dr. Gerardo Manuel DO Primary Care Provide r Zeny Villatoro Attending Provider Unavailable Dr. Gerardo Manuel DO Referring Provider Dr. Pedro Donahue DO Attending Provider Dr. Pedro Donahue DO Other Provider Yvette ROSARIO, Dr. Lujan Primary Care Provider [phone] Yvette ROSARIO, Dr. Lujan Attending Provider Yvette ROSARIO, Dr. Lujan Referring Provider Yvette ROSARIO, Dr. Lujan Other Provider [phone] Kelly ROSARIO, Dr. Beavers Attending Provider Dana GLUE SPECIALTY SUPERVISOR, Casi Zhou Primary Care Provider Cortez GLUE SPECIALTY SUPERVISOR, Casi Winnie Unavailable Dr. Gerardo Manuel DO [...] Crawford Attending Unavailable Gerardo Manuel Referring Unavailable [place], Le Primary Care Unavailable [place], Le Attending Unavailable [place], Le Primary Care Unavailable [place], Le Referring Unavailable MICHAEL, MIC Primary Care Unavailable Del Toro, Piper Referring Unavailable Del Toro, Piper Attending Unavailable MICHAEL, MIC Primary Care Unavailable MICHAEL, MIC Referring Unavailable Del Toro, Piper Attending Unavailable [place], Le Referring Unavailable Triston Nassar Attending Unavailable Yvette, Le Primary Care Unavailable Zeny Villatoro Attending Unavailable Gerardo Manuel Primary Care Unavailable Friend, Pedro Attending Unavailable Friend, Pedro Consulting Unavailable UlmGerardo acevedo Referring Unavailable AnnamarieGerardo acevedo Primary Care Unavailable Triston Nassar Referring Unavailable Triston Nassar Consulting Unavailable Ryan Parikh Attending Unavailable [place], Le Primary Care Unavailable Yvette, Le Referring Unavailable Yvette, Le Consulting Unavailable [place], Le Primary Care Unavailable Ruthann Mendoza Attending Unavailabl e [place], Le Primary Care Unavailable Ryan Parikh Attending [...] (general) (routine) without abnormal findings; Translations: [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 Le Crawford MD Status: REG CLI Study:SCRN MAMM (CAD)W/FRANKLYN BILAT Date of Exa m: 02/12/25 Exam# [id number] Ordering Dr: Le Crawford MD EXAM: SCRN [...] be mailed to the patient. Reading Location: [facility] CC: Dr. Le Crawford MD ~ Support Teacher: Signed [facility] SCRN MAMM (CAD)W/FRANKLYN BILATo n 02-12-2025 SCRN MAMM (CAD)W/FRANKLYN BILAT [facility] Imaging Services [address] [place] [id number] SCRN MAMM (CAD)W/FRANKLYN BILAT MR#: [id number] Acct: [id number] Name: JIE HUMPHREYS TERESA Rep #: [id number] : 1965 F 59 From: Ernestine Walker MD PCP: Dr. Le Crawford MD Status: REG CLI Study: SCRN MAMM (CAD)W/FRANKLYN BILAT Date of Exam: 01/28 01/22 Exam# [id number] Ordering Dr: Le Crawford MD EXAM: SCRN [...] be mailed to the patient. Reading Location: [facility] CC: Dr. Le Crawford MD Support Teacher: Signed Normal [facility] Echo Complete W/ Contraston 01-21-2025 Echo Complete W/ Contrast [facility] Cardiovascular Services [address] [place] [address] Echo Complete W/ Contrast 01/21/25 0803 MR#: [id number] Acct: [id number] Name: JIE HUMPHREYS TERESA Rep #: [id number] : 1965 59 From: Ryan Parikh MD Attending Dr: Dr. Triston Nassar MD Status: AUNDREA G I Ordering Dr: Triston Nassar MD Date: 01/21/25 Location: [facility] Sex: F C Admitted: Reason For Study [...] Dictated: 01/21/25 0803 Date Transcribed: 01/21/25 1122 Support Teacher: Signed Normal [facility] Echocardiogram study reportO rdered By: Ryan Parikh on 01-21-2025 Study report [facility] Cardiovascular Services [address] [place] [address] Echo Complete W/ Contrast 01/21/25 0803 MR#: [id number] Acct: [id number] Name: JIE HUMPHREYS Rep #:[id number] : 1965 59 From: Ryan Winchester Attending Dr: Dr. Triston Nassar MD Status: REG CLI Ordering Dr: Triston Nassar MD Date: 01/21/25 Location: [facility] Sex: F C Admitted: Reason For Study [...] Dictated: 01/21/25 08 Date Transcribed: 01/21/25 112 Support Teacher: Signed [facility] Work Phone: Coronary Angiography CTon Coronary Angiography CT [facility] Imaging Services [address] [place] [address] 12/21/24 1112 MR#: [id number] Acct: [id number] Name: JIE HUMPHREYS Rep #: [id number] : 1965 59 From: Ryan Parikh MD [...] MD; Dr. Triston Nassar MD Signed Normal [facility] Limited Chest CT Cardiac Onl yon 12-20-[address] Cardiac Only [facility] Imaging Services [address], [place] [address] Limited Chest CT Cardiac Only MR#: [id number] Acct: [id number] Name: JIE HUMPHREYS Rep #: [id number] : 1965 F 59 From: Kendrick langford MD PCP: Dr. Le Crawford MD Status: REG CLI Study: Limited Chest CT Cardiac Only Date of Exam: Exam# [id number] Ordering Dr: Triston Nassar MD PROCEDURE: LIMITED [...] calcification (CAC) is is absent Reading Location: [place] [address] CC: Dr. Le Crawford MD; Dr. Triston Nassar MD Support Teacher: Signed Normal [facility] 12 Lead EKG performed by [facility] on 11-12-2024 12 Lead EKG performed by [facility] [address] [place] [address] 12 Lead EKG performed by [facility] 11/12/24819 MR#: [id number] Acct: [id number] Name: JIE HUMPHREYS TERESA Rep #: [id number] : 1965 58 From: Triston Nassar MD Attending Dr: Dr. Triston Nassar MD Status: DE P AMB Ordering Dr: Triston Nassar MD Date: 11/12/24 Location: [facility] Sex: F C Admitted: BMS/12 Lead EKG performed by [facility] ECG Report Interpretation ----Normal Sinus RhythmP:QRS - 1:1, Abnormal P axis, H Rate 70- Negative T-waves -Possible Anterior ischemia. ABNORMAL Electronically signed on 11/12/2024 at 14:[address] Triston Nassar [employer] Version 8610 11/12/24 1459 Date Triston Nassar MD CC: Dr. Le Crawford MD Date Dictated: 11/12/24819 Date Transcribed: 11/12/24819 Support Teacher: Signed Normal [facility] Cardiology Visit Reporton Cardiology Visit Report [facility] [address] [place] [address] OFFICE VISIT Date of Service: 11/12/24 MR#: [id number] Acct: [id number] Name: JIE HUMPHREYS TERESA Rep #: [id number] : 1965 Provider: Dr. Triston kiser MD Age/Sex: 58/F Location: [facility] Status: Signed HPI HPI History of Present Illness Details: Patient comes in as a new patient visit is a 58-year-old white female. 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 Patient comes in because of an abnormal [...] denies CP/SOB Intake Visit Reasons: Abn Stress ([place]) Environmental Safety Specialist Required: No Accompanied by: Self Is [...] von wi (more content not included)... Normal [facility] Cardiovascular stress test r eportOrdered By: Ruthann Mendoza on 10-08-2024 Study report [facility] Cardiovascular Services [address] [place] [address] MR#: [id number] Acct: [id number] Name: JIE HUMPHREYS Rep #: [id number] : 1965 58 From: Ruthann thurman [...] than 70%. This note was generated with Swogoation software. It may contain incorrectwords, spelling, and punctuation that were not noted in checking the note beforesigning. 10/08/24 1403 Date _ Ruthann Mendoza MD CC: Dr. Le Crawford MD ~ Date Dictated: 10/08/241356 Date Transcribed: 10/08/241356 Support Teacher: JORDI Signed [facility] Work Phone: Stress Reporton 10-08-2024 Stress Report [facility] Cardiovascular Services [address] [place] [address] MR#: [id number] Acct: [id number] Name: JIE HUMPHREYS TERESA Rep #: [id number] : 1965 58 From: Ruthann Mendoza MD [...] than 70%. This note was generated with Swogoation software. It may contain incorrect words, spelling, and punctuation that were not noted in checking the note before signing. 10/08/24 1403 Date Ruthann Mendoza MD CC: Dr. Le Crawford MD Date Dictated: 10/08/241356 Date Transcribed: 10/08/241356 Support Teacher: NN Signed Normal [facility] Internal Medicine Office Vis iton 09-25-2024 Internal Medicine Office Visit [facility] [address] [place] [address] OFFICE VISIT Date of Service: 09/26/24 MR#: [id number] Acct: [id number] Name: JIE HUMPHREYS Rep #: [id number] : 1965 Provider: Dr. 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 Normal [facility] Colonoscopy Reporton 025 Colonoscopy Report [facility] Medical Records Department [address] [place] [address] Colonoscopy Report MR#: [id number] Acct: [id number] Name: JIE HUMPHREYS TERESA Rep #: [id number] : 1965 58 From: Pedro Donahue DO PCP: Dr. Gerardo Manuel DO Status:REG [facility] Patient Name: Jie Humphreys Procedure Date: 09/23/2024 [...] criteria for high risk CPT copyright 2021 [employer]. All rights reserved. The codes documented in this report are preliminary and upon section maintainer review may be revised to meet current compliance requirements. Pedro Donahue DO 09/23/2024 9:21:24 AM This report has been signed electronically. Number of Addenda: 0 Note Initiated On: 09/23/2024 8:38 AM 09/23/24920 Date Pedro Donahue DO Cosigner Signature: Date (if indicated) CC: Dr. Gerardo Manuel DO; Pedro Donahue DO Date Dictated: 09/23/24837 Date Transcribed: Support Teacher: JOE Signed [facility] MR/[facility]OP[facility] 09-23-2024 MR/POSTOP.[facility] Medical Records Department [address] [place] [address] Anesthesia Postop Eval I 09/23/24925 MR#: [id number] Acct: [id number] Name: JIE HUMPHREYS TERESA Rep #: [id number] : 1965 58 From: Jeffry Montalvo PCP: Dr. Gerardo Manuel DO Status:REG SDC Y Race: C Location: [place] [address] Anesthesia: Postop Eval I Current Vital Signs [...] Jeffry Collins Signature: Date CC: Signed Normal [facility] MR/REKQLCHJ9jp 09-23-2024 MR/POSTOPAN2 [facility] Medical Records Department [address] [facility] [place] [place] [address] Anesthesia Postop Eval II 09/23/241456 MR#: [id number] Acct: [id number] Name: JIE HUMPHREYS TERESA Rep #: [id number] : 1965 58 From: Michael Phelan MD PCP: Dr. Gerardo Manuel, DO Status:[facility] Y Race: C Location: EN Anesthesia Postop [...] MD Cosigner Signature: Date CC: Signed Normal [facility] TSH Qnon 07-09-2024 Thyroid Stimulating Hormone (TSH) 1.900 uIU/mL 0.358-3.740 [facility] Thyroid Stim Hormone (TSH)on 07-09-2024 TSH 1.900 uIU/mL Normal 0.358-3.740 [facility] Comment on above: Performed By: #### L 501.9520 ####[facility] [address] [place], [address] CBC, Employeeon 05-21-2024 Absolute Lymph 1.57 X10 3/uL Normal 0.83-4.51 [facility] Comment on above: Performed By: #### L 400.0100, L500.2900, L100.0200 ####[facility] [address] [place], [address] Absolute Neut 3.3 X10 3/uL Normal 2.0-7.7 [facility] Comment on above: Performed By: #### L 400.0100, L500.2900, L100.0200 ####[facility] [address] [place], [address] Basophils/100 WBC (Bld) 0.9 % Normal 0-1 [facility] Comment on above: Performed By: #### L 400.0100, L500.2900, L100.0200 ####[facility] [address] [place], [address] Eosinophils/100 WBC (Bld) 2.2 % Normal 0-5 [facility] Comment on above: Performed By: #### L 400.0100, L500.2900, L100.0200 ####[facility] [address] [place], [address] Erythrocyte distribution width (RBC) [Ratio] 11.6 % Normal 11.6-14.6 [facility] Comment on above: Performed By: #### L 400.0100, L500.2900, L100.0200 ####[facility] [address] [place], [address] Hematocrit (Bld) [Volume fraction] 42.8 % Normal 37-47 [facility] Comment on above: Performed By: #### L 400.0100, L500.2900, L100.0200 ####[facility] [address] [place], [address] Hemoglobin (Bld) [Mass/Vol] 14.0 g/dL Normal 12.0-15.0 [facility] Comment on above: Performed By: #### L 400.0100, L500.2900, L100.0200 ####[facility] [address] [place], [address] Lymphocytes/100 WBC (Bld) 28.2 % Normal 19-41 [facility] Comment on above: Performed By: #### L 400.0100, L500.2900, L100.0200 ####[facility] [address] [place], [address] MCH (RBC) [Entitic mass] 32.3 pg High 27.0-32.0 [facility] Comment on above: Performed By: #### L 400.0100, L500.2900, L100.0200 ####[facility] [address] [place], [address] MCHC (RBC) [Mass/Vol] 32.7 g/dL Normal 32-36 [facility] Comment on above: Performed By: #### L 400.0100, L500.2900, L100.0200 ####[facility] [address] [place], [address] MCV (RBC) [Entitic vol] 98.8 fL Normal 81-99 [facility] Comment on above: Performed By: #### L 400.0100, L500.2900, L100.0200 ####[facility] [address] [place], [address] Monocytes/100 WBC (Bld) 9.2 % Normal 0-10 [facility] Comment on above: Performed By: #### L 400.0100, L500.2900, L100.0200 ####[facility] [address] [place], [address] Neutrophils/100 WBC (Bld) 59.1 % Normal 47-70 [facility] Comment on above: Performed By: #### L 400.0100, L500.2900, L100.0200 ####[facility] [address] [place], [address] NRBC # 0.00 10 3/uL Normal 0-5 [facility] Comment on above: Performed By: #### L 400.0100, L500.2900, L100.0200 ####[facility] [address] [place], [address] Nucleated RBC (Bld) [#/Vol] 0 10*3/uL Normal 0-5 [facility] Comment on above: Performed By: #### L 400.0100, L500.2900, L100.0200 ####[facility] [address] [place], [address] Platelet mean volume (Bld) [Entitic vol] 9.9 fL Normal 6.2-12.0 [facility] Comment on above: Performed By: #### L 400.0100, L500.2900, L100.0200 ####[facility] [address] [place], [address] Platelets (Bld) [#/Vol] 262 10*3/uL Normal 150-450 [facility] Comment on above: Performed By: #### L 400.0100, L500.2900, L100.0200 ####[facility] [address] [place], [address] RBC (Bld) [#/Vol] 4.33 10*6/uL Normal 4.2-5.4 [facility] Comment on above: Performed By: #### L 400.0100, L500.2900, L100.0200 ####[facility] [address] [place], [address] RDW SD 42.6 fl Normal 35.1-43.9 [facility] Comment on above: Performed By: #### L 400.0100, L500.2900, L100.0200 ####[facility] [address] [place], [address] WBC (Bld) [#/Vol] 5.6 10*3/uL Normal 4.4-11.0 [facility] Comment on above: Performed By: #### L 400.0100, L500.2900, L100.0200 ####[facility] [address] [place], [address] Employee Profileon 4 Albumin [Mass/Vol] 3.8 g/dL Normal 3.2-5.0 [facility] Comment on above: Performed By: #### L 400.0100, L500.2900, L100.0200 ####[facility] [address] [place], [address] Albumin/Globulin [Mass ratio] 1.0 {ratio} Normal 0.9-2.4 [facility] Comment on above: Performed By: #### L 400.0100, L500.2900, L100.0200 ####[facility] [address] [place], [address] ALK P 92 U/L Normal 45-117 [facility] Comment on above: Performed By: #### L 400.0100, L500.2900, L100.0200 ####[facility] [address] [place], [address] ALT [Catalytic activity/Vol] 28 U/L Normal 13-56 [facility] Comment on above: Performed By: #### L 400.0100, L500.2900, L100.0200 ####[facility] [address] [place], [address] AST [Catalytic activity/Vol] 11 U/L Low 15-37 [facility] Comment on above: Performed By: #### L 400.0100, L500.2900, L100.0200 ####[facility] [address] [place], [address] Bilirubin [Mass/Vol] 0.70 mg/dL Normal 0.20-1.00 [facility] Comment on above: Result Comment: For patients on eltrombopag therapy, use of Dimension [place] TBIL is not recommended. Performed By: #### L 400.0100, L500.2900, L100.0200 ####[facility] [address] [place], [address] Bilirubin.direct [Mass/Vol] 0.19 mg/dL Normal 0.00-0.30 [facility] Comment on above: Performed By: #### L 400.0100, L500.2900, L100.0200 ####[facility] [address] [place], [address] BUN/CRE 21.1 RATIO High 10-20 [facility] Comment on above: Performed By: #### L 400.0100, L500.2900, L100.0200 ####[facility] [address] [place], [address] CA,Total 9.3 mg/dL Normal 8.5-10.1 [facility] Comment on above: Performed By: #### L 400.0100, L500.2900, L100.0200 ####[facility] [address] [place], [address] Chloride [Moles/Vol] 109 mmol/L High 98-107 [facility] Comment on above: Performed By: #### L 400.0100, L500.2900, L100.0200 ####[facility] [address] [place], [address] CHOL:HDL 2.90 Normal [facility] Comment on above: Performed By: #### L 400.0100, L500.2900, L100.0200 ####[facility] [address] [place], [address] Cholesterol [Mass/Vol] 168 mg/dL Normal 200 [facility] Comment on above: Result Comment: <200 mg/dL Desirable 200-240 mg/dL Borderline >240 mg/dL High Risk Performed By: #### L 400.0100, L500.2900, L100.0200 ####[facility] [address] [place], [address] Cholesterol in HDL [Mass/Vol] 57 mg/dL Normal [facility] Comment on above: Result Comment: The drugs N-Acetylcysteine and Metamizole may falsely depress this assay. Reference Range HDL <40 mg/dL Low HDL Cholesterol HDL >or= 60 mg/dL High HDL Cholesterol Performed By: #### L 400.0100, L500.2900, L100.0200 ####[facility] [address] [place], [address] Cholesterol in LDL [Mass/Vol] 87 mg/dL Normal 0-130 [facility] Comment on above: Performed By: #### L 400.0100, L500.2900, L100.0200 ####[facility] [address] [place], [address] Cholesterol in VLDL [Mass/Vol] 24 mg/dL Normal 5-40 [facility] Comment on above: Performed By: #### L 400.0100, L500.2900, L100.0200 ####[facility] [address] [place], [address] CO2 [Moles/Vol] 26.0 mmol/L Normal 21.0-32.0 [facility] Comment on above: Performed By: #### L 400.0100, L500.2900, L100.0200 ####[facility] [address] [place], [address] Creatinine [Mass/Vol] 0.66 mg/dL Normal 0.55-1.02 [facility] Comment on above: Result Comment: The validity of the calculated GFR GFRAA in patients over 70 years has not been determined. Clinical correlation is essential. Performed By: #### L 400.0100, L500.2900, L100.0200 ####[facility] [address] [place], [address] EST GFR - AA 119 mL/min Normal >60 [facility] Comment on above: Result Comment: Afri can Norwegian GFR Calc Performed By: #### L 400.0100, L500.2900, L100.0200 ####[facility] [address] [place], [address] GAP 6 Normal 5-15 [facility] Comment on above: Performed By: #### L 400.0100, L500.2900, L100.0200 ####[facility] [address] [place], [address] GFR/1.73 sq M.predicted among non-blacks MDRD (S/P/Bld) [Vol rate/Area] 98 mL/min/{1.73_m2} Normal >60 [facility] Comment on above: Result Comment: Non- GFR Calc Performed By: #### L 400.0100, L500.2900, L100.0200 ####[facility] [address] [place], [address] Globulin (S) [Mass/Vol] 3.8 g/dL Normal 2.2-4.2 [facility] Comment on above: Performed By: #### L 400.0100, L500.2900, L100.0200 ####[facility] [address] [place], [address] Glucose [Mass/Vol] 109 mg/dL High 74-106 [facility] Comment on above: Result Comment: Fast ing Glucose result from 100 to 125 mg/dL suggests IMPAIRED HOMEOSTASIS per A.D.A. criteria. Performed By: #### L 400.0100, L500.2900, L100.0200 ####[facility] [address] [place], [address] LDH 167 U/L Normal 84-246 [facility] [facility] Comment on above: Performed By: #### L 400.0100, L500.2900, L100.0200 ####[facility] [address] [place], [address] Phosphate [Mass/Vol] 3.7 mg/dL Normal 2.5-4.9 [facility] Comment on above: Performed By: #### L 400.0100, L500.2900, L100.0200 ####[facility] [address] [place], [address] Potassium [Moles/Vol] 4.0 mmol/L Normal 3.5-5.1 [facility] Comment on above: Performed By: #### L 400.0100, L500.2900, L100.0200 ####[facility] [address] [place], [address] Sodium [Moles/Vol] 141 mmol/L Normal 136-145 [facility] Comment on above: Performed By: #### L 400.0100, L500.2900, L100.0200 ####[facility] [address] [place], [address] T PROT 7.6 g/dL Normal 6.4-8.2 [facility] Comment on above: Performed By: #### L 400.0100, L500.2900, L100.0200 ####[facility] [address] [place], [address] Triglyceride [Mass/Vol] 119 mg/dL Normal [facility] Comment on above: Result Comment: The drugs N-Acetylcysteine and Metamizole may falsely depress this assay. Serum Triglycerides Reference Interval Normal <150 mg/dL Borderline high 150 - 199 mg/dL High 200 - 499 mg/dL Very High > or = 500 mg/dL Performed By: #### L 400.0100, L500.2900, L100.0200 ####[facility] [address] [place], [address] Urea nitrogen [Mass/Vol] 14 mg/dL Normal 7-18 [facility] Comment on above: Performed By: #### L 400.0100, L500.2900, L100.0200 ####[facility] [address] [place], [address] URIC 5.0 mg/dL Normal 2.6-6.0 [facility] Comment on above: Result Comment: The drugs N-Acetylcysteine and Metamizole may falsely depress this assay. Performed By: #### L 400.0100, L500.2900, L100.0200 ####[facility] [address] [place], [address] Urinalysis, Employeeon 05-21 BILIRUBIN URINE Normal Negative [facility] Comment on above: Order Comment: CLEAN CATCH Result Comment: NOT WANTED Performed By: #### L 400.0100, L500.2900, L100.0200 ####[facility] [address] [place], [address] Clarity (U) Normal Clear [facility] Comment on above: Order Comment: CLEAN CATCH Result Comment: NOT WANTED Performed By: #### L 400.0100, L500.2900, L100.0200 ####[facility] [address] [place], [address] Color (U) Normal Yellow [facility] Comment on above: Order Comment: CLEAN CATCH Result Comment: NOT WANTED Performed By: #### L 400.0100, L500.2900, L100.0200 ####[facility] [address] [place], [address] GLUCOSE, UR Normal Normal [facility] Comment on above: Order Comment: CLEAN CATCH Result Comment: NOT WANTED Performed By: #### L 400.0100, L500.2900, L100.0200 ####[facility] [address] [place], [address] KETONE UR Normal Negative [facility] Comment on above: Order Comment: CLEAN CATCH Result Comment: NOT WANTED Performed By: #### L 400.0100, L500.2900, L100.0200 ####[facility] [address] [place], [address] LEUK ESTERASE Normal Negative [facility] Comment on above: Order Comment: CLEAN CATCH Result Comment: NOT WANTED Performed By: #### L 400.0100, L500.2900, L100.0200 ####[facility] [address] [place], [address] Nitrite Ql (U) Normal Negative [facility] Comment on above: Order Comment: CLEAN CATCH Result Comment: NOT WANTED Performed By: #### L 400.0100, L500.2900, L100.0200 ####[facility] [address] [place], [address] OCCULT BLOOD-UR Normal Negative [facility] Comment on above: Order Comment: CLEAN CATCH Result Comment: NOT WANTED Performed By: #### L 400.0100, L500.2900, L100.0200 ####[facility] [address] [place], [address] pH UR Normal 5.0 - 8.0 [facility] Comment on above: Order Comment: CLEAN CATCH Result Comment: NOT WANTED Performed By: #### L 400.0100, L500.2900, L100.0200 ####[facility] [address] [place], [address] PROT DIPSTX Normal Negative [facility] Comment on above: Order Comment: CLEAN CATCH Result Comment: NOT WANTED Performed By: #### L 400.0100, L500.2900, L100.0200 ####[facility] [address] [place], [address] SP.GR. DIPSTX Normal 1.002-1.030 [facility] Comment on above: Order Comment: CLEAN CATCH Result Comment: NOT WANTED Performed By: #### L 400.0100, L500.2900, L100.0200 ####[facility] [address] [place], [address] UR Preservative Normal [facility] Comment on above: Order Comment: CLEAN CATCH Result Comment: NOT WANTED Performed By: #### L 400.0100, L500.2900, L100.0200 ####[facility] [address] [place], [address] UROBILI Normal Normal [facility] Comment on above: Order Comment: CLEAN CATCH Result Comment: NOT WANTED Performed By: #### L 400.0100, L500.2900, L100.0200 ####[facility] [address] [place], [address] Venous Duplex US - Trip [facility] 05-21-2024 Venous Duplex US - Trip Extrem [facility] [address] [place] [address] Venous Duplex US - Trip Extrem 05/21/24 0808 MR#: [id number] Acct: [id number] Name: JIE HUMPHREYS Rep #: [id number] : 1965 58 From: Sage Whitmore MD [...] and measures 0.18 x 0.18 cm. INCOMPETENT [employer] noted 15 cm above medial malleolus. SSV [...] saphenous vein in the calf, and calf [employer]. Ordering Physician: Piper Del Toro Performed By: Lorri Langley RVT 05/21/241636 Date Sage Whitmore MD CC: CALLIE Reid; CASI CORTEZ Date Dictated: 05/21/24807 Date Transcribed: 05/21/241636 Support Teacher: Signed Normal [facility] Thyroid Stim Hormone (TSH)on 05-02-2024 TSH 3.770 uIU/mL High 0.358-3.740 [facility] Comment on above: Performed By: #### L 501.9520 #### [facility] [address] [place], [place], [address] MR/Allison 04-30-2024 /FARTUN [facility] V[facility] Surgery [address] [place] [address] OFFICE VISIT Date of Service: 04/30/24 MR#: [id number] Acct: [id number] Name: JIE HUMPHREYS Rep #: [id number] : 1965 Provider: CALLIE Reid Age/Sex: 58/F Location: [facility] Status: Signed Intake Vital Signs 01/23/24 20:08 [...] No tremor(s) (more content not included)... Normal [facility] THINPREP PAP SMEARon 024 THINPREP PAP SMEAR Gynecologic Cytology Report Case: [id number] Authorizing Provider: Piter Garza MD Collected: 04/11/2024 Ordering Location: [facility] Received: 04/17/2024 02:16 PM Laboratory Services First [...] from every slide are reviewed by a carpenter helper. Specimen processing and Primary Screening performed at: [facility] - [address] [place] [address] HPV 16 : Negative HPV 18 : [...] patient management. HPV testing performed at: [facility] - [address] [place] [address] - Abnormal [facility] Comment on above: Performed By: #### 4 6974 #### [facility] [address] [place] [address] Dain Ravi M.D. [id number] Thyroid Stim Hormone (TSH)on 03-28-2024 TSH 6.040 uIU/mL High 0.358-3.740 [facility] Comment on above: Performed By: #### L 501.9520 #### [facility] [address] [place], [address] TSH DL <= 0.005 mIU/L Qnon 0 03-20-2023 TSH Qn 1.96 m[IU]/L [facility] Thyroid Stimulating Hormoneo n 03-20-2023 TSH 1.96 uIU/mL Normal 0.32-5.00 [facility] Comment on above: Performed By: #### T SH #### [facility] (DEFAULT) [address] [place], [place] [address] THYROIDon 02-08-2023 THYROID [facility] Patient: JIE HUMPHREYS [address] [place] [address] Admit Date: 02/08/23 /Age: 05 1965 ED Physician: DIAGNOSTIC RADIOLOGY REQUISITION Attending Physician: Casi Cortez CNP Med Rec #: [id number] EXAM: US THYROID HISTORY: BETO'S COMPARISON: None. FINDINGS: Right lobe: 4.7 x 1.5 x 1.5 cm. Isthmus: 5 mm. Left lobe: 4.1 x 1.5 x 1.4 cm. The gland is heterogeneous in echotexture with normal color Doppler flow. 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 No mass. IMPRESSION: Consistent with Beto's thyroiditis. No acute change. Authenticated on: 02/08/23 1243 [id number]/GORDY [id number] 1226 Job ID# [id number] CC: Casi Cortez CNP Normal [facility] TSH DL <= 0.005 mIU/L Qnon 0 02-06-2023 Interpretation and review of laboratory results Abnormal [facility] TSH Qn 11.50 m[IU]/L High [facility] Thyroid Peroxidase (TPO) Abo n 02-06-2023 Thyroid Peroxidase (TPO) Ab THYROID PEROXIDASE ANTIBODIES: 115.9 Units: IU/mL Ref Range: 0.0-9.0 Status: H Testing Performed At: [facility] Laboratory Services [facility] [place] [address] Assay performed by iChange DXI Immunoassay. Normal [facility] Comment on above: Performed By: #### T PAB #### [facility] (DEFAULT) [address] [place] [address] Thyroid Stimulating Hormoneo n 02-06-2023 TSH 11.50 uIU/mL High 0.32-5.[address] [facility] Comment on above: Performed By: #### T SH #### [facility] (DEFAULT) [address] [place] [address] 3D MAMMO B/L SCREENINGon 3D MAMMO B/L SCREENING [facility] Patient: JIE HUMPHREYS [address] [place] [address]. [place] [address] Admit Date: 12/16/22 /Age: 05 1965 Attending Physician: Self Requesting DIAGNOSTIC RADIOLOGY REQUISITION Med Rec #: [id number] HISTORY: Screening. TECHNIQUE: Bilateral digital screening mammogram [...] regarding the results. Authenticated on: 12/19/22 1635 [id number]/MOOIA [id number] Job ID# [id number] CC: Casi Cortez CNP Self Requesting Normal [facility] M TUBERCULOSIS BY QUANTIFAmol CHANEY 10-11-2022 M. TB Mitogen-Nil 9.98 IU/mL Normal [facility] Comment on above: Order Comment: The M . Tuberculosis antigen levels cannot be correlated to stage or degree of infection, response to therapy or likelihood for progression to active disease. Results from QuantiFERON TB Gold Plus must be used in conjunction with individual epidemiological history, current medical status, and results of other diagnostic evaluation. Performed By: #### Q FTB #### [facility] (DEFAULT) [address] [address] M. TB Nil 0.02 IU/mL Normal [facility] Comment on above: Order Comment: The M . Tuberculosis antigen levels cannot be correlated to stage or degree of infection, response to therapy or likelihood for progression to active disease. Results from QuantiFERON TB Gold Plus must be used in conjunction with individual epidemiological history, current medical status, and results of other diagnostic evaluation. Performed By: #### Q FTB #### [facility] (DEFAULT) [address] [address] M. TB TB1-Nil 0.01 IU/mL Normal [facility] Comment on above: Order Comment: The M . Tuberculosis antigen levels cannot be correlated to stage or degree of infection, response to therapy or likelihood for progression to active disease. Results from QuantiFERON TB Gold Plus must be used in conjunction with individual epidemiological history, current medical status, and results of other diagnostic evaluation. Performed By: #### Q FTB #### [facility] (DEFAULT) [address] [address] M. TB TB2-Nil 0.00 IU/mL Normal [facility] Comment on above: Order Comment: The M . Tuberculosis antigen levels cannot be correlated to stage or degree of infection, response to therapy or likelihood for progression to active disease. Results from QuantiFERON TB Gold Plus must be used in conjunction with individual epidemiological history, current medical status, and results of other diagnostic evaluation. Performed By: #### Q FTB #### [facility] (DEFAULT) [address] [address] M. Tuberculosis by Quantiferon in tube Negative Normal Negative [facility] Comment on above: Order Comment: The M . Tuberculosis antigen levels cannot be correlated to stage or degree of infection, response to therapy or likelihood for progression to active disease. Results from QuantiFERON TB Gold Plus must be used in conjunction with individual epidemiological history, current medical status, and results of other diagnostic evaluation. Performed By: #### Q FTB #### [facility] (DEFAULT) [address] [place] [address] HIP ARTHROGRAMon 08-24-2022 [facility] Patient: JIE HUMPHREYS [address] [place] [place] [address] Admit Date: 08/24/22 /Age: 05 1965 / 08/24/22 ED Physician: DIAGNOSTIC RADIOLOGY REQUISITION Attending Physician: Jeana Camacho MD Med Rec #: [id number] EXAMINATION: HIP ARTHROGRAM HISTORY: HIP INJECTION. Left [...] for pain control. Authenticated on: 08/24/22 1439 [id number]/RRIA [id number] Job ID# [id number] CC: MD Casi Rose, [facility] HIP LT MIN 2V W OR WO PELVIS on 08-17-2022 HIP LT MIN 2V W OR WO PELVIS [facility] Patient: [address] [place] [place] [address] Admit Date: 08/17/22 /Age: 05 1965 ED Physician: DIAGNOSTIC RADIOLOGY REQUISITION Attending Physician: Jeana Camacho MD Med Rec #: [id number] EXAM: HIP LT MIN 2V W OR WO PELVIS HISTORY: ARTHRITIS COMPARISON: 03/17/2021 FINDINGS/IMPRESSION: 1. Moderate osteoarthritic changes are similar. Osteophytes on the superior lateral acetabulum, left greater than right unchanged. 2. Femoral heads remain rounded. 3. No fracture. 4. Mild degenerative change left SI joint. Authenticated on: 08/17/22 1343 [id number]/RRIA [id number] Job ID# [id number] CC: MD Casi Rose CNP [facility] NOVEL CORONAVIRUSon 06-03-20 PERFORMED BY [facility] Comment on above: Performed By: #### C COVID #### Testing performed at [address] [address] SARS-CoV-2 (COVID-19) RNA LORRIE+probe Ql (Unsp spec) Not detected Normal NOT DETECTED [facility] Comment on above: Result Comment: Nega [...] #### C COVID #### Testing performed at [facility] [address] [facility] [place] [address] NARRATIVE This test was performed using isothermal LORRIE and has been approved as Emergency Use Authorization (EUA) for the qualitative detection [id number]-[id number] nucleic acid. Normal [facility] Comment on above: Performed By: #### C COVID #### Testing performed at [address] [place] [address] [facility] HEP C VIRUS AB <0.1 Normal 0.0-0.9 [facility] Comment on above: Result Comment: (NOT E) Negative: < 0.8 Indeterminate: 0.8 - 0.9 Positive: > 0.9The [facility] recommends that a positive HCV antibody resultbe followed up with a HCV Nucleic Acid Amplificationtest (127212).PERFORMED AT [facility] Performed By: #### L HBSAB, LHCAB, LMMR ####Testing performed at [facility], [address] [place] [address] HEP B SURFACE ABon 8 BSA (Body Surface Area) Reactive Normal [facility] Comment on above: Result Comment: (NOT E) Non Reactive: Inconsistent with immunity, less than 10 mIU/mL Reactive: Consistent with immunity, greater than 9.9 mIU/mLPERFORMED AT [facility] Performed By: #### L HBSAB, LHCAB, LMMR ####Testing performed at [facility], [address] [place] [address] MEASLES,MUMP,RUBELLAon 11-15 MUMPS ABS, IGG 173.0 AU/mL Normal Immune >10.9 [facility] Comment on above: Result Comment: (NOT E) Negative <9.0 Equivocal 9.0 - 10.9 Positive >10.9A positive result generally indicates past exposure toMumps virus or previous vaccination.PERFORMED AT [facility] Performed By: #### L HBSAB, LHCAB, LMMR ####Testing performed at [address] [place] [address] RUBEOLA AB, IGG 164.0 AU/mL Normal Immune >29.9 [facility] Comment on above: Result Comment: (NOT E) Negative <25.0 Equivocal 25.0 - 29.9 Positive >29.9Presence of antibodies to Rubeola is presumptive evidenceof immunity except when acute infection is suspected. Performed By: #### L HBSAB, LHCAB, LMMR ####Testing performed at [address] [place] [address] RUBELLA AB, IGG 24.80 index Normal Immune >0.99 [facility] Comment on above: Result Comment: (NOT E) Non-immune <0.90 Equivocal 0.90 - 0.99 Immune >0.99 Performed By: #### L HBSAB, LHCAB, LMMR ####Testing performed at [facility], [address] [place] [address] FAX REQUESTon 11-14-2017 FAX TO [facility] Comment on above: Performed By: #### L HBSAB, LHCAB, LMMR ####Testing performed at [facility], [address] [place] [address] MAMMOGRAM SCREENING BI INCL CADon 09-21-2017 MAMMOGRAM SCREENING BI INCL CAD PROCEDURE: MAMMOGRAM SCREENING BI INCL CAD, MAMMOGRAM TOMOSYNTHESIS BREASTBILATERAL SCREENING, 09/20/2017 10:55 AMCLINICAL INDICATIONS: Encounter for screening mammogram for malignant neoplasmof breast. STATED CLINICAL CONCERNS: None.STATED FAMILY HISTORY OF BREAST CANCER: Maternal grandmother. COMPARISON: 11/23/2016, 11/13/2015, 11/05/2014, 10/30/2013, 10/17/2012 from [place].TECHNIQUE: Digital screening bilateral mammography with computer-aideddetectio n [...] to the patient regarding the results. Normal [facility] MAMMOGRAM TOMOSYNTHESIS ASH[address] ST BILATERAL SCREENINGon 09-21-2017 Bilirubin (total) PROCEDURE: MAMMOGRAM SCREENING BI INCL CAD, MAMMOGRAM TOMOSYNTHESIS BREASTBILATERAL SCREENING, 09/20/2017 10:55 AMCLINICAL INDICATIONS: Encounter for screening mammogram for malignant neoplasmof breast. STATED CLINICAL CONCERNS: None.STATED FAMILY HISTORY OF BREAST CANCER: Maternal grandmother. COMPARISON: 11/23/2016, 11/13/2015, 11/05/2014, 10/30/2013, 10/17/2012 from [place].TECHNIQUE: Digital screening bilateral mammography with computer-aideddetectio n [...] to the patient regarding the results. Normal [facility] THIN PREP with HPVon 018 [id number] . Normal [facility] Comment on above: Result Comment: Perf ormed at: WB Performed By: #### T PH ####Performed for [place] [address] [place], [place] [address]-8 Negative Normal Negative [facility] Comment on above: Result Comment: This test detects fourteen high-risk HPV types (16/18/31/33/35/39/45/51/52/56/58/59/66/68) without differentiation.Performed at: =G Performed By: #### T PH ####Performed for [place] [address] [place] [address] Psychologists (cervix/vaginal) Comment Normal [facility] Comment on above: Result Comment: Pema Sanchez, Supervisory Unitizer (ASCP)Performed at: WB Performed By: #### T PH ####Performed for [place] [address] Cytology report (cervical/vaginal) Comment Normal [facility] Comment on above: Result Comment: This liquid based ThinPrep(R) pap test was screened with theuse of an image guided system.Performed at: WB Performed By: #### T PH ####Performed for [place] [address] Note: Comment Normal [facility] Comment on above: Result Comment: The Pap smear is a screening test designed to aid in the detection ofpremalignant and malignant conditions of the uterine cervix. It is not adiagnostic procedure and should not be used as the sole means of detectingcervical cancer. Both false-positive and false-negative reports do occur. .Performed at: WB Performed By: #### T PH ####Performed for [place] [address] Pathology narrative Comment Normal [facility] Comment on above: Result Comment: NEGA TIVE FOR INTRAEPITHELIAL LESION AND MALIGNANCY.CELLULAR CHANGES ASSOCIATED WITH INFLAMMATION ARE PRESENT.Performed at: WB Performed By: #### T PH ####Performed for [place] [address] Statement of adequacy (cervix/vaginal) Comment Normal [facility] Comment on above: Result Comment: Sati sfactory for evaluation. Endocervical and/or squamous metaplasticcells (endocervical component) are present.Performed at: WB Performed By: #### T PH ####Performed for [place] [address] Vital Signs Date Time Vital Sign Value Performing Clinician Facility 12-20-2024 13:30-0400 Diastolic blood pressure 89 mm[Hg] Dr. Gerardo Manuel DO Work Phone: [facility] 12-20-2024 13:30-0400 Heart rate 54 /min Dr. Gerardo Manuel DO Work Phone: [facility] 12-20-2024 13:30-0400 Respiratory rate 16 /min Dr. Gerardo Manuel DO Work Phone: [facility] 12-20-2024 13:30-0400 SaO2% (BldA) [Mass fraction] 97 % Dr. Gerardo Manuel DO Work Phone: [facility] 12-20-2024 13:30-0400 Systolic blood pressure 149 mm[Hg] Dr. Gerardo Manuel DO Work Phone: 1(777)943-893709 [address] 12-20-2024 13:08-0400 Body height 185.[address] Gerardo Manuel DO Work Phone: 6(584)661-286543 [place] [address] 12-20-2024 13:08-0400 Body mass index (BMI) [Ratio] 30.3 kg/m2 Dr. Gerardo Manuel DO Work Phone: 2(566)171-634443 [place] [address] 12-20-2024 13:08-0400 Body weight 104.[address] Gerardo Manuel DO Work Phone: 3(586)771-879143 [place] [address] 11-12-2024 13:46-0400 Body mass index (BMI) [Ratio] 30.2 kg/m2 Dr. Gerardo Manuel DO Work Phone: 9(267)041-065639 [place] [address] 11-12-2024 13:46-0400 Body weight 103.[address] Gerardo Manuel DO Work Phone: [facility] 11-12-2024 13:46-0400 Diastolic blood pressure 92 mm[Hg] Dr. Gerardo Manuel DO Work Phone: 4(480)189-085739 [place] [address] 11-12-2024 13:46-0400 Heart rate 70 /min Dr. Gerardo Manuel DO Work Phone: [facility] 11-12-2024 13:46-0400 Respiratory rate 16 /min Dr. Gerardo Manuel DO Work Phone: [facility] 11-12-2024 13:46-0400 SaO2% (BldA) [Mass fraction] 96 % Dr. Gearrdo Manuel DO Work Phone: [facility] 11-12-2024 13:46-0400 Systolic blood pressure 138 mm[Hg] Dr. Gerardo Manuel DO Work Phone: [facility] 09-26-2024 10:09-0500 Diastolic blood pressure 90 mm[Hg] LORRI GAREE Work Phone: [facility] 09-26-2024 10:09-0500 Systolic blood pressure 130 mm[Hg] LORRI GAREE Work Phone: [facility] 09-26-2024 10:04-0500 Body height 185.42 cm LORRI GAREE Work Phone: [facility] 09-26-2024 10:04-0500 Body mass index (BMI) [Ratio] 29.7 kg/m2 LORRI GAREE Work Phone: [facility] 09-26-2024 10:04-0500 Body temperature 97.6 [degF] LORRI GAREE Work Phone: [facility] 09-26-2024 10:04-0500 Body weight 102.05 kg LORRI GAREE Work Phone: [facility] 09-26-2024 10:04-0500 Heart rate 70 /min LORRI GAREE Work Phone: [facility] 09-26-2024 10:04-0500 Respiratory rate 18 /min LORRI GAREE Work Phone: [facility] 09-26-2024 10:04-0500 SaO2% (BldA) [Mass fraction] 96 % LORRI GAREE Work Phone: [facility] 09-23-2024 09:35-0500 Body temperature 98.5 [degF] LORRI GAREE Work Phone: [facility] 09-23-2024 09:35-0500 Diastolic blood pressure 86 mm[Hg] LORRI GAREE Work Phone: [facility] 09-23-2024 09:35-0500 Heart rate 60 /min LORRI GAREE Work Phone: [facility] 09-23-2024 09:35-0500 Respiratory rate 16 /min LORRI GAREE Work Phone: [facility] 09-23-2024 09:35-0500 SaO2% (BldA) [Mass fraction] 98 % LORRI GAREE Work Phone: [facility] 09-23-2024 09:35-0500 Systolic blood pressure 127 mm[Hg] LORRI GAREE Work Phone: [facility] 09-23-2024 07:54-0500 Body mass index (BMI) [Ratio] 29.6 kg/m2 LORRI GAREE Work Phone: [facility] 09-23-2024 07:54-0500 Body weight 102 kg LORRI GAREE Work Phone: [facility] 07-22-2024 09:08-0500 Body mass index (BMI) [Ratio] 29.7 kg/m2 LORRI GAREE Work Phone: [facility] 07-22-2024 09:08-0500 Body weight 102.05 kg LORRI GAREE Work Phone: [facility] 02-27-2024 07:58-0400 Body height 185.4 cm Casi Cortez [employer] Work Phone: [facility] 02-27-2024 07:58-0400 Body mass index (BMI) [Ratio] 30.08 kg/m2 Casi Cortez [employer] Work Phone: [facility] 02-27-2024 07:58-0400 Body weight 103.42 kg Casi Cortez [employer] Work Phone: [facility] 02-27-2024 07:58-0400 Diastolic blood pressure 86 mm[Hg] Casi Cortez [employer] Work Phone: [facility] 02-27-2024 07:58-0400 Heart rate 77 /min Casi Cortez [employer] Work Phone: [facility] 02-27-2024 07:58-0400 SaO2% (BldA) [Mass fraction] 98 % Casi Cortez [employer] Work Phone: [facility] 02-27-2024 07:58-0400 Systolic blood pressure 126 mm[Hg] Casi Cortez [employer] Work Phone: [facility] 10-16-2023 08:36-0400 Diastolic blood pressure 82 mm[Hg] Casi Cortez [employer] Work Phone: [facility] 10-16-2023 08:36-0400 Systolic blood pressure 138 mm[Hg] Casi Cortez [employer] Work Phone: [facility] 10-16-2023 08:15-0400 Body height 185.4 cm Casi Cortez [employer] Work Phone: [facility] 10-16-2023 08:15-0400 Body mass index (BMI) [Ratio] 30.74 kg/m2 Casi Cortez [employer] Work Phone: [facility] 10-16-2023 08:15-0400 Body weight 105.69 kg Casi Cortez [employer] Work Phone: [facility] 10-16-2023 08:15-0400 Heart rate 69 /min Casi Cortez [employer] Work Phone: [facility] 10-16-2023 08:15-0400 SaO2% (BldA) [Mass fraction] 96 % Casi Cortez [employer] Work Phone: [facility] 02-06-2023 07:36-0400 Body height 185.4 cm Casi Cortez [employer] Work Phone: [facility] 02-06-2023 07:36-0400 Body mass index (BMI) [Ratio] 30.03 kg/m2 Casi Cortez [employer] Work Phone: [facility] 02-06-2023 07:36-0400 Body temperature 98.4 [degF] Casi Cortez [employer] Work Phone: [facility] 02-06-2023 07:36-0400 Body weight 103.24 kg Casi Cortez [employer] Work Phone: [facility] 02-06-2023 07:36-0400 Diastolic blood pressure 88 mm[Hg] Casi Cortez [employer] Work Phone: [facility] 02-06-2023 07:36-0400 Heart rate 81 /min Casi Cortez [employer] Work Phone: [facility] 02-06-2023 07:36-0400 Respiratory rate 15 /min Casi Cortez [employer] Work Phone: [facility] 02-06-2023 07:36-0400 SaO2% (BldA) [Mass fraction] 95 % Casi Cortez [employer] Work Phone: [facility] 02-06-2023 07:36-0400 Systolic blood pressure 139 mm[Hg] Casi oCrtez [employer] Work Phone: [facility] 03-17-2021 [...] Index) 29.8 kg/m2 Casi Cortez [facility] 10-29-2020 14:36-0400 Body Temperature 97.7 [degF] Casi Cortez [facility] 10-29-2020 14:36-0400 Body weight 103.87 kg Casi Cortez [facility] 10-29-2020 14:36-0400 BP Diastolic 80 mm[Hg] Casi Cortez [facility] 10-29-2020 14:36-0400 BP Systolic 120 mm[Hg] Casi Cortez [facility] 10-29-2020 14:36-0400 Height 186.7 cm Casi Cortez [facility] 10-29-2020 14:36-0400 Pulse (Heart Rate) 72 /min Casi Cortez [facility] 10-29-2020 14:36-0400 Pulse Oximetry 99 % Casi Cortez [facility] 10-29-2020 14:36-0400 Respiratory Rate 16 /min Casi Cortez [facility] 01-20-2020 13:48-0400 BMI (Body Mass Index) 28.11 kg/m2 Casi Cortez [facility] 01-20-2020 13:48-0400 Body Temperature 98.1 [degF] Casi Cortez [facility] 01-20-2020 13:48-0400 Body weight 97.98 kg Casi Cortez [facility] 01-20-2020 13:48-0400 BP Diastolic 76 mm[Hg] Casi Cortez [facility] 01-20-2020 13:48-0400 BP Systolic 124 mm[Hg] Casi Cortez [facility] 01-20-2020 13:48-0400 Height 186.7 cm Casi Cortez [facility] 01-20-2020 13:48-0400 Pulse (Heart Rate) 68 /min Casi Cortez [facility] 01-20-2020 13:48-0400 Pulse Oximetry 97 % Casi Cortez [facility] 01-20-2020 13:48-0400 Respiratory Rate 15 /min Casi Cortez [facility] 01-20-2020 13:48-0400 SaO2% (BldA) [Mass fraction] 97 % Casi Cortez [facility] Work Phone: [facility] 11-01-2018 15:00-0400 BMI (Body Mass Index) 26.96 [facility] 15:00-0400 BP Diastolic 72 mm[Hg[facility] 11-01-2018 15:00-0400 BP Systolic 138 mm[Hg] [facility] 11-01-2018 15:00-0400 Height 188 cm Bubba Silva [facility] 11-01-2018 15:00-0400 Pulse (Heart Rate) 80 /[facility] 11-01-2018 15:00-0400 Respiratory Rate 16 /[facility] 11-01-2018 15:00-0400 Weight 95.25 kg Bubba Silva [facility] Encounters Encounter Date Encounter Type Care Provider Facility Start: 02-12-2025 End: 02-12-[address] Le Crawford MD Work Phone: -Outpatient Breast Imaging Start: 02-12-2025 End: 02-12-[address] Le Crawford MD -Outpatient Breast Imaging Work Phone: Start: 02-12-2025 End: 02-12-2025 ambulatory Le Crawford Facility:[facility] Start: 01-21-2025 Non-patient / Non-visit Dr. Tristan ROSARIO [facility] Start: 01-21-2025 End: 01-21-[address] Le Crawford MD Work Phone: -Cardiovascular Services Start: 01-21-2025 End: 01-21-[address] Triston Nassar MD -Cardiovascular Services Work Phone: Start: 01-21-2025 End: 01-21-2025 ambulatory Triston Nassar Facility:[facility] Start: 12-21-2024 ambulatory Triston Nassar Facility :[facility] Start: 12-21-2024 Non-patient / Non-visit Dr. Tristan ROSARIO [facility] Start: 12-20-2024 End: 12-20-[address] Gerardo Manuel DO Work Phone: [facility] Work Phone: Start: 12-20-2024 End: 12-20-[address] Triston Nassar MD -Cat Scan [facility] Work Phone: Start: 12-20-2024 End: 12-20-2024 ambulatory Triston Nassar Facility:[facility] Start: 11-12-2024 End: 11-12-[address] Triston Nassar MD -[facility] Work Phone: Start: 11-12-2024 End: 11-12-2024 ambulatory Le Crawford Facility:[facility] Start: 10-08-2024 ambulatory Le Crawford Facility :[facility] Start: 10-08-2024 Non-patient / Non-visit Dr. Kayla Mendoza MD -[facility] Start: 10-08-2024 End: 10-08-2024 ambulatory LORRI NIELSEN Work Phone: [facility] Work Phone: Start: 10-08-2024 End: 10-08-[address] Le Crawford MD -Cardiovascular Services Work Phone: Start: 10-08-2024 End: 10-08-2024 ambulatory Le Crawford Facility:[facility] Start: 09-26-2024 End: 09-26-[address] Le Crawford MD -[facility] Work Phone: Start: 09-26-2024 End: 09-26-2024 ambulatory Le Crawford Facility:[facility] Start: 09-23-2024 ambulatory Pedro Donahue Facility :[facility] Start: 09-23-2024 Non-patient / Non-visit Pedro Hazel nd -[facility] Start: 09-23-2024 End: 09-23-2024 Admission to same day surgery center Pedro Donahue DO -Endoscopy Work Phone: Start: 09-23-2024 End: 09-23-2024 ambulatory Pedro Collbran Facility:[facility] Start: 08-06-2024 End: 08-07-2024 Refill Lorri Nielsen [employer] Work Phone: [facility] [place] Start: 07-22-2024 Non-patient / Non-visit LORRI NIELSEN Work Phone: -[facility] Work Phone: Start: 07-22-2024 ambulatory Zeny Villatoro Facility:[facility] Start: 07-11-2024 ambulatory Piper Del Toro Facility:[facility] Start: 07-09-2024 End: 07-09-2024 Orders Only Lorri Nielsen [employer] Work Phone: [facility] [place] Comment on above: Hypothyroidism, unsp ecified type (Primary Dx) Start: 07-09-2024 End: 07-09-2024 Patient encounter procedure LORRI NIELSEN Work Phone: -Laboratory Work Phone: Start: 07-09-2024 End: 07-09-2024 ambulatory LORRI NIELSEN [facility] Ambulatory Start: 05-21-2024 ambulatory Sage Myranda Facility:[facility] Start: 05-21-2024 End: 05-21-[address] [facility] Facility:[facility] Start: 05-12-2024 End: 01-27-2025 Documentation procedure Chuck Huertas MD Work Phone: [facility] Start: 05-08-[address] [facility] Facility:[facility] Start: 05-02-2024 End: 05-02-[address] [facility] Facility:[facility] Start: 04-30-2024 End: 04-30-2024 ambulatory [facility] Start: 04-30-2024 End: 04-30-2024 ambulatory [facility] Facility[facility] Start: 04-11-2024 End: 04-17-2024 ambulatory [facility] Start: 04-04-2024 End: 04-05-2024 Transcribe Orders Chuck Huertas MD Work Phone: [facility] Comment on above: Hypothyroidism, unsp ecified type (Primary Dx) Start: 04-04-2024 ambulatory CASI CORTEZ [facility] Ambulatory Start: 03-27-2024 End: 03-28-2024 Orders Only Casi Cortez [employer] Work Phone: [facility] [place] 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; Hypothyroidism, unspecified type Start: 03-26-2024 End: 03-27-2024 Orders Only Casi Cortez [employer] Work Phone: [facility] [place] Comment on above: Hypothyroidism, unsp ecified type (Primary Dx) Start: 03-25-2024 End: 03-27-2024 Refill Casi Cortez [employer] Work Phone: [facility] [place] Comment on above: Hypothyroidism, unsp ecified type Start: 03-20-2024 End: 03-21-2024 Orders Only Casi Cortez [employer] Work Phone: [facility] Primary [facility] [place] Comment on above: Daytime sleepiness ( Primary Dx) Start: 03-05-2024 End: 03-05-2024 Orders Only Casi Cortez [employer] Work Phone: [facility] Primary [facility] [place] Comment on above: Loud snoring (Primar y Dx) Start: 03-01-2024 End: 03-01-2024 Refill Casi Cortez [employer] Work Phone: [facility] Primary [facility] [place] 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 Start: 02-27-2024 End: 02-27-2024 Refill Casi Cortez [employer] Work Phone: [facility] Primary [facility] [place] Start: 02-27-2024 End: 02-27-2024 Office outpatient visit 25 minutes Casi Cortez [employer] Work Phone: [facility] Primary [facility] [place] Comment on above: Varicose veins of freya th lower extremities with pain (Primary Dx); Hypothyroidism, unspecified type; Loud snoring Start: 02-27-2024 End: 02-27-2024 ambulatory CASI CORTEZ [facility] Start: 02-15-2024 End: 02-16-2024 Orders Only Casi Cortez [employer] Work Phone: [facility] Physician [facility] [place] Comment on above: Hypothyroidism, unsp ecified type (Primary Dx); Beto's disease Start: 02-12-2024 ambulatory CASI CORTEZ O [facility] Ambulatory Start: 02-12-2024 Encounter for other general examination CASI CORTEZ [facility] Ambulatory Start: 01-30-2024 ambulatory CASI CORTEZ O [facility] Ambulatory Start: 2023 Orders Only Casi Cortez [employer] Work Phone: [facility] Phys[facility] [place] Comment on above: Menopause (Primary D x); Hypothyroidism, unspecified type; Encounter for biometric screening Start: 2023 Patient encounter status Kostas Cortez [employer] Work Phone: [facility] Start: 12-05-2023 Refill Casi Cortez [employer] Work Phone: [facility] Physician [facility] [place] 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 Start: 10-18-2023 ambulatory CORNELL JACOME [facility] Ambulatory Start: 10-16-2023 End: 10-16-2023 Periodic preventive med est patient 40-64yrs Casi Cortez [employer] Work Phone: [facility] [place] Comment on above: Physical exam (Prima ry Dx); Encounter for screening mammogram for malignant neoplasm of breast Start: 10-16-2023 End: 10-16-2023 Physical examination Casi Cortez [employer] Work Phone: [facility] Work Phone: Start: 10-16-2023 End: 10-16-2023 ambulatory CASI CORTEZ [facility] Ambulatory Start: 09-12-2023 Refill Gerardo Manuel DO Work Phone: [facility] [place] 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 Start: 06-12-2023 Refill Casi Zhou Cortez [employer] Work Phone: [facility] [place] 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 Start: 04-06-2023 Orders Only Casi Cortez [employer] Work Phone: [facility] [place] Comment on above: Poison thanh (Primary Dx) Start: 03-21-2023 Refill Casi Cortez [employer] Work Phone: [facility] [place] 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 Start: 03-20-2023 Orders Only Casi Cortez [employer] Work Phone: [facility] [place] Start: 03-20-2023 End: 03-20-2023 Orders Only Casi Cortez [employer] Work Phone: [facility] Phys[facility] [place] 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 Start: 02-08-2023 End: 02-08-2023 ambulatory CASI CORTEZ Facility:[facility] Start: 02-07-2023 Orders Only Casi Cortez [employer] Work Phone: [facility] [place] 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) Beto's thyroidi tis (Primary Dx) Start: 02-06-2023 End: 02-06-2023 ambulatory CASI CORTEZ [facility] Start: 02-06-2023 Orders Only Casi Cortez [employer] Work Phone: [facility] [place] Start: 02-06-2023 End: 02-06-2023 ambulatory CASI CORTEZ Facility:[facility] Start: 02-06-2023 End: 02-06-2023 Periodic preventive med est patient 40-64yrs Casi Cortez [employer] Work Phone: [facility] [place] Comment on above: Elevated TSH (Primar y Dx); Hyperlipidemia, unspecified hyperlipidemia type; Single episode of elevated blood pressure; Gastroesophageal reflux disease, unspecified whether esophagitis present Start: 12-16-2022 End: 12-16-2022 ambulatory CASI CORTEZ Facility:[facility] Start: 10-11-2022 End: 10-11-2022 ambulatory [facility] Start: 10-11-2022 End: 10-11-2022 Encounter for general adult medical examination without abnormal findings [facility] Start: 08-24-2022 End: 08-24-2022 ambulatory CASI CORTEZ [facility] Start: 08-22-2022 Refill Casi Cortez [employer] Work Phone: [facility] [place] Start: 08-17-2022 End: 08-17-2022 Orders Only Noris Camacho MD Work Phone: [facility] Comment on above: Arthritis of left hi p (Primary Dx) Start: 01-10-2022 Refill Gerardo Manuel DO Work Phone: [facility] [place] Start: 09-21-2021 Orders Only Casi Cortez [employer] Work Phone: [facility] [place] Start: 09-20-2021 Refill Casi Cortez [employer] Work Phone: [facility] [place] Start: 03-25-2021 Refill Briseyda Feliz LPN [facility] [place] Start: 03-19-2021 Orders Only Noris Camacho MD Work Phone: [facility] Comment on above: Primary osteoarthrit is of left hip (Primary Dx) Start: 03-17-2021 Orders Only Noris Camacho MD Work Phone: [facility] Comment on above: Arthritis of right h ip (Primary Dx) Start: 03-17-2021 End: 03-17-2021 Office outpatient visit 10 minutes Noris Camacho MD Work Phone: [facility] Comment on above: Arthritis of right h ip (Primary Dx) Start: 03-16-2021 Orders Only Noris Camacho MD Work Phone: [facility] Comment on above: Left hip pain (Prima ry Dx) Start: 10-29-2020 End: 10-29-2020 Office outpatient visit 25 minutes Casi Cortez Work Phone: [facility] Comment on above: Anxiety; Depression, unspecified depression type; Breast cancer screening by mammogram Start: 01-20-2020 End: 01-20-2020 Patient encounter procedure Casi Cortez [facility] Work Phone: [facility] Work Phone: Start: 01-20-2020 End: 01-20-2020 Initial preventive medicine new patient 40-64yrs Casi Zhou Cortez Work Phone: [facility] Comment on above: Well woman exam (Kamila xenia Dx); Abnormal uterine bleeding Start: 11-01-2018 End: 11-01-2018 Office outpatient visit 10 minutes Bubba Silva Work Phone: [facility] Comment on above: Encounter for colore ctal cancer screening (Primary Dx) Start: 11-14-2017 Ambulatory LEONORSkyler Casas [facility] Start: 09-20-2017 End: 09-21-2017 Ambulatory CASI N JESSICA Facility:[facility] Start: 08-21-2017 End: 08-22-2017 Ambulatory CASI N JESSICA Facility:[facility] Procedures Date Procedure Procedure Detail Performing Clinician [...] in Cervix by Cyto stain Lorri Nielsen [employer] Work Phone: Start: 02-12-2024 Mammography Casi Owens prateek [employer] Work Phone: Start: 03-24-2023 Microscopic observat ion [Identifier] in Cervix by Cyto stain Gerardo Ulm DO Work Phone: Start: 03-20-2023 Assay of thyroid stimulating hormone tsh Casi Cortez [employer] Work Phone: Start: 02-06-2023 Assay of thyroid stimulating hormone tsh Casi Cortez [employer] Work Phone: Start: 02-06-2023 Adult depression scr eening assessment Casi Cortez [employer] Work Phone: Start: 12-20-2022 Mammography Casi Owens prateek [employer] Work Phone: Start: 03-14-2022 Microscopic observat ion [Identifier] in Cervix by Cyto stain Casi Cortez [employer] Work Phone: Start: 11-22-2021 Mammography Gerardo Isai malin DO Work Phone: Start: 02-22-2021 Microscopic observat ion [Identifier] in Cervix by Cyto stain Casi Cortez [employer] Work Phone: Start: 11-17-2020 Mammography Noris Camacho [...] of cervix [facility] Start: 11-21-2028 Screening for malign ant neoplasm of colon [facility] Start: 08-27-2028 Tetanus vaccination Tetanus: Every 1 0yrs [facility] Start: 04-11-2027 Screening for malign ant neoplasm of cervix Pap Smear [facility] Start: 03-24-2026 Screening for malign ant neoplasm of cervix [facility] Start: 03-31-2025 Influenza vaccination Influenz a Vaccine (Season Ended) [facility] Start: 03-14-2025 Screening for malign ant neoplasm of cervix Pap Smear [facility] Start: 02-26-2025 Depression screening using PHQ-9 (Patient Health Questionnaire 9) score Depression Screening/Follow-Up (PHQ-2/9) [facility] Start: 02-11-2025 Screening for malign ant neoplasm of breast Mammogram [facility] Start: 12-20-2024 Following clinical pathway protocol [facility] Start: 10-19-2024 COVID-19 Vaccine () COVID-19 Vaccine () [facility] Comment on above: Postponed from 03/31 (Treatment Not Available) Start: 10-15-2024 History and physical examination, annual for health maintenance Wellness Visit [facility] Start: 09-23-2024 Colonoscopy flx dx w/collj spec when pfrmd DIAGNOSTIC COLONOSCOPY [facility] Start: 09-23-2024 Patient discharge [facility] Start: 05-16-2024 End: 04-04-2025 Thyrotropin [Units/volume] in Serum or Plasma TSH Lab Routine Hypothyroidism, unspecified type Expected: 05/16/2024, Expires: 04/04/2025 [facility] Work Phone: Comment on above: Expected: 05/16/2024 , Expires: 04/04/2025 Start: 03-31-2024 COVID-19 Vaccine ( season) COVID-19 Vaccine () [facility] Start: 03-31-2024 COVID-19 Vaccine () COVID-19 Vaccine ( season) [facility] Start: 03-31-2024 Influenza [...] Vaccine () [facility] Start: 03-31-2023 Influenza [...] breast Mammogram [facility] Start: 10-29-2021 Adolescent depressio n screening assessment Depression Screening (PHQ9) [facility] Start: 10-29-2021 Depression screening using PHQ-9 (Patient Health Questionnaire 9) score [facility] Start: 03-31-2021 Influenza vaccination Sequenti al Influenza Vaccine (#1) [facility] Start: 03-17-2021 End: 03-17-2021 Patient encounter procedure 03/17/2021 Office Visit Orthopedic Surgery Janice, J. Rajan, MD [address] [place] [address] [facility] Start: 01-29-2021 COVID-19 Vaccine (3 [...] General Surgery Bubba Silva MD [address] [place] [address] [phone] [facility] Start: 03-31-2018 Influenza vaccinatio n given SEQUENTIAL INFLUENZA VACCINE (#1) [facility] Start: 12-05-2017 Administration of he rpes zoster vaccine Zoster Vaccines (1 of 2) [facility] Start: 12-05-2017 Pneumococcal Vaccine : Age 50+ (1 of 1 - PCV) Pneumococcal Vaccine: Age 50+ (1 of 1 - PCV) [facility] Start: 12-05-2017 Screening for malign ant neoplasm of colon [facility] Start: 12-05-1997 Screening for malign ant neoplasm of cervix HPV/Cotest [facility] Start: 12-05-1985 Hepatitis C antibody , confirmatory test [facility]atitis [facility] Scre[facility] Start: 12-05-1985 Hepatitis C screening Hepatitis C Sc reening [facility] Start: 12-05-1982 HIV screening HIV Screening [facility] Start: 1965 Protein [facility] Start: 1965 Screening for malign ant neoplasm [...] Occurrences starti ng 2023 until 12/05/[address] [facility] End: 12-05-2024 Comprehensive metabolic 2000 [...] [facility] Comment on above: Ordered: 01/20/[address] [facility] Work Phone: End: 02-07-2024 Thyrotropin [Units/volume] [...] starti ng 01/20/2020 until 01/19/2021 US Heart [facility] End: 02-08-2024 [facility]roid Only [facility] [...] injectable, preservative free LORRI GAREE Work Phone: [facility] 06-07-2023 influenza, injectabl e, quadrivalent, preservative free Casi Cortez GLUE SPECIALTY SUPERVISOR Work Phone: [facility] 06-07-2023 influenza virus vaccine, unspecified formulation Casi Cortez GLUE SPECIALTY SUPERVISOR Work Phone: [facility] 05-28-2022 Covid Pfizer Bivalen t Booster LORRI GAREE Work Phone: [facility] 04-26-2022 influenza, injectabl e, quadrivalent, preservative free Casi Cortez GLUE SPECIALTY SUPERVISOR Work Phone: [facility] 07-02-2021 Pfizer SARS-CoV-2 Vaccination Casi Cortez GLUE SPECIALTY SUPERVISOR Work Phone: [facility] 05-13-2021 influenza, injectabl e, quadrivalent, preservative free Casi Cortez GLUE SPECIALTY SUPERVISOR Work Phone: [facility] 10-09-2020 zoster vaccine recombinant Casi [facility] 09-01-2020 Moderna SARS-CoV-2 Vaccination Casi [facility] 08-03-2020 Moderna SARS-CoV-2 Vaccination Casi [facility] 06-22-2020 zoster vaccine recombinant Casi [facility] 04-21-2020 influenza, injectabl e, quadrivalent, preservative free Casi [facility] 04-16-2019 influenza, injectabl e, quadrivalent, preservative free LORRI GAREE Work Phone: [facility] 04-16-2019 influenza, seasonal, injectable Casi [facility] 08-27-2018 tetanus toxoid, redu ashley diphtheria toxoid, and acellular pertussis vaccine, adsorbed Casi [facility] 04-30-2017 influenza virus vaccine, whole virus Casi [facility] 04-30-2017 influenza, injectabl e, quadrivalent, preservative free LORRI GAREE Work Phone: [facility] 05-30-2009 novel [id number], preservative-free, injectable Casi Cortez [facility] Payers Date Payer Category Payer Self-pay 2023 Managed Care (privat e) or private health insurance (indemnity), not otherwise specified SHE AETNA [id number] 2023 Private Health Insurance ELLY SANABRIA [id number] 2023-Present [phone] [address] [place] [address] [id number] .[id number] 2023 Private Health Insurance [id number] 2018 Managed Care PPO (unspecified) MED MUTUAL SUPERMED PPO [id number] 2018 Unknown MMO MED MUTUAL S UPERMED PPO xxxxxxxxxxxx 2018-Present [id number] 2018 Unknown [id number] .7.3.146074.315 2018 Unknown MMO MED MUTUAL S UPERMED PPO [id number] 2018-Present [phone] [address] [place] [address] [id number] .7.3.911600.315 2018 Unknown [id number] 1965 Unknown [id number] 2.840.1.780814.3.579.2 1967 Unknown [id number] 2.840.1.705031.3.579.2 1967 Unknown [id number] 2.840.1.483070.3.579.2 1967 Unknown [id number] 2.840.1.993515.3.579.2 1967 Unknown [id number] 2.840.1.686974.3.579.2 1967 Unknown [id number] 2.0.1.134437.3.579.2 1967 Unknown [id number] 2.840.1.774423.3.579.2 1967 Unknown [id number] 2.16840.1.271637.3.579.2 1967 Unknown [id number] 2.16840.1.825635.3.579.2 .1967 Unknown [id number] 2.16840.1.238780.3.579.2 1967 Unknown [id number] 2.16.840.1.253376.3.579.2 .903 1959 Unknown [id number] Unknown [id number] Unknown [id number] 2.16.840.1.628838.3.579.2 .383 Unknown [id number] 2.16.840.1.401703.3.579.2 .383 Unknown [id number] 2.16.840.1.031184.3.579.2 .383 Unknown [id number] 2.16.840.1.573464.3.579.2 .383 Unknown [id number] 2..840.1.771156.3.579.2 .383 Unknown [id number] 2..840.1.670194.3.579.2 .383 Unknown [id number] 2..840.1.659657.3.579.2 .462 Unknown [id number] 2.840.1.986428.3.579.2 .462 Unknown [id number] 2.840.1.368835.3.579.2 .462 Unknown [id number] 2..840.1.140490.3.579.2 .462 Unknown [id number] 2..840.1.317799.3.579.2 .462 Unknown [id number] 2..840.1.259367.3.579.2 .462 Unknown [id number] ..840.1.214655.3.579.2 .462 Unknown [id number] 2..840.1.925962.3.579.2 .462 Unknown [id number] 2..840.1.653221.3.579.2 .462 Unknown [id number] 2.16.840.1.588737.3.579.2 .462 Unknown [id number] 2.16.840.1.029681.3.579.2 .462 Unknown [id number] 2..840.1.695255.3.579.2 .462 Unknown [id number] 2.16.840.1.316568.3.579.2 .462 Unknown [id number] 2.16.840.1.289972.3.579.2 .462 Unknown [id number] 2.16.840.1.410184.3.579.2 .462 Unknown [id number] 2.16.840.1.684746.3.579.2 .462 Unknown [id number] 2.16.840.1.754501.3.579.2 .462 Unknown [id number] 2.16.840.1.031703.3.579.2 .462 Unknown [id number] 2.16.840.1.212811.3.579.2 .462 Unknown [id number] 2.16.840.1.306142.3.579.2 .462 Unknown [id number] 2.16.840.1.020448.3.579.2 .462 Social History Date Type Detail Facility Start: 11-01-2018 End: 09-26-2024 Tobacco smoking status TNIS Never smoker [facility] Start: 11-01-2018 History SDOH Alcohol Frequency 1 [facility] Start: 1965 Sex Assigned At Not on file [facility] Start: 01-20-2020 End: 02-27-2024 Alcohol intake Current drinker of alcohol (finding) [facility] Start: 01-20-2020 End: 10-29-2020 History SDOH Alcohol Frequency 2 [facility] Start: 01-20-2020 End: 10-29-2020 History SDOH Physical Activity DPW 4 [facility] Start: 01-20-2020 End: 10-29-2020 History SDOH Physical Activity MPS 6 [facility] Start: 01-20-2020 End: 10-29-2020 History SDOH Stress 3 [facility] Start: 01-20-2020 End: 10-29-2020 History SDOH Financial 5 [facility] Start: 12-21-2019 End: 01-20-2020 Exposure to SARS-CoV-2 (event) Not sure [facility] Start: 10-29-2020 End: 02-06-2023 Tobacco use and exposure Never used [facility] Start: 10-29-2020 History SDOH Social Connections Voodoo 99 [facility] Start: 11-01-2018 End: 02-27-2024 Cigarette pack-years [facility] Start: 10-29-2020 End: 02-27-2024 Humiliation, Afraid, Rape, and Kick questionnaire [HARK] [facility] Within the last year , have you been afraid of your partner or ex-partner? No [facility] How often do you att end zoroastrian or rastafarian services? Not asked [facility] How often to you hav e a drink containing alcohol? Monthly or less [facility] How hard is it for y ou [...] [facility] Start: 01-20-2020 Sexual orientation Heterosexual (finding) [facility] Start: 10-16-2024 Sex Female (finding) [facility] Start: 1965 Sex Assigned At Female [facility] Goals Date Patient Goal Desired Activity /State Functional Status Date Assessment Result Facility [facility] Mental Status Date Assessment Result Facility 12-20-2024 Cognitive function Level Of Cons ciousness Awake;Alert;Appropriate [facility] Work Phone: 09-23-2024 Cognitive function Voice/Name [facility] Work Phone: Clinical Notes 01-20-2020 to 12-24-2024 Note Date & Type Note Facility 12-24-2024 Radiology Diagnostic study note [facility] Imaging Services [address] [place], [place] [address] Limited Chest CT Cardiac Only MR#: [id number] Acct: [id number] Name: JIE HUMPHREYS Rep #: [id number] : 1965 F 59 From: Siddhartha Christianson MD PCP: Dr. Le Crawford MD Status: REG CLI Study:Limited Chest CT Cardiac Only Date of E xam: 12/20/24 Exam# [id number] Ordering Dr: Drew Nassar MD PROCEDURE: LIMITED [...] calcification (CAC) is is absent Reading Location: [facility] CC: Dr. Le Crawford MD; Dr. Triston Nassar MD ~ Support Teacher: Signed [facility] 12-21-2024 Radiology Diagnostic study note [facility] Imaging Services [address] [place] [address] 12/21/24 1112 MR#: [id number] Acct: [id number] Name: JIE HUMPHREYS Rep #:[id number] : 1965 59 From: Ryan Parikh [...] MD; Dr. Triston Nassar MD ~ Signed [facility] Work Phone: 11-12-2024 Evaluation note Diagnosis Onset Date Resolution Abnormal stress test acute Apri l 2024 1:42pm Acquired hypothyroidism acute A pril 2024 1:42pm Elevated blood pressure reading acute November 12, 2024 1:42pm [facility] Work Phone: 1(427) 655-206002-24-2025 Evaluation note* Diagnosis Onset Date Resolution Status [...] 2024 9:52am Abnormal EKG noneactive August 9:52am [facility] Work Phone: 1(433) 404-675902-24-2025 Evaluation note* Diagnosis Onset Date Resolution Status [...] pressure reading acute November 12, 2024 1:42pm [facility] Work Phone: 1(158) 504-475202-24-2025 [facility] Medical Records Department [address] [place] [address] History Physical Exam 09/23/24828 MR#: [id number] Acct: [id number] Name: JIE HUMPHREYS Rep #: [id number] : 1965 58 From: Pedro Friend DO PCP: Dr. Gerardo Manuel, DO Status:REG [facility] Location: [facility] AC14-1 HPI - General General Date of Admission: 09/23/24 Date of Service: 09/23/24 Chief Complaint: Screening colonoscopy HPI Narrative JIE HUMPHREYS, is a 58 F who presents today for screening colonoscopy. She had a colonoscopy approximately 6 years ago but they were not able to get to the cecum. She did have a barium enema that was normal. [facility] Medical History Wears contact lenses Wears glasses [...] CC: Dr. Gerardo Manuel DO; Pedro Donahue, [facility] Telephone encounter Note* Telephone Encounter - Lorri Nielsen CNP - 08/06/2024 5:19 PM EST Refills sent as requested, pt needs a follow up appointment [id number] Miscellaneous Notes* Telephone Encounter - Lorri Nielsen [...] per phuong 1 yr Please send to [facility] [address] [place] [address] Follow up: Refill pending for review without additional follow up based on information above. documented in this [id number] Telephone encounter Note* Telephone Encounter - Khai [...] per phuong 1 yr Please send to [facility] [address] [place] [address] Follow up: Refill pending for review without additional follow up based on information above. [id number] NoteTSH at goal, continue current dose of levothyroxine, refills sent, needs appointment to est within next three months AUTHENTICATED BY LORRI NIELSEN, ON 07/09/2024 17:21:17[facility] 05-12-2024 NoteHome sleep apnea test [...] Chuck Huertas MD, ELEAZARP, LILI, WANDY Diplomate: [place] [employer] Pulling Unit Operator: [facility] AUTHENTICATED BY CHUCK HUERTAS, ON 01/27/2025 04:57:[address] [place] [address] 05-12-2024 History of Present illness Narrative* Chuck [...] Chuck Huertas MD, ELEAZARP, LILI, VIANEY Diplomate: [place] [employer] Pulling Unit Operator: [facility] documented in this [id number] NotePlease confirm with sleep lab in [place] that we will get final report and recommendation from sleep med physician. I am not as familiar with the [place] sleep lab. AUTHENTICATED BY LORRI NIELSEN, ON 05/06/2024 22:48:[address] [place] [address] 03-25-2024 Telephone encounter Note* Telephone Encounter - [...] around 02/26/2025 fornext appt) Please send to [facility] [address] [place], [place] [id number] Follow up: Refill pending for review without additional follow up based on information above. [id number] Miscellaneous Notes* Telephone Encounter - Anu Clay [...] around 02/26/2025 fornext appt) Please send to [facility] [address] [place], [place] [id number] Follow up: Refill pending for review without additional follow up based on information above. documented in this [id number] Telephone encounter Note* Telephone Encounter - Melissa Quintana MA - 02/27/2024 12:22 PM EDT Spoke with patient and let her know information. [id number] Telephone encounter Note* Telephone Encounter - Melissa Quintana MA - 02/27/2024 12:22 PM EDT ----- Message from Esther Cortez sent at 02/27/2024 9:03 AM EDT ----- Please call Pt and let her know I sent referral to vascular surgeon, Dr Gaspar at the [facility] in [place]. I sent sleep study referral to [facility]. She should get a call from both places to schedule. [id number] Miscellaneous Notes* Telephone Encounter - Melissa Quintana MA - 02/27/2024 12:22 PM EDT Spoke with patient and let her know information. * Telephone Encounter - Melissa Quintana MA - 02/27/2024 12:22 PM EDT ----- Message from Esther Cortez sent at 02/27/2024 9:03 AM EDT ----- Please call Pt and let her know I sent referral to vascular surgeon, Dr Gaspar at the [facility] in [place]. I sent sleep study referral to [facility]. She should get a call from both places to schedule. documented in this [id number] NoteSubjective Patient ID: Jie Humphreys is a [...] Orders: - Ambulatory referral to Sleep Medicine ([facility]); Future - 01/20/2020 2:00 PM [...] all AUTHENTICATED BY CASI CORTEZ, ON 02/29/2024 05:51:33[facility]07-30-2024 History of Present illness Narrative* Casi Cortez, GLUE SPECIALTY SUPERVISOR - 02/27/2024 8:06 AM EDT Subjective Patient [...] Orders: - Ambulatory referral to Sleep Medicine ([facility]); Future ? 01/20/2020 2:00 PM [...] Not difficult at all documented in this [id number] Telephone encounter Note* Telephone Encounter - Melissa Quintana MA - 12/05/2023 11:44 AM EDT Requested Prescriptions Pending Prescriptions Disp Refills levothyroxine (SYNTHROID, LEVOTHROID) 25 MCG tablet 90 tablet 0 Sig: Take 1 (one) tablet (25 mcg total) by mouth once daily . Karyna arreguin run [id number] Miscellaneous Notes* Telephone Encounter - Melissa Quintana MA - 12/05/2023 11:44 AM EDT Requested Prescriptions Pending Prescriptions Disp Refills levothyroxine (SYNTHROID, LEVOTHROID) 25 MCG tablet 90 tablet 0 Sig: Take 1 (one) tablet (25 mcg total) by mouth once daily . Karyna arreguin run documented in this [id number] History of Present illness Narrative* Casi Cortez [...] Franklyn Bilateral; Future ? documented in this [id number] History of Present illness Narrative* Casi Cortez [...] Not difficult at all documented in this [id number] Telephone encounter Note* Telephone Encounter - Dione Umana CMA - 08/22/2022 9:36 AM EST Requested Prescriptions Pending Prescriptions Disp Refills meclizine (ANTIVERT) 12.5 mg tablet 90 tablet 0 Sig: Take 1 (one) tablet (12.5 mg total) by mouth 3 (three) times a day as needed . [id number] Miscellaneous Notes* Telephone Encounter - Dione Umana CMA - 08/22/2022 9:36 AM EST Requested Prescriptions Pending Prescriptions Disp Refills meclizine (ANTIVERT) 12.5 mg tablet 90 tablet 0 Sig: Take 1 (one) tablet (12.5 mg total) by mouth 3 (three) times a day as needed . documented in this [id number] Telephone encounter Note* Telephone Encounter - Dione [...] (eight) hours as needed . Karyna Norton [id number] Miscellaneous Notes* Telephone Encounter - Dione Umana [...] needed . Karyna Norton documented in this [id number] Telephone encounter Note* Telephone Encounter - Dione [...] (eight) hours as needed . Karyna Norton [id number] Miscellaneous Notes* Telephone Encounter - Dione Umana [...] needed . Karyna Norton documented in this [id number] Miscellaneous Notes* Telephone Encounter - Briseyda Feliz LPN - 03/25/2021 4:50 PM EDT Requested Prescriptions Pending Prescriptions Disp Refills meloxicam (MOBIC) 15 MG tablet 90 tablet 0 Sig: Take 1 (one) tablet (15 mg total) by mouth daily . 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 You may be low in iron [...] Log into your personal health record on [email or web address]) and enter I327 in the Education box to learn more about Abnormal Uterine Bleeding: Care Instructions. Current as of: September 18, 2018 Content Version: 12.3 4317-0275 [employer]. Care instructions adapted under license by your healthcare professional. If you have questions about a medical condition or this instruction, always ask your healthcare professional. [employer] disclaims any warranty or liability for your use of this information. documented in this [id number] History of Present illness Narrative* Casi Cortez [...] Objective Physical Exam Exam conducted with a senior director creative services present. Constitutional: Appearance: Normal appearance. 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 ? [facility]* Diagnosis Left hip pain- Primary Pain in joint, pelvic region and thigh documented in this encounter [facility] note* Diagnosis Arthritis of right hip- Primary [facility] Diagnosis Arthritis of right hip- Primary [facility]* Diagnosis Primary osteoarthritis of left hip- Primary [facility]* Diagnosis Arthritis of left hip- Primary [facility]* Diagnosis Arthritis of left hip- Primary [facility]* Diagnosis Elevated TSH- Primary Other abnormal blood chemistry Hyperlipidemia, unspecified hyperlipidemia type Single episode of elevated blood pressure Gastroesophageal reflux disease, unspecified whether esophagitis present [facility]* Diagnosis Beto's disease- Primary Chronic lymphocytic thyroiditis [facility] Diagnosis Beto's thyroiditis- Primary Chronic lymphocytic thyroiditis [facility]* Diagnosis Beto's disease Chronic lymphocytic thyroiditis [facility]* Diagnosis Beto's disease Chronic lymphocytic thyroiditis [facility] Diagnosis Poison thanh- Primary Contact dermatitis and other eczema due to plants (except food) [facility] Diagnosis Beto's disease Chronic lymphocytic thyroiditis [facility] Diagnosis Beto's disease Chronic lymphocytic thyroiditis [facility]* Diagnosis Physical exam- Primary Unspecified general medical examination Encounter for screening mammogram for malignant neoplasm of breast documented in this encounter [facility] note* Diagnosis Beto's disease Chronic lymphocytic thyroiditis documented in this encounter [facility] note* Diagnosis Menopause- Primary Symptomatic menopausal or female climacteric states Hypothyroidism, unspecified type Encounter for biometric screening documented in this encounter [facility] note* Diagnosis Hypothyroidism, unspecified type- Primary Beto's disease Chronic lymphocytic thyroiditis documented in this encounter [facility] note* Diagnosis Varicose veins of both lower extremities with pain- Primary Hypothyroidism, unspecified type Loud snoring documented in this encounter [facility] note* Diagnosis Loud snoring- Primary documented in this encounter [facility] note* Diagnosis Daytime sleepiness- Primary documented in this encounter [facility] note* Diagnosis Hypothyroidism, unspecified type- Primary documented in this encounter [facility] note* Diagnosis Hypothyroidism, unspecified type documented in this encounter [facility] note* Diagnosis Beto's disease Chronic lymphocytic thyroiditis Hypothyroidism, unspecified type documented in this encounter [facility] note* Diagnosis Hypothyroidism, unspecified type- Primary documented in this encounter [facility] note* Diagnosis Encounter for colorectal cancer screening- Primary Hypothyroidism, unspecified type- Primary documented in this encounter [facility] note* Diagnosis Encounter for colorectal cancer screening- Primary Well woman exam- Primary Routine general medical examination at a health care facility Abnormal uterine bleeding Unspecified disorder of menstruation and other abnormal bleeding from female genital tract documented in this encounter [facility] for referral (narrative)* Sleep Study w/Consultation if positive (Routine) - Authorized Specialty Diagnoses / Procedures Referred By Kim yin Referred To Contact Sleep Medicine Diagnoses Loud snoring Casi Cortez CNP 54 [place] [address] [place] [address] Sleep Medicine [address] [place] [address] Referral ID Status Reason Start Date Expiration Date V isits Requested Visits Authorized [id number] Authorized 02/27/2024 02/26/2025 1 1 * Evaluate and Treat (Routine) - Authorized Specialty Diagnoses / Procedures Referred By Contac t Referred To Contact Cardiothoracic Surgery Diagnoses Varicose veins of both lower extremities with pain Casi Cortez CNP [address] [place] [address] Segun Gaspar MD [address] [place] [id number] Referral ID Status Reason Start Date Expiration Date Visits Requested Visits Authorized [id number] Authorized Specialty Services Required/Pat ient's Best Interest 02/27/2024 02/26/2025 1 1 [facility] for referral (narrative)* Sleep Study w/Consultation if positive (Routine) - Pending Review Specialty Diagnoses / Procedures Referred By Contac t Referred To Contact Sleep Medicine Diagnoses Loud snoring Casi Cortez CNP [address] [place] [address] Sleep Medicine [address] [place] [address] Referral ID Status Reason Start Date Expiration Date Visits Requested Visits Authorized [id number] Pending Review Specialty Services Required/Pat ient's Best Interest 03/05/2024 03/05/2025 1 1 [facility] for referral (narrative)No reason for referral information [facility]WDay[facility] Work Phone: Summary Purpose Family [...] FoundDocuments on File Type Date Recorded Patient Seed Pelleter Expl anation Advance Directives and Living Will Documents on File Type Date Recorded Patient Seed Pelleter Expl anation Advance Directives and Living Will Advance Directive Response Recorded Date/ Time Living Will No September 19, 2 025 5:01pm Power of Lens Assorter No September 19, 2024 5:01pm Advance Directive Response Recorded Date/ Time Living Will No September 19, 2 025 5:01pm Do you have a Healthcare Power of Lens Assorter? No September 19, 2024 5:01pm History of Present Illness * Bubba Silva MD - 11/01/2018 3:11 PM EDT [facility] (22) [facility] [address] [place] [address] Patient Demographics: Jie Humphreys Date of : 1965 [address] [place] [address] (home) Jie Humphreys is a 52 y.o. [...] Silva MD in this encounter* Casi Cortez, [facility] - 01/20/2020 2:09 PM EDT Subjective [...] Objective Physical Exam Exam conducted with a senior director creative services present. Constitutional: Appearance: Normal appearance. 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 Orders: - Mammography Screening Bilateral; [...] uterine bleeding Procedures US Transvaginal Casi Cortez, GLUE SPECIALTY SUPERVISOR [address] [place] [address] [address] Phone: [phone] Fax: [phone] Status Reason Specialty Diagnoses / Procedures Referred By Contact Referred To Contact Authorized Diagnoses Breast cancer screening by mammogram Procedures Mammography Screening Bilateral Casi Cortez, SUNDEEP [address] [place] [address] Specialty Diagnoses / Procedures Referred By Contac t Referred To Contact Radiology Diagnoses Arthritis of right hip Procedures XR Aspiration Injection Large Joint Right Noris Camacho MD [address] [place] [id number] Referral ID Status Reason Start Date Expiration Date V isits Requested Visits Authorized [id number] Authorized 03/17/2021 03/17/2022 1 1 Specialty Diagnoses / Procedures Referred By Contac t Referred To Contact Radiology Diagnoses Primary osteoarthritis of left hip Procedures XR Aspiration Injection Large Joint Left Noris Camacho MD [address] [place] [address] Referral ID Status Reason Start Date Expiration Date V isits Requested Visits Authorized [id number] Authorized 03/19/2021 03/19/2022 1 1 Specialty Diagnoses / Procedures Referred By Contac t Referred To Contact Radiology Diagnoses Arthritis of left hip Procedures XR Aspiration Injection Large Joint Left Noris Camacho MD [address] [place] [address] Referral ID Status Reason Start Date Expiration Date V isits Requested Visits Authorized [id number] Pending Review 08/17/2022 08/17/2023 1 1 Specialty Diagnoses / Procedures Referred By Contac t Referred To Contact Diagnoses Beto's disease Procedures US Thyroid Only Casi Cortez, GLUE SPECIALTY SUPERVISOR [address] [place] [address] [address] Phone: [phone] Fax: [phone] Referral ID Status Reason Start Date Expiration Date Visits Requested Visits Authorized [id number] Authorized Specialty Services Required/Pat ient's Best Interest 02/07/2023 02/07/2024 1 1 Specialty Diagnoses / Procedures Referred By Contac t Referred To Contact Diagnoses Beto's thyroiditis Procedures US Thyroid Only Casi Cortez, GLUE SPECIALTY SUPERVISOR [address] [place] [address] [address] Phone: [phone] Fax: [phone] Referral ID Status Reason Start Date Expiration Date Visits Requested Visits Authorized [id number] Authorized Specialty Services Required/Pat ient's Best Interest 02/08/2023 02/08/2024 1 1 Specialty Diagnoses / Procedures Referred By Contac t Referred To Contact Diagnoses Encounter for screening mammogram for malignant neoplasm of breast Procedures Mammography Screening [place] Bilateral Casi Cortez, GLUE SPECIALTY SUPERVISOR [address] [place] [address] Referral ID Status Reason Start Date Expiration Date V isits Requested Visits Authorized [id number] Authorized 10/16/2023 10/15/2024 1 1 Specialty Diagnoses / Procedures Referred By Contac t Referred To Contact Sleep Disorders Medicine / Sleep Medicine Diagnoses Daytime sleepiness Casi Cortez, GLUE SPECIALTY SUPERVISOR [address] [place] [address] [facility] Sleep Medicine [address] [place] [phone] Referral ID Status Reason Start Date Expiration Date Visits Requested Visits Authorized [id number] Authorized Specialty Services Required/Pat ient's Best Interest 03/20/2024 03/20/2025 1 1 Instructions * Patient Instructions* Casi Cortez, GLUE SPECIALTY SUPERVISOR - 01/21/2020 6:00 AM EDT Abnormal Uterine [...] your doctor if you can take an [id number] medicine. You may be low in iron [...] Log into your personal health record on [email or web address] and enter I327 in the Education box to learn more about Abnormal Uterine Bleeding: Care Instructions. Current as of: September 18, 2018 Content Version: 12.3 [employer]. Care instructions adapted under license by your healthcare professional. If you have questions about a medical condition or this instruction, always ask your healthcare professional. [employer] disclaims any warranty or liability for your [...] the numbers for these national suicide hotlines: 7-751-124-TALK ( ) and 5-256-MFIDYFP ( ). If you or someone you [...] Log into your personal health record on [email or web address]) and enter P754 in the Education box to learn more about Anxiety Disorder: Care Instructions. Current as of: April 22, 2020 Content Version: 12.7 [employer]. Care instructions adapted under license by your healthcare professional. If you have questions about a medical condition or this instruction, always ask your healthcare professional. [employer] disclaims any warranty or liability for your use of this information. 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 DATE CREATED AUTHOR AUTHOR'S ORGANIZ ATION 04/01/2023 [facility] DATE CREATED AUTHOR AUTHOR'S ORGANIZ ATION 05/02/2024 [facility] DATE CREATED AUTHOR AUTHOR'S ORGANIZ ATION 07/12/2024 [facility] DATE CREATED AUTHOR AUTHOR'S ORGANIZ ATION 01/27/2025 [facility] DATE CREATED AUTHOR AUTHOR'S ORGANIZ ATION 02/19/2025 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 Care Teams (unrecognized sec tion and content) Change Consultant Relationship Specialty Start Date End Date Casi Cortez, GLUE SPECIALTY SUPERVISOR [address] [place] [address] PCP - General Nurse Practitioner 01/20/20 Casi Cortez, GLUE SPECIALTY SUPERVISOR [address] [place] [address] PCP - MIGUELITO Attributed Provider - [employer]MO Commercial 05/30/20 Change Consultant Relationship Specialty Start Date End Date Casi Cortez, GLUE SPECIALTY SUPERVISOR [address] [place] [address] PCP - General Nurse Practitioner 01/20/20 Casi Cortez, GLUE SPECIALTY SUPERVISOR [address] [place] [address] PCP - MIGUELITO Attributed Provider - M[employer] Commercial 05/30/20 Change Consultant Relationship Specialty Start Date End Date Casi Cortez CNP [address] [place] [address] PCP - General Nurse Practitioner 01/20/20 Casi Cortez, GLUE SPECIALTY SUPERVISOR [address] [place] [address] PCP - MIGUELITO Attributed Provider - M[employer] Commercial 05/30/20 Change Consultant Relationship Specialty Start Date End Date Casi Cortez, GLUE SPECIALTY SUPERVISOR [address] [place] [address] PCP - General Nurse Practitioner 01/20/20 Casi Cortez, GLUE SPECIALTY SUPERVISOR [address] [place] [address] PCP - MIGUELITO Attributed Provider - [employer] Commercial 08/31/18 07/30/50 Change Consultant Relationship Specialty Start Date End Date Casi Cortez, GLUE SPECIALTY SUPERVISOR [address] [place] [address] PCP - General Nurse Practitioner 01/20/20 Casi Cortez, GLUE SPECIALTY SUPERVISOR [address] [place] [address] PCP - MIGUELITO Attributed Provider - [employer] Commercial 08/31/18 07/30/50 Change Consultant Relationship Specialty Start Date End Date Casi Cortez, GLUE SPECIALTY SUPERVISOR [address] [place] [address] PCP - General Nurse Practitioner 01/20/20 Casi Cortez, GLUE SPECIALTY SUPERVISOR [address] [place] [address] PCP - MIGUELITO Attributed Provider - [employer] Commercial 08/31/18 07/30/50 Change Consultant Relationship Specialty Start Date End Date Casi Cortez, GLUE SPECIALTY SUPERVISOR [address] [place] [address] PCP - General Nurse Practitioner 01/20/20 Casi Cortez, GLUE SPECIALTY SUPERVISOR [address] [place] [address] PCP - MIGUELITO Attributed Provider - [employer] Commercial 08/31/18 07/30/50 Change Consultant Relationship Specialty Start Date End Date CortezKostasen WinnieSUNDEEP quintanilla [address] [place], [place] [id number] PCP - General Nurse Practitioner 01/20/20 Dana Casi Winnie, GLUE SPECIALTY SUPERVISOR [address] [place], [place] [id number] PCP - MIGUELITO [facility] Provider - MMO Commercial 08/31/18 07/30/50 Change Consultant Relationship Specialty Start Date End Date DanaKostasen WinnieSUNDEEP quintanilla [address] [place], [place] [id number] PCP - General Nurse Practitioner 01/20/20 Change Consultant Relationship Specialty Start Date End Date DanaRonnellCasimarley Zhou CNP [address] [place] [address] PCP - General Nurse Practitioner 01/20/20 Change Consultant Relationship Specialty Start Date End Date DanaRonnellCasimarley Zhou CNP [address] [place] [address] PCP - General Nurse Practitioner 01/20/20 Change Consultant Relationship Specialty Start Date End Date DanaRonnellCasimarley Zhou CNP [address] [place] [address] PCP - General Nurse Practitioner 01/20/20 Change Consultant Relationship Specialty Start Date End Date Casi Cortez CNP [address] [place], [place] [id number] PCP - General Nurse Practitioner 01/20/20 Change Consultant Relationship Specialty Start Date End Date Casi Cortez CNP [address] [place], [place] [id number] PCP - General Nurse Practitioner 01/20/20 Change Consultant Relationship Specialty Start Date End Date DanaRonnellCasi WinnieSUNDEEP quintanilla [address] [place] [address] PCP - General Nurse Practitioner 01/20/20 Casi Cortez CNP [address] [place] [address] PCP - MIGUELITO Attributed Provider - MMO Commercial 08/31/18 07/30/50 Change Consultant Relationship Specialty Start Date End Date Casi Cortez CNP [address] [place] [address] PCP - General Nurse Practitioner 01/20/20 Casi Cortez CNP [address] [place] [address] PCP - MIGUELITO Attributed Provider - MMO Commercial 08/31/18 07/30/50 Change Consultant Relationship Specialty Start Date End Date DanaRonnellCasi WinnieSUNDEEP quintanilla [address] [place] [address] PCP - General Nurse Practitioner 01/20/20 Casi Cortez CNP [address] [place] [address] PCP - MIGUELITO Attributed Provider - MMO Commercial 08/31/18 07/30/50 Change Consultant Relationship Specialty Start Date End Date Casi Cortez CNP [address] [place] [address] PCP - General Nurse Practitioner 01/20/20 Casi Cortez GLUE SPECIALTY SUPERVISOR [address] [place] [address] PCP - MIGUELITO Attributed Provider - MMO Commercial 08/31/18 07/30/50 Change Consultant Relationship Specialty Start Date End Date Casi CortezSUNDEEP [address] [place] [address] PCP - General Nurse Practitioner 01/20/20 Dana Casi ZhouSUNDEEP [address] [place] [address] PCP - MIGUELITO Attributed Provider - MMO Commercial 08/31/18 07/30/50 Change Consultant Relationship Specialty Start Date End Date DanaKostasen WinnieSUNDEEP quintanilla [address] [place] [address] PCP - General Nurse Practitioner 01/20/20 Dana Casi WinnieSUNDEEP quintanilla [address] [place] [address] PCP - MIGUELITO Attributed Provider - MMO Commercial 08/31/18 07/30/50 Change Consultant Relationship Specialty Start Date End Date CortezKostasen WinnieSUDNEEP quintanilla [address] [place] [address] PCP - General Nurse Practitioner 01/20/20 Change Consultant Relationship Specialty Start Date End Date DanaKostasen WinnieSUNDEEP quintanilla [address] [place] [address] PCP - General Nurse Practitioner 01/20/20 Change Consultant Relationship Specialty Start Date End Date Dana Casi Zhou CNP [address] [place] [address] PCP - General Nurse Practitioner 01/20/20 Change Consultant Relationship Specialty Start Date End Date Casi Cortez CNP [address] [place] [address] PCP - General Nurse Practitioner 01/20/20 Change Consultant Relationship Specialty Start Date End Date Casi Cortez CNP [address] [place] [address] PCP - General Nurse Practitioner 01/20/20 Change Consultant Relationship Specialty Start Date End Date Casi Cortez CNP [address] [place] [address] PCP - General Nurse Practitioner 01/20/20 Change Consultant Relationship Specialty Start Date End Date Casi Cortez CNP [address] [place] [address] PCP - General Nurse Practitioner 01/20/20 Change Consultant Relationship Specialty Start Date End Date Casi Cortez CNP [address] [facility] [place] [address] PCP - General Nurse Practitioner 01/20/20 Change Consultant Relationship Specialty Start Date End Date Casi Cortez CNP [address] [place] [address] PCP - General Nurse Practitioner 01/20/20 Change Consultant Relationship Specialty Start Date End Date Casi Cortez CNP [address] [place] [address] PCP - General Nurse Practitioner 01/20/20 Change Consultant Relationship Specialty Start Date End Date Lorri Nielsen CNP [address] [place] [address] PCP - General Nurse Practitioner 05/03/24 Change Consultant Relationship Specialty Start Date End Date Lorri Nielsen CNP [address] [place] [address] PCP - General Nurse Practitioner 05/03/24 Team [...] Provider Act maría Start: July 22, 2024 [facility] Attending Provider Active Start: 2023 Team Status: [...] Provider Activ e Start: October 08, 2024 Change Consultant Relationship Specialty Start Date End Date Casi Cortez CNP [address] [place] [address] PCP - General Nurse Practitioner 01/20/20 05/02/24 Casi Cortez CNP [address] [facility] [place] [address] PCP - MIGUELITO Attributed Provider - MMO [...] Provider Active S tart: January 21, 2025 Change Consultant Relationship Specialty Start Date End Date Kenyatta Nielsenah SUNDEEP Ho [address] [place] [address] PCP - General Nurse Practitioner 05/03/24 08/14/24 [...] BE BASED ON THE PRIMARY CLINICAL RECORDS. [facility] [employer] [facility]. provides no warranty or guarantee of the accuracy or completeness of information in this document.
[2025-05-02 07:47] LABS: Vitamin D,25 Hydroxy 33.1 ng/mL (30-100)
[2025-05-02 08:09] LABS: AST(SGOT) 25 U/L (<=31); Alanine Aminotransfer ALT/SGPT 21 U/L (<=34); Albumin, Serum 4.5 g/dL (3.5-5.0); Alkaline Phosphatase 94 U/L (35-104); Anion Gap 13 (5-15); BUN 17 mg/dL (4-19); BUN/Creat Ratio 25.6 RATIO (10-20); Calcium,Total 9.4 mg/dL (7.6-11.0); Carbon Dioxide 22.0 mmol/L (21.0-32.0); Chloride 104 mmol/L (98-108); Globulin 2.9 g/dL (2.2-4.2); Glucose 98 mg/dL (70-99); Potassium 4.1 mmol/L (3.3-5.1)
== END | disposition home or self-care (01) ==
LOC: LAB 06:11
PROVIDERS: PCP Internal Medicine; Referring Provider Internal Medicine; Visit Provider Internal Medicine
DX: K21.9 Gastro-esophageal reflux disease without esophagitis (principal); E03.9 Hypothyroidism, unspecified; E66.811 Obesity, class 1; E55.9 Vitamin D deficiency, unspecified
CPT/HCPCS: 36415; 80053; 82306; 84443